=== PATIENT | male | born 1945 | race Caucasian/White ===

== ENCOUNTER 2017-10-05 10:03 | Inpatient (IN) ==
[2017-11-10] MEDS ORDERED: Insulin NovoLOG Aspart Correctional Sugar Inj SQ ONE (23:39)
[2017-11-11] MEDS ORDERED: Insulin NovoLOG Aspart Correctional Sugar Inj SQ SCH
[2017-11-11] MEDS ORDERED: hydrALAZINE HCl Inj 20 MG/ML Vial IV.PUSH PRN (00:01)
[2017-11-11] MEDS ORDERED: Magnesium Sulfate Inj 4 GM in Sodium Chlor 0.9% Inj 92 ML IV.SIG PRN (00:01)
[2017-11-11] MEDS ORDERED: Sodium Phosphate Inj 30 MMOL in Sodium Chlor 0.9% Inj 250 ML IV.SIG PRN (00:01)
[2017-11-11] MEDS ORDERED: Potassium Chlor 40 mEq Premix 40 MEQ/100 ML PIGGYBACK IV.SIG PRN (00:01)
[2017-11-11] MEDS ORDERED: Magnesium Sulfate Inj 2 GM in Sodium Chlor 0.9% Inj 96 ML IV.SIG PRN (00:01)
[2017-11-11] MEDS ORDERED: Potassium Phosphate Inj 30 MMOL in Sodium Chlor 0.9% Inj 250 ML IV.SIG PRN (00:01)
[2017-11-11] MEDS ORDERED: Naloxone Inj 0.4 MG/ML Vial IV.PUSH PRN (00:01)
[2017-11-11] MEDS ORDERED: Potassium Phosphate 500 MG Soluble Tablet PO PRN ×2 (00:01)
[2017-11-11] MEDS ORDERED: Metoprolol Inj 5 MG/5 ML Vial IV.PUSH PRN (00:01)
[2017-11-11] MEDS ORDERED: Bisacodyl 10 MG Supp RECTAL PRN (00:01)
[2017-11-11] MEDS ORDERED: Magnesium Oxide 400 MG Tablet PO PRN (00:01)
[2017-11-11] MEDS: KCL 20 mEq/D5W/NaCl 0.9% Inj 1,000 ML IV.CONT SCH (03:00)
[2017-11-11] MEDS: Chlorhexidine Gluconate 2% 1 Pack (2 Cloths) TOPICAL SCH (04:00)
[2017-11-11] MEDS ORDERED: Chlorhexidine Gluconate 2% 1 Pack (2 Cloths) TOPICAL SCH (04:00)
[2017-11-11] MEDS ORDERED: Chlorhexidine Gluconate 2% 1 Pack (2 Cloths) TOPICAL PRN ×2 (04:00)
[2017-11-11] MEDS ORDERED: Gabapentin 300 MG Capsule PO SCH (06:00)
[2017-11-11 06:04] LABS: Baso # (Auto) 0.1 th/mm3 (0.0-0.2); Baso % (Auto) 0.8 % (0.0-2.0); Eos # (Auto) 0.2 th/mm3 (0.0-0.4); Eos % (Auto) 2.7 % (0.0-4.0); Hematocrit 26.7 % (39.0-51.0); Hemoglobin 8.8 gm/dL (13.0-17.0); Lymph # (Auto) 0.8 th/mm3 (1.0-4.8); Lymph % (Auto) 8.7 % (9.0-44.0); Mean Corpuscular Volume 87.7 fL (80.0-100.0); Mean Platelet Volume 8.5 fL (7.0-11.0); Mono # (Auto) 0.7 th/mm3 (0.0-0.9); Mono % (Auto) 8.5 % (0.0-8.0); Neut # (Auto) 6.9 th/mm3 (1.8-7.7); Neut % (Auto) 79.3 % (16.0-70.0); Platelet Count 232 th/mm3 (150-450); Red Blood Count 3.04 mil/mm3 (4.50-5.90); Red Cell Distribution Width 15.6 % (11.6-17.2); White Blood Count 8.7 th/mm3 (4.0-11.0)
[2017-11-11] MEDS: Insulin NovoLOG Aspart Correctional Sugar Inj SQ SCH ×4 (06:33→23:46)
[2017-11-11] MEDS: Artificial Tears Opth Drops 15 ML Bottle EACH EYE SCH ×3 (07:30→23:16)
[2017-11-11] MEDS: Chlorhexidine Gluconate 0.12% Liq 15 ML UDC SWISH-SPIT SCH ×2 (07:55→21:46)
[2017-11-11] MEDS: HYDROmorphone PF Inj 2 MG/ML Vial IV.PUSH PRN ×2 (07:57→17:13)
[2017-11-11] MEDS: Metoprolol Tartrate 50 MG Tablet PO SCH ×2 (08:07→20:02)
[2017-11-11] MEDS: Enoxaparin Inj 40 MG/0.4 ML Syringe SQ SCH (08:08)
[2017-11-11] MEDS: Insulin Detemir Inj 1,000 UNIT/10 ML Vial SQ SCH ×2 (08:08→22:55)
[2017-11-11] MEDS: Allopurinol 300 MG Tablet PO SCH (08:08)
[2017-11-11] MEDS: clonazePAM 0.5 MG Tablet PO SCH ×2 (08:09→20:02)
[2017-11-11] MEDS: Sodium Hypochlorite 0.125% Top Soln 500 ML Bottle TOPICAL SCH ×2 (08:11→20:03)
[2017-11-11] MEDS: Oral Hygiene Kit OROPHARYNG SCH ×5 (08:11→23:49)
[2017-11-11] MEDS ORDERED: amLODIPine 10 MG Tablet PO SCH (09:00)
[2017-11-11] MEDS ORDERED: Lisinopril 10 MG Tablet PO SCH (09:00)
[2017-11-11] MEDS: Pantoprazole Inj 40 MG Vial IV.CONT SCH (14:21)
[2017-11-11] MEDS: ALPRAZolam 0.5 MG Tablet PO PRN (14:21)
--- NOTE | 2017-11-11 17:58 | P.PNCC ---
Subjective Subjective Remarks/Hospital Course: This is a 72 year old male with history of type 2 diabetes, hypertension, dyslipidemia, chronic kidney disease stage III, ankylosing spondylitis, esophageal stricture s/p dilatation, diverticulitis, peritonitis, history of small bowel obstruction, colon resection x2, who was admitted to the hospital with one-week history of abd distension, constipation, and cramps. Pt tried to mange this at home, as he is familiar with symptoms. Has history of multiple bowel obstructions and multiple surgeries in the past. CT of abdomen/ pelvis showed moderately dilated large and small bowel, concentric stricturing in the sigmoid colon. Gastroenterology and general surgery were consulted. Patient was taken today to the OR by Dr. Mcgee, patient underwent exploratory laparotomy, Lysis of adhesions for dense adhesions involving small and large bowel, sigmoid colon resection with end colostomy and Holcomb's pouch. There was stricture at previous surgical site in sigmoid colon. EBL 300 ml, urine output was adequate. During the ex lap patient's sustained ureteral injury which required ureteroureteral anastomosis over stent by Dr. Page. Postop patient was moved to the PACU where his chest x-ray showed small possible left lateral pneumothorax. ABG showed a pH of 7.29/41/99 BE -6.7. I evaluated the patient in the ICU. Patient is intubated sedated with Precedex. He is tachycardic and borderline hypotensive. Additional 500 mL of fluid bolus given , 1 amp of bicarb. Received total 2.1 L in the OR. Urine output is adequate, approximately 75 ml per hour post op. With left-sided tiny pneumothorax (most likely with from central line placement in OR), will attempt CPAP trials for possible extubation. 10/09: Breathing is moderately labored to observe but the patient states he is comfortable. His major complaint is chronic back pain. Urine output is marginal but he remains well-perfused. Colostomy stoma is pink. 10/10: Labored breathing overnight. Remains on quarter normal saline at 125 cc hours and Clinimix E 4.25/25 at 83 cc an hour. Chest x-ray appears with bilateral pulmonary infiltrates. CVP is 8. Greater than 50% variation IVC by ultrasound. Bedside echocardiogram no acute findings. Patient currently with some pleuritic chest pain worse with deep inspiration. EKG currently pending. 8 run beat of V. tach overnight. Potassium magnesium within normal limits. 10/11: Afebrile. FiO2 requirements increased overnight currently at 60%. Chest x-ray revealed pulmonary edema bilaterally. Troponin downward trending. Noted sodium elevated 154. Will remove sodium from TPN. Norepinephrine initiated overnight currently at 8 mcg/min. Nitro paste discontinued. Holding parameters for beta corby 10/12: remains afebrile. back on levophed this AM at 5 mcg/min. also remains tachycardic in the 100s. sodium remains elevated despite removal of nacl from TPN. 10/13: T-max 100.4. Desaturated overnight requiring PEEP increased to 10 currently at 8. FiO2 down to 45%. Appears uncomfortable on the ventilator. Abdomen slightly more distended. Positive output from ostomy.. Transfusing 1 unit PRBCs due to acute coronary syndrome to keep above a. Recheck along with electrolytes active bleeding in place. CT abdomen/pelvis ordered. 10/14: Copious secretions overnight. PEEP at 7 FiO2 50%. Abdominal/pelvis CT revealed bilateral lobar pneumonia pelvic read as gallstone ileus but not likely is patient with copious stool output from ostomy. Did discuss with Dr. Mcgee. Antibiotic coverage broadened. Pancultured yesterday looks like his underlying pneumonia. Will transfuse 1 unit PRBCs today per cardiology request to maintain hemoglobin around 9 for acute coronary syndrome. Diuresis postprocedure and replace electrolytes aggressively. TPN will be weaned/ discontinued today after tube feeds at 40 cc an hour 10/15: t max 100.7 overnight. cultures NGTD. fio2 improving. secretions are somewhat better. 10/16: no improvements. afebrile. failed SBT after 10 minutes for tachypnea and respiratory distress. 10/17: failed sbt again for significant secretions and respiratory distress. only lasting about 10 min. may require tracheostomy. 10/18: much more awake and interactive. still has significant secretions. on SBT for longer today, but with active coronary ischemia, very high risk if he fails extubation. plan for trach if he remains intubated through the weekend. 10/19: still failing SBT. dressings changed today. clinically improving, but very weak and slow progress. 10/20: again failing SBT for copious secretions. was OOB to chair today. likely will need trach. 10/21: failed SBT for tachypnea, RR > 40. discussed with Dr. Mcege: plan for trach tomorrow. discussed with cardiology service: they will likely medically manage his coronary artery disease without [facility] intervention. this is more of a reason to pursue trach, to prevent coronary ischemia that would come with trial of extubation first. 10/22: Plan for percutaneous tracheostomy at bedside 11 AM. Arousable on the ventilator and following commands. Currently afebrile. N.p.o. status. 10/23: Status post percutaneous tracheostomy 10/22 without complication. Continues to ooze from around tracheostomy site. Will hold enoxaparin for today. Tube feeds back at goal. Denies abdominal pain. Positive flatus from ostomy site. 10/24: Normal stool coming from well-perfused ostomy. Spontaneous breathing trials with tachypnea and mild labor. Chest x-ray with chronic interstitial changes and small lung volumes. 10/25: A little bit stronger on spontaneous breathing trials today. Pressure support settings 18/10. Tolerating tube feeds. 10/26: He is tolerating a mild reduction and mean airway pressure and end expiratory pressure. Continues to look acceptably comfortable during spontaneous breathing trials. 10/27: We needed to increase PEEP again last evening. 10/28: Spontaneous breathing trial at 8/8 this morning and doing quite well. Tube feedings on hold per surgery. Patient required low dose Xanax last night for anxiety. 10/29: intermittent SBTs. will trial t-piece today. no significant change. needs LTAC level care. 10/30: t-piece trials. ostomy working. advancing trickle tube feeds per surgery. 10/31: patient having gout flair and significantly painful. however, steroids contraindicated, and NSAIDS also contraindicated with concern over renal dysfunction in the setting of critical illness. still failing to separate from mechanical ventilation. really needs LTAC level care for pulmonary rehab. 11/01: NG tube placed to suction with 700 cc of gastric contents suctioned out overnight. Patient remains on mechanical ventilation with tracheostomy on CPAP with pressure support. Failed T piece yesterday. 11/02: Remains on mechanical ventilation via tracheostomy. 11/03: Remains on mechanical ventilation via tracheostomy. CPAP trials daily. T -piece as tolerated. 11/04: On mechanical ventilation via tracheostomy. Daily CPAP trials. 11/05, 11/06: Remains on mechanical ventilation via tracheostomy. Daily CPAP trials ongoing. 11/07: Worsening respiratory status. Placed back on PRVC mode mechanical ventilation last night. Significant sick pulmonary secretions noted. No BMs via colostomy. Chest x-ray done this morning shows worsening infiltrates more on the right suspicious for aspiration. KUB done this morning shows an ileus. Already placed on Zosyn on 11/07 which should cover for pneumonia. 11/08: Resting on mechanical ventilation via tracheostomy. Wound culture from incision site growing Pseudomonas 11/09: Remains on mechanical ventilation via tracheostomy. Wound culture and sputum both growing Pseudomonas. 11/10: Is on mechanical ventilation via tracheostomy. Daily CPAP trials. 11/11: Remains on mechanical ventilation via tracheostomy. Really CPAP trials ongoing. Objective Vital Signs / I&O: Vital Signs 11/11/17 02:00 11/11/17 04:00 11/11/17 04:43 Temperature 99 F Pulse Rate 66 76 Respiratory Rate 24 22 35 H Blood Pressure 127/64 Pulse Oximetry 11/11/17 06:00 11/11/17 08:00 11/11/17 08:50 Temperature 99 F 98.6 F Pulse Rate 72 81 Respiratory Rate 29 H 35 H 20 Blood Pressure 141/68 H 136/71 Pulse Oximetry 99 99 11/11/17 10:00 11/11/17 12:00 11/11/17 16:28 Temperature 98.6 F 98.6 F Pulse Rate 81 67 Respiratory Rate 25 H 27 H 29 H Blood Pressure 136/71 135/71 Pulse Oximetry 100 100 Intake & Output 11/10/17 11/11/17 11/11/17 18:59 06:59 18:59 Intake Total 1601 / 1601 Output Total 350 / 350 Balance 1251 / 1251 Weight 71 kg Intake: Tube Feeding 516 / 516 Other 1085 / 1085 Output: Urine 250 / 250 Stool Amount (Stoma) 100 / 100 Left Lower Abdomen 100 / 100 Other: Other Intake Source Saline Solution # Voids 2 Date of Last Bowel Movement 11/11/17 Result Diagrams: 11/11/17 05:24 11/09/17 03:45 Imaging: Imaging Last 48 hours Impressions Chest X-Ray 11/07/17 Satisfactory tracheostomy positioning. Slight interval worsening in aeration. worsening infiltrates Abdomen X-Ray 11/07/17 Impressions: CONCLUSION: Nonspecific, benign abdomen appearance. Last Impressions Chest X-Ray 10/22/17 Signed Impressions: CONCLUSION: 1. Tracheostomy tube in good position 4 cm above the lorie. 2. Diffuse infiltrates bilaterally consistent with pneumonia or pulmonary won a. Abdomen/Pelvis CT 10/13/17 Signed Impressions: CONCLUSION: 1. Wall of the descending colon is diffusely thickened raising the possibility of colitis. 2. Calcified stone in the expected region of a dilated loop of small bowel wit hin the pelvis raising the possibility of gallstone ileus. Clinical correlation is recommended. 3. Alveolar consolidations are noted within the visualized lung bases consiste nt with probable pneumonia bilaterally. 4. Cholelithiasis. 5. Multiple bilateral renal cysts. 6. 1 cm hyperdense renal cyst or solid nodule within the left lower pole. 7. Skeletal findings suggest possible ankylosing spondylitis. Lower Extremity Ultrasound 10/10/17 Signed Impressions: CONCLUSION: 1. The study is negative for bilateral lower extremity deep venous thrombosis. Abdomen X-Ray 10/07/17 Signed Impressions: CONCLUSION: NG tube in the stomach. Enema w/Water Soluble 10/06/17 Signed Impressions: CONCLUSION: Apple core lesion involving the sigmoid colon generating significant luminal na rrowing. This is consistent with a colonic carcinoma. Objective Remarks: Objective Remarks GENERAL: 72-year-old male currently on mechanical ventilation via percutaneous tracheostomy SKIN: Warm and dry. No rash HEAD: Atraumatic. Normocephalic. EYES: Pupils equal round and reactive about 2 mm bilaterally. ENT: Oral cavity is moist. NG tube in left nares, clamped. NECK: Trachea midline. Supple. Tracheostomy site clean and dry. CARDIOVASCULAR: RRR. No JVD. RESPIRATORY: Equal chest rise. Symmetrical excursion. scattered rhonchi. copious secretions noted. GASTROINTESTINAL: Abdomen slightly distended midline incision with adequate healing without erythema.. Colostomy in place. MUSCULOSKELETAL: Extremities with trace to 1+ edema. Well-perfused. NEUROLOGICAL: Patient is awake alert follows commands 4. Moving all 4 extremities spontaneously. Communicates with head nod. 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 unfortunately, no additional therapies acceptable at this time for gout. continue prn oxycodone. RESP: Acute hypoxic and hypercarbic respiratory failure- now chronic. Iatrogenic left pneumothorax- resolved. Ventilator bundle Albuterol/ipratropium aerosols every 6 hours while awake with albuterol aerosols every 2 hours as needed dyspnea Spontaneous breathing trials daily: t-piece trials. very weak. Status post percutaneous tracheostomy bedside - Dr. Mcgee keep head of the bed elevated 30 Chest x-ray 10/13 revealed stable bilateral infiltrates. No pneumothorax identified. -Pneumothorax most likely secondary to central line placement in the OR CV: Essential hypertension Hyperlipidemia Coronary artery disease Elevated troponin 17.8 Currently off all vasopressors Currently metoprolol tartrate 50 mg by mouth every 6 hours Resumed aspirin 81 mg daily and and holding clopidogrel 75 mg p.o. daily -Holding atorvastatin 20 mg at night for dyslipidemia Holding amlodipine 10 mg daily lisinopril 20 mg p.o. daily 2D echocardiogram 05/29 revealed EF 50-55%. Grade 1 diastolic dysfunction. Pulmonary arterial pressure 34 mmHg Repeat revealed EF of 40-45% Followed by cardiology/Dr. Ellison: Dr. Villa discussed with team 10/21, and they will likely elect to medically manage and not intervene procedurally. metoprolol twice daily dosing. GI: 10/08 Postop s/p ex-lap, TIA, Sigmoid colon resection with end colostomy and Holcomb's pouch Recurrent colonic obstruction, small bowel obstruction ? postop ileus vs SBO History of esophageal stricture status post dilatation History of small bowel obstruction Gastroesophageal reflux disease History of diverticulitis Hypoalbuminemia -Postop management per Dr. Mcgee tube feedings with Jevity 1.[address] -Pantoprazole 40 mg IV daily for GI prophylaxis. On omeprazole 20 mg daily at home - drainage from abd incision site sent for gm stain and C/s-growing Pseudomonas. Continue Zosyn 11/06 Renal/: 10/08 Postop s/p Ureteroureteral anastomosis for ureteral injury Chronic kidney disease stage III a -Monitor renal function closely. -Removal of double-J stent 6 weeks from operative procedure outpatient setting ID: Pneumonia SSI -Started Zosyn on 11/06. Wound culture from incision site(11/06) growing Pseudomonas, sputum Gram stain and culture(11/07) growing Pseudomonas -Discontinued levofloxacin 10/14. s/p full course vancomycin and cefepime, 10/14-10/20 Sputum, blood cultures 2 10/13 NGTD Urine Legionella and pneumococcal urinary antigens 10/13 negative HEME: Normocytic anemia Thrombocytosis -Monitor CBC, CMP, coags Holding iron sulfate 325 mg p.o. daily -1 unit PRBCs to be transfused on 11/09 for hemoglobin 7.1 ENDO: Diabetes mellitus type 2 Severe hyperglycemia of critical illness Hyperglycemia History of gout Holding metformin 1000 mg by mouth twice daily - insulin detemir 5 units q12h. -sliding scale insulin/NovoLog high regimen q4h MSK History of ankylosing spondylosis Holding denosumab 60 mg subcu every 18 days Holding cholecalciferol 4000 units p.o. daily PT evaluate and treat FEN: Hold tube feeds currently at goal 50 cc an hour ICU electrolyte protocol. PROPH: -Bilateral lower extremity SCDs. Lovenox 40 subcu daily. Convert to oral H2 receptor corby if okay with surgery. LINES: - piv
--- NOTE | 2017-11-11 18:44 | P.PNGS ---
Subjective Patient reports: no new complaints Physical Exam Vital signs: Vital Signs 11/11/17 02:00 11/11/17 04:00 11/11/17 04:43 Temperature 99 F Pulse Rate 66 76 Respiratory Rate 24 22 35 H Blood Pressure 127/64 Pulse Oximetry 11/11/17 06:00 11/11/17 08:00 11/11/17 08:50 Temperature 99 F 98.6 F Pulse Rate 72 81 Respiratory Rate 29 H 35 H 20 Blood Pressure 141/68 H 136/71 Pulse Oximetry 99 99 11/11/17 10:00 11/11/17 12:00 11/11/17 16:00 Temperature 98.6 F 98.6 F 99.5 F Pulse Rate 81 67 85 Respiratory Rate 25 H 27 H 37 H Blood Pressure 136/71 135/71 149/81 H Pulse Oximetry 100 100 11/11/17 16:28 Temperature Pulse Rate Respiratory Rate 29 H Blood Pressure Pulse Oximetry 100 Intake & Output 11/10/17 11/11/17 11/11/17 18:59 06:59 18:59 Intake Total 1601 / 1601 Output Total 350 / 350 Balance 1251 / 1251 Weight 71 kg Intake: Tube Feeding 516 / 516 Other 1085 / 1085 Output: Urine 250 / 250 Stool Amount (Stoma) 100 / 100 Left Lower Abdomen 100 / 100 Other: Other Intake Source Saline Solution # Voids 2 Date of Last Bowel Movement 11/11/17 - Constitutional no acute distress - Routine Abdominal Exam Present: soft Comments: ostomy and wound stable Assessment and Plan - Plan 72yo male s/p ExLap, stable. vent weaning ongoing, PT ongoing, continue TF.
[2017-11-12] MEDS: ALPRAZolam 0.5 MG Tablet PO PRN ×2 (00:37→10:31)
[2017-11-12] MEDS: Chlorhexidine Gluconate 2% 1 Pack (2 Cloths) TOPICAL SCH (04:37)
[2017-11-12] MEDS: KCL 20 mEq/D5W/NaCl 0.9% Inj 1,000 ML IV.CONT SCH (04:37)
[2017-11-12] MEDS: HYDROmorphone PF Inj 2 MG/ML Vial IV.PUSH PRN (04:38)
[2017-11-12] MEDS: Oral Hygiene Kit OROPHARYNG SCH ×4 (04:38→23:44)
[2017-11-12] MEDS: Insulin NovoLOG Aspart Correctional Sugar Inj SQ SCH ×4 (06:28→23:44)
[2017-11-12] MEDS: Artificial Tears Opth Drops 15 ML Bottle EACH EYE SCH ×3 (06:28→21:05)
[2017-11-12] MEDS: Chlorhexidine Gluconate 0.12% Liq 15 ML UDC SWISH-SPIT SCH ×2 (07:45→20:38)
[2017-11-12] MEDS: Metoprolol Tartrate 50 MG Tablet PO SCH ×2 (10:31→20:37)
[2017-11-12] MEDS: Allopurinol 300 MG Tablet PO SCH (10:32)
[2017-11-12] MEDS: clonazePAM 0.5 MG Tablet PO SCH ×2 (10:32→20:37)
[2017-11-12] MEDS: Insulin Detemir Inj 1,000 UNIT/10 ML Vial SQ SCH ×2 (10:32→20:38)
[2017-11-12] MEDS: Enoxaparin Inj 40 MG/0.4 ML Syringe SQ SCH (10:32)
[2017-11-12] MEDS: Sodium Hypochlorite 0.125% Top Soln 500 ML Bottle TOPICAL SCH ×2 (10:50→20:38)
--- NOTE | 2017-11-12 12:35 | P.PNCC ---
Subjective Subjective Remarks/Hospital Course: This is a 72 year old male with history of type 2 diabetes, hypertension, dyslipidemia, chronic kidney disease stage III, ankylosing spondylitis, esophageal stricture s/p dilatation, diverticulitis, peritonitis, history of small bowel obstruction, colon resection x2, who was admitted to the hospital with one-week history of abd distension, constipation, and cramps. Pt tried to mange this at home, as he is familiar with symptoms. Has history of multiple bowel obstructions and multiple surgeries in the past. CT of abdomen/ pelvis showed moderately dilated large and small bowel, concentric stricturing in the sigmoid colon. Gastroenterology and general surgery were consulted. Patient was taken today to the OR by Dr. Mcgee, patient underwent exploratory laparotomy, Lysis of adhesions for dense adhesions involving small and large bowel, sigmoid colon resection with end colostomy and Holcomb's pouch. There was stricture at previous surgical site in sigmoid colon. EBL 300 ml, urine output was adequate. During the ex lap patient's sustained ureteral injury which required ureteroureteral anastomosis over stent by Dr. Page. Postop patient was moved to the PACU where his chest x-ray showed small possible left lateral pneumothorax. ABG showed a pH of 7.29/41/99 BE -6.7. I evaluated the patient in the ICU. Patient is intubated sedated with Precedex. He is tachycardic and borderline hypotensive. Additional 500 mL of fluid bolus given , 1 amp of bicarb. Received total 2.1 L in the OR. Urine output is adequate, approximately 75 ml per hour post op. With left-sided tiny pneumothorax (most likely with from central line placement in OR), will attempt CPAP trials for possible extubation. 10/09: Breathing is moderately labored to observe but the patient states he is comfortable. His major complaint is chronic back pain. Urine output is marginal but he remains well-perfused. Colostomy stoma is pink. 10/10: Labored breathing overnight. Remains on quarter normal saline at 125 cc hours and Clinimix E 4.25/25 at 83 cc an hour. Chest x-ray appears with bilateral pulmonary infiltrates. CVP is 8. Greater than 50% variation IVC by ultrasound. Bedside echocardiogram no acute findings. Patient currently with some pleuritic chest pain worse with deep inspiration. EKG currently pending. 8 run beat of V. tach overnight. Potassium magnesium within normal limits. 10/11: Afebrile. FiO2 requirements increased overnight currently at 60%. Chest x-ray revealed pulmonary edema bilaterally. Troponin downward trending. Noted sodium elevated 154. Will remove sodium from TPN. Norepinephrine initiated overnight currently at 8 mcg/min. Nitro paste discontinued. Holding parameters for beta corby 10/12: remains afebrile. back on levophed this AM at 5 mcg/min. also remains tachycardic in the 100s. sodium remains elevated despite removal of nacl from TPN. 10/13: T-max 100.4. Desaturated overnight requiring PEEP increased to 10 currently at 8. FiO2 down to 45%. Appears uncomfortable on the ventilator. Abdomen slightly more distended. Positive output from ostomy.. Transfusing 1 unit PRBCs due to acute coronary syndrome to keep above a. Recheck along with electrolytes active bleeding in place. CT abdomen/pelvis ordered. 10/14: Copious secretions overnight. PEEP at 7 FiO2 50%. Abdominal/pelvis CT revealed bilateral lobar pneumonia pelvic read as gallstone ileus but not likely is patient with copious stool output from ostomy. Did discuss with Dr. Mcgee. Antibiotic coverage broadened. Pancultured yesterday looks like his underlying pneumonia. Will transfuse 1 unit PRBCs today per cardiology request to maintain hemoglobin around 9 for acute coronary syndrome. Diuresis postprocedure and replace electrolytes aggressively. TPN will be weaned/ discontinued today after tube feeds at 40 cc an hour 10/15: t max 100.7 overnight. cultures NGTD. fio2 improving. secretions are somewhat better. 10/16: no improvements. afebrile. failed SBT after 10 minutes for tachypnea and respiratory distress. 10/17: failed sbt again for significant secretions and respiratory distress. only lasting about 10 min. may require tracheostomy. 10/18: much more awake and interactive. still has significant secretions. on SBT for longer today, but with active coronary ischemia, very high risk if he fails extubation. plan for trach if he remains intubated through the weekend. 10/19: still failing SBT. dressings changed today. clinically improving, but very weak and slow progress. 10/20: again failing SBT for copious secretions. was OOB to chair today. likely will need trach. 10/21: failed SBT for tachypnea, RR > 40. discussed with Dr[address] Mcgee: plan for trach tomorrow. discussed with cardiology service: they will likely medically manage his coronary artery disease without [facility] intervention. this is more of a reason to pursue trach, to prevent coronary ischemia that would come with trial of extubation first. 10/22: Plan for percutaneous tracheostomy at bedside 11 AM. Arousable on the ventilator and following commands. Currently afebrile. N.p.o. status. 10/23: Status post percutaneous tracheostomy 10/22 without complication. Continues to ooze from around tracheostomy site. Will hold enoxaparin for today. Tube feeds back at goal. Denies abdominal pain. Positive flatus from ostomy site. 10/24: Normal stool coming from well-perfused ostomy. Spontaneous breathing trials with tachypnea and mild labor. Chest x-ray with chronic interstitial changes and small lung volumes. 10/25: A little bit stronger on spontaneous breathing trials today. Pressure support settings 18/10. Tolerating tube feeds. 10/26: He is tolerating a mild reduction and mean airway pressure and end expiratory pressure. Continues to look acceptably comfortable during spontaneous breathing trials. 10/27: We needed to increase PEEP again last evening. 10/28: Spontaneous breathing trial at 8/8 this morning and doing quite well. Tube feedings on hold per surgery. Patient required low dose Xanax last night for anxiety. 10/29: intermittent SBTs. will trial t-piece today. no significant change. needs LTAC level care. 10/30: t-piece trials. ostomy working. advancing trickle tube feeds per surgery. 10/31: patient having gout flair and significantly painful. however, steroids contraindicated, and NSAIDS also contraindicated with concern over renal dysfunction in the setting of critical illness. still failing to separate from mechanical ventilation. really needs LTAC level care for pulmonary rehab. 11/01: NG tube placed to suction with 700 cc of gastric contents suctioned out overnight. Patient remains on mechanical ventilation with tracheostomy on CPAP with pressure support. Failed T piece yesterday. 11/02: Remains on mechanical ventilation via tracheostomy. 11/03: Remains on mechanical ventilation via tracheostomy. CPAP trials daily. T -piece as tolerated. 11/04: On mechanical ventilation via tracheostomy. Daily CPAP trials. 11/05, 11/06: Remains on mechanical ventilation via tracheostomy. Daily CPAP trials ongoing. 11/07: Worsening respiratory status. Placed back on PRVC mode mechanical ventilation last night. Significant sick pulmonary secretions noted. No BMs via colostomy. Chest x-ray done this morning shows worsening infiltrates more on the right suspicious for aspiration. KUB done this morning shows an ileus. Already placed on Zosyn on 11/07 which should cover for pneumonia. 11/08: Resting on mechanical ventilation via tracheostomy. Wound culture from incision site growing Pseudomonas 11/09: Remains on mechanical ventilation via tracheostomy. Wound culture and sputum both growing Pseudomonas. 11/10: Is on mechanical ventilation via tracheostomy. Daily CPAP trials. 11/11: Remains on mechanical ventilation via tracheostomy. Really CPAP trials ongoing. 11/12 No events overnight. On ventilator via trach. On CPAP with PS 15, PEEP:5 and FIO2 40%. Afebrile. Objective Vital Signs / I&O: Vital Signs 11/11/17 16:00 11/11/17 16:28 11/11/17 20:00 Temperature 99.5 F 98.1 F Pulse Rate 85 74 Respiratory Rate 37 H 29 H 21 Blood Pressure 149/81 H 128/66 Pulse Oximetry 100 100 99 11/11/17 20:50 11/11/17 23:47 11/12/17 00:00 Temperature 98.8 F Pulse Rate 78 94 H Respiratory Rate 24 27 H 38 H Blood Pressure 191/98 H Pulse Oximetry 100 99 98 11/12/17 03:40 11/12/17 04:00 11/12/17 06:58 Temperature 99.3 F Pulse Rate 74 102 H Respiratory Rate 24 27 H 35 H Blood Pressure 137/64 Pulse Oximetry 98 11/12/17 08:00 11/12/17 08:19 Temperature 98.4 F Pulse Rate 98 H Respiratory Rate 35 H 37 H Blood Pressure 158/84 H Pulse Oximetry 96 97 Intake & Output 11/11/17 11/12/17 11/12/17 18:59 06:59 18:59 Intake Total 683 / 683 1543 / 1543 Output Total 970 / 970 1350 / 1350 Balance -287 / -287 193 / 193 Weight 66.9 kg Intake: IV 910 / 910 D5W/NS + KCL 20 mEq Inj 1,000 910 / 910 ML @ 42 mls/hr IV.CONT .[id number] ON LICENSE OF [facility] Rx#:[id number] Tube Feeding 563 / 563 513 / 513 Tube Irrigant 120 / 120 Water Bolus Amount 120 / 120 Output: Urine 750 / 750 1300 / 1300 Stool Amount (Stoma) 220 / 220 50 / 50 Left Lower Abdomen 220 / 220 50 / 50 Other: # Voids 5 11 Date of Last Bowel Movement 11/11/17 11/11/17 11/12/17 Result Diagrams: 11/11/17 05:24 11/09/17 03:45 Objective Remarks: Objective Remarks GENERAL: 72-year-old male currently on mechanical ventilation via percutaneous tracheostomy SKIN: Warm and dry. No rash HEAD: Atraumatic. Normocephalic. EYES: Pupils equal round and reactive about 2 mm bilaterally. ENT: Oral cavity is moist. NG tube in left nares, clamped. NECK: Trachea midline. Supple. Tracheostomy site clean and dry. CARDIOVASCULAR: RRR. No JVD. RESPIRATORY: Equal chest rise. Symmetrical excursion. scattered rhonchi. copious secretions noted. GASTROINTESTINAL: Abdomen slightly distended midline incision with adequate healing without erythema.. Colostomy in place. MUSCULOSKELETAL: Extremities with trace to 1+ edema. Well-perfused. NEUROLOGICAL: Patient is awake alert follows commands 4. Moving all 4 extremities spontaneously. Communicates with head nod. 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 RESP: Acute hypoxic and hypercarbic respiratory failure- now chronic. Iatrogenic left pneumothorax- resolved. Continue with vent support keep sats >92% Albuterol/ipratropium aerosols every 6 hours while awake with albuterol aerosols every 2 hours as needed dyspnea Spontaneous breathing trials daily Pulm toilet, trach care Status post percutaneous tracheostomy bedside - Dr. Mcgee keep head of the bed elevated 30 CV: Essential hypertension Hyperlipidemia Coronary artery disease Elevated troponin 17.8 Monitor HR and BP keep MAP>65mmHg Aspirin 81 mg daily, clopidogrel 75 mg p.o. daily, Metoprolol 75mg Q12 -Holding atorvastatin 20 mg at night for dyslipidemia Holding amlodipine 10 mg daily lisinopril 20 mg p.o. daily 2D echocardiogram 05/29 revealed EF 50-55%. Grade 1 diastolic dysfunction. Pulmonary arterial pressure 34 mmHg Repeat revealed EF of 40-45% Followed by cardiology/Dr. Ellison: Dr. Villa discussed with team 10/21, and they will likely elect to medically manage and not intervene procedurally. GI: 10/08 Postop s/p ex-lap, TIA, Sigmoid colon resection with end colostomy and Holcomb's pouch Recurrent colonic obstruction, small bowel obstruction ? postop ileus vs SBO History of esophageal stricture status post dilatation History of small bowel obstruction Gastroesophageal reflux disease History of diverticulitis Hypoalbuminemia -Postop management per Dr. Mcgee tube feedings with Jevity 1.5 @50ml/hr. colostomy in place -Pantoprazole 40 mg IV daily for GI prophylaxis. On omeprazole 20 mg daily at home - drainage from abd incision site sent for gm stain and C/s-growing Pseudomonas. Continue Zosyn 11/06 Renal/: 10/08 Postop s/p Ureteroureteral anastomosis for ureteral injury Chronic kidney disease stage III a -Monitor renal function, I/O's, electrolytes replacement per protocol -Removal of double-J stent 6 weeks from operative procedure outpatient setting -D/c IVF, follow up BMP today ID: Pneumonia SSI Monitor for signs of infections ( fever, WBC) -Started Zosyn on 11/06 last dose was on 11/10 will resume Zosyn Sputum cx 11/07: Pseudomonas, repeat sputum cx Wound cx 08/06: Pseudomonas Wound culture from incision site(11/06) growing Pseudomonas, sputum Gram stain and culture(11/07) growing Pseudomonas -Discontinued levofloxacin 10/14. s/p full course vancomycin and cefepime, 10/14-10/20 Sputum, blood cultures 2 10/13 NGTD Urine Legionella and pneumococcal urinary antigens 10/13 negative HEME: Normocytic anemia Thrombocytosis -Monitor CBC, CMP, coags -1 unit PRBCs to be transfused on 11/09 for hemoglobin 7.1 ENDO: Diabetes mellitus type 2 Severe hyperglycemia of critical illness Hyperglycemia History of gout Holding metformin 1000 mg by mouth twice daily - insulin detemir 5 units q12h. -sliding scale insulin/NovoLog high regimen q4h MSK History of ankylosing spondylosis Holding denosumab 60 mg subcu every 18 days Holding cholecalciferol 4000 units p.o. daily PT evaluate and treat PROPH: -Bilateral lower extremity SCDs. Lovenox 40 subcu daily. Check labs today LINES: - piv
[2017-11-12] MEDS: Piperacil/Tazo 4.5 GM Premix 4.5 GM/100 ML BAG IV.SIG SCH ×2 (13:18→20:37)
[2017-11-12 13:22] LABS: Hematocrit 23.7 % (39.0-51.0); Hemoglobin 7.6 gm/dL (13.0-17.0); Mean Corpuscular HGB Conc 32.2 % (32.0-36.0); Mean Corpuscular Hemoglobin 28.5 pg (27.0-34.0); Mean Corpuscular Volume 88.4 fL (80.0-100.0); Mean Platelet Volume 8.3 fL (7.0-11.0); Platelet Count 270 th/mm3 (150-450); Red Blood Count 2.68 mil/mm3 (4.50-5.90); Red Cell Distribution Width 15.7 % (11.6-17.2); White Blood Count 11.5 th/mm3 (4.0-11.0)
--- NOTE | 2017-11-12 13:27 | P.PN ---
Subjective Interval history: No issues overnight Physical Exam Vital signs: Vital Signs 11/11/17 16:00 11/11/17 16:28 11/11/17 20:00 Temperature 99.5 F 98.1 F Pulse Rate 85 74 Respiratory Rate 37 H 29 H 21 Blood Pressure 149/81 H 128/66 Pulse Oximetry 100 100 99 11/11/17 20:50 11/11/17 23:47 11/12/17 00:00 Temperature 98.8 F Pulse Rate 78 94 H Respiratory Rate 24 27 H 38 H Blood Pressure 191/98 H Pulse Oximetry 100 99 98 11/12/17 03:40 11/12/17 04:00 11/12/17 06:58 Temperature 99.3 F Pulse Rate 74 102 H Respiratory Rate 24 27 H 35 H Blood Pressure 137/64 Pulse Oximetry 98 11/12/17 08:00 11/12/17 08:19 11/12/17 12:55 Temperature 98.4 F Pulse Rate 98 H Respiratory Rate 35 H 37 H 26 H Blood Pressure 158/84 H Pulse Oximetry 96 97 100 Intake & Output 11/11/17 11/12/17 11/12/17 18:59 06:59 18:59 Intake Total 683 / 683 1543 / 1543 Output Total 970 / 970 1350 / 1350 Balance -287 / -287 193 / 193 Weight 66.9 kg Intake: IV 910 / 910 D5W/NS + KCL 20 mEq Inj 1,000 910 / 910 ML @ 42 mls/hr IV.CONT .[id number] [facility] Rx#:[id number] Tube Feeding 563 / 563 513 / 513 Tube Irrigant 120 / 120 Water Bolus Amount 120 / 120 Output: Urine 750 / 750 1300 / 1300 Stool Amount (Stoma) 220 / 220 50 / 50 Left Lower Abdomen 220 / 220 50 / 50 Other: # Voids 5 11 Date of Last Bowel Movement 11/11/17 11/11/17 11/12/17 - Constitutional no acute distress - Routine Respiratory Exam Present: CTA bilaterally Comments: Fair amount secretions still Results - Labs CBC & Chem 7: 11/12/17 12:57 11/09/17 03:45 Laboratory Results - last 24 hr 11/11/17 11/11/17 11/12/17 20:24 23:38 06:23 WBC RBC Hgb Hct MCV MCH MCHC RDW Plt Count MPV POC Glucose 222 H 199 H 218 H 11/12/17 12:57 WBC 11.5 H RBC 2.68 L Hgb 7.6 L Hct 23.7 L MCV 88.4 MCH 28.5 MCHC 32.2 RDW 15.7 Plt Count 270 MPV 8.3 POC Glucose Assessment and Plan - Attending Attestation Stable Tolerating TF To LTVU as soon as bed available.
[2017-11-12 13:42] LABS: Magnesium 1.9 mg/dL (1.5-2.5); Phosphorus 2.9 mg/dL (2.5-4.9)
[2017-11-12 13:46] LABS: Alanine Aminotransferase 35 U/L (12-78); Albumin 1.8 g/dL (3.4-5.0); Alkaline Phosphatase 64 U/L (45-117); Anion Gap 9 meq/L (5-15); Aspartate Aminotransferase 17 U/L (15-37); Blood Urea Nitrogen 12 mg/dL (7-18); Carbon Dioxide 25.8 meq/L (21.0-32.0); Chloride 103 meq/L (98-107); Glomerular Filtration Rate Greater Than 89 mL/min (>89); Glucose,Random 223 mg/dL (74-106); Potassium 4.4 meq/L (3.5-5.1); Sodium 138 meq/L (136-145); Total Protein 7.3 g/dL (6.4-8.2)
[2017-11-12] MEDS: Pantoprazole Inj 40 MG Vial IV.CONT SCH (16:30)
--- NOTE | 2017-11-12 19:36 | P.PNWCN ---
Wound Care Nurse Consult Description: Patient seen earlier for follow up stoma assessment,colostomy appliance change and stoma dilation. Communicated with: NICKY Phillips [facility] Bowel Diversion Stoma - Bowel Stoma Left Lower Abdomen Stoma Edema: No Stoma Appearance: Oval, Retracted Loop Supporting Venkat: No Collection Device: Two-piece, Moldable Wafer Drainage Description: Liquid, Brown Wafer Size: 1 3/4 Moldable 45mm Stoma Care: Pouch and Wafer Changed, Skin Care Bee-Stomal Skin Appearance: Intact, Erythema (Blanching) Bee-Stomal Surrounding Tissue Sensation Description: No Symptoms - Additional Information Additional Information: Patient was seen for stoma assessment,stoma dilation, Colostomy appliance change. Removed appliance in place. Stoma spresents with 100% pink tissue and retracted. Stoma measures ~1/2 inch wide and ~1inch tall. Peristomal skin was encrusted with stoma powder followed by skin barrier film spray. Process was repeated one time. Jose seal was applied to peristomal skin from 3 to 9 o' clock to better seal appliance. Stoma was dilated with a finger. 1 3/4 two piece moldable appliance was applied. Patient tolerated procedure well.
[2017-11-13] MEDS: Piperacil/Tazo 4.5 GM Premix 4.5 GM/100 ML BAG IV.SIG SCH ×4 (01:52→19:50)
[2017-11-13] MEDS: Chlorhexidine Gluconate 2% 1 Pack (2 Cloths) TOPICAL SCH (06:43)
[2017-11-13] MEDS: Oral Hygiene Kit OROPHARYNG SCH ×3 (06:43→17:00)
[2017-11-13] MEDS: Insulin NovoLOG Aspart Correctional Sugar Inj SQ SCH ×3 (06:46→18:00)
[2017-11-13] MEDS: Artificial Tears Opth Drops 15 ML Bottle EACH EYE SCH ×2 (06:47→13:12)
[2017-11-13] MEDS: Chlorhexidine Gluconate 0.12% Liq 15 ML UDC SWISH-SPIT SCH ×2 (07:30→19:50)
[2017-11-13] MEDS: clonazePAM 0.5 MG Tablet PO SCH ×2 (10:28→20:52)
[2017-11-13] MEDS: Allopurinol 300 MG Tablet PO SCH (10:28)
[2017-11-13] MEDS: Enoxaparin Inj 40 MG/0.4 ML Syringe SQ SCH (10:29)
[2017-11-13] MEDS: Sodium Hypochlorite 0.125% Top Soln 500 ML Bottle TOPICAL SCH ×2 (10:30→20:52)
[2017-11-13] MEDS: Insulin Detemir Inj 1,000 UNIT/10 ML Vial SQ SCH ×2 (10:30→20:52)
[2017-11-13] MEDS: Metoprolol Tartrate 50 MG Tablet PO SCH ×2 (10:36→19:50)
--- NOTE | 2017-11-13 11:36 | P.PN ---
Subjective Interval history: Patient had uneventful night. Still with some secretions, although they are decreasing. at bedside. Physical Exam Vital signs: Vital Signs 11/12/17 12:00 11/12/17 12:55 11/12/17 16:00 Temperature 98 F 98.9 F Pulse Rate 66 80 Respiratory Rate 26 H 26 H 32 H Blood Pressure 125/60 143/67 H Pulse Oximetry 100 100 98 11/12/17 16:08 11/12/17 20:00 11/12/17 20:36 Temperature 98.7 F Pulse Rate 68 Respiratory Rate 33 H 26 H 29 H Blood Pressure 130/69 Pulse Oximetry 98 98 98 11/12/17 23:50 11/13/17 00:00 11/13/17 03:56 Temperature 98.9 F Pulse Rate 76 Respiratory Rate 30 H 33 H 25 H Blood Pressure 126/60 Pulse Oximetry 98 97 95 11/13/17 04:00 11/13/17 07:50 11/13/17 11:20 Temperature 98.3 F Pulse Rate 66 Respiratory Rate 26 H 28 H 25 H Blood Pressure 104/56 L Pulse Oximetry 95 100 100 Intake & Output 11/12/17 11/13/17 11/13/17 18:59 06:59 18:59 Intake Total 760 / 760 853 / 853 100 / 100 Output Total 1575 / 1575 900 / 900 Balance -815 / -815 -47 / -47 100 / 100 Weight 63.6 kg Intake: IV 100 / 100 100 / 100 100 / 100 Zosyn 4.5 GM Premix 4.5 gm In 100 / 100 100 / 100 100 / 100 100 ml @ 200 mls/hr IV.SIG Q6H [facility] Rx#:[id number] Tube Feeding 600 / 600 493 / 493 Tube Irrigant 200 / 200 Other 60 / 60 60 / 60 Output: Urine 1325 / 1325 800 / 800 Stool Amount (Stoma) 250 / 250 100 / 100 Left Lower Abdomen 250 / 250 100 / 100 Other: Other Intake Source Saline Solution # Voids 5 Date of Last Bowel Movement 11/12/17 11/12/17 - Constitutional no acute distress - Routine Respiratory Exam Present: patient mechanically ventilated, CTA bilaterally Results - Labs CBC & Chem 7: 11/12/17 12:57 11/12/17 12:57 Laboratory Results - last 24 hr 11/12/17 11/12/1718 12:57 12:57 12:57 WBC 11.5 H RBC 2.68 L Hgb 7.6 L Hct 23.7 L MCV 88.4 MCH 28.5 MCHC 32.2 RDW 15.7 Plt Count 270 MPV 8.3 Sodium 138 Potassium 4.4 Chloride 103 Carbon Dioxide 25.8 Anion Gap 9 BUN 12 Creatinine 0.80 Estimated GFR Greater than 89 POC Glucose Random Glucose 223 H Calcium 8.0 L Phosphorus 2.9 Magnesium 1.9 Total Bilirubin 0.3 AST 17 ALT 35 Alkaline Phosphatase 64 Total Protein 7.3 Albumin 1.8 L 11/12/17 11/12/17 11/12/17 13:29 17:14 23:40 WBC RBC Hgb Hct MCV MCH MCHC RDW Plt Count MPV Sodium Potassium Chloride Carbon Dioxide Anion Gap BUN Creatinine Estimated GFR POC Glucose 255 H 155 H 249 H Random Glucose Calcium Phosphorus Magnesium Total Bilirubin AST ALT Alkaline Phosphatase Total Protein Albumin 11/13/17 05:58 WBC RBC Hgb Hct MCV MCH MCHC RDW Plt Count MPV Sodium Potassium Chloride Carbon Dioxide Anion Gap BUN Creatinine Estimated GFR POC Glucose 241 H Random Glucose Calcium Phosphorus Magnesium Total Bilirubin AST ALT Alkaline Phosphatase Total Protein Albumin Assessment and Plan - Assessment (1) Large bowel obstruction Code(s): K56.609 - Unspecified intestinal obstruction, unspecified as to partial versus complete obstruction Status: Acute (2) Respiratory failure requiring intubation Code(s): J96.90 - Respiratory failure, unspecified, unspecified whether with hypoxia or hypercapnia Status: Acute - Plan Plan transfer to LTVU when bed available Discussed Condition With: Nurse
[2017-11-13] MEDS ORDERED: Phenol 1.4% 180 ML Spray Bottle OROPHARYNG PRN (12:14)
--- NOTE | 2017-11-13 15:30 | P.PNCC ---
Subjective Subjective Remarks/Hospital Course: This is a 72 year old male with history of type 2 diabetes, hypertension, dyslipidemia, chronic kidney disease stage III, ankylosing spondylitis, esophageal stricture s/p dilatation, diverticulitis, peritonitis, history of small bowel obstruction, colon resection x2, who was admitted to the hospital with one-week history of abd distension, constipation, and cramps. Pt tried to mange this at home, as he is familiar with symptoms. Has history of multiple bowel obstructions and multiple surgeries in the past. CT of abdomen/ pelvis showed moderately dilated large and small bowel, concentric stricturing in the sigmoid colon. Gastroenterology and general surgery were consulted. Patient was taken today to the OR by Dr. Mcgee, patient underwent exploratory laparotomy, Lysis of adhesions for dense adhesions involving small and large bowel, sigmoid colon resection with end colostomy and Holcomb's pouch. There was stricture at previous surgical site in sigmoid colon. EBL 300 ml, urine output was adequate. During the ex lap patient's sustained ureteral injury which required ureteroureteral anastomosis over stent by Dr. Page. Postop patient was moved to the PACU where his chest x-ray showed small possible left lateral pneumothorax. ABG showed a pH of 7.29/41/99 BE -6.7. I evaluated the patient in the ICU. Patient is intubated sedated with Precedex. He is tachycardic and borderline hypotensive. Additional 500 mL of fluid bolus given , 1 amp of bicarb. Received total 2.1 L in the OR. Urine output is adequate, approximately 75 ml per hour post op. With left-sided tiny pneumothorax (most likely with from central line placement in OR), will attempt CPAP trials for possible extubation. 10/09: Breathing is moderately labored to observe but the patient states he is comfortable. His major complaint is chronic back pain. Urine output is marginal but he remains well-perfused. Colostomy stoma is pink. 10/10: Labored breathing overnight. Remains on quarter normal saline at 125 cc hours and Clinimix E 4.25/25 at 83 cc an hour. Chest x-ray appears with bilateral pulmonary infiltrates. CVP is 8. Greater than 50% variation IVC by ultrasound. Bedside echocardiogram no acute findings. Patient currently with some pleuritic chest pain worse with deep inspiration. EKG currently pending. 8 run beat of V. tach overnight. Potassium magnesium within normal limits. 10/11: Afebrile. FiO2 requirements increased overnight currently at 60%. Chest x-ray revealed pulmonary edema bilaterally. Troponin downward trending. Noted sodium elevated 154. Will remove sodium from TPN. Norepinephrine initiated overnight currently at 8 mcg/min. Nitro paste discontinued. Holding parameters for beta corby 10/12: remains afebrile. back on levophed this AM at 5 mcg/min. also remains tachycardic in the 100s. sodium remains elevated despite removal of nacl from TPN. 10/13: T-max 100.4. Desaturated overnight requiring PEEP increased to 10 currently at 8. FiO2 down to 45%. Appears uncomfortable on the ventilator. Abdomen slightly more distended. Positive output from ostomy.. Transfusing 1 unit PRBCs due to acute coronary syndrome to keep above a. Recheck along with electrolytes active bleeding in place. CT abdomen/pelvis ordered. 10/14: Copious secretions overnight. PEEP at 7 FiO2 50%. Abdominal/pelvis CT revealed bilateral lobar pneumonia pelvic read as gallstone ileus but not likely is patient with copious stool output from ostomy. Did discuss with Dr. Mcgee. Antibiotic coverage broadened. Pancultured yesterday looks like his underlying pneumonia. Will transfuse 1 unit PRBCs today per cardiology request to maintain hemoglobin around 9 for acute coronary syndrome. Diuresis postprocedure and replace electrolytes aggressively. TPN will be weaned/ discontinued today after tube feeds at 40 cc an hour 10/15: t max 100.7 overnight. cultures NGTD. fio2 improving. secretions are somewhat better. 10/16: no improvements. afebrile. failed SBT after 10 minutes for tachypnea and respiratory distress. 10/17: failed sbt again for significant secretions and respiratory distress. only lasting about 10 min. may require tracheostomy. 10/18: much more awake and interactive. still has significant secretions. on SBT for longer today, but with active coronary ischemia, very high risk if he fails extubation. plan for trach if he remains intubated through the weekend. 10/19: still failing SBT. dressings changed today. clinically improving, but very weak and slow progress. 10/20: again failing SBT for copious secretions. was OOB to chair today. likely will need trach. 10/21: failed SBT for tachypnea, RR > 40. discussed with Dr[address] Mcgee: plan for trach tomorrow. discussed with cardiology service: they will likely medically manage his coronary artery disease without [facility] intervention. this is more of a reason to pursue trach, to prevent coronary ischemia that would come with trial of extubation first. 10/22: Plan for percutaneous tracheostomy at bedside 11 AM. Arousable on the ventilator and following commands. Currently afebrile. N.p.o. status. 10/23: Status post percutaneous tracheostomy 10/22 without complication. Continues to ooze from around tracheostomy site. Will hold enoxaparin for today. Tube feeds back at goal. Denies abdominal pain. Positive flatus from ostomy site. 10/24: Normal stool coming from well-perfused ostomy. Spontaneous breathing trials with tachypnea and mild labor. Chest x-ray with chronic interstitial changes and small lung volumes. 10/25: A little bit stronger on spontaneous breathing trials today. Pressure support settings 18/10. Tolerating tube feeds. 10/26: He is tolerating a mild reduction and mean airway pressure and end expiratory pressure. Continues to look acceptably comfortable during spontaneous breathing trials. 10/27: We needed to increase PEEP again last evening. 10/28: Spontaneous breathing trial at 8/8 this morning and doing quite well. Tube feedings on hold per surgery. Patient required low dose Xanax last night for anxiety. 10/29: intermittent SBTs. will trial t-piece today. no significant change. needs LTAC level care. 10/30: t-piece trials. ostomy working. advancing trickle tube feeds per surgery. 10/31: patient having gout flair and significantly painful. however, steroids contraindicated, and NSAIDS also contraindicated with concern over renal dysfunction in the setting of critical illness. still failing to separate from mechanical ventilation. really needs LTAC level care for pulmonary rehab. 11/01: NG tube placed to suction with 700 cc of gastric contents suctioned out overnight. Patient remains on mechanical ventilation with tracheostomy on CPAP with pressure support. Failed T piece yesterday. 11/02: Remains on mechanical ventilation via tracheostomy. 11/03: Remains on mechanical ventilation via tracheostomy. CPAP trials daily. T -piece as tolerated. 11/04: On mechanical ventilation via tracheostomy. Daily CPAP trials. 11/05, 11/06: Remains on mechanical ventilation via tracheostomy. Daily CPAP trials ongoing. 11/07: Worsening respiratory status. Placed back on PRVC mode mechanical ventilation last night. Significant sick pulmonary secretions noted. No BMs via colostomy. Chest x-ray done this morning shows worsening infiltrates more on the right suspicious for aspiration. KUB done this morning shows an ileus. Already placed on Zosyn on 11/07 which should cover for pneumonia. 11/08: Resting on mechanical ventilation via tracheostomy. Wound culture from incision site growing Pseudomonas 11/09: Remains on mechanical ventilation via tracheostomy. Wound culture and sputum both growing Pseudomonas. 11/10: Is on mechanical ventilation via tracheostomy. Daily CPAP trials. 11/11: Remains on mechanical ventilation via tracheostomy. Really CPAP trials ongoing. 11/12 No events overnight. On ventilator via trach. On CPAP with PS 15, PEEP:5 and FIO2 40%. Afebrile. Subjective: 11/13 Patient denies complaint. Wants NGT out but understand rationale for continuing. On CPAP 15. Tolerating tube feeds. Afebrile. Objective Vital Signs / I&O: Vital Signs 11/12/17 16:00 11/12/17 16:08 11/12/17 20:00 Temperature 98.9 F 98.7 F Pulse Rate 80 68 Respiratory Rate 32 H 33 H 26 H Blood Pressure 143/67 H 130/69 Pulse Oximetry 98 98 98 11/12/17 20:36 11/12/17 23:50 11/13/17 00:00 Temperature 98.9 F Pulse Rate 76 Respiratory Rate 29 H 30 H 33 H Blood Pressure 126/60 Pulse Oximetry 98 98 97 11/13/17 03:56 11/13/17 04:00 11/13/17 07:50 Temperature 98.3 F Pulse Rate 66 Respiratory Rate 25 H 26 H 28 H Blood Pressure 104/56 L Pulse Oximetry 95 95 100 11/13/17 11:20 Temperature Pulse Rate Respiratory Rate 25 H Blood Pressure Pulse Oximetry 100 Intake & Output 11/12/17 11/13/17 11/13/17 18:59 06:59 18:59 Intake Total 1096 / 1096 853 / 853 300 / 300 Output Total 1575 / 1575 900 / 900 Balance -479 / -479 -47 / -47 300 / 300 Weight 63.6 kg Intake: IV 436 / 436 100 / 100 300 / 300 Zosyn 4.5 GM Premix 4.5 gm In 100 / 100 100 / 100 300 / 300 100 ml @ 200 mls/hr IV.SIG Q6H [facility] Rx#:[id number] Tube Feeding 600 / 600 493 / 493 Tube Irrigant 200 / 200 Other 60 / 60 60 / 60 Output: Urine 1325 / 1325 800 / 800 Stool Amount (Stoma) 250 / 250 100 / 100 Left Lower Abdomen 250 / 250 100 / 100 Other: Other Intake Source Saline Solution # Voids 5 Date of Last Bowel Movement 11/12/17 11/12/17 Result Diagrams: 11/12/17 12:57 11/12/17 12:57 Objective Remarks: Objective Remarks GENERAL: 72-year-old male currently on mechanical ventilation via percutaneous tracheostomy SKIN: Warm and dry. No rash HEAD: Atraumatic. Normocephalic. EYES: Pupils equal round and reactive about 2 mm bilaterally. ENT: Oral cavity is moist. NG tube in left nare with tube feeds running. NECK: Trachea midline. Supple. Tracheostomy site clean and dry. CARDIOVASCULAR: RRR. No JVD. RESPIRATORY: Equal chest rise. Symmetrical excursion. scattered rhonchi. GASTROINTESTINAL: Abdomen slightly distended, slightly tympanitic, midline incision with dressing c/d/i. Colostomy in place with gas in the bag and some dark liquid stool . MUSCULOSKELETAL: No edema lower extremities.. Well-perfused. NEUROLOGICAL: Patient is awake alert follows commands 4. Moving all 4 extremities spontaneously. Communicates with head nod. 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 Out of bed to chair with assist at least daily. RESP: Acute hypoxic and hypercarbic respiratory failure- now chronic. Iatrogenic left pneumothorax- resolved. Continue with vent support keep sats >92% Albuterol/ipratropium aerosols every 6 hours while awake with albuterol aerosols every 2 hours as needed dyspnea Pulm toilet, trach care Status post percutaneous tracheostomy bedside - Dr. Mcgee keep head of the bed elevated 30 CPAP trials daily, wean as tolerated. CV: Essential hypertension Hyperlipidemia Coronary artery disease Post operative STEMI Monitor HR and BP keep MAP>65mmHg Aspirin 81 mg daily, clopidogrel 75 mg p.o. daily, Metoprolol 75mg Q12 -Holding atorvastatin 20 mg at night for dyslipidemia Holding amlodipine 10 mg daily lisinopril 20 mg p.o. daily 2D echocardiogram 05/29 revealed EF 50-55%. Grade 1 diastolic dysfunction. Pulmonary arterial pressure 34 mmHg Repeat revealed EF of 40-45% Followed by cardiology/Dr. Ellison: Dr. Villa discussed with team 10/21, and they recommended medical management. Continued conservative management recommended 11/02. GI: 10/08 Postop s/p ex-lap, TIA, Sigmoid colon resection with end colostomy and Holcomb's pouch Recurrent colonic obstruction, small bowel obstruction ? postop ileus vs SBO History of esophageal stricture status post dilatation History of small bowel obstruction Gastroesophageal reflux disease History of diverticulitis Hypoalbuminemia -Postop management per Dr. Mcgee tube feedings with Jevity 1.5 @50ml/hr. colostomy in place -Pantoprazole 40 mg IV daily for GI prophylaxis. On omeprazole 20 mg daily at home - drainage from abd incision site sent for gm stain and C/s-growing Pseudomonas. On Zosyn 11/06 #8 and Dakin's solution to packing per General Surgery. Renal/: 10/08 Postop s/p Ureteroureteral anastomosis for ureteral injury Chronic kidney disease stage III a -Monitor renal function, I/O's, electrolytes replacement per protocol -Removal of double-J stent 6 weeks from operative procedure outpatient setting -Off IVF ID: Pneumonia SSI Monitor for signs of infections ( fever, WBC) -Started Zosyn on 11/06, Continue Zosyn and Dakin's solution per general surgery. Sputum cx 11/07: Pseudomonas, repeat sputum cx Wound cx 08/06: Pseudomonas Wound culture from incision site(11/06) growing Pseudomonas, sputum Gram stain and culture(11/07) growing pansenstive Pseudomonas -Discontinued levofloxacin 10/14. s/p course vancomycin and cefepime, 10/14-10/20 Sputum, blood cultures 2 10/13 NGTD Urine Legionella and pneumococcal urinary antigens 10/13 negative HEME: Normocytic anemia Thrombocytosis -Monitor CBC, CMP, coags -1 unit PRBCs to be transfused on 11/09 for hemoglobin 7.1 ENDO: Diabetes mellitus type 2 Severe hyperglycemia of critical illness Hyperglycemia History of gout Holding metformin 1000 mg by mouth twice daily -Glucose not at target, has received 50 units of regular per protocol. Tolerating tube feeds so will increase detemir 10 units q12h. -sliding scale insulin/NovoLog high regimen q6h MSK History of ankylosing spondylosis Holding denosumab 60 mg subcu every 18 days Holding cholecalciferol 4000 units p.o. daily PT evaluate and treat PROPH: -Bilateral lower extremity SCDs. Lovenox 40 subcu daily. On protonix 40 mg IV for stress ulcer prophylaxis. LINES: - piv Level 2 followup
[2017-11-13] MEDS: Pantoprazole Inj 40 MG Vial IV.CONT SCH (17:00)
[2017-11-13] MEDS: Zolpidem Tartrate 5 MG Tablet PO PRN (20:52)
[2017-11-14] MEDS: Artificial Tears Opth Drops 15 ML Bottle EACH EYE SCH ×4 (00:15→21:11)
[2017-11-14] MEDS: Insulin NovoLOG Aspart Correctional Sugar Inj SQ SCH ×5 (00:15→23:56)
[2017-11-14] MEDS: Oral Hygiene Kit OROPHARYNG SCH ×4 (00:18→16:31)
[2017-11-14] MEDS: Piperacil/Tazo 4.5 GM Premix 4.5 GM/100 ML BAG IV.SIG SCH ×4 (01:36→21:09)
[2017-11-14] MEDS: Chlorhexidine Gluconate 2% 1 Pack (2 Cloths) TOPICAL SCH (05:04)
[2017-11-14 05:06] LABS: Hematocrit 23.3 % (39.0-51.0); Hemoglobin 7.7 gm/dL (13.0-17.0); Mean Corpuscular HGB Conc 32.9 % (32.0-36.0); Mean Corpuscular Hemoglobin 28.7 pg (27.0-34.0); Mean Corpuscular Volume 87.3 fL (80.0-100.0); Mean Platelet Volume 8.5 fL (7.0-11.0); Platelet Count 280 th/mm3 (150-450); Red Blood Count 2.67 mil/mm3 (4.50-5.90); Red Cell Distribution Width 15.5 % (11.6-17.2)
[2017-11-14 05:24] LABS: Calcium 8.6 mg/dL (8.5-10.1); Carbon Dioxide 25.7 meq/L (21.0-32.0); Potassium 3.8 meq/L (3.5-5.1)
[2017-11-14] MEDS: Metoprolol Tartrate 50 MG Tablet PO SCH ×3 (09:17→23:56)
[2017-11-14] MEDS: Chlorhexidine Gluconate 0.12% Liq 15 ML UDC SWISH-SPIT SCH ×2 (09:17→21:11)
[2017-11-14] MEDS: clonazePAM 0.5 MG Tablet PO SCH ×2 (09:18→21:10)
[2017-11-14] MEDS: Sodium Hypochlorite 0.125% Top Soln 500 ML Bottle TOPICAL SCH ×2 (09:18→21:10)
[2017-11-14] MEDS: Enoxaparin Inj 40 MG/0.4 ML Syringe SQ SCH (09:19)
[2017-11-14] MEDS: Insulin Detemir Inj 1,000 UNIT/10 ML Vial SQ SCH ×2 (09:19→21:10)
[2017-11-14] MEDS: Allopurinol 300 MG Tablet PO SCH (09:19)
--- NOTE | 2017-11-14 12:36 | P.PNGS ---
Subjective Patient reports: no new complaints (Patient indicates the swallowing study will be done tomorrow. We communicated through the writing on pen and paper on what expectations were for a swallowing study. He presently continues to get nasogastric tube feedings. He indicates he has no abdominal pain.) Physical Exam Vital signs: Vital Signs 11/13/17 16:00 11/13/17 16:09 11/13/17 20:00 Temperature 98.6 F 98.6 F Pulse Rate 74 76 Respiratory Rate 32 H 31 H 24 Blood Pressure 140/67 127/67 Pulse Oximetry 99 100 100 11/13/17 20:08 11/14/17 00:00 11/14/17 03:47 Temperature 98.4 F Pulse Rate 64 Respiratory Rate 24 25 H 30 H Blood Pressure 123/62 Pulse Oximetry 100 99 98 11/14/17 04:00 11/14/17 10:23 Temperature 98.6 F Pulse Rate 68 Respiratory Rate 25 H 35 H Blood Pressure 131/71 Pulse Oximetry 98 97 Intake & Output 11/13/17 11/14/17 11/14/17 18:59 06:59 18:59 Intake Total 908 / 908 831 / 831 100 / 100 Output Total 825 / 825 250 / 250 Balance 83 / 83 581 / 581 100 / 100 Weight 67.4 kg Intake: IV 300 / 300 100 / 100 100 / 100 Zosyn 4.5 GM Premix 4.5 gm In 300 / 300 100 / 100 100 / 100 100 ml @ 200 mls/hr IV.SIG Q6H [facility] Rx#:[id number] Tube Feeding 548 / 548 551 / 551 Tube Irrigant 120 / 120 Other 60 / 60 60 / 60 Output: Urine 675 / 675 Stool 150 / 150 150 / 150 Stool Amount (Stoma) 100 / 100 Left Lower Abdomen 100 / 100 Other: Other Intake Source Saline Solution # Voids 4 Date of Last Bowel Movement 11/13/17 11/13/17 Narrative: Tracheostomy tube in place. No significant drainage around trach tube. He is breathing is nonlabored. His colostomy appears retracted. There is good's liquid stool within the bag and coming through the stoma. His midline incision has several openings where saline wet-to-dry dressing is in place and the wounds appear to be granulating in well. There was no sign of purulent drainage. Assessment and Plan - Assessment (1) Large bowel obstruction Code(s): K56.609 - Unspecified intestinal obstruction, unspecified as to partial versus complete obstruction Status: Acute Plan: Patient anticipates swallowing study tomorrow. If he passes he could have his NG tube removed and his diet advanced. I discussed with him in detail the potential sequence of events associated with a swallowing. He thanked me. (2) Respiratory failure requiring intubation Code(s): J96.90 - Respiratory failure, unspecified, unspecified whether with hypoxia or hypercapnia Status: Acute
--- NOTE | 2017-11-14 13:17 | P.PNCC ---
Subjective Subjective Remarks/Hospital Course: This is a 72 year old male with history of type 2 diabetes, hypertension, dyslipidemia, chronic kidney disease stage III, ankylosing spondylitis, esophageal stricture s/p dilatation, diverticulitis, peritonitis, history of small bowel obstruction, colon resection x2, who was admitted to the hospital with one-week history of abd distension, constipation, and cramps. Pt tried to mange this at home, as he is familiar with symptoms. Has history of multiple bowel obstructions and multiple surgeries in the past. CT of abdomen/ pelvis showed moderately dilated large and small bowel, concentric stricturing in the sigmoid colon. Gastroenterology and general surgery were consulted. Patient was taken today to the OR by Dr. Mcgee, patient underwent exploratory laparotomy, Lysis of adhesions for dense adhesions involving small and large bowel, sigmoid colon resection with end colostomy and Holcomb's pouch. There was stricture at previous surgical site in sigmoid colon. EBL 300 ml, urine output was adequate. During the ex lap patient's sustained ureteral injury which required ureteroureteral anastomosis over stent by Dr. Page. Postop patient was moved to the PACU where his chest x-ray showed small possible left lateral pneumothorax. ABG showed a pH of 7.29/41/99 BE -6.7. I evaluated the patient in the ICU. Patient is intubated sedated with Precedex. He is tachycardic and borderline hypotensive. Additional 500 mL of fluid bolus given , 1 amp of bicarb. Received total 2.1 L in the OR. Urine output is adequate, approximately 75 ml per hour post op. With left-sided tiny pneumothorax (most likely with from central line placement in OR), will attempt CPAP trials for possible extubation. 10/09: Breathing is moderately labored to observe but the patient states he is comfortable. His major complaint is chronic back pain. Urine output is marginal but he remains well-perfused. Colostomy stoma is pink. 10/10: Labored breathing overnight. Remains on quarter normal saline at 125 cc hours and Clinimix E 4.25/25 at 83 cc an hour. Chest x-ray appears with bilateral pulmonary infiltrates. CVP is 8. Greater than 50% variation IVC by ultrasound. Bedside echocardiogram no acute findings. Patient currently with some pleuritic chest pain worse with deep inspiration. EKG currently pending. 8 run beat of V. tach overnight. Potassium magnesium within normal limits. 10/11: Afebrile. FiO2 requirements increased overnight currently at 60%. Chest x-ray revealed pulmonary edema bilaterally. Troponin downward trending. Noted sodium elevated 154. Will remove sodium from TPN. Norepinephrine initiated overnight currently at 8 mcg/min. Nitro paste discontinued. Holding parameters for beta corby 10/12: remains afebrile. back on levophed this AM at 5 mcg/min. also remains tachycardic in the 100s. sodium remains elevated despite removal of nacl from TPN. 10/13: T-max 100.4. Desaturated overnight requiring PEEP increased to 10 currently at 8. FiO2 down to 45%. Appears uncomfortable on the ventilator. Abdomen slightly more distended. Positive output from ostomy.. Transfusing 1 unit PRBCs due to acute coronary syndrome to keep above a. Recheck along with electrolytes active bleeding in place. CT abdomen/pelvis ordered. 10/14: Copious secretions overnight. PEEP at 7 FiO2 50%. Abdominal/pelvis CT revealed bilateral lobar pneumonia pelvic read as gallstone ileus but not likely is patient with copious stool output from ostomy. Did discuss with Dr. Mcgee. Antibiotic coverage broadened. Pancultured yesterday looks like his underlying pneumonia. Will transfuse 1 unit PRBCs today per cardiology request to maintain hemoglobin around 9 for acute coronary syndrome. Diuresis postprocedure and replace electrolytes aggressively. TPN will be weaned/ discontinued today after tube feeds at 40 cc an hour 10/15: t max 100.7 overnight. cultures NGTD. fio2 improving. secretions are somewhat better. 10/16: no improvements. afebrile. failed SBT after 10 minutes for tachypnea and respiratory distress. 10/17: failed sbt again for significant secretions and respiratory distress. only lasting about 10 min. may require tracheostomy. 10/18: much more awake and interactive. still has significant secretions. on SBT for longer today, but with active coronary ischemia, very high risk if he fails extubation. plan for trach if he remains intubated through the weekend. 10/19: still failing SBT. dressings changed today. clinically improving, but very weak and slow progress. 10/20: again failing SBT for copious secretions. was OOB to chair today. likely will need trach. 10/21: failed SBT for tachypnea, RR > 40. discussed with Dr[address] Mcgee: plan for trach tomorrow. discussed with cardiology service: they will likely medically manage his coronary artery disease without [facility] intervention. this is more of a reason to pursue trach, to prevent coronary ischemia that would come with trial of extubation first. 10/22: Plan for percutaneous tracheostomy at bedside 11 AM. Arousable on the ventilator and following commands. Currently afebrile. N.p.o. status. 10/23: Status post percutaneous tracheostomy 10/22 without complication. Continues to ooze from around tracheostomy site. Will hold enoxaparin for today. Tube feeds back at goal. Denies abdominal pain. Positive flatus from ostomy site. 10/24: Normal stool coming from well-perfused ostomy. Spontaneous breathing trials with tachypnea and mild labor. Chest x-ray with chronic interstitial changes and small lung volumes. 10/25: A little bit stronger on spontaneous breathing trials today. Pressure support settings 18/10. Tolerating tube feeds. 10/26: He is tolerating a mild reduction and mean airway pressure and end expiratory pressure. Continues to look acceptably comfortable during spontaneous breathing trials. 10/27: We needed to increase PEEP again last evening. 10/28: Spontaneous breathing trial at 8/8 this morning and doing quite well. Tube feedings on hold per surgery. Patient required low dose Xanax last night for anxiety. 10/29: intermittent SBTs. will trial t-piece today. no significant change. needs LTAC level care. 10/30: t-piece trials. ostomy working. advancing trickle tube feeds per surgery. 10/31: patient having gout flair and significantly painful. however, steroids contraindicated, and NSAIDS also contraindicated with concern over renal dysfunction in the setting of critical illness. still failing to separate from mechanical ventilation. really needs LTAC level care for pulmonary rehab. 11/01: NG tube placed to suction with 700 cc of gastric contents suctioned out overnight. Patient remains on mechanical ventilation with tracheostomy on CPAP with pressure support. Failed T piece yesterday. 11/02: Remains on mechanical ventilation via tracheostomy. 11/03: Remains on mechanical ventilation via tracheostomy. CPAP trials daily. T -piece as tolerated. 11/04: On mechanical ventilation via tracheostomy. Daily CPAP trials. 11/05, 11/06: Remains on mechanical ventilation via tracheostomy. Daily CPAP trials ongoing. 11/07: Worsening respiratory status. Placed back on PRVC mode mechanical ventilation last night. Significant sick pulmonary secretions noted. No BMs via colostomy. Chest x-ray done this morning shows worsening infiltrates more on the right suspicious for aspiration. KUB done this morning shows an ileus. Already placed on Zosyn on 11/07 which should cover for pneumonia. 11/08: Resting on mechanical ventilation via tracheostomy. Wound culture from incision site growing Pseudomonas 11/09: Remains on mechanical ventilation via tracheostomy. Wound culture and sputum both growing Pseudomonas. 11/10: Is on mechanical ventilation via tracheostomy. Daily CPAP trials. 11/11: Remains on mechanical ventilation via tracheostomy. Really CPAP trials ongoing. 11/12 No events overnight. On ventilator via trach. On CPAP with PS 15, PEEP:5 and FIO2 40%. Afebrile. 11/13 Patient denies complaint. Wants NGT out but understand rationale for continuing. On CPAP 25/09. Tolerating tube feeds. Afebrile. Subjective: 11/14 On CPAP 15/5 since yesterday. Able to wean to 12/5 but weaning beyond that produces tachypnea. Was out of bed to chair for a couple of hours. Objective Vital Signs / I&O: Vital Signs 11/13/17 16:00 11/13/17 16:09 11/13/17 20:00 Temperature 98.6 F 98.6 F Pulse Rate 74 76 Respiratory Rate 32 H 31 H 24 Blood Pressure 140/67 127/67 Pulse Oximetry 99 100 100 11/13/17 20:08 11/14/17 00:00 11/14/17 03:47 Temperature 98.4 F Pulse Rate 64 Respiratory Rate 24 25 H 30 H Blood Pressure 123/62 Pulse Oximetry 100 99 98 11/14/17 04:00 11/14/17 10:23 Temperature 98.6 F Pulse Rate 68 Respiratory Rate 25 H 35 H Blood Pressure 131/71 Pulse Oximetry 98 97 Intake & Output 11/13/17 11/14/17 11/14/17 18:59 06:59 18:59 Intake Total 908 / 908 831 / 831 200 / 200 Output Total 825 / 825 250 / 250 Balance 581 / 581 200 / 200 Weight 67.4 kg Intake: IV 300 / 300 100 / 100 200 / 200 Zosyn 4.5 GM Premix 4.5 gm In 300 / 300 100 / 100 200 / 200 100 ml @ 200 mls/hr IV.SIG Q6H LISA Rx#:[id number] Tube Feeding 548 / 548 551 / 551 Tube Irrigant 120 / 120 Other 60 / 60 60 / 60 Output: Urine 675 / 675 Stool 150 / 150 150 / 150 Stool Amount (Stoma) 100 / 100 Left Lower Abdomen 100 / 100 Other: Other Intake Source Saline Solution # Voids 4 Date of Last Bowel Movement 11/13/17 11/13/17 Result Diagrams: 11/18/17 04:47 11/18/17 04:47 Objective Remarks: Objective Remarks GENERAL: 72-year-old male currently on CPAP via percutaneous tracheostomy SKIN: Warm and dry. No rash HEAD: Atraumatic. Normocephalic. EYES: Pupils equal round and reactive about 2 mm bilaterally. ENT: Oral cavity is moist. NG tube in left nare with tube feeds running. NECK: Trachea midline. Supple. Tracheostomy site clean and dry. CARDIOVASCULAR: RRR. No JVD. RESPIRATORY: Equal chest rise. Symmetrical excursion. scattered rhonchi. GASTROINTESTINAL: Abdomen slightly distended, slightly tympanitic, midline incision with two areas of skin dehiscence with damp to dry dressings in place , granulation tissue present, no exudate expressed. Colostomy in place with gas in the bag and some dark liquid/soft stool . MUSCULOSKELETAL: No edema lower extremities.. Well-perfused. NEUROLOGICAL: Patient is awake alert follows commands 4. Moving all 4 extremities spontaneously. Communicates with head nod and mouthing words. Assessment and Plan - Problem List (1) Chronic respiratory failure Code(s): J96.10 - Chronic respiratory failure, unspecified whether with hypoxia or hypercapnia Status: Chronic (2) Large bowel obstruction Code(s): K56.609 - Unspecified intestinal obstruction, unspecified as to partial versus complete obstruction Status: Resolved (3) STEMI (ST elevation myocardial infarction) Code(s): I21.3 - ST elevation (STEMI) myocardial infarction of unspecified site Status: Resolved (4) Diabetes Code(s): E11.9 - Type 2 diabetes mellitus without complications Status: Acute (5) Wound dehiscence, surgical Code(s): T81.31XA - Disruption of external operation (surgical) wound, not elsewhere classified, initial encounter Status: Acute (6) Dysphagia Code(s): R13.10 - Dysphagia, unspecified Status: Acute (7) Protein-calorie malnutrition, severe Code(s): E43 - Unspecified severe protein-calorie malnutrition Status: Acute (8) Systolic heart failure Code(s): I50.20 - Unspecified systolic (congestive) heart failure Status: Acute (9) Colostomy in place Code(s): Z93.3 - Colostomy status Status: Acute - Assessment and Plan Plan: A/P Assessment and Plan NEURO/Psych: 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 Out of bed to chair with assist at least daily. RESP: Acute hypoxic and hypercarbic respiratory failure- now chronic. Iatrogenic left pneumothorax- resolved. Continue with CPAP weaning. Check CXR in am. Albuterol/ipratropium aerosols every 6 hours while awake with albuterol aerosols every 2 hours as needed dyspnea Pulm toilet, trach care Status post percutaneous tracheostomy bedside - Dr. Mcgee keep head of the bed elevated 30 CV: Essential hypertension Hyperlipidemia Coronary artery disease Post operative STEMI Acute systolic heart failure Monitor HR and BP keep MAP>65mmHg Aspirin 81 mg daily, clopidogrel 75 mg p.o. daily BP controlled, decrease metoprolol to 50 mg p.o. twice daily and initiate lisinopril 5 mg p.o. daily. Adjust based on response. Continue atorvastatin 20 mg at night for dyslipidemia Holding amlodipine 10 mg daily 2D echocardiogram 05/29 revealed EF 50-55%. Grade 1 diastolic dysfunction. Pulmonary arterial pressure 34 mmHg Repeat revealed EF of 40-45% Followed by cardiology/Dr. Ellison: Dr. Villa discussed with team 10/21, and they recommended medical management. Continued conservative management recommended 11/02. GI: 10/08 Postop s/p ex-lap, TIA, Sigmoid colon resection with end colostomy and Holcomb's pouch Recurrent colonic obstruction, small bowel obstruction ? postop ileus vs SBO History of esophageal stricture status post dilatation History of small bowel obstruction Gastroesophageal reflux disease History of diverticulitis Hypoalbuminemia -Postop management per Dr. Mcgee tube feedings with Jevity 1.5 @50ml/hr. colostomy in place -Pantoprazole 40 mg IV daily for GI prophylaxis. On omeprazole 20 mg daily at home Renal/: 10/08 Postop s/p Ureteroureteral anastomosis for ureteral injury Chronic kidney disease stage III a -Monitor renal function, I/O's, electrolytes replacement per protocol -Removal of double-J stent 6 weeks from operative procedure outpatient setting -Off IVF ID: Pneumonia Wound culture from abdominal incision +pseudomonas. -Started Zosyn on 11/06 #9 and damp to dry dressing per general surgery. Wound is granulating and nonpurulent. Could d/c abx soon from my standpoint, will need to d/w Dr. Mcgee.. Sputum cx 11/07: Pseudomonas, repeat sputum cx Wound cx 08/06: Pseudomonas Wound culture from incision site(11/06) growing Pseudomonas, sputum Gram stain and culture(11/07) growing pansenstive Pseudomonas -Discontinued levofloxacin 10/14. s/p course vancomycin and cefepime, 10/14-10/20 Sputum, blood cultures 2 10/13 NGTD Urine Legionella and pneumococcal urinary antigens 10/13 negative HEME: Normocytic anemia Thrombocytosis -Monitor CBC, CMP, coags -1 unit PRBCs to be transfused on 11/09 for hemoglobin 7.1 ENDO: Diabetes mellitus type 2 Severe hyperglycemia of critical illness Hyperglycemia History of gout Holding metformin 1000 mg by mouth twice daily -Glucose not at target despite 40 units coverage with sliding scale. Increase detemir further to 15 units q12h. -sliding scale insulin/NovoLog high regimen q6h MSK History of ankylosing spondylosis Holding denosumab 60 mg subcu every 18 days Holding cholecalciferol 4000 units p.o. daily PT evaluate and treat PROPH: -Bilateral lower extremity SCDs. Lovenox 40 subcu daily. On protonix 40 mg IV for stress ulcer prophylaxis. LINES: - piv Has transfer order to [facility] vent unit 4th floor fountain. Level 2 followup (8) Systolic heart failure Qualifiers: Heart failure chronicity: acute Qualified Code(s): I50.21 - Acute systolic ( congestive) heart failure
--- NOTE | 2017-11-14 15:14 | P.DIET ---
Nutritional Evaluation Type of nutrition evaluation: follow-up Nutrition consult regarding: Tube Feeding Subjective Subjective Comments: Per note from 11/02: FISCAL MANAGER wants fiber to keep pt's stoma open Objective - Diagnosis Partial Bowel Obstruction - Objective % IBW: 116 Body Weight Used for Calculations: Actual Energy Needs - Lower Range (kCal/kg): 28 Energy Needs - Upper Range (kCal/kg): 32 Lower Limit kCal/kg (kCals): 2,013 Upper Limit kCal/kg (kCals): 2,301 Lower Limit Protein Factor (Grams per Kg): 1 Upper Limit Protein Factor (Grams per Kg): 1.5 Lower Protein Needs (Protein): 72 Upper Protein Needs (Protein): 108 Dietitian Reviewed in Medical Record: Curent medications, Intake & Output, Labs , Tube feeding Diet Order: NPO Objective Comments: Nutrition assessment based on 72kg PMH: Esophageal dilation, GOUT, HTN, Hyperlipidemia, GERD, Arthritis, ankylosing spondylitis, DM, CKD stage III, peritonitis, colon resection x 2, diverticulitis Labs include: Glucose 175, POC Glu 181, 206, Hgb 7.7, Hct 23.3 Feeding - Current Tube Feeding Tube Feeding Product: Jevity 1.5 Tube Feeding Method: Pump Tube Feeding Rate: 50 Tube Feeding Route: nasogastric Current kCals Provided by Tube Feedin,800 Current Protein Provided by Tube Feeding (gPRO): 77 Current Free H2O Provided (m/l): 912 Assessment Assessment: Pt is s/p exp lap, lysis of adhesions, sigmoid colon resection, colostomy with Hartmanns Pouch and ureterouretostomy. FISCAL MANAGER suggested using Nutrisource fiber through the NG tube. I feel this is not the best choice, as this patient does have volume tolerance issue. Fiber from a tube feeding product solely would be best choice for this patient. Glucerna 1.5 at goal rate of 60mls/hr. contains 23g of Fiber. To achieve a greater amount of fiber, Jevity 1.5 @ goal rate of 60mls/hr would provide 31g. FISCAL MANAGER was made aware that going with this recommendation would require more insulin due to Jevity providing more carbohydrates then Glucerna 1.5. Jevity 1.5 @ 60mls/hr will provide 2160kcals, 92g of protein and 1094mls of free water. Pt currently tolerating Jevity 1.5 @ 50 mls/hr, Labs reviewed: glucose in good control. Recommendations: TF Jevity 1.5 with goal rate 60 ml/hr Dietitian to Monitor: Lab values, Intake & Output, Tube feeding tolerance, Weight change, Medical course
[2017-11-14] MEDS: Pantoprazole Inj 40 MG Vial IV.CONT SCH (16:31)
[2017-11-14] MEDS: ALPRAZolam 0.5 MG Tablet PO PRN (23:55)
[2017-11-15] MEDS: Piperacil/Tazo 4.5 GM Premix 4.5 GM/100 ML BAG IV.SIG SCH ×4 (02:25→23:01)
[2017-11-15] MEDS: Oral Hygiene Kit OROPHARYNG SCH ×4 (02:25→16:37)
[2017-11-15 05:19] LABS: Hematocrit 22.2 % (39.0-51.0); Hemoglobin 7.4 gm/dL (13.0-17.0); Mean Corpuscular HGB Conc 33.3 % (32.0-36.0); Mean Corpuscular Hemoglobin 29.4 pg (27.0-34.0); Mean Corpuscular Volume 88.4 fL (80.0-100.0); Mean Platelet Volume 8.7 fL (7.0-11.0); Platelet Count 279 th/mm3 (150-450); Red Blood Count 2.51 mil/mm3 (4.50-5.90); Red Cell Distribution Width 15.6 % (11.6-17.2); White Blood Count 8.3 th/mm3 (4.0-11.0)
[2017-11-15 05:20] LABS: Calcium 8.2 mg/dL (8.5-10.1); Carbon Dioxide 27.8 meq/L (21.0-32.0); Potassium 3.5 meq/L (3.5-5.1)
[2017-11-15] MEDS: Chlorhexidine Gluconate 2% 1 Pack (2 Cloths) TOPICAL SCH (05:37)
[2017-11-15] MEDS: Artificial Tears Opth Drops 15 ML Bottle EACH EYE SCH ×3 (05:38→23:01)
[2017-11-15] MEDS: Insulin NovoLOG Aspart Correctional Sugar Inj SQ SCH ×4 (05:40→23:19)
--- NOTE | 2017-11-15 05:43 | XR ---
EXAM DATE: 11/15/2017 4:05 AM EDT AGE/SEX: 72 years / Male INDICATIONS: Respiratory failure CLINICAL DATA: This is the patient's subsequent encounter. Patient reports that signs and symptoms h ave been present for 1 month and indicates a pain score of Nonresponsive. MEDICAL/SURGICAL HISTORY: . Cardiovascular disease. Renal failure, acute. Stroke . Appendectom y. Inguinal hernia repair. Colon resection. COMPARISON: [facility] [place], 11/07/2017. . FINDINGS: Tracheostomy in place. Gastric tube traverses the [id number]. Diffuse bilateral airspace opacities in the mid and lower lungs bilaterally are similar in distribution to prior examination. There is co nsolidation in the left lower lung and partial consolidation right lower lung with loss of delineatio n of both hemidiaphragms. Consolidation left side is stable and the amount of infiltrate in the right lower lung appears to have increased since prior. CONCLUSION: Persistent prominent areas of consolidation in the mid and lower lungs. Electronically signed by: Jose George MD 11/15/2017 5:42 AM EDT
--- NOTE | 2017-11-15 07:54 | P.PNCC ---
Subjective Subjective Remarks/Hospital Course: This is a 72 year old male with history of type 2 diabetes, hypertension, dyslipidemia, chronic kidney disease stage III, ankylosing spondylitis, esophageal stricture s/p dilatation, diverticulitis, peritonitis, history of small bowel obstruction, colon resection x2, who was admitted to the hospital with one-week history of abd distension, constipation, and cramps. Pt tried to mange this at home, as he is familiar with symptoms. Has history of multiple bowel obstructions and multiple surgeries in the past. CT of abdomen/ pelvis showed moderately dilated large and small bowel, concentric stricturing in the sigmoid colon. Gastroenterology and general surgery were consulted. Patient was taken today to the OR by Dr. Mcgee, patient underwent exploratory laparotomy, Lysis of adhesions for dense adhesions involving small and large bowel, sigmoid colon resection with end colostomy and Holcomb's pouch. There was stricture at previous surgical site in sigmoid colon. EBL 300 ml, urine output was adequate. During the ex lap patient's sustained ureteral injury which required ureteroureteral anastomosis over stent by Dr. Page. Postop patient was moved to the PACU where his chest x-ray showed small possible left lateral pneumothorax. ABG showed a pH of 7.29/41/99 BE -6.7. I evaluated the patient in the ICU. Patient is intubated sedated with Precedex. He is tachycardic and borderline hypotensive. Additional 500 mL of fluid bolus given , 1 amp of bicarb. Received total 2.1 L in the OR. Urine output is adequate, approximately 75 ml per hour post op. With left-sided tiny pneumothorax (most likely with from central line placement in OR), will attempt CPAP trials for possible extubation. 10/09: Breathing is moderately labored to observe but the patient states he is comfortable. His major complaint is chronic back pain. Urine output is marginal but he remains well-perfused. Colostomy stoma is pink. 10/10: Labored breathing overnight. Remains on quarter normal saline at 125 cc hours and Clinimix E 4.25/25 at 83 cc an hour. Chest x-ray appears with bilateral pulmonary infiltrates. CVP is 8. Greater than 50% variation IVC by ultrasound. Bedside echocardiogram no acute findings. Patient currently with some pleuritic chest pain worse with deep inspiration. EKG currently pending. 8 run beat of V. tach overnight. Potassium magnesium within normal limits. 10/11: Afebrile. FiO2 requirements increased overnight currently at 60%. Chest x-ray revealed pulmonary edema bilaterally. Troponin downward trending. Noted sodium elevated 154. Will remove sodium from TPN. Norepinephrine initiated overnight currently at 8 mcg/min. Nitro paste discontinued. Holding parameters for beta corby 10/12: remains afebrile. back on levophed this AM at 5 mcg/min. also remains tachycardic in the 100s. sodium remains elevated despite removal of nacl from TPN. 10/13: T-max 100.4. Desaturated overnight requiring PEEP increased to 10 currently at 8. FiO2 down to 45%. Appears uncomfortable on the ventilator. Abdomen slightly more distended. Positive output from ostomy.. Transfusing 1 unit PRBCs due to acute coronary syndrome to keep above a. Recheck along with electrolytes active bleeding in place. CT abdomen/pelvis ordered. 10/14: Copious secretions overnight. PEEP at 7 FiO2 50%. Abdominal/pelvis CT revealed bilateral lobar pneumonia pelvic read as gallstone ileus but not likely is patient with copious stool output from ostomy. Did discuss with Dr. Mcgee. Antibiotic coverage broadened. Pancultured yesterday looks like his underlying pneumonia. Will transfuse 1 unit PRBCs today per cardiology request to maintain hemoglobin around 9 for acute coronary syndrome. Diuresis postprocedure and replace electrolytes aggressively. TPN will be weaned/ discontinued today after tube feeds at 40 cc an hour 10/15: t max 100.7 overnight. cultures NGTD. fio2 improving. secretions are somewhat better. 10/16: no improvements. afebrile. failed SBT after 10 minutes for tachypnea and respiratory distress. 10/17: failed sbt again for significant secretions and respiratory distress. only lasting about 10 min. may require tracheostomy. 10/18: much more awake and interactive. still has significant secretions. on SBT for longer today, but with active coronary ischemia, very high risk if he fails extubation. plan for trach if he remains intubated through the weekend. 10/19: still failing SBT. dressings changed today. clinically improving, but very weak and slow progress. 10/20: again failing SBT for copious secretions. was OOB to chair today. likely will need trach. 10/21: failed SBT for tachypnea, RR > 40. discussed with Dr[address] Mcgee: plan for trach tomorrow. discussed with cardiology service: they will likely medically manage his coronary artery disease without [facility] intervention. this is more of a reason to pursue trach, to prevent coronary ischemia that would come with trial of extubation first. 10/22: Plan for percutaneous tracheostomy at bedside 11 AM. Arousable on the ventilator and following commands. Currently afebrile. N.p.o. status. 10/23: Status post percutaneous tracheostomy 10/22 without complication. Continues to ooze from around tracheostomy site. Will hold enoxaparin for today. Tube feeds back at goal. Denies abdominal pain. Positive flatus from ostomy site. 10/24: Normal stool coming from well-perfused ostomy. Spontaneous breathing trials with tachypnea and mild labor. Chest x-ray with chronic interstitial changes and small lung volumes. 10/25: A little bit stronger on spontaneous breathing trials today. Pressure support settings 18/10. Tolerating tube feeds. 10/26: He is tolerating a mild reduction and mean airway pressure and end expiratory pressure. Continues to look acceptably comfortable during spontaneous breathing trials. 10/27: We needed to increase PEEP again last evening. 10/28: Spontaneous breathing trial at 8/8 this morning and doing quite well. Tube feedings on hold per surgery. Patient required low dose Xanax last night for anxiety. 10/29: intermittent SBTs. will trial t-piece today. no significant change. needs LTAC level care. 10/30: t-piece trials. ostomy working. advancing trickle tube feeds per surgery. 10/31: patient having gout flair and significantly painful. however, steroids contraindicated, and NSAIDS also contraindicated with concern over renal dysfunction in the setting of critical illness. still failing to separate from mechanical ventilation. really needs LTAC level care for pulmonary rehab. 11/01: NG tube placed to suction with 700 cc of gastric contents suctioned out overnight. Patient remains on mechanical ventilation with tracheostomy on CPAP with pressure support. Failed T piece yesterday. 11/02: Remains on mechanical ventilation via tracheostomy. 11/03: Remains on mechanical ventilation via tracheostomy. CPAP trials daily. T -piece as tolerated. 11/04: On mechanical ventilation via tracheostomy. Daily CPAP trials. 11/05, 11/06: Remains on mechanical ventilation via tracheostomy. Daily CPAP trials ongoing. 11/07: Worsening respiratory status. Placed back on PRVC mode mechanical ventilation last night. Significant sick pulmonary secretions noted. No BMs via colostomy. Chest x-ray done this morning shows worsening infiltrates more on the right suspicious for aspiration. KUB done this morning shows an ileus. Already placed on Zosyn on 11/07 which should cover for pneumonia. 11/08: Resting on mechanical ventilation via tracheostomy. Wound culture from incision site growing Pseudomonas 11/09: Remains on mechanical ventilation via tracheostomy. Wound culture and sputum both growing Pseudomonas. 11/10: Is on mechanical ventilation via tracheostomy. Daily CPAP trials. 11/11: Remains on mechanical ventilation via tracheostomy. Really CPAP trials ongoing. 11/12 No events overnight. On ventilator via trach. On CPAP with PS 15, PEEP:5 and FIO2 40%. Afebrile. 11/13 Patient denies complaint. Wants NGT out but understand rationale for continuing. On CPAP /. Tolerating tube feeds. Afebrile. Subjective: 11/14 On CPAP 15/5 since yesterday. Able to wean to 12/5 but weaning beyond that produces tachypnea. Was out of bed to chair for a couple of hours. 11/15: Remains on CPAP via tracheostomy. Had problems with secretions last night. Adding scheduled nebulizer treatments and Mucomyst to mobilize secretions. Objective Vital Signs / I&O: Vital Signs 11/14/17 08:00 11/14/17 10:23 11/14/17 12:00 Temperature 98.5 F 98.6 F Pulse Rate 70 66 Respiratory Rate 25 H 35 H 24 Blood Pressure 136/69 130/68 Pulse Oximetry 100 97 99 11/14/17 16:00 11/14/17 17:26 11/14/17 20:00 Temperature 98.6 F 98.6 F Pulse Rate 70 76 Respiratory Rate 28 H 24 30 H Blood Pressure 122/60 Pulse Oximetry 100 99 100 11/14/17 20:53 11/15/17 00:00 11/15/17 00:41 Temperature 98.2 F Pulse Rate 94 H Respiratory Rate 26 H 30 H 26 H Blood Pressure 114/58 L Pulse Oximetry 97 96 99 11/15/17 04:00 11/15/17 04:26 Temperature 98.3 F Pulse Rate 78 Respiratory Rate 31 H 23 Blood Pressure 169/86 H Pulse Oximetry 98 100 Intake & Output 11/14/17 11/15/17 11/15/17 18:59 06:59 18:59 Intake Total 949 / 949 733 / 733 Output Total 650 / 650 1000 / 1000 Balance 299 / 299 -267 / -267 Weight 47.2 kg Intake: IV 300 / 300 200 / 200 Zosyn 4.5 GM Premix 4.5 gm In 300 / 300 200 / 200 100 ml @ 200 mls/hr IV.SIG Q6H [facility] Rx#:[id number] Oral 120 / 120 Tube Feeding 529 / 529 533 / 533 Output: Urine 450 / 450 500 / 500 Stool 500 / 500 Stool Amount (Stoma) 200 / 200 Left Lower Abdomen 200 / 200 Other: Date of Last Bowel Movement 11/14/17 11/14/17 Result Diagrams: 11/15/17 03:43 11/15/17 03:43 Objective Remarks: Objective Remarks GENERAL: 72-year-old male currently on CPAP via percutaneous tracheostomy SKIN: Warm and dry. No rash HEAD: Atraumatic. Normocephalic. EYES: Pupils equal round and reactive about 2 mm bilaterally. ENT: Oral cavity is moist. NG tube in left nare with tube feeds running. NECK: Trachea midline. Supple. Tracheostomy site clean and dry. CARDIOVASCULAR: RRR. No JVD. RESPIRATORY: Equal chest rise. Symmetrical excursion. scattered rhonchi. GASTROINTESTINAL: Abdomen slightly distended, slightly tympanitic, midline incision with two areas of skin dehiscence with damp to dry dressings in place , granulation tissue present, no exudate expressed. Colostomy in place with gas in the bag and some dark liquid/soft stool . MUSCULOSKELETAL: No edema lower extremities.. Well-perfused. NEUROLOGICAL: Patient is awake alert follows commands 4. Moving all 4 extremities spontaneously. Communicates with head nod and mouthing words. 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 Out of bed to chair with assist at least daily. RESP: Acute hypoxic and hypercarbic respiratory failure- now chronic. Iatrogenic left pneumothorax- resolved. Continue with CPAP weaning. Check CXR in am. Albuterol/ipratropium aerosols every 6 hours while awake with albuterol aerosols every 2 hours as needed dyspnea Pulm toilet, trach care Status post percutaneous tracheostomy bedside - Dr. Mcgee keep head of the bed elevated 30 CV: Essential hypertension Hyperlipidemia Coronary artery disease Post operative STEMI Acute systolic heart failure Monitor HR and BP keep MAP>65mmHg Aspirin 81 mg daily, clopidogrel 75 mg p.o. daily BP controlled, decrease metoprolol to 50 mg p.o. twice daily and initiate lisinopril 5 mg p.o. daily. Adjust based on response. Continue atorvastatin 20 mg at night for dyslipidemia Holding amlodipine 10 mg daily 2D echocardiogram 05/29 revealed EF 50-55%. Grade 1 diastolic dysfunction. Pulmonary arterial pressure 34 mmHg Repeat revealed EF of 40-45% Followed by cardiology/Dr. Ellison: Dr. Villa discussed with team 10/21, and they recommended medical management. Continued conservative management recommended 11/02. GI: 10/08 Postop s/p ex-lap, TIA, Sigmoid colon resection with end colostomy and Holcomb's pouch Recurrent colonic obstruction, small bowel obstruction ? postop ileus vs SBO History of esophageal stricture status post dilatation History of small bowel obstruction Gastroesophageal reflux disease History of diverticulitis Hypoalbuminemia -Postop management per Dr. Mcgee tube feedings with Jevity 1.5 @50ml/hr. colostomy in place -Pantoprazole 40 mg IV daily for GI prophylaxis. On omeprazole 20 mg daily at home Renal/: 10/08 Postop s/p Ureteroureteral anastomosis for ureteral injury Chronic kidney disease stage III a -Monitor renal function, I/O's, electrolytes replacement per protocol -Removal of double-J stent 6 weeks from operative procedure outpatient setting -Off IVF ID: Pneumonia Wound culture from abdominal incision +pseudomonas. -Started Zosyn on 11/06 #9 and damp to dry dressing per general surgery. Wound is granulating and nonpurulent. Could d/c abx soon from my standpoint, will need to d/w Dr. Mcgee.. Sputum cx 11/07: Pseudomonas, repeat sputum cx Wound cx 08/06: Pseudomonas Wound culture from incision site(11/06) growing Pseudomonas, sputum Gram stain and culture(11/07) growing pansenstive Pseudomonas -Discontinued levofloxacin 10/14. s/p course vancomycin and cefepime, 10/14-10/20 Sputum, blood cultures 2 10/13 NGTD Urine Legionella and pneumococcal urinary antigens 10/13 negative HEME: Normocytic anemia Thrombocytosis -Monitor CBC, CMP, coags -1 unit PRBCs to be transfused on 11/09 for hemoglobin 7.1 -1 unit PRBCs to be transfused on 11/15 for hemoglobin 7.4, Transfuse to keep hemoglobin greater than 8 g percent (FOCUS trial) ENDO: Diabetes mellitus type 2 Severe hyperglycemia of critical illness Hyperglycemia History of gout Holding metformin 1000 mg by mouth twice daily -Glucose not at target despite 40 units coverage with sliding scale. Increase detemir further to 15 units q12h. -sliding scale insulin/NovoLog high regimen q6h MSK History of ankylosing spondylosis Holding denosumab 60 mg subcu every 18 days Holding cholecalciferol 4000 units p.o. daily PT evaluate and treat PROPH: -Bilateral lower extremity SCDs. Lovenox 40 subcu daily. On protonix 40 mg IV for stress ulcer prophylaxis. LINES: - piv Has transfer order to halfway vent unit 4th floor fountain. Level 2 followup
[2017-11-15] MEDS ORDERED: Sodium Chlor 0.9% Inj 250 ML IV.SIG SCH (08:00)
[2017-11-15] MEDS: Insulin Detemir Inj 1,000 UNIT/10 ML Vial SQ SCH ×2 (08:54→23:17)
[2017-11-15] MEDS: clonazePAM 0.5 MG Tablet PO SCH ×2 (08:55→23:18)
[2017-11-15] MEDS: Enoxaparin Inj 40 MG/0.4 ML Syringe SQ SCH (08:55)
[2017-11-15] MEDS: Allopurinol 300 MG Tablet PO SCH (08:55)
[2017-11-15] MEDS: Metoprolol Tartrate 50 MG Tablet PO SCH ×2 (08:56→23:17)
[2017-11-15] MEDS: Chlorhexidine Gluconate 0.12% Liq 15 ML UDC SWISH-SPIT SCH ×2 (08:57→22:59)
[2017-11-15] MEDS: Sodium Hypochlorite 0.125% Top Soln 500 ML Bottle TOPICAL SCH ×2 (08:57→23:00)
[2017-11-15] MEDS: Lisinopril 5 MG Tablet PO SCH (11:21)
--- NOTE | 2017-11-15 13:00 | P.PNWCN ---
Wound Care Nurse Consult Description: Patient seen for follow up stoma assessment Communicated with: Madison Phillips [facility] Bowel Diversion Stoma - Bowel Stoma Left Lower Abdomen Stoma Edema: No Stoma Appearance: Oval, Retracted Loop Supporting Venkat: No Collection Device: Two-piece, Moldable Wafer Drainage Description: Liquid, Brown Wafer Size: 2 1/4 moldable appliance with accordion flange made for smaller stomas - Additional Information Additional Information: Patient was seen today for follow up of stoma, and appliance assessment.Stoma is not round and therefor can't be measured using diameter. Last measurements were as follows: 1/2 inch tall and 1 inch wide. Patient is laying in bed.Bed Linens were moved to reveal abdomen with intact ostomy appliance to LLQ. Appliance appears to be a 2 1/4 moldable two piece appliance with accordion flange that is made for smaller stomas. Appliance is intact without leaking. Patient is not complaining of burning or irritation. Gas was released from pouch. Spoke with NICKY Wallace, she reports using finger to dilate stoma today. Will follow up with patient tomorrow.
[2017-11-15] MEDS: Pantoprazole Inj 40 MG Vial IV.CONT SCH (15:01)
--- NOTE | 2017-11-15 17:16 | P.PN ---
Subjective Interval history: More secretions today, but tolerating CPAP Physical Exam Vital signs: Vital Signs 11/14/17 17:26 11/14/17 20:00 11/14/17 20:53 Temperature 98.6 F Pulse Rate 76 Respiratory Rate 24 30 H 26 H Blood Pressure 122/60 Pulse Oximetry 99 100 97 11/15/17 00:00 11/15/17 00:41 11/15/17 04:00 Temperature 98.2 F 98.3 F Pulse Rate 94 H 78 Respiratory Rate 30 H 26 H 31 H Blood Pressure 114/58 L 169/86 H Pulse Oximetry 96 99 98 11/15/17 04:26 11/15/17 08:00 11/15/17 10:07 Temperature 98.3 F Pulse Rate 77 79 Respiratory Rate 23 28 H 26 H Blood Pressure 122/61 Pulse Oximetry 100 100 100 11/15/17 11:56 11/15/17 12:00 11/15/17 12:15 Temperature 98.6 F 99.2 F 98.6 F Pulse Rate 78 77 80 Respiratory Rate 29 H 14 25 H Blood Pressure 122/60 111/73 145/65 H Pulse Oximetry 100 100 100 11/15/17 12:29 11/15/17 16:00 Temperature 98.6 F 98 F Pulse Rate 83 75 Respiratory Rate 25 H 26 H Blood Pressure 122/60 150/73 H Pulse Oximetry 100 100 Intake & Output 11/14/17 11/15/17 11/15/17 18:59 06:59 18:59 Intake Total 949 / 949 733 / 733 200 / 200 Output Total 650 / 650 1000 / 1000 Balance 299 / 299 -267 / -267 200 / 200 Weight 47.2 kg Intake: IV 300 / 300 200 / 200 200 / 200 Zosyn 4.5 GM Premix 4.5 gm In 300 / 300 200 / 200 200 / 200 100 ml @ 200 mls/hr IV.SIG Q6H [facility] Rx#:[id number] Oral 120 / 120 Tube Feeding 529 / 529 533 / 533 Intake (Blood Product) Amt 0 / 0 Rbc As-3 Leukoreduced Unit 0 / 0 [id number] Output: Urine 450 / 450 500 / 500 Stool 500 / 500 Stool Amount (Stoma) 200 / 200 Left Lower Abdomen 200 / 200 Other: Date of Last Bowel Movement 11/14/17 11/14/1711/14/18 - Constitutional no acute distress - Routine Respiratory Exam Present: CTA bilaterally - Routine Cardiovascular Exam Present: RRR Results - Labs CBC & Chem 7: 11/15/17 03:43 11/15/17 03:43 Laboratory Results - last 24 hr 11/15/17 11/15/17 11/15/17 03:43 03:43 09:30 WBC 8.3 RBC 2.51 L Hgb 7.4 L Hct 22.2 L MCV 88.4 MCH 29.4 MCHC 33.3 RDW 15.6 Plt Count 279 MPV 8.7 Sodium 140 Potassium 3.5 Chloride 102 Carbon Dioxide 27.8 Anion Gap 10 BUN 17 Creatinine 1.08 Estimated GFR 67 L POC Glucose Random Glucose 206 H Calcium 8.2 L Blood Type O Negative Antibody Screen Negative MTS Gel Crossmatch See Detail 11/15/17 12:01 WBC RBC Hgb Hct MCV MCH MCHC RDW Plt Count MPV Sodium Potassium Chloride Carbon Dioxide Anion Gap BUN Creatinine Estimated GFR POC Glucose 188 H Random Glucose Calcium Blood Type Antibody Screen MTS Gel Crossmatch - Imaging Impressions Chest X-Ray 11/15/17 00:00 CONCLUSION: Persistent prominent areas of consolidation in the mid and lower lungs. Assessment and Plan - Assessment (1) Large bowel obstruction Code(s): K56.609 - Unspecified intestinal obstruction, unspecified as to partial versus complete obstruction Status: Acute (2) Respiratory failure requiring intubation Code(s): J96.90 - Respiratory failure, unspecified, unspecified whether with hypoxia or hypercapnia Status: Acute (3) Anemia, chronic disease Code(s): D63.8 - Anemia in other chronic diseases classified elsewhere Status : Acute Plan: Transfusion one unit PRBC's - Plan Plan transfer to LTVU when bed available Discussed with Dr. Marcelo; OK to perform swallow eval when pt. on CPAP Discussed Condition With: Nurse Dr. Marcelo
[2017-11-15] MEDS: Potassium Chloride 25 MEQ Effervescent Tablet PO PRN (19:58)
[2017-11-15 20:10] LABS: Hematocrit 24.9 % (39.0-51.0); Hemoglobin 8.2 gm/dL (13.0-17.0)
[2017-11-16] MEDS: Oral Hygiene Kit OROPHARYNG SCH ×3 (00:29→16:12)
[2017-11-16] MEDS: Piperacil/Tazo 4.5 GM Premix 4.5 GM/100 ML BAG IV.SIG SCH ×4 (01:42→20:12)
[2017-11-16] MEDS: HYDROmorphone PF Inj 2 MG/ML Vial IV.PUSH PRN ×2 (01:54→20:59)
[2017-11-16] MEDS ORDERED: Sod Chloride 0.9% Inj 1,000 ML IV.SIG SCH (02:00)
[2017-11-16 05:15] LABS: Baso # (Auto) 0.1 th/mm3 (0.0-0.2); Baso % (Auto) 0.6 % (0.0-2.0); Eos # (Auto) 0.2 th/mm3 (0.0-0.4); Eos % (Auto) 2.7 % (0.0-4.0); Hematocrit 23.1 % (39.0-51.0); Hemoglobin 7.9 gm/dL (13.0-17.0); Lymph # (Auto) 0.5 th/mm3 (1.0-4.8); Lymph % (Auto) 6.1 % (9.0-44.0); Mean Corpuscular Hemoglobin 29.4 pg (27.0-34.0); Mean Corpuscular Volume 86.4 fL (80.0-100.0); Mono # (Auto) 0.6 th/mm3 (0.0-0.9); Mono % (Auto) 7.2 % (0.0-8.0); Neut # (Auto) 7.5 th/mm3 (1.8-7.7); Neut % (Auto) 83.4 % (16.0-70.0); Platelet Count 280 th/mm3 (150-450); Red Blood Count 2.67 mil/mm3 (4.50-5.90); Red Cell Distribution Width 15.7 % (11.6-17.2)
[2017-11-16 05:37] LABS: Albumin 1.8 g/dL (3.4-5.0); Anion Gap 9 meq/L (5-15); Aspartate Aminotransferase 18 U/L (15-37); Blood Urea Nitrogen 17 mg/dL (7-18); Calcium 8.6 mg/dL (8.5-10.1); Chloride 104 meq/L (98-107); Glomerular Filtration Rate 70 mL/min (>89); Glucose,Random 159 mg/dL (74-106); Potassium 4.1 meq/L (3.5-5.1); Sodium 140 meq/L (136-145)
[2017-11-16 05:38] LABS: Alanine Aminotransferase 40 U/L (12-78)
[2017-11-16 05:40] LABS: Alkaline Phosphatase 55 U/L (45-117)
[2017-11-16] MEDS: Insulin NovoLOG Aspart Correctional Sugar Inj SQ SCH ×3 (06:58→18:29)
[2017-11-16] MEDS: Artificial Tears Opth Drops 15 ML Bottle EACH EYE SCH ×2 (06:59→21:04)
[2017-11-16] MEDS: Allopurinol 300 MG Tablet PO SCH (08:45)
[2017-11-16] MEDS: Lisinopril 5 MG Tablet PO SCH (08:45)
[2017-11-16] MEDS: clonazePAM 0.5 MG Tablet PO SCH ×2 (08:45→20:13)
[2017-11-16] MEDS: Metoprolol Tartrate 50 MG Tablet PO SCH ×2 (08:45→20:12)
--- NOTE | 2017-11-16 10:48 | P.PNCC ---
Subjective Subjective Remarks/Hospital Course: This is a 72 year old male with history of type 2 diabetes, hypertension, dyslipidemia, chronic kidney disease stage III, ankylosing spondylitis, esophageal stricture s/p dilatation, diverticulitis, peritonitis, history of small bowel obstruction, colon resection x2, who was admitted to the hospital with one-week history of abd distension, constipation, and cramps. Pt tried to mange this at home, as he is familiar with symptoms. Has history of multiple bowel obstructions and multiple surgeries in the past. CT of abdomen/ pelvis showed moderately dilated large and small bowel, concentric stricturing in the sigmoid colon. Gastroenterology and general surgery were consulted. Patient was taken today to the OR by Dr. Mcgee, patient underwent exploratory laparotomy, Lysis of adhesions for dense adhesions involving small and large bowel, sigmoid colon resection with end colostomy and Holcomb's pouch. There was stricture at previous surgical site in sigmoid colon. EBL 300 ml, urine output was adequate. During the ex lap patient's sustained ureteral injury which required ureteroureteral anastomosis over stent by Dr. Page. Postop patient was moved to the PACU where his chest x-ray showed small possible left lateral pneumothorax. ABG showed a pH of 7.29/41/99 BE -6.7. I evaluated the patient in the ICU. Patient is intubated sedated with Precedex. He is tachycardic and borderline hypotensive. Additional 500 mL of fluid bolus given , 1 amp of bicarb. Received total 2.1 L in the OR. Urine output is adequate, approximately 75 ml per hour post op. With left-sided tiny pneumothorax (most likely with from central line placement in OR), will attempt CPAP trials for possible extubation. 10/09: Breathing is moderately labored to observe but the patient states he is comfortable. His major complaint is chronic back pain. Urine output is marginal but he remains well-perfused. Colostomy stoma is pink. 10/10: Labored breathing overnight. Remains on quarter normal saline at 125 cc hours and Clinimix E 4.25/25 at 83 cc an hour. Chest x-ray appears with bilateral pulmonary infiltrates. CVP is 8. Greater than 50% variation IVC by ultrasound. Bedside echocardiogram no acute findings. Patient currently with some pleuritic chest pain worse with deep inspiration. EKG currently pending. 8 run beat of V. tach overnight. Potassium magnesium within normal limits. 10/11: Afebrile. FiO2 requirements increased overnight currently at 60%. Chest x-ray revealed pulmonary edema bilaterally. Troponin downward trending. Noted sodium elevated 154. Will remove sodium from TPN. Norepinephrine initiated overnight currently at 8 mcg/min. Nitro paste discontinued. Holding parameters for beta corby 10/12: remains afebrile. back on levophed this AM at 5 mcg/min. also remains tachycardic in the 100s. sodium remains elevated despite removal of nacl from TPN. 10/13: T-max 100.4. Desaturated overnight requiring PEEP increased to 10 currently at 8. FiO2 down to 45%. Appears uncomfortable on the ventilator. Abdomen slightly more distended. Positive output from ostomy.. Transfusing 1 unit PRBCs due to acute coronary syndrome to keep above a. Recheck along with electrolytes active bleeding in place. CT abdomen/pelvis ordered. 10/14: Copious secretions overnight. PEEP at 7 FiO2 50%. Abdominal/pelvis CT revealed bilateral lobar pneumonia pelvic read as gallstone ileus but not likely is patient with copious stool output from ostomy. Did discuss with Dr. Mcgee. Antibiotic coverage broadened. Pancultured yesterday looks like his underlying pneumonia. Will transfuse 1 unit PRBCs today per cardiology request to maintain hemoglobin around 9 for acute coronary syndrome. Diuresis postprocedure and replace electrolytes aggressively. TPN will be weaned/ discontinued today after tube feeds at 40 cc an hour 10/15: t max 100.7 overnight. cultures NGTD. fio2 improving. secretions are somewhat better. 10/16: no improvements. afebrile. failed SBT after 10 minutes for tachypnea and respiratory distress. 10/17: failed sbt again for significant secretions and respiratory distress. only lasting about 10 min. may require tracheostomy. 10/18: much more awake and interactive. still has significant secretions. on SBT for longer today, but with active coronary ischemia, very high risk if he fails extubation. plan for trach if he remains intubated through the weekend. 10/19: still failing SBT. dressings changed today. clinically improving, but very weak and slow progress. 10/20: again failing SBT for copious secretions. was OOB to chair today. likely will need trach. 10/21: failed SBT for tachypnea, RR > 40. discussed with Dr[address] Mcgee: plan for trach tomorrow. discussed with cardiology service: they will likely medically manage his coronary artery disease without [facility] intervention. this is more of a reason to pursue trach, to prevent coronary ischemia that would come with trial of extubation first. 10/22: Plan for percutaneous tracheostomy at bedside 11 AM. Arousable on the ventilator and following commands. Currently afebrile. N.p.o. status. 10/23: Status post percutaneous tracheostomy 10/22 without complication. Continues to ooze from around tracheostomy site. Will hold enoxaparin for today. Tube feeds back at goal. Denies abdominal pain. Positive flatus from ostomy site. 10/24: Normal stool coming from well-perfused ostomy. Spontaneous breathing trials with tachypnea and mild labor. Chest x-ray with chronic interstitial changes and small lung volumes. 10/25: A little bit stronger on spontaneous breathing trials today. Pressure support settings 18/10. Tolerating tube feeds. 10/26: He is tolerating a mild reduction and mean airway pressure and end expiratory pressure. Continues to look acceptably comfortable during spontaneous breathing trials. 10/27: We needed to increase PEEP again last evening. 10/28: Spontaneous breathing trial at 8/8 this morning and doing quite well. Tube feedings on hold per surgery. Patient required low dose Xanax last night for anxiety. 10/29: intermittent SBTs. will trial t-piece today. no significant change. needs LTAC level care. 10/30: t-piece trials. ostomy working. advancing trickle tube feeds per surgery. 10/31: patient having gout flair and significantly painful. however, steroids contraindicated, and NSAIDS also contraindicated with concern over renal dysfunction in the setting of critical illness. still failing to separate from mechanical ventilation. really needs LTAC level care for pulmonary rehab. 11/01: NG tube placed to suction with 700 cc of gastric contents suctioned out overnight. Patient remains on mechanical ventilation with tracheostomy on CPAP with pressure support. Failed T piece yesterday. 11/02: Remains on mechanical ventilation via tracheostomy. 11/03: Remains on mechanical ventilation via tracheostomy. CPAP trials daily. T -piece as tolerated. 11/04: On mechanical ventilation via tracheostomy. Daily CPAP trials. 11/05, 11/06: Remains on mechanical ventilation via tracheostomy. Daily CPAP trials ongoing. 11/07: Worsening respiratory status. Placed back on PRVC mode mechanical ventilation last night. Significant sick pulmonary secretions noted. No BMs via colostomy. Chest x-ray done this morning shows worsening infiltrates more on the right suspicious for aspiration. KUB done this morning shows an ileus. Already placed on Zosyn on 11/07 which should cover for pneumonia. 11/08: Resting on mechanical ventilation via tracheostomy. Wound culture from incision site growing Pseudomonas 11/09: Remains on mechanical ventilation via tracheostomy. Wound culture and sputum both growing Pseudomonas. 11/10: Is on mechanical ventilation via tracheostomy. Daily CPAP trials. 11/11: Remains on mechanical ventilation via tracheostomy. Really CPAP trials ongoing. 11/12 No events overnight. On ventilator via trach. On CPAP with PS 15, PEEP:5 and FIO2 40%. Afebrile. 11/13 Patient denies complaint. Wants NGT out but understand rationale for continuing. On CPAP /. Tolerating tube feeds. Afebrile. Subjective: 11/14 On CPAP 15/5 since yesterday. Able to wean to 12/5 but weaning beyond that produces tachypnea. Was out of bed to chair for a couple of hours. 11/15: Remains on CPAP via tracheostomy. Had problems with secretions last night. Adding scheduled nebulizer treatments and Mucomyst to mobilize secretions. 11/16: Resting comfortably on mechanical ventilation via tracheostomy. On CPAP trial. Objective Vital Signs / I&O: Vital Signs 11/15/17 11:56 11/15/17 12:00 11/15/17 12:15 Temperature 98.6 F 99.2 F 98.6 F Pulse Rate 78 77 80 Respiratory Rate 29 H 14 25 H Blood Pressure 122/60 111/73 145/65 H Pulse Oximetry 100 100 100 11/15/17 12:29 11/15/17 16:00 11/15/17 18:18 Temperature 98.6 F 98 F Pulse Rate 83 75 Respiratory Rate 25 H 26 H 27 H Blood Pressure 122/60 150/73 H Pulse Oximetry 100 100 100 11/15/17 20:00 11/16/17 00:00 11/16/17 00:30 Temperature 98.5 F Pulse Rate 86 72 Respiratory Rate 29 H 29 H Blood Pressure 148/67 H 137/63 Pulse Oximetry 100 99 98 11/16/17 03:24 11/16/17 04:00 11/16/17 08:00 Temperature 98.4 F Pulse Rate 77 72 73 Respiratory Rate 23 18 Blood Pressure 117/57 L 142/61 H Pulse Oximetry 97 98 97 11/16/17 09:02 Temperature Pulse Rate 84 Respiratory Rate 28 H Blood Pressure Pulse Oximetry 100 Intake & Output 11/15/17 11/16/17 11/16/17 18:59 06:59 18:59 Intake Total 1156 / 1156 751 / 751 Output Total 900 / 900 600 / 600 Balance 256 / 256 151 / 151 Weight 70.8 kg Intake: IV 200 / 200 100 / 100 Zosyn 4.5 GM Premix 4.5 gm In 200 / 200 100 / 100 100 ml @ 200 mls/hr IV.SIG Q6H LISA Rx#:[id number] Tube Feeding 436 / 436 551 / 551 Tube Irrigant 120 / 120 100 / 100 Intake (Blood Product) Amt 0 / 0 Rbc As-3 Leukoreduced Unit 0 / 0 [id number] Mass Transfusion Protocol 400 / 400 Output: Urine 750 / 750 500 / 500 Stool Amount (Stoma) 150 / 150 100 / 100 Left Lower Abdomen 150 / 150 100 / 100 Other: Post Void Residual 5 # Voids 3 # Incontinent Voids 0 Date of Last Bowel Movement 11/14/17 11/16/17 11/16/17 Result Diagrams: 11/16/17 04:43 11/16/17 04:43 Objective Remarks: Objective Remarks GENERAL: 72-year-old male currently on CPAP via percutaneous tracheostomy SKIN: Warm and dry. No rash HEAD: Atraumatic. Normocephalic. EYES: Pupils equal round and reactive about 2 mm bilaterally. ENT: Oral cavity is moist. NG tube in left nare with tube feeds running. NECK: Trachea midline. Supple. Tracheostomy site clean and dry. CARDIOVASCULAR: RRR. No JVD. RESPIRATORY: Equal chest rise. Symmetrical excursion. scattered rhonchi. GASTROINTESTINAL: Abdomen slightly distended, slightly tympanitic, midline incision with two areas of skin dehiscence with damp to dry dressings in place , granulation tissue present, no exudate expressed. Colostomy in place with gas in the bag and some dark liquid/soft stool . MUSCULOSKELETAL: No edema lower extremities.. Well-perfused. NEUROLOGICAL: Patient is awake alert follows commands 4. Moving all 4 extremities spontaneously. Communicates with head nod and mouthing words. 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 Out of bed to chair with assist at least daily. RESP: Acute hypoxic and hypercarbic respiratory failure- now chronic. Iatrogenic left pneumothorax- resolved. Continue with CPAP weaning. Albuterol/ipratropium aerosols every 6 hours while awake with albuterol aerosols every 2 hours as needed dyspnea. Mucomyst nebs Pulm toilet, trach care Status post percutaneous tracheostomy bedside - Dr. Mcgee keep head of the bed elevated 30 CV: Essential hypertension Hyperlipidemia Coronary artery disease Post operative STEMI Acute systolic heart failure Monitor HR and BP keep MAP>65mmHg Aspirin 81 mg daily, clopidogrel 75 mg p.o. daily BP controlled, decrease metoprolol to 50 mg p.o. twice daily and initiate lisinopril 5 mg p.o. daily. Adjust based on response. Continue atorvastatin 20 mg at night for dyslipidemia Holding amlodipine 10 mg daily 2D echocardiogram 05/29 revealed EF 50-55%. Grade 1 diastolic dysfunction. Pulmonary arterial pressure 34 mmHg Repeat revealed EF of 40-45% Followed by cardiology/Dr. Ellison: Dr. Villa discussed with team 10/21, and they recommended medical management. Continued conservative management recommended 11/02. GI: 10/08 Postop s/p ex-lap, TIA, Sigmoid colon resection with end colostomy and Holcomb's pouch Recurrent colonic obstruction, small bowel obstruction ? postop ileus vs SBO History of esophageal stricture status post dilatation History of small bowel obstruction Gastroesophageal reflux disease History of diverticulitis Hypoalbuminemia -Postop management per Dr. Mcgee tube feedings with Jevity 1.5 @50ml/hr. colostomy in place -Pantoprazole 40 mg IV daily for GI prophylaxis. On omeprazole 20 mg daily at home Renal/: 10/08 Postop s/p Ureteroureteral anastomosis for ureteral injury Chronic kidney disease stage III a -Monitor renal function, I/O's, electrolytes replacement per protocol -Removal of double-J stent 6 weeks from operative procedure outpatient setting -Off IVF ID: Pneumonia Wound culture from abdominal incision +pseudomonas. -Started Zosyn on 11/06 #9 and damp to dry dressing per general surgery. Wound is granulating and nonpurulent. Could d/c abx soon from my standpoint, will need to d/w Dr. Mcgee.. Sputum cx 11/07: Pseudomonas, repeat sputum cx Wound cx 08/06: Pseudomonas Wound culture from incision site(11/06) growing Pseudomonas, sputum Gram stain and culture(11/07) growing pansenstive Pseudomonas -Discontinued levofloxacin 10/14. s/p course vancomycin and cefepime, 10/14-10/20 Sputum, blood cultures 2 10/13 NGTD Urine Legionella and pneumococcal urinary antigens 10/13 negative HEME: Normocytic anemia Thrombocytosis -Monitor CBC, CMP, coags -1 unit PRBCs to be transfused on 11/09 for hemoglobin 7.1 -1 unit PRBCs to be transfused on 11/15 for hemoglobin 7.4, Transfuse to keep hemoglobin greater than 8 g percent (FOCUS trial) ENDO: Diabetes mellitus type 2 Severe hyperglycemia of critical illness Hyperglycemia History of gout Holding metformin 1000 mg by mouth twice daily -Glucose not at target despite 40 units coverage with sliding scale. Increase detemir further to 15 units q12h. -sliding scale insulin/NovoLog high regimen q6h MSK History of ankylosing spondylosis Holding denosumab 60 mg subcu every 18 days Holding cholecalciferol 4000 units p.o. daily PT evaluate and treat PROPH: -Bilateral lower extremity SCDs. Lovenox 40 subcu daily. On protonix 40 mg IV for stress ulcer prophylaxis. LINES: - piv Has transfer order to long winder tender vent unit 4th floor fountain. Level 2 followup
[2017-11-16] MEDS: Chlorhexidine Gluconate 0.12% Liq 15 ML UDC SWISH-SPIT SCH ×2 (11:56→21:03)
[2017-11-16] MEDS: Insulin Detemir Inj 1,000 UNIT/10 ML Vial SQ SCH ×2 (11:57→20:11)
[2017-11-16] MEDS: Pantoprazole Inj 40 MG Vial IV.CONT SCH (14:43)
[2017-11-16] MEDS: ALPRAZolam 0.5 MG Tablet PO PRN (14:44)
[2017-11-16] MEDS: Sodium Hypochlorite 0.125% Top Soln 500 ML Bottle TOPICAL SCH ×2 (16:11→21:05)
--- NOTE | 2017-11-16 18:46 | P.PNWCN ---
Wound Care Nurse Consult Description: Patient seen for follow up stoma assessment Wound/Pressure Injury - Wound Posterior Buttocks Wound Assessment: Ongoing Is This a Chronic Wound: No Requested from Provider a Wound Care Consult: No Wound Bed Appearance: Red Surrounding Tissue Appearance: Blanched/Dull, [place] Drainage Amount: None Dressing Status: Open to Air Midline Abdomen Wound Assessment: Ongoing Wound Bed Appearance: Red, White, Yellow Drainage Description: Serosanguinous Drainage Amount: Scant Dressing Status: Dry & Intact Cleansing Solution: peroxide Wound Packing Type: Gauze Pads Primary Dressing: [place] Wound Dressing Change Date: 11/14/17 Incision - Incision Midline Abdomen Incision Type: Incision Bowel Diversion Stoma - Bowel Stoma Left Lower Abdomen Stoma Edema: No Stoma Appearance: Oval, Retracted Loop Supporting Venkat: No Collection Device: Two-piece, Cut to Fit Wafer Drainage Description: Liquid, Brown Wafer Size: Two piece 1 3/4 cut to fit with this appliance change Stoma Care: Pouch and Wafer Changed, Skin Care Bee-Stomal Skin Appearance: Intact, Erythema (Blanching) Bee-Stomal Surrounding Tissue Sensation Description: No Symptoms - Additional Information Additional Information: Patient was seen today for follow up of stoma, and appliance assessment.Stoma is not round and therefor can't be measured using diameter. Measurements today were as follows: 1/2 inch tall and 1 inch wide. Patient is laying in bed.Bed Linens were moved to reveal abdomen with leaking ostomy appliance to Q. Appliance appears to be a 2 1/4 moldable two piece appliance. Patient is not complaining of burning or irritation. Removed ostomy appliance in place. Cleansed peristomal skin with water and wash cloth and pat dry. Applied stoma powder and skin barrier film spray to encrust. Jose's seal was then applied from 3 to 9 o'clock to better seal appliance. Applied two piece cut to fit 1 3/ 4 appliance.Stoma was then dilated using finger.Spoke with NICKY Wallace and NICKY Ortiz at bedside during procedure.
[2017-11-16] MEDS: Zolpidem Tartrate 5 MG Tablet PO PRN (22:59)
[2017-11-17] MEDS: Insulin NovoLOG Aspart Correctional Sugar Inj SQ SCH ×5 (00:24→17:56)
[2017-11-17] MEDS: Piperacil/Tazo 4.5 GM Premix 4.5 GM/100 ML BAG IV.SIG SCH ×4 (02:48→22:32)
[2017-11-17 05:13] LABS: Baso # (Auto) 0.1 th/mm3 (0.0-0.2); Baso % (Auto) 0.5 % (0.0-2.0); Eos # (Auto) 0.2 th/mm3 (0.0-0.4); Eos % (Auto) 2.1 % (0.0-4.0); Hematocrit 26.8 % (39.0-51.0); Hemoglobin 8.7 gm/dL (13.0-17.0); Lymph # (Auto) 0.4 th/mm3 (1.0-4.8); Lymph % (Auto) 3.8 % (9.0-44.0); Mean Corpuscular HGB Conc 32.5 % (32.0-36.0); Mean Corpuscular Hemoglobin 28.5 pg (27.0-34.0); Mean Corpuscular Volume 87.9 fL (80.0-100.0); Mean Platelet Volume 8.5 fL (7.0-11.0); Mono # (Auto) 0.7 th/mm3 (0.0-0.9); Mono % (Auto) 6.1 % (0.0-8.0); Neut % (Auto) 87.5 % (16.0-70.0); Platelet Count 310 th/mm3 (150-450); Red Blood Count 3.05 mil/mm3 (4.50-5.90); Red Cell Distribution Width 15.9 % (11.6-17.2); White Blood Count 11.4 th/mm3 (4.0-11.0)
[2017-11-17] MEDS: Artificial Tears Opth Drops 15 ML Bottle EACH EYE SCH ×4 (08:17→22:35)
[2017-11-17] MEDS: Oral Hygiene Kit OROPHARYNG SCH ×3 (08:18→16:41)
[2017-11-17] MEDS: Chlorhexidine Gluconate 0.12% Liq 15 ML UDC SWISH-SPIT SCH ×2 (09:17→20:17)
[2017-11-17] MEDS: Insulin Detemir Inj 1,000 UNIT/10 ML Vial SQ SCH (09:18)
[2017-11-17] MEDS: clonazePAM 0.5 MG Tablet PO SCH ×2 (09:19→22:33)
[2017-11-17] MEDS: Metoprolol Tartrate 50 MG Tablet PO SCH (09:19)
[2017-11-17] MEDS: Sodium Hypochlorite 0.125% Top Soln 500 ML Bottle TOPICAL SCH ×2 (09:21→22:33)
[2017-11-17] MEDS: Allopurinol 300 MG Tablet PO SCH (09:21)
[2017-11-17] MEDS: Lisinopril 5 MG Tablet PO SCH (09:21)
--- NOTE | 2017-11-17 13:57 | P.PNCC ---
Subjective Subjective Remarks/Hospital Course: This is a 72 year old male with history of type 2 diabetes, hypertension, dyslipidemia, chronic kidney disease stage III, ankylosing spondylitis, esophageal stricture s/p dilatation, diverticulitis, peritonitis, history of small bowel obstruction, colon resection x2, who was admitted to the hospital with one-week history of abd distension, constipation, and cramps. Pt tried to mange this at home, as he is familiar with symptoms. Has history of multiple bowel obstructions and multiple surgeries in the past. CT of abdomen/ pelvis showed moderately dilated large and small bowel, concentric stricturing in the sigmoid colon. Gastroenterology and general surgery were consulted. Patient was taken today to the OR by Dr. Mcgee, patient underwent exploratory laparotomy, Lysis of adhesions for dense adhesions involving small and large bowel, sigmoid colon resection with end colostomy and Holcomb's pouch. There was stricture at previous surgical site in sigmoid colon. EBL 300 ml, urine output was adequate. During the ex lap patient's sustained ureteral injury which required ureteroureteral anastomosis over stent by Dr. Page. Postop patient was moved to the PACU where his chest x-ray showed small possible left lateral pneumothorax. ABG showed a pH of 7.29/41/99 BE -6.7. I evaluated the patient in the ICU. Patient is intubated sedated with Precedex. He is tachycardic and borderline hypotensive. Additional 500 mL of fluid bolus given , 1 amp of bicarb. Received total 2.1 L in the OR. Urine output is adequate, approximately 75 ml per hour post op. With left-sided tiny pneumothorax (most likely with from central line placement in OR), will attempt CPAP trials for possible extubation. 10/09: Breathing is moderately labored to observe but the patient states he is comfortable. His major complaint is chronic back pain. Urine output is marginal but he remains well-perfused. Colostomy stoma is pink. 10/10: Labored breathing overnight. Remains on quarter normal saline at 125 cc hours and Clinimix E 4.25/25 at 83 cc an hour. Chest x-ray appears with bilateral pulmonary infiltrates. CVP is 8. Greater than 50% variation IVC by ultrasound. Bedside echocardiogram no acute findings. Patient currently with some pleuritic chest pain worse with deep inspiration. EKG currently pending. 8 run beat of V. tach overnight. Potassium magnesium within normal limits. 10/11: Afebrile. FiO2 requirements increased overnight currently at 60%. Chest x-ray revealed pulmonary edema bilaterally. Troponin downward trending. Noted sodium elevated 154. Will remove sodium from TPN. Norepinephrine initiated overnight currently at 8 mcg/min. Nitro paste discontinued. Holding parameters for beta corby 10/12: remains afebrile. back on levophed this AM at 5 mcg/min. also remains tachycardic in the 100s. sodium remains elevated despite removal of nacl from TPN. 10/13: T-max 100.4. Desaturated overnight requiring PEEP increased to 10 currently at 8. FiO2 down to 45%. Appears uncomfortable on the ventilator. Abdomen slightly more distended. Positive output from ostomy.. Transfusing 1 unit PRBCs due to acute coronary syndrome to keep above a. Recheck along with electrolytes active bleeding in place. CT abdomen/pelvis ordered. 10/14: Copious secretions overnight. PEEP at 7 FiO2 50%. Abdominal/pelvis CT revealed bilateral lobar pneumonia pelvic read as gallstone ileus but not likely is patient with copious stool output from ostomy. Did discuss with Dr. Mcgee. Antibiotic coverage broadened. Pancultured yesterday looks like his underlying pneumonia. Will transfuse 1 unit PRBCs today per cardiology request to maintain hemoglobin around 9 for acute coronary syndrome. Diuresis postprocedure and replace electrolytes aggressively. TPN will be weaned/ discontinued today after tube feeds at 40 cc an hour 10/15: t max 100.7 overnight. cultures NGTD. fio2 improving. secretions are somewhat better. 10/16: no improvements. afebrile. failed SBT after 10 minutes for tachypnea and respiratory distress. 10/17: failed sbt again for significant secretions and respiratory distress. only lasting about 10 min. may require tracheostomy. 10/18: much more awake and interactive. still has significant secretions. on SBT for longer today, but with active coronary ischemia, very high risk if he fails extubation. plan for trach if he remains intubated through the weekend. 10/19: still failing SBT. dressings changed today. clinically improving, but very weak and slow progress. 10/20: again failing SBT for copious secretions. was OOB to chair today. likely will need trach. 10/21: failed SBT for tachypnea, RR > 40. discussed with Dr. Mcgee: plan for trach tomorrow. discussed with cardiology service: they will likely medically manage his coronary artery disease without [facility] intervention. this is more of a reason to pursue trach, to prevent coronary ischemia that would come with trial of extubation first. 10/22: Plan for percutaneous tracheostomy at bedside 11 AM. Arousable on the ventilator and following commands. Currently afebrile. N.p.o. status. 10/23: Status post percutaneous tracheostomy 10/22 without complication. Continues to ooze from around tracheostomy site. Will hold enoxaparin for today. Tube feeds back at goal. Denies abdominal pain. Positive flatus from ostomy site. 10/24: Normal stool coming from well-perfused ostomy. Spontaneous breathing trials with tachypnea and mild labor. Chest x-ray with chronic interstitial changes and small lung volumes. 10/25: A little bit stronger on spontaneous breathing trials today. Pressure support settings 18/10. Tolerating tube feeds. 10/26: He is tolerating a mild reduction and mean airway pressure and end expiratory pressure. Continues to look acceptably comfortable during spontaneous breathing trials. 10/27: We needed to increase PEEP again last evening. 10/28: Spontaneous breathing trial at 8/8 this morning and doing quite well. Tube feedings on hold per surgery. Patient required low dose Xanax last night for anxiety. 10/29: intermittent SBTs. will trial t-piece today. no significant change. needs LTAC level care. 10/30: t-piece trials. ostomy working. advancing trickle tube feeds per surgery. 10/31: patient having gout flair and significantly painful. however, steroids contraindicated, and NSAIDS also contraindicated with concern over renal dysfunction in the setting of critical illness. still failing to separate from mechanical ventilation. really needs LTAC level care for pulmonary rehab. 11/01: NG tube placed to suction with 700 cc of gastric contents suctioned out overnight. Patient remains on mechanical ventilation with tracheostomy on CPAP with pressure support. Failed T piece yesterday. 11/02: Remains on mechanical ventilation via tracheostomy. 11/03: Remains on mechanical ventilation via tracheostomy. CPAP trials daily. T -piece as tolerated. 11/04: On mechanical ventilation via tracheostomy. Daily CPAP trials. 11/05, 11/06: Remains on mechanical ventilation via tracheostomy. Daily CPAP trials ongoing. 11/07: Worsening respiratory status. Placed back on PRVC mode mechanical ventilation last night. Significant sick pulmonary secretions noted. No BMs via colostomy. Chest x-ray done this morning shows worsening infiltrates more on the right suspicious for aspiration. KUB done this morning shows an ileus. Already placed on Zosyn on 11/07 which should cover for pneumonia. 11/08: Resting on mechanical ventilation via tracheostomy. Wound culture from incision site growing Pseudomonas 11/09: Remains on mechanical ventilation via tracheostomy. Wound culture and sputum both growing Pseudomonas. 11/10: Is on mechanical ventilation via tracheostomy. Daily CPAP trials. 11/11: Remains on mechanical ventilation via tracheostomy. Really CPAP trials ongoing. 11/12 No events overnight. On ventilator via trach. On CPAP with PS 15, PEEP:5 and FIO2 40%. Afebrile. 11/13 Patient denies complaint. Wants NGT out but understand rationale for continuing. On CPAP 25/09. Tolerating tube feeds. Afebrile. 11/14 On CPAP 15/5 since yesterday. Able to wean to 12/5 but weaning beyond that produces tachypnea. Was out of bed to chair for a couple of hours. 11/15: Remains on CPAP via tracheostomy. Had problems with secretions last night. Adding scheduled nebulizer treatments and Mucomyst to mobilize secretions. 11/16: Resting comfortably on mechanical ventilation via tracheostomy. On CPAP trial SUBJECTIVE 11/17: Afebrile. Tolerating tube feeds at goal. Placed on ventilator yesterday secondary to worsening subjective shortness of breath. We will reattempt CPAP trial again today. Positive BM.. Objective Vital Signs / I&O: Vital Signs 11/16/17 15:29 11/16/17 16:00 11/16/17 16:12 Temperature 98 F Pulse Rate 78 Respiratory Rate 24 18 Blood Pressure Pulse Oximetry 97 11/16/17 20:00 11/16/17 20:59 11/16/17 22:10 Temperature 98.5 F Pulse Rate 99 H 94 H Respiratory Rate 34 H 30 H 22 Blood Pressure 152/75 H Pulse Oximetry 99 97 11/17/17 00:00 11/17/17 01:48 11/17/17 02:00 Temperature 98.5 F Pulse Rate 73 Respiratory Rate 24 33 H 33 H Blood Pressure 118/62 Pulse Oximetry 99 11/17/17 04:00 11/17/17 04:43 11/17/17 08:00 Temperature 97.8 F 98.7 F Pulse Rate 67 74 80 Respiratory Rate 24 22 32 H Blood Pressure 137/70 133/65 Pulse Oximetry 99 98 100 11/17/17 09:50 11/17/17 12:00 Temperature 98.6 F Pulse Rate 74 82 Respiratory Rate 28 H 28 H Blood Pressure 144/64 H Pulse Oximetry 98 98 Intake & Output 11/16/17 11/17/17 11/17/17 18:59 06:59 18:59 Intake Total 943 / 943 1042 / 1042 100 / 100 Output Total 800 / 800 25 / 25 Balance 143 / 143 1017 / 1017 100 / 100 Weight 70.7 kg Intake: IV 200 / 200 200 / 200 100 / 100 Zosyn 4.5 GM Premix 4.5 gm In 200 / 200 200 / 200 100 / 100 100 ml @ 200 mls/hr IV.SIG Q6H LISA Rx#:[id number] Tube Feeding 663 / 663 752 / 752 Tube Irrigant 80 / 80 Water Bolus Amount 90 / 90 Output: Urine 600 / 600 Stool 200 / 200 Stool Amount (Stoma) 25 / 25 Left Lower Abdomen 25 / 25 Other: # Voids 4 3 Date of Last Bowel Movement 11/16/17 11/16/17 11/16/17 Result Diagrams: 11/17/17 03:45 11/16/17 04:43 Imaging: ITS Impressions Chest X-Ray 11/15/17 00:00 CONCLUSION: Persistent prominent areas of consolidation in the mid and lower lungs. Objective Remarks: GENERAL: 72-year-old male currently PRVC ventilation via percutaneous tracheostomy SKIN: Warm and dry. No rash HEAD: Atraumatic. Normocephalic. EYES: Pupils equal round and reactive about 2 mm bilaterally. ENT: Oral cavity is moist. NG tube in left nare with tube feeds running. NECK: Trachea midline. Supple. Tracheostomy site clean and dry. CARDIOVASCULAR: RRR. No JVD. RESPIRATORY: Equal chest rise. Symmetrical excursion. scattered rhonchi. GASTROINTESTINAL: Abdomen slightly distended, slightly tympanitic, midline incision with two areas of skin dehiscence with damp to dry dressings in place , granulation tissue present, no exudate expressed. Colostomy in place with gas in the bag and some dark liquid/soft stool . MUSCULOSKELETAL: No edema lower extremities.. Well-perfused. NEUROLOGICAL: Patient is awake alert follows commands 4. Moving all 4 extremities spontaneously. Communicates with head nod and mouthing words. 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 RESP: Acute hypoxic and hypercarbic respiratory failure- now chronic. Iatrogenic left pneumothorax- resolved. Continue with CPAP weaning. Albuterol/ipratropium aerosols every 4 hours while awake with albuterol aerosols every 2 hours as needed dyspnea. Hypertonic saline aerosols every 4 hours 5 days Pulm toilet, trach care Guaifenesin 40 mg by tube every 8 hours mucolytic Status post percutaneous tracheostomy bedside - Dr. Mcgee keep head of the bed elevated 30 CV: Essential hypertension Hyperlipidemia Coronary artery disease Post operative STEMI Acute systolic heart failure Monitor HR and BP keep MAP>65mmHg Aspirin 81 mg daily, clopidogrel 75 mg p.o. daily BP controlled, decrease metoprolol to 50 mg p.o. twice daily and initiate lisinopril 5 mg p.o. daily. Adjust based on response. Continue atorvastatin 20 mg at night for dyslipidemia Holding amlodipine 10 mg daily 2D echocardiogram 05/29 revealed EF 50-55%. Grade 1 diastolic dysfunction. Pulmonary arterial pressure 34 mmHg Repeat revealed EF of 40-45% Followed by cardiology/Dr. Ellison: Dr. Villa discussed with team 10/21, and they recommended medical management. Continued conservative management recommended 11/02. GI: 10/08 Postop s/p ex-lap, TIA, Sigmoid colon resection with end colostomy and Holcomb's pouch Recurrent colonic obstruction, small bowel obstruction ? postop ileus vs SBO History of esophageal stricture status post dilatation History of small bowel obstruction Gastroesophageal reflux disease History of diverticulitis Hypoalbuminemia -Postop management per Dr. Mcgee tube feedings with Jevity 1.5 @50ml/hr. colostomy in place with ostomy cares Lansoprazole 30 mg GI prophylaxis. On omeprazole 20 mg daily at home Without bowel regimen having bowel movements Renal/: 10/08 Postop s/p Ureteroureteral anastomosis for ureteral injury Chronic kidney disease stage III a -Monitor renal function, I/O's, electrolytes replacement per protocol -Removal of double-J stent 6 weeks from operative procedure outpatient setting -Off IVF ID: Healthcare associated pneumonia Sputum cx 11/07: Pseudomonas, repeat sputum cx Wound cx 3626: Pseudomonas Wound culture from incision site(11/06) growing Pseudomonas, sputum Gram stain and culture(11/07) growing pansenstive Pseudomonas -Discontinued levofloxacin 10/14. s/p course vancomycin and cefepime, 10/14-10/20 Sputum, blood cultures 2 10/13 NGTD Urine Legionella and pneumococcal urinary antigens 10/13 negative HEME: Leukocytosis Normocytic anemia -Monitor CBC, CMP, coags -1 unit PRBCs transfused on 11/09 for hemoglobin 7.1 -1 unit PRBCs transfused on 11/15 for hemoglobin 7.4, ENDO: Diabetes mellitus type 2 Severe hyperglycemia of critical illness Hyperglycemia History of gout Holding metformin 1000 mg by mouth twice daily -Increase insulin detemir to 18 units subcu twice daily. -sliding scale insulin/NovoLog high regimen q6h Currently on allopurinol 3 mg daily for gout MSK History of ankylosing spondylosis Holding denosumab 60 mg subcu every 18 days Holding cholecalciferol 4000 units p.o. daily PT evaluate and treat PROPH: -Bilateral lower extremity SCDs. Enoxaparin 40 mg subcu daily. On lansoprazole 30 mg IV for stress ulcer prophylaxis. LINES: - piv. Use insulin if indicated Level 2 followup
[2017-11-17] MEDS: HYDROmorphone PF Inj 2 MG/ML Vial IV.PUSH PRN (14:29)
[2017-11-17] MEDS: Carvedilol 6.25 MG Tablet PO SCH (22:32)
[2017-11-18] MEDS: Insulin Detemir Inj 1,000 UNIT/10 ML Vial SQ SCH ×3 (01:17→23:59)
[2017-11-18] MEDS: Oral Hygiene Kit OROPHARYNG SCH ×4 (01:18→16:31)
[2017-11-18] MEDS: Piperacil/Tazo 4.5 GM Premix 4.5 GM/100 ML BAG IV.SIG SCH ×4 (02:33→22:26)
--- NOTE | 2017-11-18 05:26 | XR ---
EXAM DATE: 11/18/2017 5:04 AM EDT AGE/SEX: 72 years / Male INDICATIONS: Respiratory failure. CLINICAL DATA: This is the patient's subsequent encounter. Patient reports that signs and symptoms h ave been present for 1 month and indicates a pain score of Nonresponsive. MEDICAL/SURGICAL HISTORY: Cardiovascular disease. Renal failure, acute. Stroke. Appendectomy. Colon resection. COMPARISON: [facility] [place], CHEST 1V SINGLE AP, 11/15/2017. . FINDINGS: Single AP view of the chest. Tracheostomy tube and nasogastric tube remain in place. Prominent bilate ral symmetric pulmonary opacity with mid to lower lung zone predominance again seen. No significant i nterval change. CONCLUSION: No significant interval change in prominent symmetric bilateral lung opacity. Electronically signed by: Bakari Quinonez MD 11/18/2017 5:25 AM EDT
[2017-11-18] MEDS: Artificial Tears Opth Drops 15 ML Bottle EACH EYE SCH ×3 (05:44→22:29)
[2017-11-18 05:59] LABS: Baso % (Auto) 0.6 % (0.0-2.0); Eos # (Auto) 0.4 th/mm3 (0.0-0.4); Hematocrit 23.2 % (39.0-51.0); Hemoglobin 7.8 gm/dL (13.0-17.0); Lymph # (Auto) 0.6 th/mm3 (1.0-4.8); Lymph % (Auto) 6.6 % (9.0-44.0); Mean Corpuscular HGB Conc 33.7 % (32.0-36.0); Mean Corpuscular Hemoglobin 29.3 pg (27.0-34.0); Mean Corpuscular Volume 86.9 fL (80.0-100.0); Mean Platelet Volume 8.5 fL (7.0-11.0); Mono # (Auto) 0.6 th/mm3 (0.0-0.9); Mono % (Auto) 7.2 % (0.0-8.0); Neut # (Auto) 6.9 th/mm3 (1.8-7.7); Neut % (Auto) 80.6 % (16.0-70.0); Platelet Count 324 th/mm3 (150-450); Red Blood Count 2.67 mil/mm3 (4.50-5.90); White Blood Count 8.5 th/mm3 (4.0-11.0)
[2017-11-18 06:25] LABS: Alanine Aminotransferase 33 U/L (12-78); Albumin 1.8 g/dL (3.4-5.0); Anion Gap 9 meq/L (5-15); Aspartate Aminotransferase 19 U/L (15-37); Blood Urea Nitrogen 19 mg/dL (7-18); Calcium 8.4 mg/dL (8.5-10.1); Carbon Dioxide 27.9 meq/L (21.0-32.0); Chloride 103 meq/L (98-107); Glomerular Filtration Rate 70 mL/min (>89); Glucose,Random 185 mg/dL (74-106); Phosphorus 3.9 mg/dL (2.5-4.9); Potassium 3.9 meq/L (3.5-5.1); Sodium 140 meq/L (136-145)
[2017-11-18 06:27] LABS: Alkaline Phosphatase 53 U/L (45-117); Total Protein 6.9 g/dL (6.4-8.2)
[2017-11-18] MEDS: Insulin NovoLOG Aspart Correctional Sugar Inj SQ SCH ×4 (06:37→23:57)
[2017-11-18] MEDS: clonazePAM 0.5 MG Tablet PO SCH ×2 (08:52→22:28)
[2017-11-18] MEDS: Allopurinol 300 MG Tablet PO SCH (08:53)
[2017-11-18] MEDS: Carvedilol 6.25 MG Tablet PO SCH ×2 (08:53→22:26)
[2017-11-18] MEDS: Sodium Hypochlorite 0.125% Top Soln 500 ML Bottle TOPICAL SCH ×2 (09:03→22:27)
[2017-11-18] MEDS: Chlorhexidine Gluconate 0.12% Liq 15 ML UDC SWISH-SPIT SCH ×2 (09:03→22:25)
[2017-11-18] MEDS ORDERED: Potassium Chloride 20 MEQ Pwd Pkt NG/OG ONE (10:13)
--- NOTE | 2017-11-18 10:17 | P.PNCC ---
Subjective Subjective Remarks/Hospital Course: This is a 72 year old male with history of type 2 diabetes, hypertension, dyslipidemia, chronic kidney disease stage III, ankylosing spondylitis, esophageal stricture s/p dilatation, diverticulitis, peritonitis, history of small bowel obstruction, colon resection x2, who was admitted to the hospital with one-week history of abd distension, constipation, and cramps. Pt tried to mange this at home, as he is familiar with symptoms. Has history of multiple bowel obstructions and multiple surgeries in the past. CT of abdomen/ pelvis showed moderately dilated large and small bowel, concentric stricturing in the sigmoid colon. Gastroenterology and general surgery were consulted. Patient was taken today to the OR by Dr. Mcgee, patient underwent exploratory laparotomy, Lysis of adhesions for dense adhesions involving small and large bowel, sigmoid colon resection with end colostomy and Holcomb's pouch. There was stricture at previous surgical site in sigmoid colon. EBL 300 ml, urine output was adequate. During the ex lap patient's sustained ureteral injury which required ureteroureteral anastomosis over stent by Dr. Page. Postop patient was moved to the PACU where his chest x-ray showed small possible left lateral pneumothorax. ABG showed a pH of 7.29/41/99 BE -6.7. I evaluated the patient in the ICU. Patient is intubated sedated with Precedex. He is tachycardic and borderline hypotensive. Additional 500 mL of fluid bolus given , 1 amp of bicarb. Received total 2.1 L in the OR. Urine output is adequate, approximately 75 ml per hour post op. With left-sided tiny pneumothorax (most likely with from central line placement in OR), will attempt CPAP trials for possible extubation. 10/09: Breathing is moderately labored to observe but the patient states he is comfortable. His major complaint is chronic back pain. Urine output is marginal but he remains well-perfused. Colostomy stoma is pink. 10/10: Labored breathing overnight. Remains on quarter normal saline at 125 cc hours and Clinimix E 4.25/25 at 83 cc an hour. Chest x-ray appears with bilateral pulmonary infiltrates. CVP is 8. Greater than 50% variation IVC by ultrasound. Bedside echocardiogram no acute findings. Patient currently with some pleuritic chest pain worse with deep inspiration. EKG currently pending. 8 run beat of V. tach overnight. Potassium magnesium within normal limits. 10/11: Afebrile. FiO2 requirements increased overnight currently at 60%. Chest x-ray revealed pulmonary edema bilaterally. Troponin downward trending. Noted sodium elevated 154. Will remove sodium from TPN. Norepinephrine initiated overnight currently at 8 mcg/min. Nitro paste discontinued. Holding parameters for beta corby 10/12: remains afebrile. back on levophed this AM at 5 mcg/min. also remains tachycardic in the 100s. sodium remains elevated despite removal of nacl from TPN. 10/13: T-max 100.4. Desaturated overnight requiring PEEP increased to 10 currently at 8. FiO2 down to 45%. Appears uncomfortable on the ventilator. Abdomen slightly more distended. Positive output from ostomy.. Transfusing 1 unit PRBCs due to acute coronary syndrome to keep above a. Recheck along with electrolytes active bleeding in place. CT abdomen/pelvis ordered. 10/14: Copious secretions overnight. PEEP at 7 FiO2 50%. Abdominal/pelvis CT revealed bilateral lobar pneumonia pelvic read as gallstone ileus but not likely is patient with copious stool output from ostomy. Did discuss with Dr. Mcgee. Antibiotic coverage broadened. Pancultured yesterday looks like his underlying pneumonia. Will transfuse 1 unit PRBCs today per cardiology request to maintain hemoglobin around 9 for acute coronary syndrome. Diuresis postprocedure and replace electrolytes aggressively. TPN will be weaned/ discontinued today after tube feeds at 40 cc an hour 10/15: t max 100.7 overnight. cultures NGTD. fio2 improving. secretions are somewhat better. 10/16: no improvements. afebrile. failed SBT after 10 minutes for tachypnea and respiratory distress. 10/17: failed sbt again for significant secretions and respiratory distress. only lasting about 10 min. may require tracheostomy. 10/18: much more awake and interactive. still has significant secretions. on SBT for longer today, but with active coronary ischemia, very high risk if he fails extubation. plan for trach if he remains intubated through the weekend. 10/19: still failing SBT. dressings changed today. clinically improving, but very weak and slow progress. 10/20: again failing SBT for copious secretions. was OOB to chair today. likely will need trach. 10/21: failed SBT for tachypnea, RR > 40. discussed with Dr[address] Mcgee: plan for trach tomorrow. discussed with cardiology service: they will likely medically manage his coronary artery disease without [facility] intervention. this is more of a reason to pursue trach, to prevent coronary ischemia that would come with trial of extubation first. 10/22: Plan for percutaneous tracheostomy at bedside 11 AM. Arousable on the ventilator and following commands. Currently afebrile. N.p.o. status. 10/23: Status post percutaneous tracheostomy 10/22 without complication. Continues to ooze from around tracheostomy site. Will hold enoxaparin for today. Tube feeds back at goal. Denies abdominal pain. Positive flatus from ostomy site. 10/24: Normal stool coming from well-perfused ostomy. Spontaneous breathing trials with tachypnea and mild labor. Chest x-ray with chronic interstitial changes and small lung volumes. 10/25: A little bit stronger on spontaneous breathing trials today. Pressure support settings 18/10. Tolerating tube feeds. 10/26: He is tolerating a mild reduction and mean airway pressure and end expiratory pressure. Continues to look acceptably comfortable during spontaneous breathing trials. 10/27: We needed to increase PEEP again last evening. 10/28: Spontaneous breathing trial at 8/8 this morning and doing quite well. Tube feedings on hold per surgery. Patient required low dose Xanax last night for anxiety. 10/29: intermittent SBTs. will trial t-piece today. no significant change. needs LTAC level care. 10/30: t-piece trials. ostomy working. advancing trickle tube feeds per surgery. 10/31: patient having gout flair and significantly painful. however, steroids contraindicated, and NSAIDS also contraindicated with concern over renal dysfunction in the setting of critical illness. still failing to separate from mechanical ventilation. really needs LTAC level care for pulmonary rehab. 11/01: NG tube placed to suction with 700 cc of gastric contents suctioned out overnight. Patient remains on mechanical ventilation with tracheostomy on CPAP with pressure support. Failed T piece yesterday. 11/02: Remains on mechanical ventilation via tracheostomy. 11/03: Remains on mechanical ventilation via tracheostomy. CPAP trials daily. T -piece as tolerated. 11/04: On mechanical ventilation via tracheostomy. Daily CPAP trials. 11/05, 11/06: Remains on mechanical ventilation via tracheostomy. Daily CPAP trials ongoing. 11/07: Worsening respiratory status. Placed back on PRVC mode mechanical ventilation last night. Significant sick pulmonary secretions noted. No BMs via colostomy. Chest x-ray done this morning shows worsening infiltrates more on the right suspicious for aspiration. KUB done this morning shows an ileus. Already placed on Zosyn on 11/07 which should cover for pneumonia. 11/08: Resting on mechanical ventilation via tracheostomy. Wound culture from incision site growing Pseudomonas 11/09: Remains on mechanical ventilation via tracheostomy. Wound culture and sputum both growing Pseudomonas. 11/10: Is on mechanical ventilation via tracheostomy. Daily CPAP trials. 11/11: Remains on mechanical ventilation via tracheostomy. Really CPAP trials ongoing. 11/12 No events overnight. On ventilator via trach. On CPAP with PS 15, PEEP:5 and FIO2 40%. Afebrile. 11/13 Patient denies complaint. Wants NGT out but understand rationale for continuing. On CPAP /. Tolerating tube feeds. Afebrile. 11/14 On CPAP 15/5 since yesterday. Able to wean to 12/5 but weaning beyond that produces tachypnea. Was out of bed to chair for a couple of hours. 11/15: Remains on CPAP via tracheostomy. Had problems with secretions last night. Adding scheduled nebulizer treatments and Mucomyst to mobilize secretions. 11/16: Resting comfortably on mechanical ventilation via tracheostomy. On CPAP trial 11/17: Afebrile. Tolerating tube feeds at goal. Placed on ventilator yesterday secondary to worsening subjective shortness of breath. We will reattempt CPAP trial again today. Positive BM.. SUBJECTIVE 11/18: Afebrile. We will reattempt CPAP trial again today. Check chest x-ray in a.m. Continue with pulmonary toilet. Anxious. Objective Vital Signs / I&O: Vital Signs 11/17/17 12:00 11/17/17 16:00 11/17/17 16:11 Temperature 98.6 F 98.8 F Pulse Rate 82 78 76 Respiratory Rate 28 H 25 H 28 H Blood Pressure 144/64 H 139/63 Pulse Oximetry 98 97 11/17/17 20:00 11/17/17 20:57 11/18/17 00:00 Temperature 97.7 F 98.4 F Pulse Rate 72 81 63 Respiratory Rate 24 24 Blood Pressure 110/58 L 112/59 L Pulse Oximetry 99 99 99 11/18/17 01:06 11/18/17 03:43 11/18/17 04:00 Temperature 98.2 F Pulse Rate 67 66 66 Respiratory Rate 19 17 18 Blood Pressure 115/58 L Pulse Oximetry 97 98 98 11/18/17 08:00 11/18/17 08:34 Temperature 98.0 F Pulse Rate 71 74 Respiratory Rate 24 26 H Blood Pressure 118/60 Pulse Oximetry 99 100 Intake & Output 11/17/17 11/18/17 11/18/17 18:59 06:59 18:59 Intake Total 746 / 746 1540 / 1540 Output Total 550 / 550 650 / 650 Balance 196 / 196 890 / 890 Weight 69.4 kg Intake: IV 200 / 200 200 / 200 Zosyn 4.5 GM Premix 4.5 gm In 200 / 200 200 / 200 100 ml @ 200 mls/hr IV.SIG Q6H LISA Rx#:[id number] Oral 0 / 0 Tube Feeding 486 / 486 480 / 480 Tube Irrigant 60 / 60 0 / 0 Water Bolus Amount 400 / 400 Other 60 / 60 Mass Transfusion Protocol 400 / 400 Output: Urine 250 / 250 400 / 400 Stool 200 / 200 Stool Amount (Stoma) 300 / 300 50 / 50 Left Lower Abdomen 300 / 300 50 / 50 Other: Other Intake Source Saline Solution Date of Last Bowel Movement 11/16/17 11/17/17 11/17/17 Result Diagrams: 11/18/17 04:47 11/18/17 04:47 Imaging: ITS Impressions Chest X-Ray 11/15/17 00:00 CONCLUSION: Persistent prominent areas of consolidation in the mid and lower lungs. Chest X-Ray 11/18/17 06:00 CONCLUSION: No significant interval change in prominent symmetric bilateral lung opacity. Objective Remarks: GENERAL: 72-year-old male currently PRVC ventilation via percutaneous tracheostomy SKIN: Warm and dry. No rash HEAD: Atraumatic. Normocephalic. EYES: Pupils equal round and reactive about 2 mm bilaterally. ENT: Oral cavity is moist. NG tube in left nare with tube feeds running. NECK: Trachea midline. Supple. Tracheostomy site clean and dry. CARDIOVASCULAR: RRR. No JVD. RESPIRATORY: Equal chest rise. Symmetrical excursion. scattered rhonchi. GASTROINTESTINAL: Abdomen slightly distended, slightly tympanitic, midline incision with two areas of skin dehiscence with damp to dry dressings in place , granulation tissue present, no exudate expressed. Colostomy in place with gas in the bag and some dark liquid/soft stool . MUSCULOSKELETAL: No edema lower extremities.. Well-perfused. NEUROLOGICAL: Patient is awake alert follows commands 4. Moving all 4 extremities spontaneously. Communicates with head nod and mouthing words. 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 RESP: Acute hypoxic and hypercarbic respiratory failure- now chronic. Iatrogenic left pneumothorax- resolved. Continue with CPAP weaning. Albuterol/ipratropium aerosols every 4 hours while awake with albuterol aerosols every 2 hours as needed dyspnea. Hypertonic saline aerosols every 4 hours 5 days Pulm toilet, trach care Guaifenesin 40 mg by tube every 8 hours mucolytic Status post percutaneous tracheostomy bedside - Dr. Mcgee keep head of the bed elevated 30 CV: Essential hypertension Hyperlipidemia Coronary artery disease Post operative STEMI Acute systolic heart failure Monitor HR and BP keep MAP>65mmHg Aspirin 81 mg daily, clopidogrel 75 mg p.o. daily BP controlled, decrease metoprolol to 50 mg p.o. twice daily and initiate lisinopril 5 mg p.o. daily. Adjust based on response. Continue atorvastatin 20 mg at night for dyslipidemia Holding amlodipine 10 mg daily 2D echocardiogram 05/29 revealed EF 50-55%. Grade 1 diastolic dysfunction. Pulmonary arterial pressure 34 mmHg Repeat revealed EF of 40-45% Followed by cardiology/Dr. Ellison: Dr. Villa discussed with team 10/21, and they recommended medical management. Continued conservative management recommended 11/02. GI: 10/08 Postop s/p ex-lap, TIA, Sigmoid colon resection with end colostomy and Holcomb's pouch Recurrent colonic obstruction, small bowel obstruction ? postop ileus vs SBO History of esophageal stricture status post dilatation History of small bowel obstruction Gastroesophageal reflux disease History of diverticulitis Hypoalbuminemia -Postop management per Dr. Mcgee tube feedings with Jevity 1.5 @50ml/hr. colostomy in place with ostomy cares Lansoprazole 30 mg GI prophylaxis. On omeprazole 20 mg daily at home Without bowel regimen having bowel movements Renal/: 10/08 Postop s/p Ureteroureteral anastomosis for ureteral injury Chronic kidney disease stage III a -Monitor renal function, I/O's, electrolytes replacement per protocol -Removal of double-J stent 6 weeks from operative procedure outpatient setting -Off IVF ID: Healthcare associated pneumonia Sputum cx 11/07: Pseudomonas, repeat sputum cx Wound cx 3626: Pseudomonas Wound culture from incision site(11/06) growing Pseudomonas, sputum Gram stain and culture(11/07) growing pansenstive Pseudomonas -Discontinued levofloxacin 10/14. s/p course vancomycin and cefepime, 10/14-10/20 Sputum, blood cultures 2 10/13 NGTD Urine Legionella and pneumococcal urinary antigens 10/13 negative HEME: Leukocytosis Normocytic anemia -Monitor CBC, CMP, coags -1 unit PRBCs transfused on 11/09 for hemoglobin 7.1 -1 unit PRBCs transfused on 11/15 for hemoglobin 7.4, ENDO: Diabetes mellitus type 2 Severe hyperglycemia of critical illness Hyperglycemia History of gout Holding metformin 1000 mg by mouth twice daily -Increase insulin detemir to 20 units subcu twice daily. 15 units sliding scale insulin past 24 hours -sliding scale insulin/NovoLog high regimen q6h Currently on allopurinol 300 mg daily for gout MSK History of ankylosing spondylosis Holding denosumab 60 mg subcu every 18 days Holding cholecalciferol 4000 units p.o. daily PT evaluate and treat PROPH: -Bilateral lower extremity SCDs. Enoxaparin 40 mg subcu daily. On lansoprazole 30 mg for stress ulcer prophylaxis. LINES: - piv. Central line if indicated Level 2 followup
[2017-11-18] MEDS: Lisinopril 5 MG Tablet PO SCH (10:28)
[2017-11-18] MEDS: HYDROmorphone PF Inj 2 MG/ML Vial IV.PUSH PRN ×2 (11:50→16:39)
[2017-11-18] MEDS ORDERED: Sodium Chlor 0.9% Inj 500 ML IV.SIG ONE (16:25)
[2017-11-19] MEDS: Insulin NovoLOG Aspart Correctional Sugar Inj SQ SCH ×4 (01:41→18:56)
[2017-11-19 04:22] LABS: Baso # (Auto) 0.1 th/mm3 (0.0-0.2); Baso % (Auto) 0.5 % (0.0-2.0); Eos # (Auto) 0.3 th/mm3 (0.0-0.4); Hematocrit 22.6 % (39.0-51.0); Hemoglobin 7.5 gm/dL (13.0-17.0); Lymph # (Auto) 0.5 th/mm3 (1.0-4.8); Lymph % (Auto) 4.3 % (9.0-44.0); Mean Corpuscular HGB Conc 33.1 % (32.0-36.0); Mean Corpuscular Hemoglobin 28.7 pg (27.0-34.0); Mean Corpuscular Volume 86.7 fL (80.0-100.0); Mean Platelet Volume 8.5 fL (7.0-11.0); Mono # (Auto) 0.8 th/mm3 (0.0-0.9); Mono % (Auto) 7.6 % (0.0-8.0); Neut # (Auto) 9.4 th/mm3 (1.8-7.7); Neut % (Auto) 84.6 % (16.0-70.0); Platelet Count 350 th/mm3 (150-450); Red Blood Count 2.61 mil/mm3 (4.50-5.90); Red Cell Distribution Width 15.9 % (11.6-17.2); White Blood Count 11.1 th/mm3 (4.0-11.0)
[2017-11-19 04:34] LABS: Calcium 8.2 mg/dL (8.5-10.1); Carbon Dioxide 26.8 meq/L (21.0-32.0); Magnesium 1.9 mg/dL (1.5-2.5); Phosphorus 3.7 mg/dL (2.5-4.9); Potassium 3.9 meq/L (3.5-5.1)
--- NOTE | 2017-11-19 04:47 | XR ---
EXAM DATE: 11/19/2017 4:14 AM EDT AGE/SEX: 72 years / Male INDICATIONS: Respiratory failure. CLINICAL DATA: This is the patient's subsequent encounter. Patient reports that signs and symptoms h ave been present for 1 month and indicates a pain score of Nonresponsive. MEDICAL/SURGICAL HISTORY: . Cardiovascular disease. Renal failure, acute. Stroke. . Appendect demarco. Colon resection. COMPARISON: [facility], CHEST 1V SINGLE AP, 11/18/2017. . FINDINGS: Stable tracheostomy and NGT coursing beyond the GE junction with deformity from the image. Persistent bilateral perihilar diffuse airspace disease. Cardiomediastinal contours are stable. Remainder of th e exam is unchanged. CONCLUSION: 1. No significant interval change. 2. Persistent diffuse bilateral perihilar airspace consolidation. Electronically signed by: Asad Anderson MD 11/19/2017 4:46 AM EDT
[2017-11-19] MEDS: Piperacil/Tazo 4.5 GM Premix 4.5 GM/100 ML BAG IV.SIG SCH ×4 (06:54→21:15)
[2017-11-19] MEDS: Oral Hygiene Kit OROPHARYNG SCH ×3 (06:54→16:00)
[2017-11-19] MEDS: Artificial Tears Opth Drops 15 ML Bottle EACH EYE SCH ×3 (06:55→22:30)
[2017-11-19] MEDS: Chlorhexidine Gluconate 0.12% Liq 15 ML UDC SWISH-SPIT SCH ×2 (08:00→21:15)
[2017-11-19] MEDS: Lisinopril 5 MG Tablet PO SCH (08:38)
[2017-11-19] MEDS: Carvedilol 6.25 MG Tablet PO SCH ×2 (08:38→21:16)
[2017-11-19] MEDS: clonazePAM 0.5 MG Tablet PO SCH (08:38)
[2017-11-19] MEDS: Allopurinol 300 MG Tablet PO SCH (08:39)
[2017-11-19] MEDS: Enoxaparin Inj 40 MG/0.4 ML Syringe SQ SCH (08:41)
[2017-11-19] MEDS: Sodium Hypochlorite 0.125% Top Soln 500 ML Bottle TOPICAL SCH ×2 (08:46→21:16)
[2017-11-19] MEDS: Insulin Detemir Inj 1,000 UNIT/10 ML Vial SQ SCH ×2 (08:47→22:29)
--- NOTE | 2017-11-19 08:51 | P.PNCC ---
Subjective Subjective Remarks/Hospital Course: This is a 72 year old male with history of type 2 diabetes, hypertension, dyslipidemia, chronic kidney disease stage III, ankylosing spondylitis, esophageal stricture s/p dilatation, diverticulitis, peritonitis, history of small bowel obstruction, colon resection x2, who was admitted to the hospital with one-week history of abd distension, constipation, and cramps. Pt tried to mange this at home, as he is familiar with symptoms. Has history of multiple bowel obstructions and multiple surgeries in the past. CT of abdomen/ pelvis showed moderately dilated large and small bowel, concentric stricturing in the sigmoid colon. Gastroenterology and general surgery were consulted. Patient was taken today to the OR by Dr. Mcgee, patient underwent exploratory laparotomy, Lysis of adhesions for dense adhesions involving small and large bowel, sigmoid colon resection with end colostomy and Holcomb's pouch. There was stricture at previous surgical site in sigmoid colon. EBL 300 ml, urine output was adequate. During the ex lap patient's sustained ureteral injury which required ureteroureteral anastomosis over stent by Dr. Page. Postop patient was moved to the PACU where his chest x-ray showed small possible left lateral pneumothorax. ABG showed a pH of 7.29/41/99 BE -6.7. I evaluated the patient in the ICU. Patient is intubated sedated with Precedex. He is tachycardic and borderline hypotensive. Additional 500 mL of fluid bolus given , 1 amp of bicarb. Received total 2.1 L in the OR. Urine output is adequate, approximately 75 ml per hour post op. With left-sided tiny pneumothorax (most likely with from central line placement in OR), will attempt CPAP trials for possible extubation. 10/09: Breathing is moderately labored to observe but the patient states he is comfortable. His major complaint is chronic back pain. Urine output is marginal but he remains well-perfused. Colostomy stoma is pink. 10/10: Labored breathing overnight. Remains on quarter normal saline at 125 cc hours and Clinimix E 4.25/25 at 83 cc an hour. Chest x-ray appears with bilateral pulmonary infiltrates. CVP is 8. Greater than 50% variation IVC by ultrasound. Bedside echocardiogram no acute findings. Patient currently with some pleuritic chest pain worse with deep inspiration. EKG currently pending. 8 run beat of V. tach overnight. Potassium magnesium within normal limits. 10/11: Afebrile. FiO2 requirements increased overnight currently at 60%. Chest x-ray revealed pulmonary edema bilaterally. Troponin downward trending. Noted sodium elevated 154. Will remove sodium from TPN. Norepinephrine initiated overnight currently at 8 mcg/min. Nitro paste discontinued. Holding parameters for beta corby 10/12: remains afebrile. back on levophed this AM at 5 mcg/min. also remains tachycardic in the 100s. sodium remains elevated despite removal of nacl from TPN. 10/13: T-max 100.4. Desaturated overnight requiring PEEP increased to 10 currently at 8. FiO2 down to 45%. Appears uncomfortable on the ventilator. Abdomen slightly more distended. Positive output from ostomy.. Transfusing 1 unit PRBCs due to acute coronary syndrome to keep above a. Recheck along with electrolytes active bleeding in place. CT abdomen/pelvis ordered. 10/14: Copious secretions overnight. PEEP at 7 FiO2 50%. Abdominal/pelvis CT revealed bilateral lobar pneumonia pelvic read as gallstone ileus but not likely is patient with copious stool output from ostomy. Did discuss with Dr. Mcgee. Antibiotic coverage broadened. Pancultured yesterday looks like his underlying pneumonia. Will transfuse 1 unit PRBCs today per cardiology request to maintain hemoglobin around 9 for acute coronary syndrome. Diuresis postprocedure and replace electrolytes aggressively. TPN will be weaned/ discontinued today after tube feeds at 40 cc an hour 10/15: t max 100.7 overnight. cultures NGTD. fio2 improving. secretions are somewhat better. 10/16: no improvements. afebrile. failed SBT after 10 minutes for tachypnea and respiratory distress. 10/17: failed sbt again for significant secretions and respiratory distress. only lasting about 10 min. may require tracheostomy. 10/18: much more awake and interactive. still has significant secretions. on SBT for longer today, but with active coronary ischemia, very high risk if he fails extubation. plan for trach if he remains intubated through the weekend. 10/19: still failing SBT. dressings changed today. clinically improving, but very weak and slow progress. 10/20: again failing SBT for copious secretions. was OOB to chair today. likely will need trach. 10/21: failed SBT for tachypnea, RR > 40. discussed with Dr[address] Mcgee: plan for trach tomorrow. discussed with cardiology service: they will likely medically manage his coronary artery disease without [facility] intervention. this is more of a reason to pursue trach, to prevent coronary ischemia that would come with trial of extubation first. 10/22: Plan for percutaneous tracheostomy at bedside 11 AM. Arousable on the ventilator and following commands. Currently afebrile. N.p.o. status. 10/23: Status post percutaneous tracheostomy 10/22 without complication. Continues to ooze from around tracheostomy site. Will hold enoxaparin for today. Tube feeds back at goal. Denies abdominal pain. Positive flatus from ostomy site. 10/24: Normal stool coming from well-perfused ostomy. Spontaneous breathing trials with tachypnea and mild labor. Chest x-ray with chronic interstitial changes and small lung volumes. 10/25: A little bit stronger on spontaneous breathing trials today. Pressure support settings 18/10. Tolerating tube feeds. 10/26: He is tolerating a mild reduction and mean airway pressure and end expiratory pressure. Continues to look acceptably comfortable during spontaneous breathing trials. 10/27: We needed to increase PEEP again last evening. 10/28: Spontaneous breathing trial at 8/8 this morning and doing quite well. Tube feedings on hold per surgery. Patient required low dose Xanax last night for anxiety. 10/29: intermittent SBTs. will trial t-piece today. no significant change. needs LTAC level care. 10/30: t-piece trials. ostomy working. advancing trickle tube feeds per surgery. 10/31: patient having gout flair and significantly painful. however, steroids contraindicated, and NSAIDS also contraindicated with concern over renal dysfunction in the setting of critical illness. still failing to separate from mechanical ventilation. really needs LTAC level care for pulmonary rehab. 11/01: NG tube placed to suction with 700 cc of gastric contents suctioned out overnight. Patient remains on mechanical ventilation with tracheostomy on CPAP with pressure support. Failed T piece yesterday. 11/02: Remains on mechanical ventilation via tracheostomy. 11/03: Remains on mechanical ventilation via tracheostomy. CPAP trials daily. T -piece as tolerated. 11/04: On mechanical ventilation via tracheostomy. Daily CPAP trials. 11/05, 11/06: Remains on mechanical ventilation via tracheostomy. Daily CPAP trials ongoing. 11/07: Worsening respiratory status. Placed back on PRVC mode mechanical ventilation last night. Significant sick pulmonary secretions noted. No BMs via colostomy. Chest x-ray done this morning shows worsening infiltrates more on the right suspicious for aspiration. KUB done this morning shows an ileus. Already placed on Zosyn on 11/07 which should cover for pneumonia. 11/08: Resting on mechanical ventilation via tracheostomy. Wound culture from incision site growing Pseudomonas 11/09: Remains on mechanical ventilation via tracheostomy. Wound culture and sputum both growing Pseudomonas. 11/10: Is on mechanical ventilation via tracheostomy. Daily CPAP trials. 11/11: Remains on mechanical ventilation via tracheostomy. Really CPAP trials ongoing. 11/12 No events overnight. On ventilator via trach. On CPAP with PS 15, PEEP:5 and FIO2 40%. Afebrile. 11/13 Patient denies complaint. Wants NGT out but understand rationale for continuing. On CPAP /5. Tolerating tube feeds. Afebrile. Subjective: 11/14 On CPAP 15/5 since yesterday. Able to wean to 12/5 but weaning beyond that produces tachypnea. Was out of bed to chair for a couple of hours. 11/15: Remains on CPAP via tracheostomy. Had problems with secretions last night. Adding scheduled nebulizer treatments and Mucomyst to mobilize secretions. 11/16: Resting comfortably on mechanical ventilation via tracheostomy. On CPAP trial 11/17: Afebrile. Tolerating tube feeds at goal. Placed on ventilator yesterday secondary to worsening subjective shortness of breath. We will reattempt CPAP trial again today. Positive BM.. SUBJECTIVE 11/18: Afebrile. We will reattempt CPAP trial again today. Check chest x-ray in a.m. Continue with pulmonary toilet. Anxious. 11/19: Not tolerating CPAP trials well. Will discuss among consultants ways to manage his anxiety. Objective Vital Signs / I&O: Vital Signs 11/18/17 11:45 11/18/17 12:00 11/18/17 12:10 Temperature 98.5 F 98.6 F Pulse Rate 69 65 Respiratory Rate 22 Blood Pressure 124/66 Pulse Oximetry 99 98 11/18/17 16:00 11/18/17 16:13 11/18/17 17:45 Temperature 98.2 F Pulse Rate 71 73 Respiratory Rate 28 H 25 H Blood Pressure 123/61 Pulse Oximetry 99 100 11/18/17 20:00 11/18/17 20:05 11/19/17 00:00 Temperature 98.9 F 98.7 F Pulse Rate 75 78 68 Respiratory Rate 31 H 22 Blood Pressure 136/67 109/55 L Pulse Oximetry 98 99 97 11/19/17 00:10 11/19/17 04:00 11/19/17 04:11 Temperature 98.6 F Pulse Rate 75 75 77 Respiratory Rate 28 H 27 H 27 H Blood Pressure 119/58 L Pulse Oximetry 98 99 99 11/19/17 08:28 Temperature Pulse Rate 73 Respiratory Rate 24 Blood Pressure Pulse Oximetry 99 Intake & Output 11/18/17 11/19/17 11/19/17 18:59 06:59 18:59 Intake Total 2255 / 2255 1595 / 1595 100 / 100 Output Total 700 / 700 500 / 500 400 / 400 Balance 1555 / 1555 1095 / 1095 -300 / -300 Weight 69.4 kg Intake: IV 700 / 700 100 / 100 100 / 100 Zosyn 4.5 GM Premix 4.5 gm In 200 / 200 100 / 100 100 / 100 100 ml @ 200 mls/hr IV.SIG Q6H LISA Rx#:[id number] NS Inj 500 ML @ Wide Open IV. 500 / 500 SIG BOLUS ONE Rx#:[id number] Oral 0 / 0 0 / 0 Tube Feeding 445 / 445 445 / 445 Tube Irrigant 0 / 0 0 / 0 Water Bolus Amount 550 / 550 150 / 150 Other 560 / 560 500 / 500 Mass Transfusion Protocol 400 / 400 Output: Urine 400 / 400 200 / 200 300 / 300 Stool 150 / 150 150 / 150 100 / 100 Stool Amount (Stoma) 150 / 150 150 / 150 Left Lower Abdomen 150 / 150 150 / 150 Other: Post Void Residual 5 Other Intake Source Saline Solution Saline Solution # Voids 1 1 # Incontinent Voids 0 0 Date of Last Bowel Movement 11/18/17 11/18/17 Result Diagrams: 11/19/17 03:11 11/19/17 03:11 Objective Remarks: Objective Remarks GENERAL: 72-year-old male currently on CPAP via tracheostomy SKIN: Warm and dry. No rash HEAD: Atraumatic. Normocephalic. EYES: Pupils equal round and reactive, 2 mm bilaterally. ENT: Oral cavity is moist. NG tube in left nare with tube feeds running. NECK: Trachea midline. Supple. Tracheostomy site clean and dry. CARDIOVASCULAR: RRR. No JVD. No m,r. No JVD. RESPIRATORY: Equal chest rise. Symmetrical excursion. scattered rhonchi. Labored, tachypneic on CPAP. GASTROINTESTINAL: Abdomen slightly distended, slightly tympanitic, midline incision with two areas of skin dehiscence with damp to dry dressings in place , granulation tissue present, no exudate expressed. Colostomy in place with gas in the bag and some dark liquid/soft stool . MUSCULOSKELETAL: No edema lower extremities.. Well-perfused. NEUROLOGICAL: Patient is awake alert follows commands 4. Moving all 4 extremities spontaneously. Communicates with head nod and mouthing words. Assessment and Plan - Problem List (1) Chronic respiratory failure Code(s): J96.10 - Chronic respiratory failure, unspecified whether with hypoxia or hypercapnia Status: Chronic (2) Large bowel obstruction Code(s): K56.609 - Unspecified intestinal obstruction, unspecified as to partial versus complete obstruction Status: Resolved (3) STEMI (ST elevation myocardial infarction) Code(s): I21.3 - ST elevation (STEMI) myocardial infarction of unspecified site Status: Resolved (4) Diabetes Code(s): E11.9 - Type 2 diabetes mellitus without complications Status: Acute (5) Wound dehiscence, surgical Code(s): T81.31XA - Disruption of external operation (surgical) wound, not elsewhere classified, initial encounter Status: Acute (6) Dysphagia Code(s): R13.10 - Dysphagia, unspecified Status: Acute (7) Protein-calorie malnutrition, severe Code(s): E43 - Unspecified severe protein-calorie malnutrition Status: Acute (8) Systolic heart failure Code(s): I50.20 - Unspecified systolic (congestive) heart failure Status: Acute (9) Colostomy in place Code(s): Z93.3 - Colostomy status Status: Acute - Assessment and Plan Plan: A/P Assessment and Plan NEURO/Psych: 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 Out of bed to chair with assist at least daily. RESP: Acute hypoxic and hypercarbic respiratory failure- now chronic. Iatrogenic left pneumothorax- resolved. Continue with CPAP weaning. Albuterol/ipratropium aerosols every 6 hours while awake with albuterol aerosols every 2 hours as needed dyspnea Pulm toilet, trach care Status post percutaneous tracheostomy bedside - Dr. Mcgee keep head of the bed elevated 30 CV: Essential hypertension Hyperlipidemia Coronary artery disease Post operative STEMI Acute systolic heart failure Monitor HR and BP keep MAP>65mmHg Aspirin 81 mg daily, clopidogrel 75 mg p.o. daily BP controlled, decrease metoprolol to 50 mg p.o. twice daily and initiate lisinopril 5 mg p.o. daily. Adjust based on response. Continue atorvastatin 20 mg at night for dyslipidemia Holding amlodipine 10 mg daily 2D echocardiogram 05/29 revealed EF 50-55%. Grade 1 diastolic dysfunction. Pulmonary arterial pressure 34 mmHg Repeat revealed EF of 40-45% Followed by cardiology/Dr. Ellison: Dr. Villa discussed with team 10/21, and they recommended medical management. Continued conservative management recommended 11/02. GI: 10/08 Postop s/p ex-lap, TIA, Sigmoid colon resection with end colostomy and Holcomb's pouch Recurrent colonic obstruction, small bowel obstruction ? postop ileus vs SBO History of esophageal stricture status post dilatation History of small bowel obstruction Gastroesophageal reflux disease History of diverticulitis Hypoalbuminemia -Postop management per Dr. Mcgee tube feedings with Jevity 1.5 @50ml/hr. colostomy in place -Pantoprazole 40 mg IV daily for GI prophylaxis. On omeprazole 20 mg daily at home Renal/: 10/08 Postop s/p Ureteroureteral anastomosis for ureteral injury Chronic kidney disease stage III a -Monitor renal function, I/O's, electrolytes replacement per protocol -Removal of double-J stent 6 weeks from operative procedure outpatient setting -Off IVF ID: Pneumonia Wound culture from abdominal incision +pseudomonas. -Started Zosyn on 11/06 #9 and damp to dry dressing per general surgery. Wound is granulating and nonpurulent. Could d/c abx soon from my standpoint, will need to d/w Dr. Mcgee.. Sputum cx 11/07: Pseudomonas, repeat sputum cx Wound cx 08/06: Pseudomonas Wound culture from incision site(11/06) growing Pseudomonas, sputum Gram stain and culture(11/07) growing pansenstive Pseudomonas -Discontinued levofloxacin 10/14. s/p course vancomycin and cefepime, 10/14-10/20 Sputum, blood cultures 2 10/13 NGTD Urine Legionella and pneumococcal urinary antigens 10/13 negative HEME: Normocytic anemia Thrombocytosis -Monitor CBC, CMP, coags -1 unit PRBCs to be transfused on 11/09 for hemoglobin 7.1 ENDO: Diabetes mellitus type 2 Severe hyperglycemia of critical illness Hyperglycemia History of gout Holding metformin 1000 mg by mouth twice daily -Glucose not at target despite 40 units coverage with sliding scale. Increase detemir further to 15 units q12h. -sliding scale insulin/NovoLog high regimen q6h MSK History of ankylosing spondylosis Holding denosumab 60 mg subcu every 18 days Holding cholecalciferol 4000 units p.o. daily PT evaluate and treat PROPH: -Bilateral lower extremity SCDs. Lovenox 40 subcu daily. On protonix 40 mg IV for stress ulcer prophylaxis. LINES: - piv Overall impression: Has transfer order to [facility] helper vent unit 4th floor [place]. Acceptable for transfer. (8) Systolic heart failure Qualifiers: Heart failure chronicity: acute Qualified Code(s): I50.21 - Acute systolic ( congestive) heart failure
--- NOTE | 2017-11-19 09:03 | P.PNGS ---
<Jayshree Saha - Last Filed: 11/19/17 08:58> Subjective Patient reports: no new complaints (sitting up in bed writing notes ) Interval history: Asking if IV can come out Physical Exam Vital signs: Vital Signs 11/18/17 11:45 11/18/17 12:00 11/18/17 12:10 Temperature 98.5 F 98.6 F Pulse Rate 69 65 Respiratory Rate 22 Blood Pressure 124/66 Pulse Oximetry 99 98 11/18/17 16:00 11/18/17 16:13 11/18/17 17:45 Temperature 98.2 F Pulse Rate 71 73 Respiratory Rate 28 H 25 H Blood Pressure 123/61 Pulse Oximetry 99 100 11/18/17 20:00 11/18/17 20:05 11/19/17 00:00 Temperature 98.9 F 98.7 F Pulse Rate 75 78 68 Respiratory Rate 31 H 22 Blood Pressure 136/67 109/55 L Pulse Oximetry 98 99 97 11/19/17 00:10 11/19/17 04:00 11/19/17 04:11 Temperature 98.6 F Pulse Rate 75 75 77 Respiratory Rate 28 H 27 H 27 H Blood Pressure 119/58 L Pulse Oximetry 98 99 99 11/19/17 08:28 Temperature Pulse Rate 73 Respiratory Rate 24 Blood Pressure Pulse Oximetry 99 Intake & Output 11/18/17 11/19/17 11/19/17 18:59 06:59 18:59 Intake Total 2255 / 2255 1595 / 1595 100 / 100 Output Total 700 / 700 500 / 500 400 / 400 Balance 1555 / 1555 1095 / 1095 -300 / -300 Weight 69.4 kg Intake: IV 700 / 700 100 / 100 100 / 100 Zosyn 4.5 GM Premix 4.5 gm In 200 / 200 100 / 100 100 / 100 100 ml @ 200 mls/hr IV.SIG Q6H LISA Rx#:[id number] NS Inj 500 ML @ Wide Open IV. 500 / 500 SIG BOLUS ONE Rx#:[id number] Oral 0 / 0 0 / 0 Tube Feeding 445 / 445 445 / 445 Tube Irrigant 0 / 0 0 / 0 Water Bolus Amount 550 / 550 150 / 150 Other 560 / 560 500 / 500 Mass Transfusion Protocol 400 / 400 Output: Urine 400 / 400 200 / 200 300 / 300 Stool 150 / 150 150 / 150 100 / 100 Stool Amount (Stoma) 150 / 150 150 / 150 Left Lower Abdomen 150 / 150 150 / 150 Other: Post Void Residual 5 Other Intake Source Saline Solution Saline Solution # Voids 1 1 # Incontinent Voids 0 0 Date of Last Bowel Movement 11/18/17 11/18/17 - Constitutional no acute distress - Routine HEENT Exam Head: Present: normocephalic - Routine Neck Exam Present: supple Comments: trach in place - Routine Cardiovascular Exam Present: RRR - Routine Abdominal Exam Present: soft Comments: colostomy in place with good output; stoma dark Midline incision with packing in place - Routine Extremities Exam Present: full ROM, pulses intact - Routine Skin Exam Present: intact - Routine Neurological Exam Present: alert, oriented X3 - Detailed Neurological Exam: Coma Scale Eye Opening: Spontaneous Verbal Response: Oriented Motor Response: Obey commands Byron Coma Scale Total: 15 - Routine Psychiatric Exam Present: normal affect Assessment and Plan - Assessment (1) Large bowel obstruction Code(s): K56.609 - Unspecified intestinal obstruction, unspecified as to partial versus complete obstruction Status: Resolved Plan: Patient anticipates swallowing study tomorrow. If he passes he could have his NG tube removed and his diet advanced. I discussed with him in detail the potential sequence of events associated with a swallowing. He thanked me. (2) Respiratory failure requiring intubation Code(s): J96.90 - Respiratory failure, unspecified, unspecified whether with hypoxia or hypercapnia Status: Acute (3) Anemia, chronic disease Code(s): D63.8 - Anemia in other chronic diseases classified elsewhere Status : Acute - Plan 72 year old male s/p ex lap; s/p trach for prolonged need for mechanical ventilation -Continue to wean vent as tolerated -Tolerating TF at goal -Continue dressing changes -Wound Care following for continued colostomy care and teaching -Levsin ordered -Continue Jevity due to the need for high fiber formula; will need to cover sugars with SS insulin <David Mcgee - Last Filed: 11/19/17 11:41> Physical Exam Vital signs: Vital Signs 11/18/17 11:45 11/18/17 12:00 11/18/17 12:10 Temperature 98.5 F 98.6 F Pulse Rate 69 65 Respiratory Rate 22 Blood Pressure 124/66 Pulse Oximetry 99 98 11/18/17 16:00 11/18/17 16:13 11/18/17 17:45 Temperature 98.2 F Pulse Rate 71 73 Respiratory Rate 28 H 25 H Blood Pressure 123/61 Pulse Oximetry 99 100 11/18/17 20:00 11/18/17 20:05 11/19/17 00:00 Temperature 98.9 F 98.7 F Pulse Rate 75 78 68 Respiratory Rate 31 H 22 Blood Pressure 136/67 109/55 L Pulse Oximetry 98 99 97 11/19/17 00:10 11/19/17 04:00 11/19/17 04:11 Temperature 98.6 F Pulse Rate 75 75 77 Respiratory Rate 28 H 27 H 27 H Blood Pressure 119/58 L Pulse Oximetry 98 99 99 11/19/17 08:28 Temperature Pulse Rate 73 Respiratory Rate 24 Blood Pressure Pulse Oximetry 99 Intake & Output 11/18/17 11/19/17 11/19/17 18:59 06:59 18:59 Intake Total 2255 / 2255 1595 / 1595 100 / 100 Output Total 700 / 700 500 / 500 400 / 400 Balance 1555 / 1555 1095 / 1095 -300 / -300 Weight 69.4 kg Intake: IV 700 / 700 100 / 100 100 / 100 Zosyn 4.5 GM Premix 4.5 gm In 200 / 200 100 / 100 100 / 100 100 ml @ 200 mls/hr IV.SIG Q6H LISA Rx#:[id number] NS Inj 500 ML @ Wide Open IV. 500 / 500 SIG BOLUS ONE Rx#:[id number] Oral 0 / 0 0 / 0 Tube Feeding 445 / 445 445 / 445 Tube Irrigant 0 / 0 0 / 0 Water Bolus Amount 550 / 550 150 / 150 Other 560 / 560 500 / 500 Mass Transfusion Protocol 400 / 400 Output: Urine 400 / 400 200 / 200 300 / 300 Stool 150 / 150 150 / 150 100 / 100 Stool Amount (Stoma) 150 / 150 150 / 150 Left Lower Abdomen 150 / 150 150 / 150 Other: Post Void Residual 5 Other Intake Source Saline Solution Saline Solution # Voids 1 1 # Incontinent Voids 0 0 Date of Last Bowel Movement 11/18/17 11/18/17 Assessment and Plan - Assessment (1) Large bowel obstruction Code(s): K56.609 - Unspecified intestinal obstruction, unspecified as to partial versus complete obstruction Status: Resolved (2) Respiratory failure requiring intubation Code(s): J96.90 - Respiratory failure, unspecified, unspecified whether with hypoxia or hypercapnia Status: Acute (3) Anemia, chronic disease Code(s): D63.8 - Anemia in other chronic diseases classified elsewhere Status : Acute - Plan No real changes Awaiting LTVU bed for patient Wound is tack cleaner now; continue dressing changes - Attending Attestation The exam, history, and the medical decision-making described in the above note were completed with the assistance of the mid-level provider. I reviewed and agree with the findings presented. I attest that I had a [id number] encounter with the patient on the same day, and personally performed and documented my assessment and findings in the medical record.
[2017-11-19] MEDS: Dextrose 50% in Water 50 ML Vial IV.PUSH PRN (12:39)
--- NOTE | 2017-11-19 14:34 | P.PNWCN ---
Wound Care Nurse Consult Description: Patient seen for follow up stoma assessment Communicated with: RN Francisca Camargo Bowel Diversion Stoma - Bowel Stoma Left Lower Abdomen Stoma Edema: No Stoma Appearance: Irregular Shape, Retracted Loop Supporting Venkat: No Collection Device: Two-piece, Cut to Fit Wafer Drainage Description: Liquid, Brown Wafer Size: 1 3/4 cut to fit Stoma Care: Pouch and Wafer Changed, Skin Care Bee-Stomal Skin Appearance: Intact Bee-Stomal Surrounding Tissue Sensation Description: No Symptoms - Additional Information Additional Information: Patient was seen today for follow up of stoma, and appliance assessment.Stoma is not round and there for can't be measured using diameter. Measurements today were as follows: 1/2 inch tall and 1 inch wide and has an irregular shape.Stoma is pink and retracted. Patient is laying in bed.Bed Linens were moved to reveal abdomen with leaking ostomy appliance to Q. Appliance in place is 1 3 /4 cut to fit two piece appliance. Patient is not complaining of burning or irritation. Removed ostomy appliance in place. Cleansed peristomal skin with water and wash cloth and patted dry. Applied stoma powder and skin barrier film spray to encrust. Jose's seal was then applied from 3 to 9 o'clock to better seal appliance. Applied two piece cut to fit 1 3/4 appliance.Stoma was then dilated using finger.Instructed RN Carelys at bedside during procedure.
[2017-11-19] MEDS: HYDROmorphone PF Inj 2 MG/ML Vial IV.PUSH PRN (18:37)
[2017-11-19] MEDS: QUEtiapine 25 MG Tablet PO SCH (21:16)
[2017-11-20] MEDS: Oral Hygiene Kit OROPHARYNG SCH ×4 (00:06→17:11)
[2017-11-20] MEDS: Insulin NovoLOG Aspart Correctional Sugar Inj SQ SCH ×4 (00:40→18:36)
[2017-11-20] MEDS: Piperacil/Tazo 4.5 GM Premix 4.5 GM/100 ML BAG IV.SIG SCH ×4 (02:41→22:00)
[2017-11-20] MEDS: HYDROmorphone PF Inj 2 MG/ML Vial IV.PUSH PRN (02:41)
[2017-11-20] MEDS: Artificial Tears Opth Drops 15 ML Bottle EACH EYE SCH ×3 (06:00→22:03)
[2017-11-20 07:40] LABS: Calcium 8.3 mg/dL (8.5-10.1); Carbon Dioxide 28.6 meq/L (21.0-32.0); Potassium 3.9 meq/L (3.5-5.1)
[2017-11-20] MEDS: Lisinopril 5 MG Tablet PO SCH (08:52)
[2017-11-20] MEDS: Chlorhexidine Gluconate 0.12% Liq 15 ML UDC SWISH-SPIT SCH ×2 (08:54→22:00)
[2017-11-20] MEDS: Sodium Hypochlorite 0.125% Top Soln 500 ML Bottle TOPICAL SCH ×2 (08:55→22:01)
[2017-11-20] MEDS: Insulin Detemir Inj 1,000 UNIT/10 ML Vial SQ SCH ×2 (08:55→22:02)
[2017-11-20] MEDS: Allopurinol 300 MG Tablet PO SCH (08:58)
[2017-11-20] MEDS: QUEtiapine 25 MG Tablet PO SCH ×2 (08:58→22:03)
[2017-11-20] MEDS: Carvedilol 6.25 MG Tablet PO SCH ×2 (08:58→22:01)
[2017-11-20] MEDS: Enoxaparin Inj 40 MG/0.4 ML Syringe SQ SCH (08:59)
--- NOTE | 2017-11-20 09:14 | P.PNCC ---
Subjective Subjective Remarks/Hospital Course: This is a 72 year old male with history of type 2 diabetes, hypertension, dyslipidemia, chronic kidney disease stage III, ankylosing spondylitis, esophageal stricture s/p dilatation, diverticulitis, peritonitis, history of small bowel obstruction, colon resection x2, who was admitted to the hospital with one-week history of abd distension, constipation, and cramps. Pt tried to mange this at home, as he is familiar with symptoms. Has history of multiple bowel obstructions and multiple surgeries in the past. CT of abdomen/ pelvis showed moderately dilated large and small bowel, concentric stricturing in the sigmoid colon. Gastroenterology and general surgery were consulted. Patient was taken today to the OR by Dr. Mcgee, patient underwent exploratory laparotomy, Lysis of adhesions for dense adhesions involving small and large bowel, sigmoid colon resection with end colostomy and Holcomb's pouch. There was stricture at previous surgical site in sigmoid colon. EBL 300 ml, urine output was adequate. During the ex lap patient's sustained ureteral injury which required ureteroureteral anastomosis over stent by Dr. Page. Postop patient was moved to the PACU where his chest x-ray showed small possible left lateral pneumothorax. ABG showed a pH of 7.29/41/99 BE -6.7. I evaluated the patient in the ICU. Patient is intubated sedated with Precedex. He is tachycardic and borderline hypotensive. Additional 500 mL of fluid bolus given , 1 amp of bicarb. Received total 2.1 L in the OR. Urine output is adequate, approximately 75 ml per hour post op. With left-sided tiny pneumothorax (most likely with from central line placement in OR), will attempt CPAP trials for possible extubation. 10/09: Breathing is moderately labored to observe but the patient states he is comfortable. His major complaint is chronic back pain. Urine output is marginal but he remains well-perfused. Colostomy stoma is pink. 10/10: Labored breathing overnight. Remains on quarter normal saline at 125 cc hours and Clinimix E 4.25/25 at 83 cc an hour. Chest x-ray appears with bilateral pulmonary infiltrates. CVP is 8. Greater than 50% variation IVC by ultrasound. Bedside echocardiogram no acute findings. Patient currently with some pleuritic chest pain worse with deep inspiration. EKG currently pending. 8 run beat of V. tach overnight. Potassium magnesium within normal limits. 10/11: Afebrile. FiO2 requirements increased overnight currently at 60%. Chest x-ray revealed pulmonary edema bilaterally. Troponin downward trending. Noted sodium elevated 154. Will remove sodium from TPN. Norepinephrine initiated overnight currently at 8 mcg/min. Nitro paste discontinued. Holding parameters for beta corby 10/12: remains afebrile. back on levophed this AM at 5 mcg/min. also remains tachycardic in the 100s. sodium remains elevated despite removal of nacl from TPN. 10/13: T-max 100.4. Desaturated overnight requiring PEEP increased to 10 currently at 8. FiO2 down to 45%. Appears uncomfortable on the ventilator. Abdomen slightly more distended. Positive output from ostomy.. Transfusing 1 unit PRBCs due to acute coronary syndrome to keep above a. Recheck along with electrolytes active bleeding in place. CT abdomen/pelvis ordered. 10/14: Copious secretions overnight. PEEP at 7 FiO2 50%. Abdominal/pelvis CT revealed bilateral lobar pneumonia pelvic read as gallstone ileus but not likely is patient with copious stool output from ostomy. Did discuss with Dr. Mcgee. Antibiotic coverage broadened. Pancultured yesterday looks like his underlying pneumonia. Will transfuse 1 unit PRBCs today per cardiology request to maintain hemoglobin around 9 for acute coronary syndrome. Diuresis postprocedure and replace electrolytes aggressively. TPN will be weaned/ discontinued today after tube feeds at 40 cc an hour 10/15: t max 100.7 overnight. cultures NGTD. fio2 improving. secretions are somewhat better. 10/16: no improvements. afebrile. failed SBT after 10 minutes for tachypnea and respiratory distress. 10/17: failed sbt again for significant secretions and respiratory distress. only lasting about 10 min. may require tracheostomy. 10/18: much more awake and interactive. still has significant secretions. on SBT for longer today, but with active coronary ischemia, very high risk if he fails extubation. plan for trach if he remains intubated through the weekend. 10/19: still failing SBT. dressings changed today. clinically improving, but very weak and slow progress. 10/20: again failing SBT for copious secretions. was OOB to chair today. likely will need trach. 10/21: failed SBT for tachypnea, RR > 40. discussed with Dr[address] Mcgee: plan for trach tomorrow. discussed with cardiology service: they will likely medically manage his coronary artery disease without [facility] intervention. this is more of a reason to pursue trach, to prevent coronary ischemia that would come with trial of extubation first. 10/22: Plan for percutaneous tracheostomy at bedside 11 AM. Arousable on the ventilator and following commands. Currently afebrile. N.p.o. status. 10/23: Status post percutaneous tracheostomy 10/22 without complication. Continues to ooze from around tracheostomy site. Will hold enoxaparin for today. Tube feeds back at goal. Denies abdominal pain. Positive flatus from ostomy site. 10/24: Normal stool coming from well-perfused ostomy. Spontaneous breathing trials with tachypnea and mild labor. Chest x-ray with chronic interstitial changes and small lung volumes. 10/25: A little bit stronger on spontaneous breathing trials today. Pressure support settings 18/10. Tolerating tube feeds. 10/26: He is tolerating a mild reduction and mean airway pressure and end expiratory pressure. Continues to look acceptably comfortable during spontaneous breathing trials. 10/27: We needed to increase PEEP again last evening. 10/28: Spontaneous breathing trial at 8/8 this morning and doing quite well. Tube feedings on hold per surgery. Patient required low dose Xanax last night for anxiety. 10/29: intermittent SBTs. will trial t-piece today. no significant change. needs LTAC level care. 10/30: t-piece trials. ostomy working. advancing trickle tube feeds per surgery. 10/31: patient having gout flair and significantly painful. however, steroids contraindicated, and NSAIDS also contraindicated with concern over renal dysfunction in the setting of critical illness. still failing to separate from mechanical ventilation. really needs LTAC level care for pulmonary rehab. 11/01: NG tube placed to suction with 700 cc of gastric contents suctioned out overnight. Patient remains on mechanical ventilation with tracheostomy on CPAP with pressure support. Failed T piece yesterday. 11/02: Remains on mechanical ventilation via tracheostomy. 11/03: Remains on mechanical ventilation via tracheostomy. CPAP trials daily. T -piece as tolerated. 11/04: On mechanical ventilation via tracheostomy. Daily CPAP trials. 11/05, 11/06: Remains on mechanical ventilation via tracheostomy. Daily CPAP trials ongoing. 11/07: Worsening respiratory status. Placed back on PRVC mode mechanical ventilation last night. Significant sick pulmonary secretions noted. No BMs via colostomy. Chest x-ray done this morning shows worsening infiltrates more on the right suspicious for aspiration. KUB done this morning shows an ileus. Already placed on Zosyn on 11/07 which should cover for pneumonia. 11/08: Resting on mechanical ventilation via tracheostomy. Wound culture from incision site growing Pseudomonas 11/09: Remains on mechanical ventilation via tracheostomy. Wound culture and sputum both growing Pseudomonas. 11/10: Is on mechanical ventilation via tracheostomy. Daily CPAP trials. 11/11: Remains on mechanical ventilation via tracheostomy. Really CPAP trials ongoing. 11/12 No events overnight. On ventilator via trach. On CPAP with PS 15, PEEP:5 and FIO2 40%. Afebrile. 11/13 Patient denies complaint. Wants NGT out but understand rationale for continuing. On CPAP /5. Tolerating tube feeds. Afebrile. Subjective: 11/14 On CPAP 15/5 since yesterday. Able to wean to 12/5 but weaning beyond that produces tachypnea. Was out of bed to chair for a couple of hours. 11/15: Remains on CPAP via tracheostomy. Had problems with secretions last night. Adding scheduled nebulizer treatments and Mucomyst to mobilize secretions. 11/16: Resting comfortably on mechanical ventilation via tracheostomy. On CPAP trial 11/17: Afebrile. Tolerating tube feeds at goal. Placed on ventilator yesterday secondary to worsening subjective shortness of breath. We will reattempt CPAP trial again today. Positive BM.. SUBJECTIVE 11/18: Afebrile. We will reattempt CPAP trial again today. Check chest x-ray in a.m. Continue with pulmonary toilet. Anxious. 11/19: Not tolerating CPAP trials well. Will discuss among consultants ways to manage his anxiety. 11/20: Brief episodes of apnea overnight. Anxiety a little better controlled this morning. Objective Vital Signs / I&O: Vital Signs 11/19/17 09:30 11/19/17 12:00 11/19/17 12:11 Temperature 98.9 F Pulse Rate 70 68 Respiratory Rate 20 28 H 30 H Blood Pressure Pulse Oximetry 97 99 11/19/17 13:00 11/19/17 16:00 11/19/17 16:33 Temperature 98.4 F Pulse Rate 67 Respiratory Rate 26 H 17 Blood Pressure 137/62 116/57 L Pulse Oximetry 100 99 11/19/17 16:39 11/19/17 19:45 11/19/17 20:00 Temperature 98.4 F Pulse Rate 69 70 Respiratory Rate 29 H 28 H 24 Blood Pressure 142/69 H Pulse Oximetry 97 11/19/17 21:26 11/20/17 00:00 11/20/17 00:33 Temperature 98.5 F Pulse Rate 70 70 59 L Respiratory Rate 23 26 H 19 Blood Pressure 113/58 L Pulse Oximetry 99 100 99 11/20/17 04:00 11/20/17 04:41 11/20/17 08:40 Temperature 98.3 F Pulse Rate 66 67 72 Respiratory Rate 19 19 27 H Blood Pressure 116/57 L Pulse Oximetry 100 98 100 Intake & Output 11/19/17 11/20/17 11/20/17 18:59 06:59 18:59 Intake Total 1652 / 1652 1066 / 1066 Output Total 1270 / 1270 370 / 370 Balance 382 / 382 696 / 696 Weight 70.2 kg Intake: IV 300 / 300 200 / 200 Zosyn 4.5 GM Premix 4.5 gm In 300 / 300 200 / 200 100 ml @ 200 mls/hr IV.SIG Q6H [facility] Rx#:[id number] Tube Feeding 352 / 352 506 / 506 Tube Irrigant 300 / 300 Water Bolus Amount 300 / 300 360 / 360 Intake (Blood Product) Amt 400 / 400 Rbc As-3 Leukoreduced Unit 400 / 400 [id number] Output: Urine 1150 / 1150 350 / 350 Stool 100 / 100 Stool Amount (Stoma) 20 / 20 20 / 20 Left Lower Abdomen 20 / 20 20 / 20 Other: # Voids 4 2 Date of Last Bowel Movement 11/19/17 11/19/17 Result Diagrams: 11/19/17 03:11 11/20/17 06:21 Objective Remarks: Objective Remarks GENERAL: 72-year-old male currently on CPAP via tracheostomy SKIN: Warm and dry. No rash HEAD: Atraumatic. Normocephalic. EYES: Pupils equal round and reactive, 2 mm bilaterally. ENT: Oral cavity is moist. NG tube in left nare with tube feeds running. NECK: Trachea midline. Supple. Tracheostomy site clean and dry. CARDIOVASCULAR: RRR. No JVD. No m,r. No JVD. RESPIRATORY: Equal chest rise. Symmetrical excursion. scattered rhonchi. Labored, tachypneic on CPAP. GASTROINTESTINAL: Abdomen slightly distended, slightly tympanitic, midline incision with two areas of skin dehiscence with damp to dry dressings in place , granulation tissue present, no exudate expressed. Colostomy in place with gas in the bag and some dark liquid/soft stool . MUSCULOSKELETAL: No edema lower extremities.. Well-perfused. NEUROLOGICAL: Patient is awake alert follows commands 4. Moving all 4 extremities spontaneously. Communicates with head nod and mouthing words. Assessment and Plan - Problem List (1) Chronic respiratory failure Code(s): J96.10 - Chronic respiratory failure, unspecified whether with hypoxia or hypercapnia Status: Chronic (2) Large bowel obstruction Code(s): K56.609 - Unspecified intestinal obstruction, unspecified as to partial versus complete obstruction Status: Resolved (3) STEMI (ST elevation myocardial infarction) Code(s): I21.3 - ST elevation (STEMI) myocardial infarction of unspecified site Status: Resolved (4) Diabetes Code(s): E11.9 - Type 2 diabetes mellitus without complications Status: Acute (5) Wound dehiscence, surgical Code(s): T81.31XA - Disruption of external operation (surgical) wound, not elsewhere classified, initial encounter Status: Acute (6) Dysphagia Code(s): R13.10 - Dysphagia, unspecified Status: Acute (7) Protein-calorie malnutrition, severe Code(s): E43 - Unspecified severe protein-calorie malnutrition Status: Acute (8) Systolic heart failure Code(s): I50.20 - Unspecified systolic (congestive) heart failure Status: Acute (9) Colostomy in place Code(s): Z93.3 - Colostomy status Status: Acute - Assessment and Plan Plan: A/P Assessment and Plan NEURO/Psych: 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 Out of bed to chair with assist at least daily. RESP: Acute hypoxic and hypercarbic respiratory failure- now chronic. Iatrogenic left pneumothorax- resolved. Continue with CPAP weaning. Albuterol/ipratropium aerosols every 6 hours while awake with albuterol aerosols every 2 hours as needed dyspnea Pulm toilet, trach care Status post percutaneous tracheostomy bedside - Dr. Mcgee keep head of the bed elevated 30 CV: Essential hypertension Hyperlipidemia Coronary artery disease Post operative STEMI Acute systolic heart failure Monitor HR and BP keep MAP>65mmHg Aspirin 81 mg daily, clopidogrel 75 mg p.o. daily BP controlled, decrease metoprolol to 50 mg p.o. twice daily and initiate lisinopril 5 mg p.o. daily. Adjust based on response. Continue atorvastatin 20 mg at night for dyslipidemia Holding amlodipine 10 mg daily 2D echocardiogram 05/29 revealed EF 50-55%. Grade 1 diastolic dysfunction. Pulmonary arterial pressure 34 mmHg Repeat revealed EF of 40-45% Followed by cardiology/Dr. Ellison: Dr. Villa discussed with team 10/21, and they recommended medical management. Continued conservative management recommended 11/02. GI: 10/08 Postop s/p ex-lap, TIA, Sigmoid colon resection with end colostomy and Holcomb's pouch Recurrent colonic obstruction, small bowel obstruction ? postop ileus vs SBO History of esophageal stricture status post dilatation History of small bowel obstruction Gastroesophageal reflux disease History of diverticulitis Hypoalbuminemia -Postop management per Dr. Mcgee tube feedings with Jevity 1.5 @50ml/hr. colostomy in place -Pantoprazole 40 mg IV daily for GI prophylaxis. On omeprazole 20 mg daily at home Renal/: 10/08 Postop s/p Ureteroureteral anastomosis for ureteral injury Chronic kidney disease stage III a -Monitor renal function, I/O's, electrolytes replacement per protocol -Removal of double-J stent 6 weeks from operative procedure outpatient setting -Off IVF ID: Pneumonia Wound culture from abdominal incision +pseudomonas. -Started Zosyn on 11/06 #9 and damp to dry dressing per general surgery. Wound is granulating and nonpurulent. Could d/c abx soon from my standpoint, will need to d/w Dr. Mcgee.. Sputum cx 11/07: Pseudomonas, repeat sputum cx Wound cx 08/06: Pseudomonas Wound culture from incision site(11/06) growing Pseudomonas, sputum Gram stain and culture(11/07) growing pansenstive Pseudomonas -Discontinued levofloxacin 10/14. s/p course vancomycin and cefepime, 10/14-10/20 Sputum, blood cultures 2 10/13 NGTD Urine Legionella and pneumococcal urinary antigens 10/13 negative HEME: Normocytic anemia Thrombocytosis -Monitor CBC, CMP, coags -1 unit PRBCs to be transfused on 11/09 for hemoglobin 7.1 ENDO: Diabetes mellitus type 2 Severe hyperglycemia of critical illness Hyperglycemia History of gout Holding metformin 1000 mg by mouth twice daily -Glucose not at target despite 40 units coverage with sliding scale. Increase detemir further to 15 units q12h. -sliding scale insulin/NovoLog high regimen q6h MSK History of ankylosing spondylosis Holding denosumab 60 mg subcu every 18 days Holding cholecalciferol 4000 units p.o. daily PT evaluate and treat PROPH: -Bilateral lower extremity SCDs. Lovenox 40 subcu daily. On protonix 40 mg IV for stress ulcer prophylaxis. LINES: - piv Overall impression: Has transfer order to nursing home vent unit 4th floor [place]. Acceptable for transfer now. (8) Systolic heart failure Qualifiers: Heart failure chronicity: acute Qualified Code(s): I50.21 - Acute systolic ( congestive) heart failure
--- NOTE | 2017-11-20 11:32 | P.PNGS ---
<YifanJayshree - Last Filed: 11/20/17 11:26> Subjective Patient reports: no new complaints (Smiling in bed ) Physical Exam Vital signs: Vital Signs 11/19/17 12:00 11/19/17 12:11 11/19/17 13:00 Temperature 98.9 F Pulse Rate 70 68 Respiratory Rate 28 H 30 H Blood Pressure 137/62 Pulse Oximetry 97 99 11/19/17 16:00 11/19/17 16:33 11/19/17 16:39 Temperature 98.4 F Pulse Rate 67 69 Respiratory Rate 26 H 17 29 H Blood Pressure 116/57 L Pulse Oximetry 100 99 11/19/17 19:45 11/19/17 20:00 11/19/17 21:26 Temperature 98.4 F Pulse Rate 70 70 Respiratory Rate 28 H 24 23 Blood Pressure 142/69 H Pulse Oximetry 97 99 11/20/17 00:00 11/20/17 00:33 11/20/17 04:00 Temperature 98.5 F 98.3 F Pulse Rate 70 59 L 66 Respiratory Rate 26 H 19 19 Blood Pressure 113/58 L 116/57 L Pulse Oximetry 100 99 100 11/20/17 04:41 11/20/17 08:40 Temperature Pulse Rate 67 72 Respiratory Rate 19 27 H Blood Pressure Pulse Oximetry 98 100 Intake & Output 11/19/17 11/20/17 11/20/17 18:59 06:59 18:59 Intake Total 1652 / 1652 1066 / 1066 100 / 100 Output Total 1270 / 1270 370 / 370 Balance 382 / 382 696 / 696 100 / 100 Weight 70.2 kg Intake: IV 300 / 300 200 / 200 100 / 100 Zosyn 4.5 GM Premix 4.5 gm In 300 / 300 200 / 200 100 / 100 100 ml @ 200 mls/hr IV.SIG Q6H [facility] Rx#:[id number] Tube Feeding 352 / 352 506 / 506 Tube Irrigant 300 / 300 Water Bolus Amount 300 / 300 360 / 360 Intake (Blood Product) Amt 400 / 400 Rbc As-3 Leukoreduced Unit 400 / 400 [id number] Output: Urine 1150 / 1150 350 / 350 Stool 100 / 100 Stool Amount (Stoma) 20 / 20 20 / 20 Left Lower Abdomen 20 / 20 20 / 20 Other: # Voids 4 2 Date of Last Bowel Movement 11/19/17 11/19/17 - Constitutional no acute distress - Routine HEENT Exam Head: Present: normocephalic ENT: Present: mucous membranes moist - Routine Neck Exam Comments: trach in place - Routine Respiratory Exam Present: CTA bilaterally - Routine Cardiovascular Exam Present: RRR - Routine Abdominal Exam Comments: Midline incision with packing in place--- Stoma pink with stool output; colostomy appliance intact - Routine Extremities Exam Present: pulses intact - Routine Skin Exam Present: intact - Routine Neurological Exam Present: alert, oriented X3 - Detailed Neurological Exam: Coma Scale Eye Opening: Spontaneous Verbal Response: Oriented Motor Response: Obey commands [place] Coma Scale Total: 15 - Routine Psychiatric Exam Present: normal affect Assessment and Plan - Assessment (1) Large bowel obstruction Code(s): K56.609 - Unspecified intestinal obstruction, unspecified as to partial versus complete obstruction Status: Resolved Plan: Patient anticipates swallowing study tomorrow. If he passes he could have his NG tube removed and his diet advanced. I discussed with him in detail the potential sequence of events associated with a swallowing. He thanked me. (2) Respiratory failure requiring intubation Code(s): J96.90 - Respiratory failure, unspecified, unspecified whether with hypoxia or hypercapnia Status: Acute (3) Anemia, chronic disease Code(s): D63.8 - Anemia in other chronic diseases classified elsewhere Status : Acute - Plan 72 year old male s/p ex lap; s/p trach for prolonged need for mechanical ventilation -Continue to wean vent as tolerated; tolerated T piece yesterday -DCed Klonopin; Added Seropquel -DCed Roxicodone; Added Hycet -Tolerating TF at goal -Continue dressing changes -Wound Care following for continued colostomy care and teaching -Levsin ordered -Continue Jevity due to the need for high fiber formula; will need to cover sugars with SS insulin <David Mcgee - Last Filed: 11/20/17 18:03> Physical Exam Vital signs: Vital Signs 11/19/17 19:45 11/19/17 20:00 11/19/17 21:26 Temperature 98.4 F Pulse Rate 70 70 Respiratory Rate 28 H 24 23 Blood Pressure 142/69 H Pulse Oximetry 97 99 11/20/17 00:00 11/20/17 00:33 11/20/17 04:00 Temperature 98.5 F 98.3 F Pulse Rate 70 59 L 66 Respiratory Rate 26 H 19 19 Blood Pressure 113/58 L 116/57 L Pulse Oximetry 100 99 100 11/20/17 04:41 11/20/17 08:40 11/20/17 11:34 Temperature Pulse Rate 67 72 Respiratory Rate 19 27 H 23 Blood Pressure Pulse Oximetry 98 100 96 11/20/17 11:36 11/20/17 14:00 11/20/17 15:35 Temperature Pulse Rate 64 Respiratory Rate 24 18 33 H Blood Pressure Pulse Oximetry 97 Intake & Output 11/19/17 11/20/17 11/20/17 18:59 06:59 18:59 Intake Total 1652 / 1652 1066 / 1066 100 / 100 Output Total 1270 / 1270 370 / 370 Balance 382 / 382 696 / 696 100 / 100 Weight 70.2 kg Intake: IV 300 / 300 200 / 200 100 / 100 Zosyn 4.5 GM Premix 4.5 gm In 300 / 300 200 / 200 100 / 100 100 ml @ 200 mls/hr IV.SIG Q6H [facility] Rx#:[id number] Tube Feeding 352 / 352 506 / 506 Tube Irrigant 300 / 300 Water Bolus Amount 300 / 300 360 / 360 Intake (Blood Product) Amt 400 / 400 Rbc As-3 Leukoreduced Unit 400 / 400 [id number] Output: Urine 1150 / 1150 350 / 350 Stool 100 / 100 Stool Amount (Stoma) 20 / 20 20 / 20 Left Lower Abdomen 20 / 20 20 / 20 Other: # Voids 4 2 Date of Last Bowel Movement 11/19/17 11/19/17 11/20/17 Assessment and Plan - Assessment (1) Large bowel obstruction Code(s): K56.609 - Unspecified intestinal obstruction, unspecified as to partial versus complete obstruction Status: Resolved (2) Respiratory failure requiring intubation Code(s): J96.90 - Respiratory failure, unspecified, unspecified whether with hypoxia or hypercapnia Status: Acute (3) Anemia, chronic disease Code(s): D63.8 - Anemia in other chronic diseases classified elsewhere Status : Acute - Plan No major changes; await transfer to [facility] - Attending Attestation The exam, history, and the medical decision-making described in the above note were completed with the assistance of the mid-level provider. I reviewed and agree with the findings presented. I attest that I had a [id number] encounter with the patient on the same day, and personally performed and documented my assessment and findings in the medical record.
[2017-11-20] MEDS: Acetaminophen-HYDROcodone 325/7.5 Liq 15 ML UDC NG/OG PRN ×2 (13:26→18:40)
--- NOTE | 2017-11-20 14:23 | P.PNCA ---
<Shadeed,August - Last Filed: 11/20/17 15:02> Subjective Interval history: Pleasant male, lying in bed. Currently on CPAP trial via tracheostomy. Appears to be tolerating well. Pt able to communicate by writing. He denies any chest pain or cardiac complaints. He has been working with PT. Physical Exam Vital signs: Vital Signs 11/19/17 16:00 11/19/17 16:33 11/19/17 16:39 Temperature 98.4 F Pulse Rate 67 69 Respiratory Rate 26 H 17 29 H Blood Pressure 116/57 L Pulse Oximetry 100 99 11/19/17 19:45 11/19/17 20:00 11/19/17 21:26 Temperature 98.4 F Pulse Rate 70 70 Respiratory Rate 28 H 24 23 Blood Pressure 142/69 H Pulse Oximetry 97 99 11/20/17 00:00 11/20/17 00:33 11/20/17 04:00 Temperature 98.5 F 98.3 F Pulse Rate 70 59 L 66 Respiratory Rate 26 H 19 19 Blood Pressure 113/58 L 116/57 L Pulse Oximetry 100 99 100 11/20/17 04:41 11/20/17 08:40 11/20/17 11:34 Temperature Pulse Rate 67 72 Respiratory Rate 19 27 H 23 Blood Pressure Pulse Oximetry 98 100 96 11/20/17 11:36 Temperature Pulse Rate 64 Respiratory Rate 24 Blood Pressure Pulse Oximetry Intake & Output 11/19/17 11/20/17 11/20/17 18:59 06:59 18:59 Intake Total 1652 / 1652 1066 / 1066 100 / 100 Output Total 1270 / 1270 370 / 370 Balance 382 / 382 696 / 696 100 / 100 Weight 70.2 kg Intake: IV 300 / 300 200 / 200 100 / 100 Zosyn 4.5 GM Premix 4.5 gm In 300 / 300 200 / 200 100 / 100 100 ml @ 200 mls/hr IV.SIG Q6H [facility] Rx#:[id number] Tube Feeding 352 / 352 506 / 506 Tube Irrigant 300 / 300 Water Bolus Amount 300 / 300 360 / 360 Intake (Blood Product) Amt 400 / 400 Rbc As-3 Leukoreduced Unit 400 / 400 [id number] Output: Urine 1150 / 1150 350 / 350 Stool 100 / 100 Stool Amount (Stoma) 20 / 20 20 / 20 Left Lower Abdomen 20 / 20 20 / 20 Other: # Voids 4 2 Date of Last Bowel Movement 11/19/17 11/19/17 - Constitutional mild distress - Routine HEENT Exam Head: Present: normocephalic Eye: Present: PERRL ENT: Present: mucous membranes moist - Routine Neck Exam Present: supple Comments: tracheostomy in place - Routine Respiratory Exam Present: patient mechanically ventilated, rhonchi, wheezes Comments: currently on CPAP - Routine Cardiovascular Exam Present: RRR - Routine Abdominal Exam Present: soft, ostomy (SCDs in place) - Routine Extremities Exam Present: pulses intact, normal capillary refill - Routine Skin Exam Present: intact - Routine Neurological Exam Present: alert, oriented X3 - Detailed Neurological Exam: Coma Scale Eye Opening: Spontaneous Verbal Response: Oriented Motor Response: Obey commands Byron Coma Scale Total: 15 - Routine Psychiatric Exam Present: depressed Assessment and Plan - Plan Post Operative STEMI Respiratory failure Small Bowel obstruction Pneumonia Anemia Plan -Will continue with medical management. Patient appears stable from CV standpoint. He denies any chest pain. Continues on plavix. Will DC ASA due to large amounts of blood tinged sputum. Also on SQ lovenox for DVT prophylaxis. -Tracheostomy in place. Having some difficulties with CPAP trials -Colostomy in place. Continues on tube feeds -Hgb low 7.5 yesterday. He is being followed closely by critical care team. Overall stable from a cardiac standpoint. Will sign off on patient. Re-consult if needed. The patient was seen and evaluated by Dr. Ellison who completed face to face encounter and physical exam and participated in care, management and decision making. Discussed Condition With: Nurse <Janet Ellison - Last Filed: 11/21/17 14:37> Physical Exam Vital signs: Vital Signs 11/20/17 15:35 11/20/17 16:00 11/20/17 17:00 Temperature 98.6 F Pulse Rate 68 Respiratory Rate 33 H 25 H Blood Pressure 141/70 H Pulse Oximetry 97 98 11/20/17 18:00 11/20/17 20:00 11/20/17 20:31 Temperature 98.7 F Pulse Rate 68 69 73 Respiratory Rate 28 H 28 H Blood Pressure 120/58 L Pulse Oximetry 95 11/20/17 20:37 11/20/17 21:59 11/20/17 22:00 Temperature Pulse Rate 73 Respiratory Rate 24 25 H Blood Pressure Pulse Oximetry 97 11/20/17 22:29 11/21/17 00:00 11/21/17 00:27 Temperature 98.3 F Pulse Rate 61 61 Respiratory Rate 20 26 H 24 Blood Pressure Pulse Oximetry 95 94 L 11/21/17 02:00 11/21/17 04:00 11/21/17 04:40 Temperature 98.6 F Pulse Rate 61 72 Respiratory Rate 28 H 20 Blood Pressure 118/54 L Pulse Oximetry 99 98 11/21/17 06:00 11/21/17 08:29 11/21/17 10:08 Temperature Pulse Rate 73 95 H Respiratory Rate 28 H Blood Pressure Pulse Oximetry 96 95 11/21/17 11:42 Temperature Pulse Rate 82 Respiratory Rate 27 H Blood Pressure Pulse Oximetry Intake & Output 11/20/17 11/21/17 11/21/17 18:59 06:59 18:59 Intake Total 1282 / 1282 3202 / 3202 200 / 200 Output Total 1315 / 1315 2415 / 2415 Balance -33 / -33 787 / 787 200 / 200 Weight 72 kg Intake: IV 200 / 200 100 / 100 200 / 200 Zosyn 4.5 GM Premix 4.5 gm In 200 / 200 100 / 100 200 / 200 100 ml @ 200 mls/hr IV.SIG Q6H [facility] Rx#:[id number] Oral 0 / 0 Tube Feeding 682 / 682 1102 / 1102 Tube Irrigant 300 / 300 Water Bolus Amount 400 / 400 800 / 800 Other 500 / 500 Mass Transfusion Protocol 400 / 400 Output: Urine 1275 / 1275 2075 / 2075 Stool 300 / 300 Stool Amount (Stoma) 40 / 40 40 / 40 Left Lower Abdomen 40 / 40 40 / 40 Other: Post Void Residual 5 Other Intake Source Saline Solution # Voids 4 4 # Incontinent Voids 0 Date of Last Bowel Movement 11/20/17 11/20/17 Assessment and Plan - Plan Will sign off for now call if needed
[2017-11-20] MEDS: Melatonin 5 MG Tablet PO PRN (22:05)
[2017-11-20] MEDS: ALPRAZolam 0.5 MG Tablet PO PRN (22:06)
[2017-11-21] MEDS: Insulin NovoLOG Aspart Correctional Sugar Inj SQ SCH ×4 (00:38→18:00)
[2017-11-21] MEDS: Oral Hygiene Kit OROPHARYNG SCH ×4 (00:39→16:00)
[2017-11-21] MEDS: Piperacil/Tazo 4.5 GM Premix 4.5 GM/100 ML BAG IV.SIG SCH ×4 (03:01→20:30)
[2017-11-21] MEDS: ALPRAZolam 0.5 MG Tablet PO PRN (03:02)
[2017-11-21] MEDS: Artificial Tears Opth Drops 15 ML Bottle EACH EYE SCH ×3 (06:20→22:00)
[2017-11-21] MEDS: Insulin Detemir Inj 1,000 UNIT/10 ML Vial SQ SCH ×2 (09:00→21:00)
[2017-11-21] MEDS: Acetaminophen-HYDROcodone 325/7.5 Liq 15 ML UDC NG/OG PRN ×2 (10:01→16:48)
[2017-11-21] MEDS: Allopurinol 300 MG Tablet PO SCH (10:02)
[2017-11-21] MEDS: QUEtiapine 25 MG Tablet PO SCH ×2 (10:02→21:00)
[2017-11-21] MEDS: Lisinopril 5 MG Tablet PO SCH (10:02)
[2017-11-21] MEDS: Carvedilol 6.25 MG Tablet PO SCH ×2 (10:02→22:00)
[2017-11-21] MEDS: Sodium Hypochlorite 0.125% Top Soln 500 ML Bottle TOPICAL SCH ×2 (10:03→21:00)
[2017-11-21] MEDS: Chlorhexidine Gluconate 0.12% Liq 15 ML UDC SWISH-SPIT SCH ×2 (10:03→20:00)
[2017-11-21] MEDS: Enoxaparin Inj 40 MG/0.4 ML Syringe SQ SCH (10:03)
--- NOTE | 2017-11-21 11:09 | P.PNCC ---
Subjective Subjective Remarks/Hospital Course: This is a 72 year old male with history of type 2 diabetes, hypertension, dyslipidemia, chronic kidney disease stage III, ankylosing spondylitis, esophageal stricture s/p dilatation, diverticulitis, peritonitis, history of small bowel obstruction, colon resection x2, who was admitted to the hospital with one-week history of abd distension, constipation, and cramps. Pt tried to mange this at home, as he is familiar with symptoms. Has history of multiple bowel obstructions and multiple surgeries in the past. CT of abdomen/ pelvis showed moderately dilated large and small bowel, concentric stricturing in the sigmoid colon. Gastroenterology and general surgery were consulted. Patient was taken today to the OR by Dr. Mcgee, patient underwent exploratory laparotomy, Lysis of adhesions for dense adhesions involving small and large bowel, sigmoid colon resection with end colostomy and Holcomb's pouch. There was stricture at previous surgical site in sigmoid colon. EBL 300 ml, urine output was adequate. During the ex lap patient's sustained ureteral injury which required ureteroureteral anastomosis over stent by Dr. Page. Postop patient was moved to the PACU where his chest x-ray showed small possible left lateral pneumothorax. ABG showed a pH of 7.29/41/99 BE -6.7. I evaluated the patient in the ICU. Patient is intubated sedated with Precedex. He is tachycardic and borderline hypotensive. Additional 500 mL of fluid bolus given , 1 amp of bicarb. Received total 2.1 L in the OR. Urine output is adequate, approximately 75 ml per hour post op. With left-sided tiny pneumothorax (most likely with from central line placement in OR), will attempt CPAP trials for possible extubation. 10/09: Breathing is moderately labored to observe but the patient states he is comfortable. His major complaint is chronic back pain. Urine output is marginal but he remains well-perfused. Colostomy stoma is pink. 10/10: Labored breathing overnight. Remains on quarter normal saline at 125 cc hours and Clinimix E 4.25/25 at 83 cc an hour. Chest x-ray appears with bilateral pulmonary infiltrates. CVP is 8. Greater than 50% variation IVC by ultrasound. Bedside echocardiogram no acute findings. Patient currently with some pleuritic chest pain worse with deep inspiration. EKG currently pending. 8 run beat of V. tach overnight. Potassium magnesium within normal limits. 10/11: Afebrile. FiO2 requirements increased overnight currently at 60%. Chest x-ray revealed pulmonary edema bilaterally. Troponin downward trending. Noted sodium elevated 154. Will remove sodium from TPN. Norepinephrine initiated overnight currently at 8 mcg/min. Nitro paste discontinued. Holding parameters for beta corby 10/12: remains afebrile. back on levophed this AM at 5 mcg/min. also remains tachycardic in the 100s. sodium remains elevated despite removal of nacl from TPN. 10/13: T-max 100.4. Desaturated overnight requiring PEEP increased to 10 currently at 8. FiO2 down to 45%. Appears uncomfortable on the ventilator. Abdomen slightly more distended. Positive output from ostomy.. Transfusing 1 unit PRBCs due to acute coronary syndrome to keep above a. Recheck along with electrolytes active bleeding in place. CT abdomen/pelvis ordered. 10/14: Copious secretions overnight. PEEP at 7 FiO2 50%. Abdominal/pelvis CT revealed bilateral lobar pneumonia pelvic read as gallstone ileus but not likely is patient with copious stool output from ostomy. Did discuss with Dr. Mcgee. Antibiotic coverage broadened. Pancultured yesterday looks like his underlying pneumonia. Will transfuse 1 unit PRBCs today per cardiology request to maintain hemoglobin around 9 for acute coronary syndrome. Diuresis postprocedure and replace electrolytes aggressively. TPN will be weaned/ discontinued today after tube feeds at 40 cc an hour 10/15: t max 100.7 overnight. cultures NGTD. fio2 improving. secretions are somewhat better. 10/16: no improvements. afebrile. failed SBT after 10 minutes for tachypnea and respiratory distress. 10/17: failed sbt again for significant secretions and respiratory distress. only lasting about 10 min. may require tracheostomy. 10/18: much more awake and interactive. still has significant secretions. on SBT for longer today, but with active coronary ischemia, very high risk if he fails extubation. plan for trach if he remains intubated through the weekend. 10/19: still failing SBT. dressings changed today. clinically improving, but very weak and slow progress. 10/20: again failing SBT for copious secretions. was OOB to chair today. likely will need trach. 10/21: failed SBT for tachypnea, RR > 40. discussed with Dr[address] Mcgee: plan for trach tomorrow. discussed with cardiology service: they will likely medically manage his coronary artery disease without [facility] intervention. this is more of a reason to pursue trach, to prevent coronary ischemia that would come with trial of extubation first. 10/22: Plan for percutaneous tracheostomy at bedside 11 AM. Arousable on the ventilator and following commands. Currently afebrile. N.p.o. status. 10/23: Status post percutaneous tracheostomy 10/22 without complication. Continues to ooze from around tracheostomy site. Will hold enoxaparin for today. Tube feeds back at goal. Denies abdominal pain. Positive flatus from ostomy site. 10/24: Normal stool coming from well-perfused ostomy. Spontaneous breathing trials with tachypnea and mild labor. Chest x-ray with chronic interstitial changes and small lung volumes. 10/25: A little bit stronger on spontaneous breathing trials today. Pressure support settings 18/10. Tolerating tube feeds. 10/26: He is tolerating a mild reduction and mean airway pressure and end expiratory pressure. Continues to look acceptably comfortable during spontaneous breathing trials. 10/27: We needed to increase PEEP again last evening. 10/28: Spontaneous breathing trial at 8/8 this morning and doing quite well. Tube feedings on hold per surgery. Patient required low dose Xanax last night for anxiety. 10/29: intermittent SBTs. will trial t-piece today. no significant change. needs LTAC level care. 10/30: t-piece trials. ostomy working. advancing trickle tube feeds per surgery. 10/31: patient having gout flair and significantly painful. however, steroids contraindicated, and NSAIDS also contraindicated with concern over renal dysfunction in the setting of critical illness. still failing to separate from mechanical ventilation. really needs LTAC level care for pulmonary rehab. 11/01: NG tube placed to suction with 700 cc of gastric contents suctioned out overnight. Patient remains on mechanical ventilation with tracheostomy on CPAP with pressure support. Failed T piece yesterday. 11/02: Remains on mechanical ventilation via tracheostomy. 11/03: Remains on mechanical ventilation via tracheostomy. CPAP trials daily. T -piece as tolerated. 11/04: On mechanical ventilation via tracheostomy. Daily CPAP trials. 11/05, 11/06: Remains on mechanical ventilation via tracheostomy. Daily CPAP trials ongoing. 11/07: Worsening respiratory status. Placed back on PRVC mode mechanical ventilation last night. Significant sick pulmonary secretions noted. No BMs via colostomy. Chest x-ray done this morning shows worsening infiltrates more on the right suspicious for aspiration. KUB done this morning shows an ileus. Already placed on Zosyn on 11/07 which should cover for pneumonia. 11/08: Resting on mechanical ventilation via tracheostomy. Wound culture from incision site growing Pseudomonas 11/09: Remains on mechanical ventilation via tracheostomy. Wound culture and sputum both growing Pseudomonas. 11/10: Is on mechanical ventilation via tracheostomy. Daily CPAP trials. 11/11: Remains on mechanical ventilation via tracheostomy. Really CPAP trials ongoing. 11/12 No events overnight. On ventilator via trach. On CPAP with PS 15, PEEP:5 and FIO2 40%. Afebrile. 11/13 Patient denies complaint. Wants NGT out but understand rationale for continuing. On CPAP 15/5. Tolerating tube feeds. Afebrile. Subjective: 11/14 On CPAP 15/5 since yesterday. Able to wean to 12/5 but weaning beyond that produces tachypnea. Was out of bed to chair for a couple of hours. 11/15: Remains on CPAP via tracheostomy. Had problems with secretions last night. Adding scheduled nebulizer treatments and Mucomyst to mobilize secretions. 11/16: Resting comfortably on mechanical ventilation via tracheostomy. On CPAP trial 11/17: Afebrile. Tolerating tube feeds at goal. Placed on ventilator yesterday secondary to worsening subjective shortness of breath. We will reattempt CPAP trial again today. Positive BM.. SUBJECTIVE 11/18: Afebrile. We will reattempt CPAP trial again today. Check chest x-ray in a.m. Continue with pulmonary toilet. Anxious. 11/19: Not tolerating CPAP trials well. Will discuss among consultants ways to manage his anxiety. 11/20: Brief episodes of apnea overnight. Anxiety a little better controlled this morning. 11/21: Patient vomited a large amount of tube feed this morning. After this he appeared comfortable although a little anxious. Objective Vital Signs / I&O: Vital Signs 11/20/17 11:34 11/20/17 11:36 11/20/17 12:00 Temperature 98.8 F Pulse Rate 64 62 Respiratory Rate 23 24 22 Blood Pressure 109/59 L Pulse Oximetry 96 97 11/20/17 14:00 11/20/17 15:35 11/20/17 16:00 Temperature 98.6 F Pulse Rate 68 68 Respiratory Rate 18 33 H 25 H Blood Pressure Pulse Oximetry 97 98 11/20/17 17:00 11/20/17 18:00 11/20/17 20:00 Temperature 98.7 F Pulse Rate 68 69 Respiratory Rate 28 H Blood Pressure 141/70 H 120/58 L Pulse Oximetry 95 11/20/17 20:31 11/20/17 20:37 11/20/17 21:59 Temperature Pulse Rate 73 Respiratory Rate 28 H 24 25 H Blood Pressure Pulse Oximetry 97 11/20/17 22:00 11/20/17 22:29 11/21/17 00:00 Temperature 98.3 F Pulse Rate 73 61 Respiratory Rate 20 26 H Blood Pressure Pulse Oximetry 95 94 L 11/21/17 00:27 11/21/17 02:00 11/21/17 04:00 Temperature 98.6 F Pulse Rate 61 61 72 Respiratory Rate 24 28 H Blood Pressure 118/54 L Pulse Oximetry 99 11/21/17 04:40 11/21/17 06:00 11/21/17 08:29 Temperature Pulse Rate 73 95 H Respiratory Rate 20 28 H Blood Pressure Pulse Oximetry 98 96 11/21/17 10:08 Temperature Pulse Rate Respiratory Rate Blood Pressure Pulse Oximetry 95 Intake & Output 11/20/17 11/21/17 11/21/17 18:59 06:59 18:59 Intake Total 1282 / 1282 3202 / 3202 100 / 100 Output Total 1315 / 1315 2415 / 2415 Balance -33 / -33 787 / 787 100 / 100 Weight 72 kg Intake: IV 200 / 200 100 / 100 100 / 100 Zosyn 4.5 GM Premix 4.5 gm In 200 / 200 100 / 100 100 / 100 100 ml @ 200 mls/hr IV.SIG Q6H [facility] Rx#:[id number] Oral 0 / 0 Tube Feeding 682 / 682 1102 / 1102 Tube Irrigant 300 / 300 Water Bolus Amount 400 / 400 800 / 800 Other 500 / 500 Mass Transfusion Protocol 400 / 400 Output: Urine 1275 / 1275 2075 / 2075 Stool 300 / 300 Stool Amount (Stoma) 40 / 40 40 / 40 Left Lower Abdomen 40 / 40 40 / 40 Other: Post Void Residual 5 Other Intake Source Saline Solution # Voids 4 4 # Incontinent Voids 0 Date of Last Bowel Movement 11/20/17 11/20/17 Result Diagrams: 11/19/17 03:11 11/20/17 06:21 Objective Remarks: Objective Remarks GENERAL: 72-year-old male currently on CPAP via tracheostomy SKIN: Warm and dry. No rash HEAD: Atraumatic. Normocephalic. EYES: Pupils equal round and reactive, 2 mm bilaterally. ENT: Oral cavity is moist. NG tube in left nare with tube feeds running. NECK: Trachea midline. Supple. Tracheostomy site clean and dry. CARDIOVASCULAR: RRR. No JVD. No m,r. No JVD. RESPIRATORY: Equal chest rise. Symmetrical excursion. scattered rhonchi. Labored, tachypneic on CPAP. GASTROINTESTINAL: Abdomen mildly distended, midline incision with two areas of skin dehiscence with damp to dry dressings in place, granulation tissue present, no exudate. [place] colostomy in place with gas in the bag and some dark liquid/soft stool . MUSCULOSKELETAL: No edema lower extremities.. Well-perfused. Warm. NEUROLOGICAL: Patient is awake alert follows commands 4. Moving all 4 extremities spontaneously. Communicates with head nod and mouthing words. Assessment and Plan - Problem List (1) Chronic respiratory failure Code(s): J96.10 - Chronic respiratory failure, unspecified whether with hypoxia or hypercapnia Status: Chronic (2) Large bowel obstruction Code(s): K56.609 - Unspecified intestinal obstruction, unspecified as to partial versus complete obstruction Status: Resolved (3) STEMI (ST elevation myocardial infarction) Code(s): I21.3 - ST elevation (STEMI) myocardial infarction of unspecified site Status: Resolved (4) Diabetes Code(s): E11.9 - Type 2 diabetes mellitus without complications Status: Acute (5) Wound dehiscence, surgical Code(s): T81.31XA - Disruption of external operation (surgical) wound, not elsewhere classified, initial encounter Status: Acute (6) Dysphagia Code(s): R13.10 - Dysphagia, unspecified Status: Acute (7) Protein-calorie malnutrition, severe Code(s): E43 - Unspecified severe protein-calorie malnutrition Status: Acute (8) Systolic heart failure Code(s): I50.20 - Unspecified systolic (congestive) heart failure Status: Acute (9) Colostomy in place Code(s): Z93.3 - Colostomy status Status: Acute - Assessment and Plan Plan: A/P Assessment and Plan NEURO/Psych: 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 Out of bed to chair with assist at least daily. Continue with PT and OT. RESP: Acute hypoxic and hypercarbic respiratory failure- now chronic. Iatrogenic left pneumothorax- resolved. Continue with CPAP weaning. Albuterol/ipratropium aerosols every 6 hours while awake with albuterol aerosols every 2 hours as needed dyspnea Pulm toilet, trach care Status post percutaneous tracheostomy bedside - Dr. Mcgee keep head of the bed elevated 30 Continues to have problems with stamina on spontaneous ventilation trials. CV: Essential hypertension Hyperlipidemia Coronary artery disease Post operative STEMI Acute systolic heart failure Monitor HR and BP keep MAP>65mmHg Aspirin 81 mg daily, clopidogrel 75 mg p.o. daily BP controlled, decrease metoprolol to 50 mg p.o. twice daily and initiate lisinopril 5 mg p.o. daily. Adjust based on response. Continue atorvastatin 20 mg at night for dyslipidemia Holding amlodipine 10 mg daily 2D echocardiogram 05/29 revealed EF 50-55%. Grade 1 diastolic dysfunction. Pulmonary arterial pressure 34 mmHg Repeat revealed EF of 40-45% Followed by cardiology/Dr. Ellison: Dr. Villa discussed with team 10/21, and they recommended medical management. Continued conservative management recommended 11/02. GI: 10/08 Postop s/p ex-lap, TIA, Sigmoid colon resection with end colostomy and Holcomb's pouch Recurrent colonic obstruction, small bowel obstruction ? postop ileus vs SBO History of esophageal stricture status post dilatation History of small bowel obstruction Gastroesophageal reflux disease History of diverticulitis Hypoalbuminemia -Postop management per Dr. Mcgee tube feedings with Jevity 1.5 @50ml/hr. colostomy in place -Pantoprazole 40 mg IV daily for GI prophylaxis. On omeprazole 20 mg daily at home -Leave feeding tube to low intermittent suction for 12 hours and reassess. Discussed with surgical service. Renal/: 10/08 Postop s/p Ureteroureteral anastomosis for ureteral injury Chronic kidney disease stage III a -Monitor renal function, I/O's, electrolytes replacement per protocol -Removal of double-J stent 6 weeks from operative procedure outpatient setting -Off IVF ID: Pneumonia Wound culture from abdominal incision +pseudomonas. -Started Zosyn on 11/06 #9 and damp to dry dressing per general surgery. Wound is granulating and nonpurulent. Could d/c abx soon from my standpoint, will need to d/w Dr. Mcgee.. Sputum cx 11/07: Pseudomonas, repeat sputum cx Wound cx 08/06: Pseudomonas Wound culture from incision site(11/06) growing Pseudomonas, sputum Gram stain and culture(11/07) growing pansenstive Pseudomonas -Discontinued levofloxacin 10/14. s/p course vancomycin and cefepime, 10/14-10/20 Sputum, blood cultures 2 10/13 NGTD Urine Legionella and pneumococcal urinary antigens 10/13 negative HEME: Normocytic anemia Thrombocytosis -Monitor CBC, CMP, coags -1 unit PRBCs to be transfused on 11/09 for hemoglobin 7.1 ENDO: Diabetes mellitus type 2 Severe hyperglycemia of critical illness Hyperglycemia History of gout Holding metformin 1000 mg by mouth twice daily -Glucose not at target despite 40 units coverage with sliding scale. Increase detemir further to 15 units q12h. -sliding scale insulin/NovoLog high regimen q6h MSK History of ankylosing spondylosis Holding denosumab 60 mg subcu every 18 days Holding cholecalciferol 4000 units p.o. daily PT evaluate and treat PROPH: -Bilateral lower extremity SCDs. Lovenox 40 subcu daily. On protonix 40 mg IV for stress ulcer prophylaxis. LINES: - piv Overall impression: Has transfer order to intermediate frame tender vent unit 4th floor fountain. Acceptable for transfer now. (8) Systolic heart failure Qualifiers: Heart failure chronicity: acute Qualified Code(s): I50.21 - Acute systolic ( congestive) heart failure
--- NOTE | 2017-11-21 13:39 | P.DIET ---
Nutritional Evaluation Type of nutrition evaluation: follow-up Nutrition consult regarding: Tube Feeding Subjective Subjective Comments: Pt can communicate by writing. Objective - Diagnosis Partial Bowel Obstruction - Objective % IBW: 116 Body Weight Used for Calculations: Actual (72 kg) Energy Needs - Lower Range (kCal/kg): 28 Energy Needs - Upper Range (kCal/kg): 32 Lower Limit kCal/kg (kCals): 2,013 Upper Limit kCal/kg (kCals): 2,301 Lower Limit Protein Factor (Grams per Kg): 1.0 Upper Limit Protein Factor (Grams per Kg): 1.5 Lower Protein Needs (Protein): 72 Upper Protein Needs (Protein): 108 Dietitian Reviewed in Medical Record: Curent medications, Intake & Output, Labs , Tube feeding Diet Order: NPO Objective Comments: PMH: Esophageal dilation, GOUT, HT, Hyperlipidemia, GERD, Arthritis, ankylosing spondylitis, DM, CKD stage III, peritonitis, colon resection x 2, diverticulitis Feeding - Current Tube Feeding Tube Feeding Product: Jevity 1.5 Tube Feeding Method: Pump Tube Feeding Rate: 50 Tube Feeding Route: nasogastric Current kCals Provided by Tube Feedin,800 Current Protein Provided by Tube Feeding (gPRO): 77 Current Free H2O Provided (m/l): 912 Assessment Assessment: Pt had vomiting of TF this am. When able, recommend TF of Jevity 1.5 @ 60 mls/ hr to provide 2160 kcals, 92 gms protein and 1094 mls of free water. Pt had been tolerating 50 mls/hr prior to today's vomiting. CBW = 72 kg. LBM (11/20). Glu elev at 178. Recommendations: TF Jevity 1.5 with goal rate 60 ml/hr Dietitian to Monitor: Lab values, Intake & Output, Tube feeding tolerance, Weight change, Medical course
--- NOTE | 2017-11-21 20:38 | XR ---
EXAM DATE: 11/21/2017 8:14 PM EDT AGE/SEX: 72 years / Male INDICATIONS: Vomiting today. CLINICAL DATA: This is the patient's subsequent encounter. Patient reports that signs and symptoms h ave been present for 2 months and indicates a pain score of 5/10. MEDICAL/SURGICAL HISTORY: . Cardiovascular disease. Renal failure, acute. Stroke. Diabetes darren itus type II. Renal failure, chronic . Appendectomy. Inguinal hernia repair. Colon resection. Colon bypass. Multiple bowel surgeries. COMPARISON: [facility] [place], ABDOMEN KUB ONLY, 11/07/2017. . FINDINGS: There is a left ureteral stent present. There is air seen within distended bowel throughout the abdo men. The most prominent area of distention is in the upper abdomen. It is uncertain if this related t o the stomach or colon. Given the lack of haustral markings, this is likely secondary to a distended stomach. There is an NG tube in place. Free air is not seen. Clips are seen in the pelvis. There is i ncreased density seen at the lung bases bilaterally. CONCLUSION: Distended bowel. This is nonspecific. Ileus could have this appearance. The most prominently distende d area appears to be the stomach. There is an NG tube in place. Electronically signed by: Sabino Fox MD 11/21/2017 8:37 PM EDT
[2017-11-21] MEDS ORDERED: Promethazine 12.5 MG Supp RECTAL ONE (21:26)
[2017-11-21] MEDS: Scopalamine 1.5 MG Patch T-DERMAL SCH (22:00)
[2017-11-21 23:13] LABS: Baso # (Auto) 0.1 th/mm3 (0.0-0.2); Baso % (Auto) 0.6 % (0.0-2.0); Eos % (Auto) 0.4 % (0.0-4.0); Hematocrit 27.1 % (39.0-51.0); Hemoglobin 8.9 gm/dL (13.0-17.0); Lymph # (Auto) 0.5 th/mm3 (1.0-4.8); Lymph % (Auto) 4.5 % (9.0-44.0); Mean Corpuscular Hemoglobin 28.3 pg (27.0-34.0); Mean Corpuscular Volume 85.8 fL (80.0-100.0); Mean Platelet Volume 8.4 fL (7.0-11.0); Mono # (Auto) 0.7 th/mm3 (0.0-0.9); Mono % (Auto) 5.5 % (0.0-8.0); Neut # (Auto) 10.6 th/mm3 (1.8-7.7); Platelet Count 497 th/mm3 (150-450); Red Blood Count 3.16 mil/mm3 (4.50-5.90); Red Cell Distribution Width 15.9 % (11.6-17.2); White Blood Count 11.9 th/mm3 (4.0-11.0)
[2017-11-21 23:36] LABS: Calcium 9.1 mg/dL (8.5-10.1)
[2017-11-21 23:44] LABS: Potassium 2.9 meq/L (3.5-5.1)
[2017-11-21] MEDS: Potassium Chlor 20 mEq Premix 20 MEQ/100 ML PIGGYBACK IV.SIG PRN (23:53)
[2017-11-22] MEDS: Morphine Inj 4 MG/ML Vial IV.PUSH PRN ×6 (01:15→21:03)
[2017-11-22] MEDS: Piperacil/Tazo 4.5 GM Premix 4.5 GM/100 ML BAG IV.SIG SCH ×3 (01:16→15:11)
[2017-11-22] MEDS: Potassium Chlor 20 mEq Premix 20 MEQ/100 ML PIGGYBACK IV.SIG PRN ×4 (02:51→20:58)
[2017-11-22] MEDS: Oral Hygiene Kit OROPHARYNG SCH ×4 (04:00→15:57)
[2017-11-22] MEDS: Insulin NovoLOG Aspart Correctional Sugar Inj SQ SCH ×4 (05:18→17:59)
[2017-11-22] MEDS: Artificial Tears Opth Drops 15 ML Bottle EACH EYE SCH ×3 (05:20→23:15)
[2017-11-22 06:41] LABS: Baso # (Auto) 0.1 th/mm3 (0.0-0.2); Baso % (Auto) 0.8 % (0.0-2.0); Hematocrit 25.1 % (39.0-51.0); Hemoglobin 8.5 gm/dL (13.0-17.0); Lymph # (Auto) 0.5 th/mm3 (1.0-4.8); Lymph % (Auto) 4.5 % (9.0-44.0); Mean Corpuscular HGB Conc 33.8 % (32.0-36.0); Mean Corpuscular Hemoglobin 29.2 pg (27.0-34.0); Mean Corpuscular Volume 86.2 fL (80.0-100.0); Mean Platelet Volume 8.4 fL (7.0-11.0); Mono # (Auto) 0.7 th/mm3 (0.0-0.9); Mono % (Auto) 6.6 % (0.0-8.0); Neut # (Auto) 9.2 th/mm3 (1.8-7.7); Neut % (Auto) 88.1 % (16.0-70.0); Platelet Count 460 th/mm3 (150-450); Red Blood Count 2.91 mil/mm3 (4.50-5.90); Red Cell Distribution Width 15.7 % (11.6-17.2); White Blood Count 10.4 th/mm3 (4.0-11.0)
--- NOTE | 2017-11-22 07:41 | P.PNCC ---
Subjective Subjective Remarks/Hospital Course: This is a 72 year old male with history of type 2 diabetes, hypertension, dyslipidemia, chronic kidney disease stage III, ankylosing spondylitis, esophageal stricture s/p dilatation, diverticulitis, peritonitis, history of small bowel obstruction, colon resection x2, who was admitted to the hospital with one-week history of abd distension, constipation, and cramps. Pt tried to mange this at home, as he is familiar with symptoms. Has history of multiple bowel obstructions and multiple surgeries in the past. CT of abdomen/ pelvis showed moderately dilated large and small bowel, concentric stricturing in the sigmoid colon. Gastroenterology and general surgery were consulted. Patient was taken today to the OR by Dr. Mcgee, patient underwent exploratory laparotomy, Lysis of adhesions for dense adhesions involving small and large bowel, sigmoid colon resection with end colostomy and Holcomb's pouch. There was stricture at previous surgical site in sigmoid colon. EBL 300 ml, urine output was adequate. During the ex lap patient's sustained ureteral injury which required ureteroureteral anastomosis over stent by Dr. Page. Postop patient was moved to the PACU where his chest x-ray showed small possible left lateral pneumothorax. ABG showed a pH of 7.29/41/99 BE -6.7. I evaluated the patient in the ICU. Patient is intubated sedated with Precedex. He is tachycardic and borderline hypotensive. Additional 500 mL of fluid bolus given , 1 amp of bicarb. Received total 2.1 L in the OR. Urine output is adequate, approximately 75 ml per hour post op. With left-sided tiny pneumothorax (most likely with from central line placement in OR), will attempt CPAP trials for possible extubation. 10/09: Breathing is moderately labored to observe but the patient states he is comfortable. His major complaint is chronic back pain. Urine output is marginal but he remains well-perfused. Colostomy stoma is pink. 10/10: Labored breathing overnight. Remains on quarter normal saline at 125 cc hours and Clinimix E 4.25/25 at 83 cc an hour. Chest x-ray appears with bilateral pulmonary infiltrates. CVP is 8. Greater than 50% variation IVC by ultrasound. Bedside echocardiogram no acute findings. Patient currently with some pleuritic chest pain worse with deep inspiration. EKG currently pending. 8 run beat of V. tach overnight. Potassium magnesium within normal limits. 10/11: Afebrile. FiO2 requirements increased overnight currently at 60%. Chest x-ray revealed pulmonary edema bilaterally. Troponin downward trending. Noted sodium elevated 154. Will remove sodium from TPN. Norepinephrine initiated overnight currently at 8 mcg/min. Nitro paste discontinued. Holding parameters for beta corby 10/12: remains afebrile. back on levophed this AM at 5 mcg/min. also remains tachycardic in the 100s. sodium remains elevated despite removal of nacl from TPN. 10/13: T-max 100.4. Desaturated overnight requiring PEEP increased to 10 currently at 8. FiO2 down to 45%. Appears uncomfortable on the ventilator. Abdomen slightly more distended. Positive output from ostomy.. Transfusing 1 unit PRBCs due to acute coronary syndrome to keep above a. Recheck along with electrolytes active bleeding in place. CT abdomen/pelvis ordered. 10/14: Copious secretions overnight. PEEP at 7 FiO2 50%. Abdominal/pelvis CT revealed bilateral lobar pneumonia pelvic read as gallstone ileus but not likely is patient with copious stool output from ostomy. Did discuss with Dr. Mcgee. Antibiotic coverage broadened. Pancultured yesterday looks like his underlying pneumonia. Will transfuse 1 unit PRBCs today per cardiology request to maintain hemoglobin around 9 for acute coronary syndrome. Diuresis postprocedure and replace electrolytes aggressively. TPN will be weaned/ discontinued today after tube feeds at 40 cc an hour 10/15: t max 100.7 overnight. cultures NGTD. fio2 improving. secretions are somewhat better. 10/16: no improvements. afebrile. failed SBT after 10 minutes for tachypnea and respiratory distress. 10/17: failed sbt again for significant secretions and respiratory distress. only lasting about 10 min. may require tracheostomy. 10/18: much more awake and interactive. still has significant secretions. on SBT for longer today, but with active coronary ischemia, very high risk if he fails extubation. plan for trach if he remains intubated through the weekend. 10/19: still failing SBT. dressings changed today. clinically improving, but very weak and slow progress. 10/20: again failing SBT for copious secretions. was OOB to chair today. likely will need trach. 10/21: failed SBT for tachypnea, RR > 40. discussed with Dr[address] Mcgee: plan for trach tomorrow. discussed with cardiology service: they will likely medically manage his coronary artery disease without [facility] intervention. this is more of a reason to pursue trach, to prevent coronary ischemia that would come with trial of extubation first. 10/22: Plan for percutaneous tracheostomy at bedside 11 AM. Arousable on the ventilator and following commands. Currently afebrile. N.p.o. status. 10/23: Status post percutaneous tracheostomy 10/22 without complication. Continues to ooze from around tracheostomy site. Will hold enoxaparin for today. Tube feeds back at goal. Denies abdominal pain. Positive flatus from ostomy site. 10/24: Normal stool coming from well-perfused ostomy. Spontaneous breathing trials with tachypnea and mild labor. Chest x-ray with chronic interstitial changes and small lung volumes. 10/25: A little bit stronger on spontaneous breathing trials today. Pressure support settings 18/10. Tolerating tube feeds. 10/26: He is tolerating a mild reduction and mean airway pressure and end expiratory pressure. Continues to look acceptably comfortable during spontaneous breathing trials. 10/27: We needed to increase PEEP again last evening. 10/28: Spontaneous breathing trial at 8/8 this morning and doing quite well. Tube feedings on hold per surgery. Patient required low dose Xanax last night for anxiety. 10/29: intermittent SBTs. will trial t-piece today. no significant change. needs LTAC level care. 10/30: t-piece trials. ostomy working. advancing trickle tube feeds per surgery. 10/31: patient having gout flair and significantly painful. however, steroids contraindicated, and NSAIDS also contraindicated with concern over renal dysfunction in the setting of critical illness. still failing to separate from mechanical ventilation. really needs LTAC level care for pulmonary rehab. 11/01: NG tube placed to suction with 700 cc of gastric contents suctioned out overnight. Patient remains on mechanical ventilation with tracheostomy on CPAP with pressure support. Failed T piece yesterday. 11/02: Remains on mechanical ventilation via tracheostomy. 11/03: Remains on mechanical ventilation via tracheostomy. CPAP trials daily. T -piece as tolerated. 11/04: On mechanical ventilation via tracheostomy. Daily CPAP trials. 11/05, 11/06: Remains on mechanical ventilation via tracheostomy. Daily CPAP trials ongoing. 11/07: Worsening respiratory status. Placed back on PRVC mode mechanical ventilation last night. Significant sick pulmonary secretions noted. No BMs via colostomy. Chest x-ray done this morning shows worsening infiltrates more on the right suspicious for aspiration. KUB done this morning shows an ileus. Already placed on Zosyn on 11/07 which should cover for pneumonia. 11/08: Resting on mechanical ventilation via tracheostomy. Wound culture from incision site growing Pseudomonas 11/09: Remains on mechanical ventilation via tracheostomy. Wound culture and sputum both growing Pseudomonas. 11/10: Is on mechanical ventilation via tracheostomy. Daily CPAP trials. 11/11: Remains on mechanical ventilation via tracheostomy. Really CPAP trials ongoing. 11/12 No events overnight. On ventilator via trach. On CPAP with PS 15, PEEP:5 and FIO2 40%. Afebrile. 11/13 Patient denies complaint. Wants NGT out but understand rationale for continuing. On CPAP 15/5. Tolerating tube feeds. Afebrile. Subjective: 11/14 On CPAP 15/5 since yesterday. Able to wean to 12/5 but weaning beyond that produces tachypnea. Was out of bed to chair for a couple of hours. 11/15: Remains on CPAP via tracheostomy. Had problems with secretions last night. Adding scheduled nebulizer treatments and Mucomyst to mobilize secretions. 11/16: Resting comfortably on mechanical ventilation via tracheostomy. On CPAP trial 11/17: Afebrile. Tolerating tube feeds at goal. Placed on ventilator yesterday secondary to worsening subjective shortness of breath. We will reattempt CPAP trial again today. Positive BM.. SUBJECTIVE 11/18: Afebrile. We will reattempt CPAP trial again today. Check chest x-ray in a.m. Continue with pulmonary toilet. Anxious. 11/19: Not tolerating CPAP trials well. Will discuss among consultants ways to manage his anxiety. 11/20: Brief episodes of apnea overnight. Anxiety a little better controlled this morning. 11/21: Patient vomited a large amount of tube feed this morning. After this he appeared comfortable although a little anxious. 11/22: Feels a little better this morning but abdomen remains moderately distended. Good stoma output. Surgical service is aware and Dr. Shepard saw the patient last evening. SASKIA reviewed. Potassium replacement underway now. Objective Vital Signs / I&O: Vital Signs 11/21/17 08:00 11/21/17 08:29 11/21/17 10:00 Temperature 99.1 F Pulse Rate 94 H 95 H 104 H Respiratory Rate 33 H 28 H Blood Pressure 137/63 Pulse Oximetry 96 96 11/21/17 10:08 11/21/17 11:42 11/21/17 12:00 Temperature 98.7 F Pulse Rate 82 78 Respiratory Rate 27 H 25 H Blood Pressure 114/55 L Pulse Oximetry 95 96 11/21/17 14:00 11/21/17 15:57 11/21/17 16:00 Temperature 99.3 F Pulse Rate 87 89 88 Respiratory Rate 32 H 29 H Blood Pressure 155/76 H Pulse Oximetry 99 99 11/21/17 18:00 11/21/17 20:00 11/21/17 20:10 Temperature 98.7 F Pulse Rate 84 94 H Respiratory Rate 29 H 28 H Blood Pressure 155/81 H Pulse Oximetry 99 97 11/21/17 20:13 11/21/17 22:00 11/21/17 23:31 Temperature Pulse Rate 86 84 82 Respiratory Rate 30 H 30 H Blood Pressure Pulse Oximetry 11/21/17 23:38 11/22/17 00:00 11/22/17 00:10 Temperature 98.6 F Pulse Rate 82 Respiratory Rate 31 H 30 H Blood Pressure 153/72 H Pulse Oximetry 94 L 97 97 11/22/17 01:20 11/22/17 02:00 11/22/17 03:39 Temperature Pulse Rate 84 84 Respiratory Rate 24 24 Blood Pressure Pulse Oximetry 11/22/17 04:00 11/22/17 04:03 11/22/17 06:00 Temperature 98.4 F Pulse Rate 84 82 Respiratory Rate 29 H 24 Blood Pressure 148/74 H Pulse Oximetry 98 99 Intake & Output 11/21/17 11/22/17 11/22/17 18:59 06:59 18:59 Intake Total 420 / 420 250 / 250 Output Total 1900 / 1900 2325 / 2325 Balance -1480 / -1480 -2074 / -2074 Weight 66.5 kg Intake: IV 300 / 300 250 / 250 Zosyn 4.5 GM Premix 4.5 gm In 300 / 300 100 / 100 100 ml @ 200 mls/hr IV.SIG Q6H LISA Rx#:[id number] KCl 20 mEq Premix Inj 20 meq In 150 / 150 100 ml @ 50 mls/hr IV.SIG Q2H PRN Rx#:[id number] Other 120 / 120 Output: Urine 775 / 775 625 / 625 Emesis 300 / 300 Stool Amount (Stoma) 425 / 425 Left Lower Abdomen 425 / 425 Gastric Drainage 700 / 700 1400 / 1400 Left Nare 700 / 700 1400 / 1400 Other: # Voids 6 # Incontinent Voids 0 Date of Last Bowel Movement 11/21/17 # [place] 3 Result Diagrams: 11/22/17 06:10 11/21/17 22:18 Objective Remarks: Objective Remarks GENERAL: 72-year-old male currently on CPAP via tracheostomy SKIN: Warm and dry. No rash HEAD: Atraumatic. Normocephalic. EYES: Pupils equal round and reactive, 2 mm bilaterally. ENT: Oral cavity is moist. NG tube in left nare with tube feeds running. NECK: Trachea midline. Supple. Tracheostomy site clean and dry. CARDIOVASCULAR: RRR. No JVD. No m,r. No JVD. RESPIRATORY: Equal chest rise. Symmetrical excursion. scattered rhonchi. Labored, tachypneic on CPAP. GASTROINTESTINAL: Abdomen mildly distended, midline incision with two areas of skin dehiscence with damp to dry dressings in place, granulation tissue present, no exudate. [place] colostomy in place with gas in the bag and some dark liquid/soft stool . MUSCULOSKELETAL: No edema lower extremities.. Well-perfused. Warm. NEUROLOGICAL: Patient is awake alert follows commands 4. Moving all 4 extremities spontaneously. Communicates with head nod and mouthing words. Assessment and Plan - Problem List (1) Chronic respiratory failure Code(s): J96.10 - Chronic respiratory failure, unspecified whether with hypoxia or hypercapnia Status: Chronic (2) Large bowel obstruction Code(s): K56.609 - Unspecified intestinal obstruction, unspecified as to partial versus complete obstruction Status: Resolved (3) STEMI (ST elevation myocardial infarction) Code(s): I21.3 - ST elevation (STEMI) myocardial infarction of unspecified site Status: Resolved (4) Diabetes Code(s): E11.9 - Type 2 diabetes mellitus without complications Status: Acute (5) Wound dehiscence, surgical Code(s): T81.31XA - Disruption of external operation (surgical) wound, not elsewhere classified, initial encounter Status: Acute (6) Dysphagia Code(s): R13.10 - Dysphagia, unspecified Status: Acute (7) Protein-calorie malnutrition, severe Code(s): E43 - Unspecified severe protein-calorie malnutrition Status: Acute (8) Systolic heart failure Code(s): I50.20 - Unspecified systolic (congestive) heart failure Status: Acute (9) Colostomy in place Code(s): Z93.3 - Colostomy status Status: Acute - Assessment and Plan Plan: A/P Assessment and Plan NEURO/Psych: 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 Out of bed to chair with assist at least daily. Continue with PT and OT. RESP: Acute hypoxic and hypercarbic respiratory failure- now chronic. Iatrogenic left pneumothorax- resolved. Continue with CPAP weaning. Albuterol/ipratropium aerosols every 6 hours while awake with albuterol aerosols every 2 hours as needed dyspnea Pulm toilet, trach care Status post percutaneous tracheostomy bedside - Dr. Mcgee keep head of the bed elevated 30 Diastolic heart failure complicating attempts to clean up lungs. Diuresis results and worsening renal function. Radiographic pattern consistent with aspiration as well. Continues to have problems with stamina on spontaneous ventilation trials. CV: Essential hypertension Hyperlipidemia Coronary artery disease Post operative STEMI Acute systolic heart failure Monitor HR and BP keep MAP>65mmHg Aspirin 81 mg daily, clopidogrel 75 mg p.o. daily BP controlled, decrease metoprolol to 50 mg p.o. twice daily and initiate lisinopril 5 mg p.o. daily. Adjust based on response. Continue atorvastatin 20 mg at night for dyslipidemia Holding amlodipine 10 mg daily 2D echocardiogram 05/29 revealed EF 50-55%. Grade 1 diastolic dysfunction. Pulmonary arterial pressure 34 mmHg Repeat revealed EF of 40-45% Followed by cardiology/Dr. Ellison: Dr. Villa discussed with team 10/21, and they recommended medical management. Continued conservative management recommended 11/02. GI: 10/08 Postop s/p ex-lap, TIA, Sigmoid colon resection with end colostomy and Holcomb's pouch Recurrent colonic obstruction, small bowel obstruction ? postop ileus vs SBO History of esophageal stricture status post dilatation History of small bowel obstruction Gastroesophageal reflux disease History of diverticulitis Hypoalbuminemia -Postop management per Dr. Mcgee tube feedings with Jevity 1.5 @50ml/hr. colostomy in place -Pantoprazole 40 mg IV daily for GI prophylaxis. On omeprazole 20 mg daily at home -Leave feeding tube to low intermittent suction for 12 hours and reassess. Discussed with surgical service. Renal/: 10/08 Postop s/p Ureteroureteral anastomosis for ureteral injury Chronic kidney disease stage III a -Monitor renal function, I/O's, electrolytes replacement per protocol -Removal of double-J stent 6 weeks from operative procedure outpatient setting -Off IVF ID: Pneumonia Wound culture from abdominal incision +pseudomonas. -Started Zosyn on 11/06 and damp to dry dressing per general surgery. Wound is granulating and nonpurulent. Could d/c abx soon from my standpoint, will need to d/w Dr. Mcgee.. Sputum cx 11/07: Pseudomonas, repeat sputum cx Wound cx 08/06: Pseudomonas Wound culture from incision site(11/06) growing Pseudomonas, sputum Gram stain and culture(11/07) growing pansenstive Pseudomonas -Discontinued levofloxacin 10/14. s/p course vancomycin and cefepime, 10/14-10/20 Sputum, blood cultures 2 10/13 NGTD Urine Legionella and pneumococcal urinary antigens 10/13 negative HEME: Normocytic anemia Thrombocytosis -Monitor CBC, CMP, coags -1 unit PRBCs to be transfused on 11/09 for hemoglobin 7.1 ENDO: Diabetes mellitus type 2 Severe hyperglycemia of critical illness Hyperglycemia History of gout Holding metformin 1000 mg by mouth twice daily -Glucose not at target despite 40 units coverage with sliding scale. Increase detemir further to 15 units q12h. -sliding scale insulin/NovoLog high regimen q6h MSK History of ankylosing spondylosis Holding denosumab 60 mg subcu every 18 days Holding cholecalciferol 4000 units p.o. daily PT evaluate and treat PROPH: -Bilateral lower extremity SCDs. Lovenox 40 subcu daily. On protonix 40 mg IV for stress ulcer prophylaxis. LINES: - piv Overall impression: Patient has chronic diastolic heart failure but aggressive diuresis results in worsening. Possible persistent problems with aspiration contributing to bilateral infiltrates. He is presently afebrile and without leukocytosis, landing less credence to the latter. Will reculture sputum and assess for colonization. [facility] 4[facility] floor [place]. Acceptable for transfer now. (8) Systolic heart failure Qualifiers: Heart failure chronicity: acute Qualified Code(s): I50.21 - Acute systolic ( congestive) heart failure
[2017-11-22] MEDS: Acetaminophen-HYDROcodone 325/7.5 Liq 15 ML UDC NG/OG PRN (08:29)
[2017-11-22] MEDS: Chlorhexidine Gluconate 0.12% Liq 15 ML UDC SWISH-SPIT SCH ×2 (08:30→20:57)
[2017-11-22] MEDS: Enoxaparin Inj 40 MG/0.4 ML Syringe SQ SCH (08:32)
[2017-11-22] MEDS: Allopurinol 300 MG Tablet PO SCH (08:33)
[2017-11-22] MEDS: Lisinopril 5 MG Tablet PO SCH (08:33)
[2017-11-22] MEDS: QUEtiapine 25 MG Tablet PO SCH ×2 (08:33→20:56)
[2017-11-22] MEDS: Carvedilol 6.25 MG Tablet PO SCH ×2 (08:34→20:56)
[2017-11-22] MEDS: Sodium Hypochlorite 0.125% Top Soln 500 ML Bottle TOPICAL SCH ×2 (08:35→20:57)
[2017-11-22] MEDS: Insulin Detemir Inj 1,000 UNIT/10 ML Vial SQ SCH ×2 (08:35→20:58)
--- NOTE | 2017-11-22 13:13 | P.PN ---
Subjective Interval history: Patient with emesis yesterday and last night NG placed back to LIWS; 700 ml output Physical Exam Vital signs: Vital Signs 11/21/17 14:00 11/21/17 15:57 11/21/17 16:00 Temperature 99.3 F Pulse Rate 87 89 88 Respiratory Rate 32 H 29 H Blood Pressure 155/76 H Pulse Oximetry 99 99 11/21/17 18:00 11/21/17 20:00 11/21/17 20:10 Temperature 98.7 F Pulse Rate 84 94 H Respiratory Rate 29 H 28 H Blood Pressure 155/81 H Pulse Oximetry 99 97 11/21/17 20:13 11/21/17 22:00 11/21/17 23:31 Temperature Pulse Rate 86 84 82 Respiratory Rate 30 H 30 H Blood Pressure Pulse Oximetry 11/21/17 23:38 11/22/17 00:00 11/22/17 00:10 Temperature 98.6 F Pulse Rate 82 Respiratory Rate 31 H 30 H Blood Pressure 153/72 H Pulse Oximetry 94 L 97 97 11/22/17 01:20 11/22/17 02:00 11/22/17 03:39 Temperature Pulse Rate 84 84 Respiratory Rate 24 24 Blood Pressure Pulse Oximetry 11/22/17 04:00 11/22/17 04:03 11/22/17 06:00 Temperature 98.4 F Pulse Rate 84 82 Respiratory Rate 29 H 24 Blood Pressure 148/74 H Pulse Oximetry 98 99 11/22/17 08:19 11/22/17 11:37 Temperature Pulse Rate Respiratory Rate 26 H 29 H Blood Pressure Pulse Oximetry 98 98 Intake & Output 11/21/17 11/22/17 11/22/17 18:59 06:59 18:59 Intake Total 420 / 420 350 / 350 100 / 100 Output Total 1900 / 1900 2325 / 2325 Balance -1480 / -1480 -1974 / -1974 100 / 100 Weight 66.5 kg Intake: IV 300 / 300 350 / 350 100 / 100 Zosyn 4.5 GM Premix 4.5 gm In 300 / 300 200 / 200 100 ml @ 200 mls/hr IV.SIG Q6H LIAS Rx#:[id number] KCl 20 mEq Premix Inj 20 meq In 150 / 150 100 / 100 100 ml @ 50 mls/hr IV.SIG Q2H PRN Rx#:[id number] Other 120 / 120 Output: Urine 775 / 775 625 / 625 Emesis 300 / 300 Stool Amount (Stoma) 425 / 425 Left Lower Abdomen 425 / 425 Gastric Drainage 700 / 700 1400 / 1400 Left Nare 700 / 700 1400 / 1400 Other: # Voids 6 # Incontinent Voids 0 Date of Last Bowel Movement 11/21/17 # Emeses 3 - Constitutional no acute distress - Routine Respiratory Exam Present: CTA bilaterally - Routine Abdominal Exam Present: soft, distended Comments: Nontender Wounds are clean with granulation tissue; no drainage Results - Labs CBC & Chem 7: 11/22/17 06:10 11/21/17 22:18 Laboratory Results - last 24 hr 11/21/17 11/21/17 11/21/17 13:55 17:05 22:18 WBC 11.9 H RBC 3.16 L Hgb 8.9 L Hct 27.1 L MCV 85.8 MCH 28.3 MCHC 33.0 RDW 15.9 Plt Count 497 H D MPV 8.4 Neut % (Auto) 89.0 H Lymph % (Auto) 4.5 L [place] % (Auto) 5.5 Eos % (Auto) 0.4 Baso % (Auto) 0.6 Neut # (Auto) 10.6 H Lymph # (Auto) 0.5 L [place] # (Auto) 0.7 Eos # (Auto) 0.0 Baso # (Auto) 0.1 WBC Differential . Differential Comment Auto diff final Sodium Potassium Chloride Carbon Dioxide Anion Gap BUN Creatinine Estimated GFR POC Glucose 97 104 Random Glucose Calcium 11/21/17 11/22/17 11/22/17 22:18 06:10 06:35 WBC 10.4 RBC 2.91 L Hgb 8.5 L Hct 25.1 L MCV 86.2 MCH 29.2 MCHC 33.8 RDW 15.7 Plt Count 460 H MPV 8.4 Neut % (Auto) 88.1 H Lymph % (Auto) 4.5 L [place] % (Auto) 6.6 Eos % (Auto) 0.0 Baso % (Auto) 0.8 Neut # (Auto) 9.2 H Lymph # (Auto) 0.5 L [place] # (Auto) 0.7 Eos # (Auto) 0.0 Baso # (Auto) 0.1 WBC Differential . Differential Comment Auto diff final Sodium 142 Potassium 2.9 L* D Chloride 99 Carbon Dioxide 34.0 H Anion Gap 9 BUN 20 H Creatinine 1.35 H Estimated GFR 52 L POC Glucose 172 H Random Glucose 118 H Calcium 9.1 D 11/22/17 12:50 WBC RBC Hgb Hct MCV MCH MCHC RDW Plt Count MPV Neut % (Auto) Lymph % (Auto) [place] % (Auto) Eos % (Auto) Baso % (Auto) Neut # (Auto) Lymph # (Auto) [place] # (Auto) Eos # (Auto) Baso # (Auto) WBC Differential Differential Comment Sodium Potassium Chloride Carbon Dioxide Anion Gap BUN Creatinine Estimated GFR POC Glucose 163 H Random Glucose Calcium - Imaging Impressions Abdomen X-Ray 11/21/17 19:49 CONCLUSION: Distended bowel. This is nonspecific. Ileus could have this appearance. The most prominently distended area appears to be the stomach. There is an NG tube in place. Assessment and Plan - Assessment (1) Large bowel obstruction Code(s): K56.609 - Unspecified intestinal obstruction, unspecified as to partial versus complete obstruction Status: Resolved (2) Respiratory failure requiring intubation Code(s): J96.90 - Respiratory failure, unspecified, unspecified whether with hypoxia or hypercapnia Status: Acute (3) Anemia, chronic disease Code(s): D63.8 - Anemia in other chronic diseases classified elsewhere Status : Acute Plan: Transfusion one unit PRBC's (4) Ileus following gastrointestinal surgery Code(s): K91.30 - Postprocedural intestinal obstruction, unspecified as to partial versus complete Status: Acute Onset Date: ~11/21/17 Plan: Enteral feeding held and NG to LIWS Recheck KUB, K+ and Mg++ today - Plan Plan transfer to [facility] when bed available Hold TF for today Check CXR and KUB today
--- NOTE | 2017-11-22 14:06 | XR ---
EXAM DATE: 11/22/2017 1:46 PM EDT AGE/SEX: 72 years / Male INDICATIONS: Follow up ileus. CLINICAL DATA: This is the patient's subsequent encounter. Patient reports that signs and symptoms h ave been present for 2 days and indicates a pain score of Nonresponsive. MEDICAL/SURGICAL HISTORY: . Cardiovascular disease. Renal failure, acute. Stroke. Diabetes darren itus type II. Renal failure, chronic . Appendectomy. Inguinal hernia repair. Colon resection. Colon b ypass. Multiple bowel surgeries. . Appendectomy. Inguinal hernia repair. Colon resection. Colon byp ass. Multiple bowel surgeries. COMPARISON: [facility] – [place], ABDOMEN 1V KUB, 11/21/2017. . FINDINGS: There continues to be distended bowel throughout the abdomen. The stomach is much less distended. An NG tube is seen. Free air is not seen. There is a left ureteral stent present. CONCLUSION: Persistent mild bowel dilatation. This is nonspecific. The stomach is less distended. Electronically signed by: Sabino Fox MD 11/22/2017 2:04 PM EDT
--- NOTE | 2017-11-22 14:25 | XR ---
EXAM DATE: 11/22/2017 1:43 PM EDT AGE/SEX: 72 years / Male INDICATIONS: Short of breath. CLINICAL DATA: This is the patient's subsequent encounter. Patient reports that signs and symptoms h ave been present for 1 day and indicates a pain score of Nonresponsive. MEDICAL/SURGICAL HISTORY: . Cardiovascular disease. Renal failure, acute. Stroke. Diabetes darren itus type II. Renal failure, chronic . . Appendectomy. Inguinal hernia repair. Colon resection. [place] n bypass. Multiple bowel surgeries. COMPARISON: [facility] [place] 1V SINGLE AP, 11/19/2017. . FINDINGS: The cardiac silhouette is enlarged in transverse diameter. There are findings of congestive heart alex lure with interstitial and alveolar opacity bilaterally. A tracheostomy tube is in place in the midl ine. A nasogastric tube is in place with its tip in the stomach. Small bilateral pleural effusions ar e identified. CONCLUSION: Cardiomegaly and findings of congestive heart failure. There has been no significant change when com pared to the prior exam. Electronically signed by: Toro Vyas MD 11/22/2017 2:23 PM EDT
[2017-11-22] MEDS: KCL 20 mEq/Dextrose 5% Inj 1,000 ML IV.CONT SCH (15:30)
[2017-11-22] MEDS: ALPRAZolam 0.5 MG Tablet PO PRN (18:00)
[2017-11-22] MEDS: Melatonin 5 MG Tablet PO PRN (21:02)
[2017-11-23] MEDS: Potassium Chlor 20 mEq Premix 20 MEQ/100 ML PIGGYBACK IV.SIG PRN (01:04)
[2017-11-23] MEDS: Oral Hygiene Kit OROPHARYNG SCH ×4 (01:05→16:01)
[2017-11-23] MEDS: Insulin NovoLOG Aspart Correctional Sugar Inj SQ SCH ×4 (01:05→21:28)
[2017-11-23] MEDS: Artificial Tears Opth Drops 15 ML Bottle EACH EYE SCH ×3 (05:40→23:59)
[2017-11-23 05:44] LABS: Baso # (Auto) 0.1 th/mm3 (0.0-0.2); Baso % (Auto) 0.9 % (0.0-2.0); Eos # (Auto) 0.1 th/mm3 (0.0-0.4); Eos % (Auto) 1.4 % (0.0-4.0); Hematocrit 24.7 % (39.0-51.0); Hemoglobin 8.1 gm/dL (13.0-17.0); Lymph # (Auto) 0.7 th/mm3 (1.0-4.8); Mean Corpuscular HGB Conc 32.6 % (32.0-36.0); Mean Corpuscular Hemoglobin 28.6 pg (27.0-34.0); Mean Corpuscular Volume 87.6 fL (80.0-100.0); Mean Platelet Volume 8.4 fL (7.0-11.0); Mono # (Auto) 0.9 th/mm3 (0.0-0.9); Mono % (Auto) 8.3 % (0.0-8.0); Neut # (Auto) 8.5 th/mm3 (1.8-7.7); Neut % (Auto) 82.4 % (16.0-70.0); Platelet Count 467 th/mm3 (150-450); Red Blood Count 2.82 mil/mm3 (4.50-5.90); Red Cell Distribution Width 15.9 % (11.6-17.2); White Blood Count 10.4 th/mm3 (4.0-11.0)
[2017-11-23 05:54] LABS: Calcium 9.1 mg/dL (8.5-10.1); Carbon Dioxide 32.6 meq/L (21.0-32.0); Potassium 3.2 meq/L (3.5-5.1)
--- NOTE | 2017-11-23 08:24 | P.PNCC ---
Subjective Subjective Remarks/Hospital Course: This is a 72 year old male with history of type 2 diabetes, hypertension, dyslipidemia, chronic kidney disease stage III, ankylosing spondylitis, esophageal stricture s/p dilatation, diverticulitis, peritonitis, history of small bowel obstruction, colon resection x2, who was admitted to the hospital with one-week history of abd distension, constipation, and cramps. Pt tried to mange this at home, as he is familiar with symptoms. Has history of multiple bowel obstructions and multiple surgeries in the past. CT of abdomen/ pelvis showed moderately dilated large and small bowel, concentric stricturing in the sigmoid colon. Gastroenterology and general surgery were consulted. Patient was taken today to the OR by Dr. Mcgee, patient underwent exploratory laparotomy, Lysis of adhesions for dense adhesions involving small and large bowel, sigmoid colon resection with end colostomy and Holcomb's pouch. There was stricture at previous surgical site in sigmoid colon. EBL 300 ml, urine output was adequate. During the ex lap patient's sustained ureteral injury which required ureteroureteral anastomosis over stent by Dr. Page. Postop patient was moved to the PACU where his chest x-ray showed small possible left lateral pneumothorax. ABG showed a pH of 7.29/41/99 BE -6.7. I evaluated the patient in the ICU. Patient is intubated sedated with Precedex. He is tachycardic and borderline hypotensive. Additional 500 mL of fluid bolus given , 1 amp of bicarb. Received total 2.1 L in the OR. Urine output is adequate, approximately 75 ml per hour post op. With left-sided tiny pneumothorax (most likely with from central line placement in OR), will attempt CPAP trials for possible extubation. 10/09: Breathing is moderately labored to observe but the patient states he is comfortable. His major complaint is chronic back pain. Urine output is marginal but he remains well-perfused. Colostomy stoma is pink. 10/10: Labored breathing overnight. Remains on quarter normal saline at 125 cc hours and Clinimix E 4.25/25 at 83 cc an hour. Chest x-ray appears with bilateral pulmonary infiltrates. CVP is 8. Greater than 50% variation IVC by ultrasound. Bedside echocardiogram no acute findings. Patient currently with some pleuritic chest pain worse with deep inspiration. EKG currently pending. 8 run beat of V. tach overnight. Potassium magnesium within normal limits. 10/11: Afebrile. FiO2 requirements increased overnight currently at 60%. Chest x-ray revealed pulmonary edema bilaterally. Troponin downward trending. Noted sodium elevated 154. Will remove sodium from TPN. Norepinephrine initiated overnight currently at 8 mcg/min. Nitro paste discontinued. Holding parameters for beta corby 10/12: remains afebrile. back on levophed this AM at 5 mcg/min. also remains tachycardic in the 100s. sodium remains elevated despite removal of nacl from TPN. 10/13: T-max 100.4. Desaturated overnight requiring PEEP increased to 10 currently at 8. FiO2 down to 45%. Appears uncomfortable on the ventilator. Abdomen slightly more distended. Positive output from ostomy.. Transfusing 1 unit PRBCs due to acute coronary syndrome to keep above a. Recheck along with electrolytes active bleeding in place. CT abdomen/pelvis ordered. 10/14: Copious secretions overnight. PEEP at 7 FiO2 50%. Abdominal/pelvis CT revealed bilateral lobar pneumonia pelvic read as gallstone ileus but not likely is patient with copious stool output from ostomy. Did discuss with Dr. Mcgee. Antibiotic coverage broadened. Pancultured yesterday looks like his underlying pneumonia. Will transfuse 1 unit PRBCs today per cardiology request to maintain hemoglobin around 9 for acute coronary syndrome. Diuresis postprocedure and replace electrolytes aggressively. TPN will be weaned/ discontinued today after tube feeds at 40 cc an hour 10/15: t max 100.7 overnight. cultures NGTD. fio2 improving. secretions are somewhat better. 10/16: no improvements. afebrile. failed SBT after 10 minutes for tachypnea and respiratory distress. 10/17: failed sbt again for significant secretions and respiratory distress. only lasting about 10 min. may require tracheostomy. 10/18: much more awake and interactive. still has significant secretions. on SBT for longer today, but with active coronary ischemia, very high risk if he fails extubation. plan for trach if he remains intubated through the weekend. 10/19: still failing SBT. dressings changed today. clinically improving, but very weak and slow progress. 10/20: again failing SBT for copious secretions. was OOB to chair today. likely will need trach. 10/21: failed SBT for tachypnea, RR > 40. discussed with Dr[address] Mcgee: plan for trach tomorrow. discussed with cardiology service: they will likely medically manage his coronary artery disease without [facility] intervention. this is more of a reason to pursue trach, to prevent coronary ischemia that would come with trial of extubation first. 10/22: Plan for percutaneous tracheostomy at bedside 11 AM. Arousable on the ventilator and following commands. Currently afebrile. N.p.o. status. 10/23: Status post percutaneous tracheostomy 10/22 without complication. Continues to ooze from around tracheostomy site. Will hold enoxaparin for today. Tube feeds back at goal. Denies abdominal pain. Positive flatus from ostomy site. 10/24: Normal stool coming from well-perfused ostomy. Spontaneous breathing trials with tachypnea and mild labor. Chest x-ray with chronic interstitial changes and small lung volumes. 10/25: A little bit stronger on spontaneous breathing trials today. Pressure support settings 18/10. Tolerating tube feeds. 10/26: He is tolerating a mild reduction and mean airway pressure and end expiratory pressure. Continues to look acceptably comfortable during spontaneous breathing trials. 10/27: We needed to increase PEEP again last evening. 10/28: Spontaneous breathing trial at 8/8 this morning and doing quite well. Tube feedings on hold per surgery. Patient required low dose Xanax last night for anxiety. 10/29: intermittent SBTs. will trial t-piece today. no significant change. needs LTAC level care. 10/30: t-piece trials. ostomy working. advancing trickle tube feeds per surgery. 10/31: patient having gout flair and significantly painful. however, steroids contraindicated, and NSAIDS also contraindicated with concern over renal dysfunction in the setting of critical illness. still failing to separate from mechanical ventilation. really needs LTAC level care for pulmonary rehab. 11/01: NG tube placed to suction with 700 cc of gastric contents suctioned out overnight. Patient remains on mechanical ventilation with tracheostomy on CPAP with pressure support. Failed T piece yesterday. 11/02: Remains on mechanical ventilation via tracheostomy. 11/03: Remains on mechanical ventilation via tracheostomy. CPAP trials daily. T -piece as tolerated. 11/04: On mechanical ventilation via tracheostomy. Daily CPAP trials. 11/05, 11/06: Remains on mechanical ventilation via tracheostomy. Daily CPAP trials ongoing. 11/07: Worsening respiratory status. Placed back on PRVC mode mechanical ventilation last night. Significant sick pulmonary secretions noted. No BMs via colostomy. Chest x-ray done this morning shows worsening infiltrates more on the right suspicious for aspiration. KUB done this morning shows an ileus. Already placed on Zosyn on 11/07 which should cover for pneumonia. 11/08: Resting on mechanical ventilation via tracheostomy. Wound culture from incision site growing Pseudomonas 11/09: Remains on mechanical ventilation via tracheostomy. Wound culture and sputum both growing Pseudomonas. 11/10: Is on mechanical ventilation via tracheostomy. Daily CPAP trials. 11/11: Remains on mechanical ventilation via tracheostomy. Really CPAP trials ongoing. 11/12 No events overnight. On ventilator via trach. On CPAP with PS 15, PEEP:5 and FIO2 40%. Afebrile. 11/13 Patient denies complaint. Wants NGT out but understand rationale for continuing. On CPAP 15/5. Tolerating tube feeds. Afebrile. Subjective: 11/14 On CPAP 15/5 since yesterday. Able to wean to 12/5 but weaning beyond that produces tachypnea. Was out of bed to chair for a couple of hours. 11/15: Remains on CPAP via tracheostomy. Had problems with secretions last night. Adding scheduled nebulizer treatments and Mucomyst to mobilize secretions. 11/16: Resting comfortably on mechanical ventilation via tracheostomy. On CPAP trial 11/17: Afebrile. Tolerating tube feeds at goal. Placed on ventilator yesterday secondary to worsening subjective shortness of breath. We will reattempt CPAP trial again today. Positive BM.. SUBJECTIVE 11/18: Afebrile. We will reattempt CPAP trial again today. Check chest x-ray in a.m. Continue with pulmonary toilet. Anxious. 11/19: Not tolerating CPAP trials well. Will discuss among consultants ways to manage his anxiety. 11/20: Brief episodes of apnea overnight. Anxiety a little better controlled this morning. 11/21: Patient vomited a large amount of tube feed this morning. After this he appeared comfortable although a little anxious. 11/22: Feels a little better this morning but abdomen remains moderately distended. Good stoma output. Surgical service is aware and Dr. Shepard saw the patient last evening. SASKIA reviewed. Potassium replacement underway now. 11/23: Patient remains in poorly compensated diastolic heart failure. Our best efforts to gingerly diuresis and has just resulted in worsening renal function. His medical therapy is maximized for heart failure with acceptable pulse rate control and afterload reduction. Inability to wean completely from the ventilator is closely associated persistent pulmonary edema. Objective Vital Signs / I&O: Vital Signs 11/22/17 08:19 11/22/17 10:00 11/22/17 11:37 Temperature Pulse Rate 86 Respiratory Rate 26 H 29 H Blood Pressure Pulse Oximetry 98 98 11/22/17 12:00 11/22/17 14:00 11/22/17 16:00 Temperature 99.0 F 98.8 F Pulse Rate 79 84 84 Respiratory Rate 27 H 27 H Blood Pressure 148/70 H 143/72 H Pulse Oximetry 99 11/22/17 16:36 11/22/17 18:00 11/22/17 19:59 Temperature Pulse Rate 82 Respiratory Rate 24 Blood Pressure Pulse Oximetry 99 100 11/22/17 20:00 11/22/17 22:00 11/22/17 23:14 Temperature 98.4 F Pulse Rate 90 94 H Respiratory Rate 24 4 L Blood Pressure 160/78 H Pulse Oximetry 98 11/23/17 00:00 11/23/17 00:03 11/23/17 02:00 Temperature 98.4 F Pulse Rate 73 68 Respiratory Rate 17 19 Blood Pressure 95/52 L Pulse Oximetry 98 99 11/23/17 03:32 11/23/17 04:00 11/23/17 06:00 Temperature 97.9 F Pulse Rate 76 70 Respiratory Rate 17 17 Blood Pressure 118/58 L Pulse Oximetry 98 100 Intake & Output 11/22/17 11/23/17 11/23/17 18:59 06:59 18:59 Intake Total 460 / 460 100 / 100 Output Total 1250 / 1250 1185 / 1185 Balance -790 / -790 -1085 / -1085 Weight 65.8 kg Intake: IV 400 / 400 100 / 100 Zosyn 4.5 GM Premix 4.5 gm In 200 / 200 100 ml @ 200 mls/hr IV.SIG Q6H LISA Rx#:[id number] KCl 20 mEq Premix Inj 20 meq In 200 / 200 100 / 100 100 ml @ 50 mls/hr IV.SIG Q2H PRN Rx#:[id number] Tube Feeding 0 / 0 Water Bolus Amount 60 / 60 Output: Urine 450 / 450 400 / 400 Stool Amount (Stoma) 100 / 100 785 / 785 Left Lower Abdomen 100 / 100 785 / 785 Gastric Drainage 700 / 700 Left Nare 700 / 700 Other: # Urine Diapers 5 Date of Last Bowel Movement 11/22/17 11/22/17 Result Diagrams: 11/23/17 04:14 11/23/17 04:14 Objective Remarks: Objective Remarks GENERAL: 72-year-old male currently on CPAP via tracheostomy SKIN: Warm and dry. No rash HEAD: Atraumatic. Normocephalic. EYES: Pupils equal round and reactive, 2 mm bilaterally. ENT: Oral cavity is moist. NG tube in left nare with tube feeds running. NECK: Trachea midline. Supple. Tracheostomy site clean and dry. CARDIOVASCULAR: RRR. No JVD. No m,r. No JVD. RESPIRATORY: Equal chest rise. Symmetrical excursion. scattered rhonchi. Crackles in bases. Comfortable on CPAP. GASTROINTESTINAL: Abdomen mildly distended, bowel sounds present. [place] colostomy in place with gas in the bag and some dark liquid/soft stool . MUSCULOSKELETAL: No edema lower extremities. Well-perfused. Warm. NEUROLOGICAL: Patient is awake alert follows commands 4. Moving all 4 extremities spontaneously. Communicates with head nod and mouthing words. Assessment and Plan - Problem List (1) Chronic respiratory failure Code(s): J96.10 - Chronic respiratory failure, unspecified whether with hypoxia or hypercapnia Status: Chronic (2) Large bowel obstruction Code(s): K56.609 - Unspecified intestinal obstruction, unspecified as to partial versus complete obstruction Status: Resolved (3) STEMI (ST elevation myocardial infarction) Code(s): I21.3 - ST elevation (STEMI) myocardial infarction of unspecified site Status: Resolved (4) Diabetes Code(s): E11.9 - Type 2 diabetes mellitus without complications Status: Acute (5) Wound dehiscence, surgical Code(s): T81.31XA - Disruption of external operation (surgical) wound, not elsewhere classified, initial encounter Status: Acute (6) Dysphagia Code(s): R13.10 - Dysphagia, unspecified Status: Acute (7) Protein-calorie malnutrition, severe Code(s): E43 - Unspecified severe protein-calorie malnutrition Status: Acute (8) Systolic heart failure Code(s): I50.20 - Unspecified systolic (congestive) heart failure Status: Acute (9) Colostomy in place Code(s): Z93.3 - Colostomy status Status: Acute - Assessment and Plan Plan: A/P Assessment and Plan NEURO/Psych: 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 Out of bed to chair with assist at least daily. Continue with PT and OT. RESP: Acute hypoxic and hypercarbic respiratory failure- now chronic. Iatrogenic left pneumothorax- resolved. Continue with CPAP weaning. Albuterol/ipratropium aerosols every 6 hours while awake with albuterol aerosols every 2 hours as needed dyspnea Pulm toilet, trach care Status post percutaneous tracheostomy bedside - Dr. Mcgee keep head of the bed elevated 30 Diastolic heart failure complicating attempts to clean up lungs. Diuresis results and worsening renal function. Radiographic pattern consistent with aspiration as well. Continues to have problems with stamina on spontaneous ventilation trials. CV: Essential hypertension Hyperlipidemia Coronary artery disease Post operative STEMI Acute systolic heart failure Monitor HR and BP keep MAP>65mmHg Aspirin 81 mg daily, clopidogrel 75 mg p.o. daily BP controlled, decrease metoprolol to 50 mg p.o. twice daily and initiate lisinopril 5 mg p.o. daily. Adjust based on response. Continue atorvastatin 20 mg at night for dyslipidemia Holding amlodipine 10 mg daily 2D echocardiogram 05/29 revealed EF 50-55%. Grade 1 diastolic dysfunction. Pulmonary arterial pressure 34 mmHg Repeat revealed EF of 40-45% Followed by cardiology/Dr. Ellison: Dr. Villa discussed with team 10/21, and they recommended medical management. Continued conservative management recommended 11/02. Hold diuretics due to worsening renal function. GI: 10/08 Postop s/p ex-lap, TIA, Sigmoid colon resection with end colostomy and Holcomb's pouch Recurrent colonic obstruction, small bowel obstruction ? postop ileus vs SBO History of esophageal stricture status post dilatation History of small bowel obstruction Gastroesophageal reflux disease History of diverticulitis Hypoalbuminemia -Postop management per Dr. Mcgee tube feedings with Jevity 1.5 @50ml/hr. colostomy in place -Pantoprazole 40 mg IV daily for GI prophylaxis. On omeprazole 20 mg daily at home -Leave feeding tube to low intermittent suction for 12 hours and reassess. Discussed with surgical service. Renal/: 10/08 Postop s/p Ureteroureteral anastomosis for ureteral injury Chronic kidney disease stage III a -Monitor renal function, I/O's, electrolytes replacement per protocol -Removal of double-J stent 6 weeks from operative procedure outpatient setting -Off IVF ID: Pneumonia Wound culture from abdominal incision +pseudomonas. -Started Zosyn on 11/06 and damp to dry dressing per general surgery. Wound is granulating and nonpurulent. Could d/c abx soon from my standpoint, will need to d/w Dr. Mcgee.. Sputum cx 11/07: Pseudomonas, repeat sputum cx Wound cx 08/06: Pseudomonas Wound culture from incision site(11/06) growing Pseudomonas, sputum Gram stain and culture(11/07) growing pansenstive Pseudomonas -Discontinued levofloxacin 10/14. s/p course vancomycin and cefepime, 10/14-10/20 Sputum, blood cultures 2 10/13 NGTD Urine Legionella and pneumococcal urinary antigens 10/13 negative HEME: Normocytic anemia Thrombocytosis -Monitor CBC, CMP, coags -1 unit PRBCs to be transfused on 11/09 for hemoglobin 7.1 ENDO: Diabetes mellitus type 2 Severe hyperglycemia of critical illness Hyperglycemia History of gout Holding metformin 1000 mg by mouth twice daily -Glucose not at target despite 40 units coverage with sliding scale. Increase detemir further to 15 units q12h. -sliding scale insulin/NovoLog high regimen q6h MSK History of ankylosing spondylosis Holding denosumab 60 mg subcu every 18 days Holding cholecalciferol 4000 units p.o. daily PT evaluate and treat PROPH: -Bilateral lower extremity SCDs. Lovenox 40 subcu daily. On protonix 40 mg IV for stress ulcer prophylaxis. LINES: - piv Overall impression: Patient has chronic diastolic heart failure but aggressive diuresis results in worsening renal function. Possible persistent problems with aspiration contributing to bilateral infiltrates. He is presently afebrile and without leukocytosis, lending less credibility to the latter. Will reculture sputum and assess for colonization. 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 Acceptable for transfer now. (8) Systolic heart failure Qualifiers: Heart failure chronicity: acute Qualified Code(s): I50.21 - Acute systolic ( congestive) heart failure
[2017-11-23] MEDS: Enoxaparin Inj 40 MG/0.4 ML Syringe SQ SCH (08:49)
[2017-11-23] MEDS: KCL 20 mEq/Dextrose 5% Inj 1,000 ML IV.CONT SCH ×2 (08:49→21:27)
[2017-11-23] MEDS: Chlorhexidine Gluconate 0.12% Liq 15 ML UDC SWISH-SPIT SCH ×2 (08:49→21:30)
[2017-11-23] MEDS: Morphine Inj 4 MG/ML Vial IV.PUSH PRN ×4 (08:50→21:32)
[2017-11-23] MEDS: Carvedilol 6.25 MG Tablet PO SCH ×2 (08:51→21:30)
[2017-11-23] MEDS: Lisinopril 5 MG Tablet PO SCH (08:51)
[2017-11-23] MEDS: QUEtiapine 25 MG Tablet PO SCH ×2 (08:51→21:31)
[2017-11-23] MEDS: Allopurinol 300 MG Tablet PO SCH (08:51)
[2017-11-23] MEDS: Insulin Detemir Inj 1,000 UNIT/10 ML Vial SQ SCH ×2 (08:52→23:58)
[2017-11-23] MEDS: Sodium Hypochlorite 0.125% Top Soln 500 ML Bottle TOPICAL SCH ×2 (08:52→23:58)
--- NOTE | 2017-11-23 10:13 | P.PNGS ---
<Jayshree Saha - Last Filed: 11/23/17 10:09> Subjective Interval history: Doing well Wrote notes---- wants to get out of bed today with PT; feels like he is feeling better today; no nausea/vomiting overnight Physical Exam Vital signs: Vital Signs 11/22/17 11:37 11/22/17 12:00 11/22/17 14:00 Temperature 99.0 F Pulse Rate 79 84 Respiratory Rate 29 H 27 H Blood Pressure 148/70 H Pulse Oximetry 98 11/22/17 16:00 11/22/17 16:36 11/22/17 18:00 Temperature 98.8 F Pulse Rate 84 82 Respiratory Rate 27 H 24 Blood Pressure 143/72 H Pulse Oximetry 99 99 11/22/17 19:59 11/22/17 20:00 11/22/17 22:00 Temperature 98.4 F Pulse Rate 90 94 H Respiratory Rate 24 Blood Pressure 160/78 H Pulse Oximetry 100 98 11/22/17 23:14 11/23/17 00:00 11/23/17 00:03 Temperature 98.4 F Pulse Rate 73 Respiratory Rate 4 L 17 19 Blood Pressure 95/52 L Pulse Oximetry 98 99 11/23/17 02:00 11/23/17 03:32 11/23/17 04:00 Temperature 97.9 F Pulse Rate 68 76 Respiratory Rate 17 17 Blood Pressure 118/58 L Pulse Oximetry 98 100 11/23/17 06:00 11/23/17 08:58 Temperature Pulse Rate 70 Respiratory Rate 16 Blood Pressure Pulse Oximetry 97 Intake & Output 11/22/17 11/23/17 11/23/17 18:59 06:59 18:59 Intake Total 460 / 460 200 / 200 1000 / 1000 Output Total 1250 / 1250 1185 / 1185 Balance -790 / -790 -985 / -985 1000 / 1000 Weight 65.8 kg Intake: IV 400 / 400 200 / 200 1000 / 1000 D5W + KCL 20 mEq Inj 1,000 ML @ 1000 / 1000 42 mls/hr IV.CONT .[id number] LISA Rx#:[id number] Zosyn 4.5 GM Premix 4.5 gm In 200 / 200 100 ml @ 200 mls/hr IV.SIG Q6H LISA Rx#:[id number] KCl 20 mEq Premix Inj 20 meq In 200 / 200 200 / 200 100 ml @ 50 mls/hr IV.SIG Q2H PRN Rx#:[id number] Tube Feeding 0 / 0 Water Bolus Amount 60 / 60 Output: Urine 450 / 450 400 / 400 Stool Amount (Stoma) 100 / 100 785 / 785 Left Lower Abdomen 100 / 100 785 / 785 Gastric Drainage 700 / 700 Left Nare 700 / 700 Other: # Urine Diapers 5 Date of Last Bowel Movement 11/22/17 11/22/17 Narrative: Alert and awake in good spirits Cardio: RRR with occasional PVC Resp: Trach in place with minimal secretions; mild cough Abd: colostomy in place with air and minimal stool in bag; midline incision with open areas healing. Abd soft non tender non distended NGT to LIWS Assessment and Plan - Assessment (1) Large bowel obstruction Code(s): K56.609 - Unspecified intestinal obstruction, unspecified as to partial versus complete obstruction Status: Resolved Plan: 72 year old male s/p ex lap for SBO; trach placement due to VDRF -Continue vent weaning per CCM -Low dose IVF -Hold TF; Continue NGT to LIWS -Hopefully NGT output will continue to decrease and we can re-start TF -OOB and mobilized -Continue to watch renal function -Discussed with NICKY Horan (2) Respiratory failure requiring intubation Code(s): J96.90 - Respiratory failure, unspecified, unspecified whether with hypoxia or hypercapnia Status: Acute (3) Anemia, chronic disease Code(s): D63.8 - Anemia in other chronic diseases classified elsewhere Status : Acute (4) Ileus following gastrointestinal surgery Code(s): K91.30 - Postprocedural intestinal obstruction, unspecified as to partial versus complete Status: Acute Onset Date: ~11/21/17 - Plan 72 year old male s/p ex lap; s/p trach for prolonged need for mechanical ventilation -Continue to wean vent as tolerated; tolerated T piece yesterday -DCed Klonopin; Added Seropquel -DCed Roxicodone; Added Hycet -Tolerating TF at goal -Continue dressing changes -Wound Care following for continued colostomy care and teaching -Levsin ordered -Continue Jevity due to the need for high fiber formula; will need to cover sugars with SS insulin <David Mcgee - Last Filed: 11/24/17 15:04> Physical Exam Vital signs: Vital Signs 11/23/17 16:00 11/23/17 16:07 11/23/17 18:00 Temperature 98.8 F Pulse Rate 79 82 Respiratory Rate 18 23 Blood Pressure 140/63 Pulse Oximetry 100 100 11/23/17 20:00 11/23/17 22:00 11/24/17 00:00 Temperature 98.9 F 98 F Pulse Rate 74 78 60 Respiratory Rate 19 22 Blood Pressure 130/78 123/58 L Pulse Oximetry 100 100 11/24/17 00:18 11/24/17 00:41 11/24/17 02:00 Temperature Pulse Rate 60 Respiratory Rate 27 H 14 Blood Pressure Pulse Oximetry 100 99 11/24/17 04:00 11/24/17 04:16 11/24/17 06:00 Temperature 98.6 F Pulse Rate 60 72 Respiratory Rate 16 Blood Pressure 130/62 Pulse Oximetry 99 99 11/24/17 08:30 11/24/17 11:44 Temperature Pulse Rate Respiratory Rate 15 24 Blood Pressure Pulse Oximetry 100 100 Intake & Output 11/23/17 11/24/17 11/24/17 18:59 06:59 18:59 Intake Total 1979 / 1979 100 / 100 1100 / 1100 Output Total 2385 / 2385 550 / 550 Balance -405 / -405 -450 / -450 1100 / 1100 Weight 66.1 kg Intake: IV 1100 / 1100 100 / 100 1100 / 1100 D5W + KCL 20 mEq Inj 1,000 ML @ 1000 / 1000 1000 / 1000 42 mls/hr IV.CONT .[id number] LISA Rx#:[id number] KCl 20 mEq Premix Inj 20 meq In 100 / 100 100 / 100 100 / 100 100 ml @ 50 mls/hr IV.SIG Q2H LISA Rx#:[id number] Oral 0 / 0 Tube Feeding 0 / 0 Tube Irrigant 300 / 300 Water Bolus Amount 60 / 60 Other 120 / 120 Mass Transfusion Protocol 400 / 400 Output: Urine 400 / 400 500 / 500 Stool 200 / 200 50 / 50 Emesis 300 / 300 Stool Amount (Stoma) 785 / 785 Left Lower Abdomen 785 / 785 Gastric Drainage 700 / 700 Left Nare 700 / 700 Other: Post Void Residual 5 Other Intake Source Saline Solution # Voids 6 5 # Incontinent Voids 0 # Urine Diapers 5 Date of Last Bowel Movement 11/22/17 11/24/17 # Emeses 3 - Routine Respiratory Exam Present: CTA bilaterally - Routine Abdominal Exam Present: soft Comments: No distension, no tenderness Assessment and Plan - Assessment (1) Large bowel obstruction Code(s): K56.609 - Unspecified intestinal obstruction, unspecified as to partial versus complete obstruction Status: Resolved (2) Respiratory failure requiring intubation Code(s): J96.90 - Respiratory failure, unspecified, unspecified whether with hypoxia or hypercapnia Status: Acute (3) Anemia, chronic disease Code(s): D63.8 - Anemia in other chronic diseases classified elsewhere Status : Acute (4) Ileus following gastrointestinal surgery Code(s): K91.30 - Postprocedural intestinal obstruction, unspecified as to partial versus complete Status: Acute Onset Date: ~11/21/17 - Plan Improved today Abdomen soft Restart enteral feeding in AM - Attending Attestation The exam, history, and the medical decision-making described in the above note were completed with the assistance of the mid-level provider. I reviewed and agree with the findings presented. I attest that I had a ozkn-[id number] encounter with the patient on the same day, and personally performed and documented my assessment and findings in the medical record.
[2017-11-23] MEDS: Potassium Chlor 20 mEq Premix 20 MEQ/100 ML PIGGYBACK IV.SIG SCH ×4 (14:14→21:30)
--- NOTE | 2017-11-23 18:30 | P.PNWCN ---
Wound Care Nurse Consult Description: Patient seen for follow up of colostomy assessment and stoma dilation. Communicated with: NICKY Lee Incision - Incision Midline Abdomen Other Cover Dressing: PRIMAPORE Bowel Diversion Stoma - Bowel Stoma Left Lower Abdomen Stoma Edema: No Stoma Appearance: Oval, Retracted Loop Supporting Venkat: No Collection Device: Two-piece, Moldable Wafer Drainage Description: Liquid, Brown Wafer Size: 1 3/4 Moldable 45mm Stoma Care: Pouch and Wafer Changed, Skin Care Bee-Stomal Skin Appearance: Intact Bee-Stomal Surrounding Tissue Sensation Description: No Symptoms - Additional Information Additional Information: Patient was seen today for follow up of stoma, and appliance assessment.Stoma is not round and there for can't be measured using diameter. Measurements today were as follows: 1/2 inch tall and 1 inch wide and has an oval shape.Stoma is pink and retracted. Patient is laying in bed. Appliance in place is 1 3/4 cut to fit two piece appliance.Emptied 100 ml of liquid brown effluent from pouch. Patient is not complaining of burning or irritation. Removed ostomy appliance in place. Cleansed peristomal skin with water and wash cloth and patted dry. Applied stoma powder and skin barrier film spray to encrust. Jose's seal was then applied from circumferentially. Applied two piece moldable 1 3/4 appliance.Stoma was then dilated using finger.Student nurse and Marline Lee RN ISC at bedside during appliance change and stoma dilation.
[2017-11-23] MEDS: Melatonin 5 MG Tablet PO PRN (21:31)
[2017-11-24] MEDS: Oral Hygiene Kit OROPHARYNG SCH ×4 (02:28→19:03)
[2017-11-24] MEDS: Insulin NovoLOG Aspart Correctional Sugar Inj SQ SCH ×4 (02:28→19:03)
[2017-11-24] MEDS: Morphine Inj 4 MG/ML Vial IV.PUSH PRN ×2 (03:43→12:33)
[2017-11-24 05:48] LABS: Calcium 8.6 mg/dL (8.5-10.1); Carbon Dioxide 27.7 meq/L (21.0-32.0); Potassium 3.6 meq/L (3.5-5.1)
[2017-11-24] MEDS: Artificial Tears Opth Drops 15 ML Bottle EACH EYE SCH ×3 (08:14→21:02)
--- NOTE | 2017-11-24 08:19 | P.PNCC ---
Subjective Subjective Remarks/Hospital Course: This is a 72 year old male with history of type 2 diabetes, hypertension, dyslipidemia, chronic kidney disease stage III, ankylosing spondylitis, esophageal stricture s/p dilatation, diverticulitis, peritonitis, history of small bowel obstruction, colon resection x2, who was admitted to the hospital with one-week history of abd distension, constipation, and cramps. Pt tried to mange this at home, as he is familiar with symptoms. Has history of multiple bowel obstructions and multiple surgeries in the past. CT of abdomen/ pelvis showed moderately dilated large and small bowel, concentric stricturing in the sigmoid colon. Gastroenterology and general surgery were consulted. Patient was taken today to the OR by Dr. Mcgee, patient underwent exploratory laparotomy, Lysis of adhesions for dense adhesions involving small and large bowel, sigmoid colon resection with end colostomy and Holcomb's pouch. There was stricture at previous surgical site in sigmoid colon. EBL 300 ml, urine output was adequate. During the ex lap patient's sustained ureteral injury which required ureteroureteral anastomosis over stent by Dr. Page. Postop patient was moved to the PACU where his chest x-ray showed small possible left lateral pneumothorax. ABG showed a pH of 7.29/41/99 BE -6.7. I evaluated the patient in the ICU. Patient is intubated sedated with Precedex. He is tachycardic and borderline hypotensive. Additional 500 mL of fluid bolus given , 1 amp of bicarb. Received total 2.1 L in the OR. Urine output is adequate, approximately 75 ml per hour post op. With left-sided tiny pneumothorax (most likely with from central line placement in OR), will attempt CPAP trials for possible extubation. 10/09: Breathing is moderately labored to observe but the patient states he is comfortable. His major complaint is chronic back pain. Urine output is marginal but he remains well-perfused. Colostomy stoma is pink. 10/10: Labored breathing overnight. Remains on quarter normal saline at 125 cc hours and Clinimix E 4.25/25 at 83 cc an hour. Chest x-ray appears with bilateral pulmonary infiltrates. CVP is 8. Greater than 50% variation IVC by ultrasound. Bedside echocardiogram no acute findings. Patient currently with some pleuritic chest pain worse with deep inspiration. EKG currently pending. 8 run beat of V. tach overnight. Potassium magnesium within normal limits. 10/11: Afebrile. FiO2 requirements increased overnight currently at 60%. Chest x-ray revealed pulmonary edema bilaterally. Troponin downward trending. Noted sodium elevated 154. Will remove sodium from TPN. Norepinephrine initiated overnight currently at 8 mcg/min. Nitro paste discontinued. Holding parameters for beta corby 10/12: remains afebrile. back on levophed this AM at 5 mcg/min. also remains tachycardic in the 100s. sodium remains elevated despite removal of nacl from TPN. 10/13: T-max 100.4. Desaturated overnight requiring PEEP increased to 10 currently at 8. FiO2 down to 45%. Appears uncomfortable on the ventilator. Abdomen slightly more distended. Positive output from ostomy.. Transfusing 1 unit PRBCs due to acute coronary syndrome to keep above a. Recheck along with electrolytes active bleeding in place. CT abdomen/pelvis ordered. 10/14: Copious secretions overnight. PEEP at 7 FiO2 50%. Abdominal/pelvis CT revealed bilateral lobar pneumonia pelvic read as gallstone ileus but not likely is patient with copious stool output from ostomy. Did discuss with Dr. Mcgee. Antibiotic coverage broadened. Pancultured yesterday looks like his underlying pneumonia. Will transfuse 1 unit PRBCs today per cardiology request to maintain hemoglobin around 9 for acute coronary syndrome. Diuresis postprocedure and replace electrolytes aggressively. TPN will be weaned/ discontinued today after tube feeds at 40 cc an hour 10/15: t max 100.7 overnight. cultures NGTD. fio2 improving. secretions are somewhat better. 10/16: no improvements. afebrile. failed SBT after 10 minutes for tachypnea and respiratory distress. 10/17: failed sbt again for significant secretions and respiratory distress. only lasting about 10 min. may require tracheostomy. 10/18: much more awake and interactive. still has significant secretions. on SBT for longer today, but with active coronary ischemia, very high risk if he fails extubation. plan for trach if he remains intubated through the weekend. 10/19: still failing SBT. dressings changed today. clinically improving, but very weak and slow progress. 10/20: again failing SBT for copious secretions. was OOB to chair today. likely will need trach. 10/21: failed SBT for tachypnea, RR > 40. discussed with Dr[address] Mcgee: plan for trach tomorrow. discussed with cardiology service: they will likely medically manage his coronary artery disease without [facility] intervention. this is more of a reason to pursue trach, to prevent coronary ischemia that would come with trial of extubation first. 10/22: Plan for percutaneous tracheostomy at bedside 11 AM. Arousable on the ventilator and following commands. Currently afebrile. N.p.o. status. 10/23: Status post percutaneous tracheostomy 10/22 without complication. Continues to ooze from around tracheostomy site. Will hold enoxaparin for today. Tube feeds back at goal. Denies abdominal pain. Positive flatus from ostomy site. 10/24: Normal stool coming from well-perfused ostomy. Spontaneous breathing trials with tachypnea and mild labor. Chest x-ray with chronic interstitial changes and small lung volumes. 10/25: A little bit stronger on spontaneous breathing trials today. Pressure support settings 18/10. Tolerating tube feeds. 10/26: He is tolerating a mild reduction and mean airway pressure and end expiratory pressure. Continues to look acceptably comfortable during spontaneous breathing trials. 10/27: We needed to increase PEEP again last evening. 10/28: Spontaneous breathing trial at 8/8 this morning and doing quite well. Tube feedings on hold per surgery. Patient required low dose Xanax last night for anxiety. 10/29: intermittent SBTs. will trial t-piece today. no significant change. needs LTAC level care. 10/30: t-piece trials. ostomy working. advancing trickle tube feeds per surgery. 10/31: patient having gout flair and significantly painful. however, steroids contraindicated, and NSAIDS also contraindicated with concern over renal dysfunction in the setting of critical illness. still failing to separate from mechanical ventilation. really needs LTAC level care for pulmonary rehab. 11/01: NG tube placed to suction with 700 cc of gastric contents suctioned out overnight. Patient remains on mechanical ventilation with tracheostomy on CPAP with pressure support. Failed T piece yesterday. 11/02: Remains on mechanical ventilation via tracheostomy. 11/03: Remains on mechanical ventilation via tracheostomy. CPAP trials daily. T -piece as tolerated. 11/04: On mechanical ventilation via tracheostomy. Daily CPAP trials. 11/05, 11/06: Remains on mechanical ventilation via tracheostomy. Daily CPAP trials ongoing. 11/07: Worsening respiratory status. Placed back on PRVC mode mechanical ventilation last night. Significant sick pulmonary secretions noted. No BMs via colostomy. Chest x-ray done this morning shows worsening infiltrates more on the right suspicious for aspiration. KUB done this morning shows an ileus. Already placed on Zosyn on 11/07 which should cover for pneumonia. 11/08: Resting on mechanical ventilation via tracheostomy. Wound culture from incision site growing Pseudomonas 11/09: Remains on mechanical ventilation via tracheostomy. Wound culture and sputum both growing Pseudomonas. 11/10: Is on mechanical ventilation via tracheostomy. Daily CPAP trials. 11/11: Remains on mechanical ventilation via tracheostomy. Really CPAP trials ongoing. 11/12 No events overnight. On ventilator via trach. On CPAP with PS 15, PEEP:5 and FIO2 40%. Afebrile. 11/13 Patient denies complaint. Wants NGT out but understand rationale for continuing. On CPAP 15/5. Tolerating tube feeds. Afebrile. Subjective: 11/14 On CPAP 15/5 since yesterday. Able to wean to 12/5 but weaning beyond that produces tachypnea. Was out of bed to chair for a couple of hours. 11/15: Remains on CPAP via tracheostomy. Had problems with secretions last night. Adding scheduled nebulizer treatments and Mucomyst to mobilize secretions. 11/16: Resting comfortably on mechanical ventilation via tracheostomy. On CPAP trial 11/17: Afebrile. Tolerating tube feeds at goal. Placed on ventilator yesterday secondary to worsening subjective shortness of breath. We will reattempt CPAP trial again today. Positive BM.. SUBJECTIVE 11/18: Afebrile. We will reattempt CPAP trial again today. Check chest x-ray in a.m. Continue with pulmonary toilet. Anxious. 11/19: Not tolerating CPAP trials well. Will discuss among consultants ways to manage his anxiety. 11/20: Brief episodes of apnea overnight. Anxiety a little better controlled this morning. 11/21: Patient vomited a large amount of tube feed this morning. After this he appeared comfortable although a little anxious. 11/22: Feels a little better this morning but abdomen remains moderately distended. Good stoma output. Surgical service is aware and Dr. Shepard saw the patient last evening. KUAlyssa reviewed. Potassium replacement underway now. 11/23: Patient remains in poorly compensated diastolic heart failure. Our best efforts to gingerly diuresis and has just resulted in worsening renal function. His medical therapy is maximized for heart failure with acceptable pulse rate control and afterload reduction. Inability to wean completely from the ventilator is closely associated persistent pulmonary edema. 11/24: Breathing quite comfortably this morning on CPAP however requiring 15 cm of water pressure support. Despite congested chest x-ray his lungs are fairly clear to auscultation. He has been started on TPN and his GI tract To low intermittent suction through an NG tube. The abdomen is remarkably soft and not distended. The colostomy does have output. Objective Vital Signs / I&O: Vital Signs 11/23/17 08:58 11/23/17 10:00 11/23/17 10:17 Temperature Pulse Rate 81 Respiratory Rate 16 19 Blood Pressure Pulse Oximetry 97 100 11/23/17 12:00 11/23/17 12:11 11/23/17 14:00 Temperature 98.1 F Pulse Rate 72 73 Respiratory Rate 20 33 H Blood Pressure 129/64 Pulse Oximetry 100 97 11/23/17 16:00 11/23/17 16:07 11/23/17 18:00 Temperature 98.8 F Pulse Rate 79 82 Respiratory Rate 18 23 Blood Pressure 140/63 Pulse Oximetry 100 100 11/23/17 20:00 11/23/17 22:00 11/24/17 00:00 Temperature 98.9 F 98 F Pulse Rate 74 78 60 Respiratory Rate 19 22 Blood Pressure 130/78 123/58 L Pulse Oximetry 100 100 11/24/17 00:18 11/24/17 00:41 11/24/17 02:00 Temperature Pulse Rate 60 Respiratory Rate 27 H 14 Blood Pressure Pulse Oximetry 100 99 11/24/17 04:00 11/24/17 04:16 11/24/17 06:00 Temperature 98.6 F Pulse Rate 60 72 Respiratory Rate 16 Blood Pressure 130/62 Pulse Oximetry 99 99 Intake & Output 11/23/17 11/24/17 11/24/17 18:59 06:59 18:59 Intake Total 1979 / 1979 100 / 100 Output Total 2385 / 2385 550 / 550 Balance -405 / -405 -450 / -450 Weight 66.1 kg Intake: IV 1100 / 1100 100 / 100 D5W + KCL 20 mEq Inj 1,000 ML @ 1000 / 1000 42 mls/hr IV.CONT .[id number] LISA Rx#:[id number] KCl 20 mEq Premix Inj 20 meq In 100 / 100 100 / 100 100 ml @ 50 mls/hr IV.SIG Q2H LISA Rx#:[id number] Oral 0 / 0 Tube Feeding 0 / 0 Tube Irrigant 300 / 300 Water Bolus Amount 60 / 60 Other 120 / 120 Mass Transfusion Protocol 400 / 400 Output: Urine 400 / 400 500 / 500 Stool 200 / 200 50 / 50 Emesis 300 / 300 Stool Amount (Stoma) 785 / 785 Left Lower Abdomen 785 / 785 Gastric Drainage 700 / 700 Left Nare 700 / 700 Other: Post Void Residual 5 Other Intake Source Saline Solution # Voids 6 5 # Incontinent Voids 0 # Urine Diapers 5 Date of Last Bowel Movement 11/22/17 11/24/17 # Emeses 3 Result Diagrams: 11/23/17 04:14 11/24/17 04:00 Objective Remarks: Objective Remarks GENERAL: 72-year-old male currently on CPAP 15/5 via tracheostomy SKIN: Warm and dry. No rash HEAD: Atraumatic. Normocephalic. EYES: Pupils equal round and reactive, 2 mm bilaterally. ENT: Oral cavity is moist. NG tube in left nare to low intermittent suction. NECK: Trachea midline. Supple. Tracheostomy site clean and dry. CARDIOVASCULAR: RRR. No JVD. No m,r. No JVD. RESPIRATORY: Equal chest rise. Symmetrical excursion. Few crackles in bases, otherwise clear. Comfortable on CPAP. GASTROINTESTINAL: Abdomen mildly distended, bowel sounds present. [place] colostomy in place with gas in the bag and some dark liquid/soft stool . MUSCULOSKELETAL: No edema lower extremities. Well-perfused. Warm. NEUROLOGICAL: Patient is awake alert follows commands 4. Moving all 4 extremities spontaneously. Communicates with head nod and mouthing words. Assessment and Plan - Problem List (1) Chronic respiratory failure Code(s): J96.10 - Chronic respiratory failure, unspecified whether with hypoxia or hypercapnia Status: Chronic (2) Large bowel obstruction Code(s): K56.609 - Unspecified intestinal obstruction, unspecified as to partial versus complete obstruction Status: Resolved (3) STEMI (ST elevation myocardial infarction) Code(s): I21.3 - ST elevation (STEMI) myocardial infarction of unspecified site Status: Resolved (4) Diabetes Code(s): E11.9 - Type 2 diabetes mellitus without complications Status: Acute (5) Wound dehiscence, surgical Code(s): T81.31XA - Disruption of external operation (surgical) wound, not elsewhere classified, initial encounter Status: Acute (6) Dysphagia Code(s): R13.10 - Dysphagia, unspecified Status: Acute (7) Protein-calorie malnutrition, severe Code(s): E43 - Unspecified severe protein-calorie malnutrition Status: Acute (8) Systolic heart failure Code(s): I50.20 - Unspecified systolic (congestive) heart failure Status: Acute (9) Colostomy in place Code(s): Z93.3 - Colostomy status Status: Acute - Assessment and Plan Plan: A/P Assessment and Plan NEURO/Psych: 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 Out of bed to chair with assist at least daily. Continue with PT and OT. RESP: Acute hypoxic and hypercarbic respiratory failure- now chronic. Iatrogenic left pneumothorax- resolved. Continue with CPAP weaning. Albuterol/ipratropium aerosols every 6 hours while awake with albuterol aerosols every 2 hours as needed dyspnea Pulm toilet, trach care Status post percutaneous tracheostomy bedside - Dr. Mcgee keep head of the bed elevated 30 Diastolic heart failure complicating attempts to clean up lungs. Diuresis results and worsening renal function. Radiographic pattern consistent with aspiration as well. Continues to have problems with stamina on spontaneous ventilation trials. Still requiring elevated pressure support at 15 while on spontaneous breathing trials. CV: Essential hypertension Hyperlipidemia Coronary artery disease Post operative STEMI Acute systolic heart failure Monitor HR and BP keep MAP>65mmHg Aspirin 81 mg daily, clopidogrel 75 mg p.o. daily BP controlled, decrease metoprolol to 50 mg p.o. twice daily and initiate lisinopril 5 mg p.o. daily. Adjust based on response. Continue atorvastatin 20 mg at night for dyslipidemia Holding amlodipine 10 mg daily 2D echocardiogram 1/16 revealed EF 50-55%. Grade 1 diastolic dysfunction. Pulmonary arterial pressure 34 mmHg Repeat revealed EF of 40-45% Followed by cardiology/Dr. Ellison: Dr. Villa discussed with team 10/21, and they recommended medical management. Continued conservative management recommended 11/02. Hold diuretics due to worsening renal function. Gentle hydration started to compensate for nasogastric tube losses GI: 10/08 Postop s/p ex-lap, TIA, Sigmoid colon resection with end colostomy and Holcomb's pouch Recurrent colonic obstruction, small bowel obstruction ? postop ileus vs SBO History of esophageal stricture status post dilatation History of small bowel obstruction Gastroesophageal reflux disease History of diverticulitis Hypoalbuminemia -Postop management per Dr. Mcgee tube feedings with Jevity 1.5 @50ml/hr. colostomy in place -Pantoprazole 40 mg IV daily for GI prophylaxis. On omeprazole 20 mg daily at home -Leave feeding tube to low intermittent suction for 12 hours and reassess. Discussed with surgical service. Renal/: 10/08 Postop s/p Ureteroureteral anastomosis for ureteral injury Chronic kidney disease stage III a -Monitor renal function, I/O's, electrolytes replacement per protocol -Removal of double-J stent 6 weeks from operative procedure outpatient setting ID: Pneumonia Wound culture from abdominal incision +pseudomonas. -Started Zosyn on 11/06 and damp to dry dressing per general surgery. Wound is granulating and nonpurulent. Could d/c abx soon from my standpoint, will need to d/w Dr. Mcgee.. Sputum cx 11/07: Pseudomonas, repeat sputum cx Wound cx 08/06: Pseudomonas Wound culture from incision site(11/06) growing Pseudomonas, sputum Gram stain and culture(11/07) growing pansenstive Pseudomonas -Discontinued levofloxacin 10/14. s/p course vancomycin and cefepime, 10/14-10/20 Sputum, blood cultures 2 10/13 NGTD Urine Legionella and pneumococcal urinary antigens 10/13 negative HEME: Normocytic anemia Thrombocytosis -Monitor CBC, CMP, coags -1 unit PRBCs to be transfused on 11/09 for hemoglobin 7.1 ENDO: Diabetes mellitus type 2 Severe hyperglycemia of critical illness Hyperglycemia History of gout Holding metformin 1000 mg by mouth twice daily -Glucose not at target despite 40 units coverage with sliding scale. Increase detemir further to 15 units q12h. -sliding scale insulin/NovoLog high regimen q6h MSK History of ankylosing spondylosis Holding denosumab 60 mg subcu every 18 days Holding cholecalciferol 4000 units p.o. daily PT evaluate and treat PROPH: -Bilateral lower extremity SCDs. Lovenox 40 subcu daily. On protonix 40 mg IV for stress ulcer prophylaxis. LINES: - piv Overall impression: Patient has chronic diastolic heart failure but aggressive diuresis results in worsening renal function. Possible persistent problems with aspiration contributing to bilateral infiltrates. He is presently afebrile and without leukocytosis, lending less credibility to the latter. Will reculture sputum and assess for colonization, result pending. Has transfer order to long goods drier vent unit 4th floor fountain. Acceptable for transfer now. (8) Systolic heart failure Qualifiers: Heart failure chronicity: acute Qualified Code(s): I50.21 - Acute systolic ( congestive) heart failure
[2017-11-24] MEDS: Enoxaparin Inj 40 MG/0.4 ML Syringe SQ SCH (08:30)
[2017-11-24] MEDS: QUEtiapine 25 MG Tablet PO SCH ×2 (08:31→20:59)
[2017-11-24] MEDS: Carvedilol 6.25 MG Tablet PO SCH ×2 (08:31→20:59)
[2017-11-24] MEDS: Lisinopril 5 MG Tablet PO SCH (08:31)
[2017-11-24] MEDS: Allopurinol 300 MG Tablet PO SCH (08:31)
[2017-11-24] MEDS: Chlorhexidine Gluconate 0.12% Liq 15 ML UDC SWISH-SPIT SCH ×2 (08:32→21:01)
[2017-11-24] MEDS: Insulin Detemir Inj 1,000 UNIT/10 ML Vial SQ SCH ×2 (08:32→21:02)
[2017-11-24] MEDS: Sodium Hypochlorite 0.125% Top Soln 500 ML Bottle TOPICAL SCH ×2 (11:58→21:00)
[2017-11-24] MEDS: KCL 20 mEq/Dextrose 5% Inj 1,000 ML IV.CONT SCH (15:01)
[2017-11-24] MEDS: Scopalamine 1.5 MG Patch T-DERMAL SCH (21:02)
[2017-11-24] MEDS: Acetaminophen-HYDROcodone 325/7.5 Liq 15 ML UDC NG/OG PRN (21:03)
--- NOTE | 2017-11-24 21:55 | P.PNGS ---
Subjective Patient reports: no new complaints (no nausea), feels better (less ng output, + ostomy output) Physical Exam Vital signs: Vital Signs 11/23/17 22:00 11/24/17 00:00 11/24/17 00:18 Temperature 98 F Pulse Rate 78 60 Respiratory Rate 22 27 H Blood Pressure 123/58 L Pulse Oximetry 100 100 11/24/17 00:41 11/24/17 02:00 11/24/17 04:00 Temperature 98.6 F Pulse Rate 60 60 Respiratory Rate 14 16 Blood Pressure 130/62 Pulse Oximetry 99 99 11/24/17 04:16 11/24/17 06:00 11/24/17 08:00 Temperature 98.1 F Pulse Rate 72 94 H Respiratory Rate 16 Blood Pressure 137/71 Pulse Oximetry 99 98 11/24/17 08:30 11/24/17 10:00 11/24/17 11:44 Temperature Pulse Rate 62 Respiratory Rate 15 24 Blood Pressure Pulse Oximetry 100 100 11/24/17 12:00 11/24/17 14:00 11/24/17 16:00 Temperature 98.3 F 98.2 F Pulse Rate 62 62 72 Respiratory Rate 24 24 Blood Pressure 142/65 H 128/70 Pulse Oximetry 99 100 11/24/17 18:00 11/24/17 20:00 11/24/17 20:38 Temperature Pulse Rate 70 77 Respiratory Rate 34 H Blood Pressure Pulse Oximetry 100 Intake & Output 11/24/17 11/24/17 11/25/17 06:59 18:59 06:59 Intake Total 100 / 100 1355 / 1355 Output Total 550 / 550 650 / 650 Balance -450 / -450 705 / 705 Weight 66.1 kg Intake: IV 100 / 100 1100 / 1100 D5W + KCL 20 mEq Inj 1,000 ML @ 1000 / 1000 42 mls/hr IV.CONT .[id number] LISA Rx#:[id number] KCl 20 mEq Premix Inj 20 meq In 100 / 100 100 / 100 100 ml @ 50 mls/hr IV.SIG Q2H LISA Rx#:[id number] Tube Feeding 45 / 45 Tube Irrigant 60 / 60 Water Bolus Amount 150 / 150 Output: Urine 500 / 500 650 / 650 Stool 50 / 50 Other: # Voids 5 2 Date of Last Bowel Movement 11/24/17 11/24/17 11/24/17 - Routine Respiratory Exam Present: CTA bilaterally - Routine Cardiovascular Exam Present: RRR - Routine Abdominal Exam Present: soft (incision with packing, ostomy bag with stool) Assessment and Plan - Assessment (1) Large bowel obstruction Code(s): K56.609 - Unspecified intestinal obstruction, unspecified as to partial versus complete obstruction Status: Resolved Plan: 72 year old male s/p ex lap for SBO; trach placement due to VDRF, ng low output -Continue vent weaning per CCM -Low dose IVF -start TF at 10cc/hr -OOB and mobilized (2) Respiratory failure requiring intubation Code(s): J96.90 - Respiratory failure, unspecified, unspecified whether with hypoxia or hypercapnia Status: Acute (3) Anemia, chronic disease Code(s): D63.8 - Anemia in other chronic diseases classified elsewhere Status : Acute (4) Ileus following gastrointestinal surgery Code(s): K91.30 - Postprocedural intestinal obstruction, unspecified as to partial versus complete Status: Acute Onset Date: ~11/21/17
[2017-11-25] MEDS: Insulin NovoLOG Aspart Correctional Sugar Inj SQ SCH ×5 (01:18→23:50)
[2017-11-25] MEDS: Oral Hygiene Kit OROPHARYNG SCH ×5 (01:19→23:50)
[2017-11-25 05:40] LABS: Calcium 8.3 mg/dL (8.5-10.1); Carbon Dioxide 27.1 meq/L (21.0-32.0); Potassium 3.2 meq/L (3.5-5.1)
[2017-11-25] MEDS: Potassium Chloride 25 MEQ Effervescent Tablet PO PRN (06:24)
[2017-11-25] MEDS: Artificial Tears Opth Drops 15 ML Bottle EACH EYE SCH ×3 (06:26→21:12)
[2017-11-25] MEDS: Enoxaparin Inj 40 MG/0.4 ML Syringe SQ SCH (08:12)
[2017-11-25] MEDS: Lisinopril 5 MG Tablet PO SCH (08:12)
[2017-11-25] MEDS: Carvedilol 6.25 MG Tablet PO SCH ×2 (08:13→20:16)
[2017-11-25] MEDS: QUEtiapine 25 MG Tablet PO SCH ×2 (08:13→20:16)
[2017-11-25] MEDS: Allopurinol 300 MG Tablet PO SCH (08:13)
[2017-11-25] MEDS: Insulin Detemir Inj 1,000 UNIT/10 ML Vial SQ SCH ×2 (08:14→20:17)
[2017-11-25] MEDS: Sodium Hypochlorite 0.125% Top Soln 500 ML Bottle TOPICAL SCH ×2 (08:14→20:17)
[2017-11-25] MEDS: Chlorhexidine Gluconate 0.12% Liq 15 ML UDC SWISH-SPIT SCH ×2 (08:14→20:17)
--- NOTE | 2017-11-25 11:31 | P.PNCC ---
Subjective Subjective Remarks/Hospital Course: This is a 72 year old male with history of type 2 diabetes, hypertension, dyslipidemia, chronic kidney disease stage III, ankylosing spondylitis, esophageal stricture s/p dilatation, diverticulitis, peritonitis, history of small bowel obstruction, colon resection x2, who was admitted to the hospital with one-week history of abd distension, constipation, and cramps. Pt tried to mange this at home, as he is familiar with symptoms. Has history of multiple bowel obstructions and multiple surgeries in the past. CT of abdomen/ pelvis showed moderately dilated large and small bowel, concentric stricturing in the sigmoid colon. Gastroenterology and general surgery were consulted. Patient was taken today to the OR by Dr. Mcgee, patient underwent exploratory laparotomy, Lysis of adhesions for dense adhesions involving small and large bowel, sigmoid colon resection with end colostomy and Holcomb's pouch. There was stricture at previous surgical site in sigmoid colon. EBL 300 ml, urine output was adequate. During the ex lap patient's sustained ureteral injury which required ureteroureteral anastomosis over stent by Dr. Page. Postop patient was moved to the PACU where his chest x-ray showed small possible left lateral pneumothorax. ABG showed a pH of 7.29/41/99 BE -6.7. I evaluated the patient in the ICU. Patient is intubated sedated with Precedex. He is tachycardic and borderline hypotensive. Additional 500 mL of fluid bolus given , 1 amp of bicarb. Received total 2.1 L in the OR. Urine output is adequate, approximately 75 ml per hour post op. With left-sided tiny pneumothorax (most likely with from central line placement in OR), will attempt CPAP trials for possible extubation. 10/09: Breathing is moderately labored to observe but the patient states he is comfortable. His major complaint is chronic back pain. Urine output is marginal but he remains well-perfused. Colostomy stoma is pink. 10/10: Labored breathing overnight. Remains on quarter normal saline at 125 cc hours and Clinimix E 4.25/25 at 83 cc an hour. Chest x-ray appears with bilateral pulmonary infiltrates. CVP is 8. Greater than 50% variation IVC by ultrasound. Bedside echocardiogram no acute findings. Patient currently with some pleuritic chest pain worse with deep inspiration. EKG currently pending. 8 run beat of V. tach overnight. Potassium magnesium within normal limits. 10/11: Afebrile. FiO2 requirements increased overnight currently at 60%. Chest x-ray revealed pulmonary edema bilaterally. Troponin downward trending. Noted sodium elevated 154. Will remove sodium from TPN. Norepinephrine initiated overnight currently at 8 mcg/min. Nitro paste discontinued. Holding parameters for beta corby 10/12: remains afebrile. back on levophed this AM at 5 mcg/min. also remains tachycardic in the 100s. sodium remains elevated despite removal of nacl from TPN. 10/13: T-max 100.4. Desaturated overnight requiring PEEP increased to 10 currently at 8. FiO2 down to 45%. Appears uncomfortable on the ventilator. Abdomen slightly more distended. Positive output from ostomy.. Transfusing 1 unit PRBCs due to acute coronary syndrome to keep above a. Recheck along with electrolytes active bleeding in place. CT abdomen/pelvis ordered. 10/14: Copious secretions overnight. PEEP at 7 FiO2 50%. Abdominal/pelvis CT revealed bilateral lobar pneumonia pelvic read as gallstone ileus but not likely is patient with copious stool output from ostomy. Did discuss with Dr. Mcgee. Antibiotic coverage broadened. Pancultured yesterday looks like his underlying pneumonia. Will transfuse 1 unit PRBCs today per cardiology request to maintain hemoglobin around 9 for acute coronary syndrome. Diuresis postprocedure and replace electrolytes aggressively. TPN will be weaned/ discontinued today after tube feeds at 40 cc an hour 10/15: t max 100.7 overnight. cultures NGTD. fio2 improving. secretions are somewhat better. 10/16: no improvements. afebrile. failed SBT after 10 minutes for tachypnea and respiratory distress. 10/17: failed sbt again for significant secretions and respiratory distress. only lasting about 10 min. may require tracheostomy. 10/18: much more awake and interactive. still has significant secretions. on SBT for longer today, but with active coronary ischemia, very high risk if he fails extubation. plan for trach if he remains intubated through the weekend. 10/19: still failing SBT. dressings changed today. clinically improving, but very weak and slow progress. 10/20: again failing SBT for copious secretions. was OOB to chair today. likely will need trach. 10/21: failed SBT for tachypnea, RR > 40. discussed with Dr[address] Mcgee: plan for trach tomorrow. discussed with cardiology service: they will likely medically manage his coronary artery disease without [facility] intervention. this is more of a reason to pursue trach, to prevent coronary ischemia that would come with trial of extubation first. 10/22: Plan for percutaneous tracheostomy at bedside 11 AM. Arousable on the ventilator and following commands. Currently afebrile. N.p.o. status. 10/23: Status post percutaneous tracheostomy 10/22 without complication. Continues to ooze from around tracheostomy site. Will hold enoxaparin for today. Tube feeds back at goal. Denies abdominal pain. Positive flatus from ostomy site. 10/24: Normal stool coming from well-perfused ostomy. Spontaneous breathing trials with tachypnea and mild labor. Chest x-ray with chronic interstitial changes and small lung volumes. 10/25: A little bit stronger on spontaneous breathing trials today. Pressure support settings 18/10. Tolerating tube feeds. 10/26: He is tolerating a mild reduction and mean airway pressure and end expiratory pressure. Continues to look acceptably comfortable during spontaneous breathing trials. 10/27: We needed to increase PEEP again last evening. 10/28: Spontaneous breathing trial at 8/8 this morning and doing quite well. Tube feedings on hold per surgery. Patient required low dose Xanax last night for anxiety. 10/29: intermittent SBTs. will trial t-piece today. no significant change. needs LTAC level care. 10/30: t-piece trials. ostomy working. advancing trickle tube feeds per surgery. 10/31: patient having gout flair and significantly painful. however, steroids contraindicated, and NSAIDS also contraindicated with concern over renal dysfunction in the setting of critical illness. still failing to separate from mechanical ventilation. really needs LTAC level care for pulmonary rehab. 11/01: NG tube placed to suction with 700 cc of gastric contents suctioned out overnight. Patient remains on mechanical ventilation with tracheostomy on CPAP with pressure support. Failed T piece yesterday. 11/02: Remains on mechanical ventilation via tracheostomy. 11/03: Remains on mechanical ventilation via tracheostomy. CPAP trials daily. T -piece as tolerated. 11/04: On mechanical ventilation via tracheostomy. Daily CPAP trials. 11/05, 11/06: Remains on mechanical ventilation via tracheostomy. Daily CPAP trials ongoing. 11/07: Worsening respiratory status. Placed back on PRVC mode mechanical ventilation last night. Significant sick pulmonary secretions noted. No BMs via colostomy. Chest x-ray done this morning shows worsening infiltrates more on the right suspicious for aspiration. KUB done this morning shows an ileus. Already placed on Zosyn on 11/07 which should cover for pneumonia. 11/08: Resting on mechanical ventilation via tracheostomy. Wound culture from incision site growing Pseudomonas 11/09: Remains on mechanical ventilation via tracheostomy. Wound culture and sputum both growing Pseudomonas. 11/10: Is on mechanical ventilation via tracheostomy. Daily CPAP trials. 11/11: Remains on mechanical ventilation via tracheostomy. Really CPAP trials ongoing. 11/12 No events overnight. On ventilator via trach. On CPAP with PS 15, PEEP:5 and FIO2 40%. Afebrile. 11/13 Patient denies complaint. Wants NGT out but understand rationale for continuing. On CPAP 15/5. Tolerating tube feeds. Afebrile. Subjective: 11/14 On CPAP 15/5 since yesterday. Able to wean to 12/5 but weaning beyond that produces tachypnea. Was out of bed to chair for a couple of hours. 11/15: Remains on CPAP via tracheostomy. Had problems with secretions last night. Adding scheduled nebulizer treatments and Mucomyst to mobilize secretions. 11/16: Resting comfortably on mechanical ventilation via tracheostomy. On CPAP trial 11/17: Afebrile. Tolerating tube feeds at goal. Placed on ventilator yesterday secondary to worsening subjective shortness of breath. We will reattempt CPAP trial again today. Positive BM.. SUBJECTIVE 11/18: Afebrile. We will reattempt CPAP trial again today. Check chest x-ray in a.m. Continue with pulmonary toilet. Anxious. 11/19: Not tolerating CPAP trials well. Will discuss among consultants ways to manage his anxiety. 11/20: Brief episodes of apnea overnight. Anxiety a little better controlled this morning. 11/21: Patient vomited a large amount of tube feed this morning. After this he appeared comfortable although a little anxious. 11/22: Feels a little better this morning but abdomen remains moderately distended. Good stoma output. Surgical service is aware and Dr. Shepard saw the patient last evening. KUAlyssa reviewed. Potassium replacement underway now. 11/23: Patient remains in poorly compensated diastolic heart failure. Our best efforts to gingerly diuresis and has just resulted in worsening renal function. His medical therapy is maximized for heart failure with acceptable pulse rate control and afterload reduction. Inability to wean completely from the ventilator is closely associated persistent pulmonary edema. 11/24: Breathing quite comfortably this morning on CPAP however requiring 15 cm of water pressure support. Despite congested chest x-ray his lungs are fairly clear to auscultation. He has been started on TPN and his GI tract To low intermittent suction through an NG tube. The abdomen is remarkably soft and not distended. The colostomy does have output. 11/25: He has finally progressed to T piece trials and so far he is comfortable. We continue to adjust electrolyte replacement because of nasogastric losses. His general demeanor is much improved today and he is much less anxious. TPN is infusing as we rest his bowel. Objective Vital Signs / I&O: Vital Signs 11/24/17 11:44 11/24/17 12:00 11/24/17 14:00 Temperature 98.3 F Pulse Rate 62 62 Respiratory Rate 24 24 Blood Pressure 142/65 H Pulse Oximetry 100 99 11/24/17 16:00 11/24/17 18:00 11/24/17 20:00 Temperature 98.2 F 98.6 F Pulse Rate 72 70 77 Respiratory Rate 24 27 H Blood Pressure 128/70 157/73 H Pulse Oximetry 100 100 11/24/17 20:38 11/24/17 22:00 11/25/17 00:00 Temperature 98.7 F Pulse Rate 72 59 L Respiratory Rate 34 H 22 Blood Pressure 130/62 Pulse Oximetry 100 98 11/25/17 00:26 11/25/17 02:00 11/25/17 04:00 Temperature 98.5 F Pulse Rate 56 L 56 L Respiratory Rate 19 17 Blood Pressure 114/59 L Pulse Oximetry 99 97 11/25/17 04:48 11/25/17 06:00 11/25/17 07:35 Temperature Pulse Rate 65 Respiratory Rate 13 Blood Pressure Pulse Oximetry 99 100 Intake & Output 11/24/17 11/25/17 11/25/17 18:59 06:59 18:59 Intake Total 1355 / 1355 416 / 416 Output Total 650 / 650 320 / 320 Balance 705 / 705 96 / 96 Weight 66.5 kg Intake: IV 1100 / 1100 D5W + KCL 20 mEq Inj 1,000 ML @ 1000 / 1000 42 mls/hr IV.CONT .[id number] LISA Rx#:[id number] KCl 20 mEq Premix Inj 20 meq In 100 / 100 100 ml @ 50 mls/hr IV.SIG Q2H LISA Rx#:[id number] Oral 0 / 0 Tube Feeding 45 / 45 116 / 116 Tube Irrigant 60 / 60 300 / 300 Water Bolus Amount 150 / 150 Output: Urine 650 / 650 300 / 300 Stool 20 / 20 Other: # Voids 2 2 Date of Last Bowel Movement 11/24/17 11/24/17 Result Diagrams: 11/23/17 04:14 11/25/17 03:30 Objective Remarks: Objective Remarks GENERAL: 72-year-old male currently on CPAP 15/5 via tracheostomy SKIN: Warm and dry. No rash HEAD: Atraumatic. Normocephalic. EYES: Pupils equal round and reactive, 2 mm bilaterally. ENT: Oral cavity is moist. NG tube in left nares to low intermittent suction. NECK: Trachea midline. Supple. Tracheostomy site clean and dry. CARDIOVASCULAR: RRR. No JVD. No m,r. No JVD. RESPIRATORY: Equal chest rise. Symmetrical excursion. Few crackles in bases, otherwise clear. Comfortable on T piece trial. GASTROINTESTINAL: Abdomen mildly distended, bowel sounds present. [place] colostomy in place, normal output. MUSCULOSKELETAL: No edema lower extremities. Well-perfused. Warm. NEUROLOGICAL: Patient is awake alert follows commands 4. Moving all 4 extremities spontaneously. Communicates with head nod and mouthing words. Assessment and Plan - Problem List (1) Chronic respiratory failure Code(s): J96.10 - Chronic respiratory failure, unspecified whether with hypoxia or hypercapnia Status: Chronic (2) Large bowel obstruction Code(s): K56.609 - Unspecified intestinal obstruction, unspecified as to partial versus complete obstruction Status: Resolved (3) STEMI (ST elevation myocardial infarction) Code(s): I21.3 - ST elevation (STEMI) myocardial infarction of unspecified site Status: Resolved (4) Diabetes Code(s): E11.9 - Type 2 diabetes mellitus without complications Status: Acute (5) Wound dehiscence, surgical Code(s): T81.31XA - Disruption of external operation (surgical) wound, not elsewhere classified, initial encounter Status: Acute (6) Dysphagia Code(s): R13.10 - Dysphagia, unspecified Status: Acute (7) Protein-calorie malnutrition, severe Code(s): E43 - Unspecified severe protein-calorie malnutrition Status: Acute (8) Systolic heart failure Code(s): I50.20 - Unspecified systolic (congestive) heart failure Status: Acute (9) Colostomy in place Code(s): Z93.3 - Colostomy status Status: Acute - Assessment and Plan Plan: A/P Assessment and Plan NEURO/Psych: 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 Out of bed to chair with assist at least daily. Continue with PT and OT. RESP: Acute hypoxic and hypercarbic respiratory failure- now chronic. Iatrogenic left pneumothorax- resolved. Continue with CPAP weaning. Albuterol/ipratropium aerosols every 6 hours while awake with albuterol aerosols every 2 hours as needed dyspnea Pulm toilet, trach care Status post percutaneous tracheostomy bedside - Dr. Mcgee keep head of the bed elevated 30 Diastolic heart failure complicating attempts to clean up lungs. Diuresis results and worsening renal function. Radiographic pattern consistent with aspiration as well. Continues to have problems with stamina on spontaneous ventilation trials. Still requiring elevated pressure support at 15 while on spontaneous breathing trials. This is first day he has tolerated T piece trials. 11/25. CV: Essential hypertension Hyperlipidemia Coronary artery disease Post operative STEMI Acute systolic heart failure Monitor HR and BP keep MAP>65mmHg Aspirin 81 mg daily, clopidogrel 75 mg p.o. daily BP controlled, decrease metoprolol to 50 mg p.o. twice daily and initiate lisinopril 5 mg p.o. daily. Adjust based on response. Continue atorvastatin 20 mg at night for dyslipidemia Holding amlodipine 10 mg daily 2D echocardiogram 05/29 revealed EF 50-55%. Grade 1 diastolic dysfunction. Pulmonary arterial pressure 34 mmHg Repeat revealed EF of 40-45% Followed by cardiology/Dr. Ellisno: Dr. Villa discussed with team 10/21, and they recommended medical management. Continued conservative management recommended 11/02. Hold diuretics due to worsening renal function. Gentle hydration started to compensate for nasogastric tube losses GI: 10/08 Postop s/p ex-lap, TIA, Sigmoid colon resection with end colostomy and Holcomb's pouch Recurrent colonic obstruction, small bowel obstruction ? postop ileus vs SBO History of esophageal stricture status post dilatation History of small bowel obstruction Gastroesophageal reflux disease History of diverticulitis Hypoalbuminemia -Postop management per Dr. Mcgee tube feedings with Jevity 1.5 @50ml/hr. colostomy in place -Pantoprazole 40 mg IV daily for GI prophylaxis. On omeprazole 20 mg daily at home -Leave feeding tube to low intermittent suction for 12 hours and reassess. Discussed with surgical service. Renal/: 10/08 Postop s/p Ureteroureteral anastomosis for ureteral injury Chronic kidney disease stage III a -Monitor renal function, I/O's, electrolytes replacement per protocol -Removal of double-J stent 6 weeks from operative procedure outpatient setting ID: Pneumonia Wound culture from abdominal incision +pseudomonas. -Started Zosyn on 11/06 and damp to dry dressing per general surgery. Wound is granulating and nonpurulent. Could d/c abx soon from my standpoint, will need to d/w Dr. Mcgee.. Sputum cx 11/07: Pseudomonas, repeat sputum cx Wound cx 08/06: Pseudomonas Wound culture from incision site(11/06) growing Pseudomonas, sputum Gram stain and culture(11/07) growing pansenstive Pseudomonas -Discontinued levofloxacin 10/14. s/p course vancomycin and cefepime, 10/14-10/20 Sputum, blood cultures 2 10/13 NGTD Urine Legionella and pneumococcal urinary antigens 10/13 negative HEME: Normocytic anemia Thrombocytosis -Monitor CBC, CMP, coags -1 unit PRBCs to be transfused on 11/09 for hemoglobin 7.1 ENDO: Diabetes mellitus type 2 Severe hyperglycemia of critical illness Hyperglycemia History of gout Holding metformin 1000 mg by mouth twice daily -Glucose not at target despite 40 units coverage with sliding scale. Increase detemir further to 15 units q12h. -sliding scale insulin/NovoLog high regimen q6h MSK History of ankylosing spondylosis Holding denosumab 60 mg subcu every 18 days Holding cholecalciferol 4000 units p.o. daily PT evaluate and treat PROPH: -Bilateral lower extremity SCDs. Lovenox 40 subcu daily. On protonix 40 mg IV for stress ulcer prophylaxis. LINES: - piv Overall impression: Patient has chronic diastolic heart failure but aggressive diuresis results in worsening renal function. Possible persistent problems with aspiration contributing to bilateral infiltrates. He is presently afebrile and without leukocytosis, lending less credibility to the latter as a cause. Has transfer order to skilled nursing vent unit 4th floor [place]. Acceptable for transfer now. (8) Systolic heart failure Qualifiers: Heart failure chronicity: acute Qualified Code(s): I50.21 - Acute systolic ( congestive) heart failure
--- NOTE | 2017-11-25 13:06 | P.PNGS ---
Subjective Patient reports: no new complaints ( DAILY PROGRESS NOTE FOR SURGICAL ATTENDING, DR. ANTON CANTOR ) Interval history: dos 11/25/17 Still on tube feed at 10 cc an hour Tolerating T-piece Appears comfortable Physical Exam Vital signs: Vital Signs 11/24/17 14:00 11/24/17 16:00 11/24/17 18:00 Temperature 98.2 F Pulse Rate 62 72 70 Respiratory Rate 24 Blood Pressure 128/70 Pulse Oximetry 100 11/24/17 20:00 11/24/17 20:38 11/24/17 22:00 Temperature 98.6 F Pulse Rate 77 72 Respiratory Rate 27 H 34 H Blood Pressure 157/73 H Pulse Oximetry 100 100 11/25/17 00:00 11/25/17 00:26 11/25/17 02:00 Temperature 98.7 F Pulse Rate 59 L 56 L Respiratory Rate 22 19 Blood Pressure 130/62 Pulse Oximetry 98 99 11/25/17 04:00 11/25/17 04:48 11/25/17 06:00 Temperature 98.5 F Pulse Rate 56 L 65 Respiratory Rate 17 13 Blood Pressure 114/59 L Pulse Oximetry 97 99 11/25/17 07:35 Temperature Pulse Rate Respiratory Rate Blood Pressure Pulse Oximetry 100 Intake & Output 11/24/17 11/25/17 11/25/17 18:59 06:59 18:59 Intake Total 1355 / 1355 416 / 416 Output Total 650 / 650 320 / 320 Balance 705 / 705 96 / 96 Weight 66.5 kg Intake: IV 1100 / 1100 D5W + KCL 20 mEq Inj 1,000 ML @ 1000 / 1000 42 mls/hr IV.CONT .[id number] LISA Rx#:[id number] KCl 20 mEq Premix Inj 20 meq In 100 / 100 100 ml @ 50 mls/hr IV.SIG Q2H LISA Rx#:[id number] Oral 0 / 0 Tube Feeding 45 / 45 116 / 116 Tube Irrigant 60 / 60 300 / 300 Water Bolus Amount 150 / 150 Output: Urine 650 / 650 300 / 300 Stool 20 / 20 Other: # Voids 2 2 Date of Last Bowel Movement 11/24/17 11/24/17 - Constitutional no acute distress, chronically ill appearing - Routine HEENT Exam Comments: Patient has NG tube in with tube feedings going at 10 cc an hour - Routine Neck Exam Comments: Tracheostomy tube - Routine Abdominal Exam Comments: Colostomy with - Routine Neurological Exam Present: alert Assessment and Plan - Assessment (1) Tracheostomy in place Code(s): Z93.0 - Tracheostomy status Status: Acute (2) Respiratory failure requiring intubation Code(s): J96.90 - Respiratory failure, unspecified, unspecified whether with hypoxia or hypercapnia Status: Acute (3) Anemia, chronic disease Code(s): D63.8 - Anemia in other chronic diseases classified elsewhere Status : Acute (4) Protein-calorie malnutrition, severe Code(s): E43 - Unspecified severe protein-calorie malnutrition Status: Acute (5) Ileus following gastrointestinal surgery Code(s): K91.30 - Postprocedural intestinal obstruction, unspecified as to partial versus complete Status: Acute Onset Date: ~11/21/17 - Plan Continue tube feeds at 10 cc that our Discussed with Dr. Rivas in the [facility] Increase tube feeds as tolerated - Attending Attestation NOTE FOR SURGICAL ATTENDING, DR. ANTON CANTOR . I attest that I had a [id number] encounter with the patient on the same day, and personally performed and documented my assessment and findings in the medical record. The following services were provided during this hospital visit: Chart data review, vital sign assessments/reviewing monitor data Review of consultations notes if present. Medication orders/review and/or management Ordering and/or reviewing lab tests Ordering and/or interpreting/reviewing x-rays and/or diagnostic studies Care of the patient and discussion of the patient with the care team Documentation time To help prompt me to consider important information that might be impacting today's encounter and assessment, Information from prior notes written by myself or my colleagues may have been "brought forward/copy and pasted" into today's note.
[2017-11-25] MEDS: KCL 20 mEq/Dextrose 5% Inj 1,000 ML IV.CONT SCH (14:40)
[2017-11-25] MEDS: Morphine Inj 4 MG/ML Vial IV.PUSH PRN ×2 (14:44→20:16)
[2017-11-26 05:27] LABS: Calcium 8.5 mg/dL (8.5-10.1); Carbon Dioxide 25.5 meq/L (21.0-32.0); Potassium 3.5 meq/L (3.5-5.1)
[2017-11-26] MEDS: Oral Hygiene Kit OROPHARYNG SCH ×4 (06:42→23:39)
[2017-11-26] MEDS: Insulin NovoLOG Aspart Correctional Sugar Inj SQ SCH ×4 (06:42→23:39)
[2017-11-26] MEDS: Artificial Tears Opth Drops 15 ML Bottle EACH EYE SCH ×3 (06:43→23:39)
--- NOTE | 2017-11-26 09:00 | P.PNCC ---
Subjective Subjective Remarks/Hospital Course: This is a 72 year old male with history of type 2 diabetes, hypertension, dyslipidemia, chronic kidney disease stage III, ankylosing spondylitis, esophageal stricture s/p dilatation, diverticulitis, peritonitis, history of small bowel obstruction, colon resection x2, who was admitted to the hospital with one-week history of abd distension, constipation, and cramps. Pt tried to mange this at home, as he is familiar with symptoms. Has history of multiple bowel obstructions and multiple surgeries in the past. CT of abdomen/ pelvis showed moderately dilated large and small bowel, concentric stricturing in the sigmoid colon. Gastroenterology and general surgery were consulted. Patient was taken today to the OR by Dr. Mcgee, patient underwent exploratory laparotomy, Lysis of adhesions for dense adhesions involving small and large bowel, sigmoid colon resection with end colostomy and Holcomb's pouch. There was stricture at previous surgical site in sigmoid colon. EBL 300 ml, urine output was adequate. During the ex lap patient's sustained ureteral injury which required ureteroureteral anastomosis over stent by Dr. Page. Postop patient was moved to the PACU where his chest x-ray showed small possible left lateral pneumothorax. ABG showed a pH of 7.29/41/99 BE -6.7. I evaluated the patient in the ICU. Patient is intubated sedated with Precedex. He is tachycardic and borderline hypotensive. Additional 500 mL of fluid bolus given , 1 amp of bicarb. Received total 2.1 L in the OR. Urine output is adequate, approximately 75 ml per hour post op. With left-sided tiny pneumothorax (most likely with from central line placement in OR), will attempt CPAP trials for possible extubation. 10/09: Breathing is moderately labored to observe but the patient states he is comfortable. His major complaint is chronic back pain. Urine output is marginal but he remains well-perfused. Colostomy stoma is pink. 10/10: Labored breathing overnight. Remains on quarter normal saline at 125 cc hours and Clinimix E 4.25/25 at 83 cc an hour. Chest x-ray appears with bilateral pulmonary infiltrates. CVP is 8. Greater than 50% variation IVC by ultrasound. Bedside echocardiogram no acute findings. Patient currently with some pleuritic chest pain worse with deep inspiration. EKG currently pending. 8 run beat of V. tach overnight. Potassium magnesium within normal limits. 10/11: Afebrile. FiO2 requirements increased overnight currently at 60%. Chest x-ray revealed pulmonary edema bilaterally. Troponin downward trending. Noted sodium elevated 154. Will remove sodium from TPN. Norepinephrine initiated overnight currently at 8 mcg/min. Nitro paste discontinued. Holding parameters for beta corby 10/12: remains afebrile. back on levophed this AM at 5 mcg/min. also remains tachycardic in the 100s. sodium remains elevated despite removal of nacl from TPN. 10/13: T-max 100.4. Desaturated overnight requiring PEEP increased to 10 currently at 8. FiO2 down to 45%. Appears uncomfortable on the ventilator. Abdomen slightly more distended. Positive output from ostomy.. Transfusing 1 unit PRBCs due to acute coronary syndrome to keep above a. Recheck along with electrolytes active bleeding in place. CT abdomen/pelvis ordered. 10/14: Copious secretions overnight. PEEP at 7 FiO2 50%. Abdominal/pelvis CT revealed bilateral lobar pneumonia pelvic read as gallstone ileus but not likely is patient with copious stool output from ostomy. Did discuss with Dr. Mcgee. Antibiotic coverage broadened. Pancultured yesterday looks like his underlying pneumonia. Will transfuse 1 unit PRBCs today per cardiology request to maintain hemoglobin around 9 for acute coronary syndrome. Diuresis postprocedure and replace electrolytes aggressively. TPN will be weaned/ discontinued today after tube feeds at 40 cc an hour 10/15: t max 100.7 overnight. cultures NGTD. fio2 improving. secretions are somewhat better. 10/16: no improvements. afebrile. failed SBT after 10 minutes for tachypnea and respiratory distress. 10/17: failed sbt again for significant secretions and respiratory distress. only lasting about 10 min. may require tracheostomy. 10/18: much more awake and interactive. still has significant secretions. on SBT for longer today, but with active coronary ischemia, very high risk if he fails extubation. plan for trach if he remains intubated through the weekend. 10/19: still failing SBT. dressings changed today. clinically improving, but very weak and slow progress. 10/20: again failing SBT for copious secretions. was OOB to chair today. likely will need trach. 10/21: failed SBT for tachypnea, RR > 40. discussed with Dr[address] Mcgee: plan for trach tomorrow. discussed with cardiology service: they will likely medically manage his coronary artery disease without [facility] intervention. this is more of a reason to pursue trach, to prevent coronary ischemia that would come with trial of extubation first. 10/22: Plan for percutaneous tracheostomy at bedside 11 AM. Arousable on the ventilator and following commands. Currently afebrile. N.p.o. status. 10/23: Status post percutaneous tracheostomy 10/22 without complication. Continues to ooze from around tracheostomy site. Will hold enoxaparin for today. Tube feeds back at goal. Denies abdominal pain. Positive flatus from ostomy site. 10/24: Normal stool coming from well-perfused ostomy. Spontaneous breathing trials with tachypnea and mild labor. Chest x-ray with chronic interstitial changes and small lung volumes. 10/25: A little bit stronger on spontaneous breathing trials today. Pressure support settings 18/10. Tolerating tube feeds. 10/26: He is tolerating a mild reduction and mean airway pressure and end expiratory pressure. Continues to look acceptably comfortable during spontaneous breathing trials. 10/27: We needed to increase PEEP again last evening. 10/28: Spontaneous breathing trial at 8/8 this morning and doing quite well. Tube feedings on hold per surgery. Patient required low dose Xanax last night for anxiety. 10/29: intermittent SBTs. will trial t-piece today. no significant change. needs LTAC level care. 10/30: t-piece trials. ostomy working. advancing trickle tube feeds per surgery. 10/31: patient having gout flair and significantly painful. however, steroids contraindicated, and NSAIDS also contraindicated with concern over renal dysfunction in the setting of critical illness. still failing to separate from mechanical ventilation. really needs LTAC level care for pulmonary rehab. 11/01: NG tube placed to suction with 700 cc of gastric contents suctioned out overnight. Patient remains on mechanical ventilation with tracheostomy on CPAP with pressure support. Failed T piece yesterday. 11/02: Remains on mechanical ventilation via tracheostomy. 11/03: Remains on mechanical ventilation via tracheostomy. CPAP trials daily. T -piece as tolerated. 11/04: On mechanical ventilation via tracheostomy. Daily CPAP trials. 11/05, 11/06: Remains on mechanical ventilation via tracheostomy. Daily CPAP trials ongoing. 11/07: Worsening respiratory status. Placed back on PRVC mode mechanical ventilation last night. Significant sick pulmonary secretions noted. No BMs via colostomy. Chest x-ray done this morning shows worsening infiltrates more on the right suspicious for aspiration. KUB done this morning shows an ileus. Already placed on Zosyn on 11/07 which should cover for pneumonia. 11/08: Resting on mechanical ventilation via tracheostomy. Wound culture from incision site growing Pseudomonas 11/09: Remains on mechanical ventilation via tracheostomy. Wound culture and sputum both growing Pseudomonas. 11/10: Is on mechanical ventilation via tracheostomy. Daily CPAP trials. 11/11: Remains on mechanical ventilation via tracheostomy. Really CPAP trials ongoing. 11/12 No events overnight. On ventilator via trach. On CPAP with PS 15, PEEP:5 and FIO2 40%. Afebrile. 11/13 Patient denies complaint. Wants NGT out but understand rationale for continuing. On CPAP 15/5. Tolerating tube feeds. Afebrile. Subjective: 11/14 On CPAP 15/5 since yesterday. Able to wean to 12/5 but weaning beyond that produces tachypnea. Was out of bed to chair for a couple of hours. 11/15: Remains on CPAP via tracheostomy. Had problems with secretions last night. Adding scheduled nebulizer treatments and Mucomyst to mobilize secretions. 11/16: Resting comfortably on mechanical ventilation via tracheostomy. On CPAP trial 11/17: Afebrile. Tolerating tube feeds at goal. Placed on ventilator yesterday secondary to worsening subjective shortness of breath. We will reattempt CPAP trial again today. Positive BM.. 11/18: Afebrile. We will reattempt CPAP trial again today. Check chest x-ray in a.m. Continue with pulmonary toilet. Anxious. 11/19: Not tolerating CPAP trials well. Will discuss among consultants ways to manage his anxiety. 11/20: Brief episodes of apnea overnight. Anxiety a little better controlled this morning. 11/21: Patient vomited a large amount of tube feed this morning. After this he appeared comfortable although a little anxious. 11/22: Feels a little better this morning but abdomen remains moderately distended. Good stoma output. Surgical service is aware and Dr. Shepard saw the patient last evening. KUB reviewed. Potassium replacement underway now. 11/23: Patient remains in poorly compensated diastolic heart failure. Our best efforts to gingerly diuresis and has just resulted in worsening renal function. His medical therapy is maximized for heart failure with acceptable pulse rate control and afterload reduction. Inability to wean completely from the ventilator is closely associated persistent pulmonary edema. 11/24: Breathing quite comfortably this morning on CPAP however requiring 15 cm of water pressure support. Despite congested chest x-ray his lungs are fairly clear to auscultation. He has been started on TPN and his GI tract To low intermittent suction through an NG tube. The abdomen is remarkably soft and not distended. The colostomy does have output. 11/25: He has finally progressed to T piece trials and so far he is comfortable. We continue to adjust electrolyte replacement because of nasogastric losses. His general demeanor is much improved today and he is much less anxious. TPN is infusing as we rest his bowel. SUBJECTIVE 11/26: more gastric distension and vomiting this AM. tube feeds stopped and NGT to LIWS with 300cc gastric contents removed. general surgery notified. will ultimately need permanent enteral access, and likely G/J at this point. no changes. still resting on vent overnight. very weak and deconditioned. Objective Vital Signs / I&O: Vital Signs 11/25/17 10:00 11/25/17 12:00 11/25/17 14:00 Temperature Pulse Rate 64 62 66 Respiratory Rate Blood Pressure Pulse Oximetry 11/25/17 16:00 11/25/17 18:00 11/25/17 20:00 Temperature 36.8 C 37.4 C Pulse Rate 70 76 88 Respiratory Rate 24 31 H Blood Pressure 128/70 157/80 H Pulse Oximetry 100 98 11/25/17 20:56 11/26/17 00:00 11/26/17 03:55 Temperature 37.1 C Pulse Rate 81 Respiratory Rate 24 22 17 Blood Pressure 148/72 H Pulse Oximetry 100 100 11/26/17 04:00 11/26/17 08:31 Temperature 37.2 C Pulse Rate 64 Respiratory Rate 21 23 Blood Pressure 122/64 Pulse Oximetry 99 100 Intake & Output 11/25/17 11/26/17 11/26/17 18:59 06:59 18:59 Intake Total 1465 / 1465 420 / 420 Output Total 820 / 820 420 / 420 Balance 645 / 645 0 / 0 Weight 65.8 kg Intake: IV 1000 / 1000 D5W + KCL 20 mEq Inj 1,000 ML @ 1000 / 1000 42 mls/hr IV.CONT .[id number] [facility] Rx#:[id number] Oral 0 / 0 Tube Feeding 45 / 45 0 / 0 Tube Irrigant 120 / 120 120 / 120 Water Bolus Amount 300 / 300 300 / 300 Output: Urine 700 / 700 400 / 400 Stool 20 / 20 Stool Amount (Stoma) 120 / 120 Left Lower Abdomen 120 / 120 Other: Other Intake Source Saline Solution # Voids 3 2 Date of Last Bowel Movement 11/25/17 11/25/17 Result Diagrams: 11/23/17 04:14 11/26/17 04:12 Objective Remarks: Objective Remarks GENERAL: 72-year-old male currently on CPAP 15/5 via tracheostomy SKIN: Warm and dry. No rash HEAD: Atraumatic. Normocephalic. EYES: Pupils equal round and reactive, 2 mm bilaterally. ENT: Oral cavity is moist. NG tube in left nares to low intermittent suction. NECK: Trachea midline. Supple. Tracheostomy site clean and dry. CARDIOVASCULAR: RRR. No JVD. RESPIRATORY: Equal chest rise. Symmetrical excursion. Few crackles in bases, otherwise clear. GASTROINTESTINAL: Abdomen mildly distended, bowel sounds present. Panora colostomy in place, normal output. MUSCULOSKELETAL: No edema lower extremities. Well-perfused. Warm. NEUROLOGICAL: Patient is awake alert follows commands 4. Moving all 4 extremities spontaneously. Communicates with head nod and mouthing words. Assessment and Plan - Problem List (1) Chronic respiratory failure Code(s): J96.10 - Chronic respiratory failure, unspecified whether with hypoxia or hypercapnia Status: Chronic (2) Large bowel obstruction Code(s): K56.609 - Unspecified intestinal obstruction, unspecified as to partial versus complete obstruction Status: Resolved (3) STEMI (ST elevation myocardial infarction) Code(s): I21.3 - ST elevation (STEMI) myocardial infarction of unspecified site Status: Resolved (4) Diabetes Code(s): E11.9 - Type 2 diabetes mellitus without complications Status: Acute (5) Wound dehiscence, surgical Code(s): T81.31XA - Disruption of external operation (surgical) wound, not elsewhere classified, initial encounter Status: Acute (6) Dysphagia Code(s): R13.10 - Dysphagia, unspecified Status: Acute (7) Protein-calorie malnutrition, severe Code(s): E43 - Unspecified severe protein-calorie malnutrition Status: Acute (8) Systolic heart failure Code(s): I50.20 - Unspecified systolic (congestive) heart failure Status: Acute (9) Colostomy in place Code(s): Z93.3 - Colostomy status Status: Acute - Assessment and Plan Plan: A/P Assessment and Plan NEURO/Psych: 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 Out of bed to chair with assist at least daily. Continue with PT and OT. RESP: Acute hypoxic and hypercarbic respiratory failure- now chronic. Iatrogenic left pneumothorax- resolved. Continue with CPAP weaning. Albuterol/ipratropium aerosols every 6 hours while awake with albuterol aerosols every 2 hours as needed dyspnea Pulm toilet, trach care Status post percutaneous tracheostomy bedside - Dr. Mcgee keep head of the bed elevated 30 Diastolic heart failure complicating attempts to clean up lungs. Diuresis results and worsening renal function. Radiographic pattern consistent with aspiration as well. Continues to have problems with stamina on spontaneous ventilation trials. Still requiring elevated pressure support at 15 while on spontaneous breathing trials. This is first day he has tolerated T piece trials. 11/25. continue daily t-piece trials. CV: Essential hypertension Hyperlipidemia Coronary artery disease Post operative STEMI Acute systolic heart failure Monitor HR and BP keep MAP>65mmHg Aspirin 81 mg daily, clopidogrel 75 mg p.o. daily BP controlled, decrease metoprolol to 50 mg p.o. twice daily and initiate lisinopril 5 mg p.o. daily. Adjust based on response. Continue atorvastatin 20 mg at night for dyslipidemia Holding amlodipine 10 mg daily 2D echocardiogram 05/29 revealed EF 50-55%. Grade 1 diastolic dysfunction. Pulmonary arterial pressure 34 mmHg Repeat revealed EF of 40-45% Followed by cardiology/Dr. Ellison: Dr. Villa discussed with team 10/21, and they recommended medical management. Continued conservative management recommended 11/02. Hold diuretics due to worsening renal function. Gentle hydration started to compensate for nasogastric tube losses GI: 10/08 Postop s/p ex-lap, TIA, Sigmoid colon resection with end colostomy and Holcomb's pouch Recurrent colonic obstruction, small bowel obstruction ? postop ileus vs SBO History of esophageal stricture status post dilatation History of small bowel obstruction Gastroesophageal reflux disease History of diverticulitis Hypoalbuminemia -Postop management per Dr. Mcgee tube feedings with Jevity 1.5 @50ml/hr. colostomy in place -Pantoprazole 40 mg IV daily for GI prophylaxis. On omeprazole 20 mg daily at home -Leave feeding tube to low intermittent suction. Discussed with surgical service. Renal/: 10/08 Postop s/p Ureteroureteral anastomosis for ureteral injury Chronic kidney disease stage III a -Monitor renal function, I/O's, electrolytes replacement per protocol -Removal of double-J stent 6 weeks from operative procedure outpatient setting ID: Pneumonia - resolved Wound culture from abdominal incision +pseudomonas. -s/p full course of zosyn (started initially 11/06) Sputum cx 11/07: Pseudomonas, repeat sputum cx - resolved Wound cx 08/06: Pseudomonas - resolved Wound culture from incision site(11/06) growing Pseudomonas, sputum Gram stain and culture(11/07) growing pansenstive Pseudomonas -Discontinued levofloxacin 10/14. s/p course vancomycin and cefepime, 10/14-10/20 Sputum, blood cultures 2 10/13 NGTD Urine Legionella and pneumococcal urinary antigens 10/13 negative HEME: Normocytic anemia Thrombocytosis -Monitor CBC, CMP, coags -1 unit PRBCs to be transfused on 11/09 for hemoglobin 7.1 ENDO: Diabetes mellitus type 2 Severe hyperglycemia of critical illness Hyperglycemia History of gout Holding metformin 1000 mg by mouth twice daily -Glucose not at target despite 40 units coverage with sliding scale. Increase detemir further to 15 units q12h. -sliding scale insulin/NovoLog high regimen q6h MSK History of ankylosing spondylosis Holding denosumab 60 mg subcu every 18 days Holding cholecalciferol 4000 units p.o. daily PT evaluate and treat PROPH: -Bilateral lower extremity SCDs. Lovenox 40 subcu daily. On protonix 40 mg IV for stress ulcer prophylaxis. LINES: - piv Overall impression: Patient has chronic diastolic heart failure but aggressive diuresis results in worsening renal function. Possible persistent problems with aspiration contributing to bilateral infiltrates. He is presently afebrile and without leukocytosis, lending less credibility to the latter as a cause. Has transfer order to care home vent unit 4th floor [place]. Acceptable for transfer now. No change in clinical course for weeks now. needs permanent enteral access, likely G-J. would be appropriate for placement at this time. (8) Systolic heart failure Qualifiers: Heart failure chronicity: acute Qualified Code(s): I50.21 - Acute systolic ( congestive) heart failure
[2017-11-26] MEDS: Chlorhexidine Gluconate 0.12% Liq 15 ML UDC SWISH-SPIT SCH ×2 (09:36→20:22)
[2017-11-26] MEDS: Carvedilol 6.25 MG Tablet PO SCH ×2 (09:37→20:21)
[2017-11-26] MEDS: Sodium Hypochlorite 0.125% Top Soln 500 ML Bottle TOPICAL SCH ×2 (09:37→20:22)
[2017-11-26] MEDS: Insulin Detemir Inj 1,000 UNIT/10 ML Vial SQ SCH ×2 (09:37→20:23)
[2017-11-26] MEDS: QUEtiapine 25 MG Tablet PO SCH ×2 (09:38→20:22)
[2017-11-26] MEDS: Lisinopril 5 MG Tablet PO SCH (09:38)
[2017-11-26] MEDS: Allopurinol 300 MG Tablet PO SCH (09:38)
[2017-11-26] MEDS: Enoxaparin Inj 40 MG/0.4 ML Syringe SQ SCH (09:38)
[2017-11-26] MEDS: Erythromycin Ethylsuccinate Susp 400 MG/5ML 100 ML Bottle NG/OG SCH ×3 (12:28→20:22)
[2017-11-26] MEDS ORDERED: Haloperidol Inj 5 MG/ML Ampul IV.PUSH PRN (14:32)
[2017-11-26] MEDS ORDERED: Propofol 1000 mg/100 ml Inj 1,000 MG/100 ML BOTTLE IV.CONT PRN (14:35)
--- NOTE | 2017-11-26 16:48 | P.PNGS ---
<YifanJayshree - Last Filed: 11/26/17 16:58> Subjective Interval history: Frustrated; wants to get better Physical Exam Vital signs: Vital Signs 11/25/17 18:00 11/25/17 20:00 11/25/17 20:56 Temperature 99.4 F Pulse Rate 76 88 Respiratory Rate 31 H 24 Blood Pressure 157/80 H Pulse Oximetry 98 100 11/26/17 00:00 11/26/17 03:55 11/26/17 04:00 Temperature 98.8 F 98.9 F Pulse Rate 81 64 Respiratory Rate 22 17 21 Blood Pressure 148/72 H 122/64 Pulse Oximetry 100 99 11/26/17 08:00 11/26/17 08:31 11/26/17 10:00 Temperature 98.1 F Pulse Rate 68 69 Respiratory Rate 25 H 23 Blood Pressure 161/77 H Pulse Oximetry 99 100 11/26/17 11:33 11/26/17 12:00 11/26/17 16:11 Temperature 98.8 F Pulse Rate 67 Respiratory Rate 20 22 26 H Blood Pressure 154/86 H Pulse Oximetry 100 100 100 Intake & Output 11/25/17 11/26/17 11/26/17 18:59 06:59 18:59 Intake Total 1465 / 1465 420 / 420 Output Total 820 / 820 420 / 420 Balance 645 / 645 0 / 0 Weight 65.8 kg Intake: IV 1000 / 1000 D5W + KCL 20 mEq Inj 1,000 ML @ 1000 / 1000 42 mls/hr IV.CONT .[id number] [facility] Rx#:[id number] Oral 0 / 0 Tube Feeding 45 / 45 0 / 0 Tube Irrigant 120 / 120 120 / 120 Water Bolus Amount 300 / 300 300 / 300 Output: Urine 700 / 700 400 / 400 Stool 20 / 20 Stool Amount (Stoma) 120 / 120 Left Lower Abdomen 120 / 120 Other: Other Intake Source Saline Solution # Voids 3 2 Date of Last Bowel Movement 11/25/17 11/25/17 11/25/17 Narrative: Alert and awake Cardio: RRR Resp: CTAB Abd: stool and gas in bag; midline incision with healing open areas Assessment and Plan - Assessment (1) Tracheostomy in place Code(s): Z93.0 - Tracheostomy status Status: Acute (2) Respiratory failure requiring intubation Code(s): J96.90 - Respiratory failure, unspecified, unspecified whether with hypoxia or hypercapnia Status: Acute (3) Anemia, chronic disease Code(s): D63.8 - Anemia in other chronic diseases classified elsewhere Status : Acute (4) Protein-calorie malnutrition, severe Code(s): E43 - Unspecified severe protein-calorie malnutrition Status: Acute (5) Ileus following gastrointestinal surgery Code(s): K91.30 - Postprocedural intestinal obstruction, unspecified as to partial versus complete Status: Acute Onset Date: ~11/21/17 - Plan 72 year old male s/p ex lap; s/p trach for prolonged need for mechanical ventilation -Continue to wean vent as tolerated; tolerated T piece for a short time yesterday -Will try SBFT tomorrow again -NGT to LIWS -If no improvement may take to OR Sunday -If goes to OR will place central line and start TPN -Continue dressing changes -Wound Care following for continued colostomy care and teaching -Levsin ordered -Discussed with Dr. Villa and Toya SAUNDERS <David Mcgee - Last Filed: 11/27/17 18:30> Physical Exam Vital signs: Vital Signs 11/26/17 20:00 11/26/17 20:20 11/27/17 00:00 Temperature 100.5 F H 100.5 F H Pulse Rate 78 78 Respiratory Rate 22 17 19 Blood Pressure 141/72 H 119/57 L Pulse Oximetry 100 96 100 11/27/17 00:15 11/27/17 03:39 11/27/17 04:00 Temperature 100.2 F H Pulse Rate 68 Respiratory Rate 22 18 26 H Blood Pressure 120/59 L Pulse Oximetry 97 98 99 11/27/17 08:00 11/27/17 08:20 11/27/17 08:47 Temperature 98.8 F 98.8 F Pulse Rate 65 65 Respiratory Rate 24 13 24 Blood Pressure 113/58 L 113/58 L Pulse Oximetry 100 98 100 11/27/17 11:32 11/27/17 12:00 11/27/17 14:30 Temperature 98.6 F Pulse Rate 62 Respiratory Rate 21 26 H 16 Blood Pressure 93/52 L Pulse Oximetry 100 100 11/27/17 16:00 11/27/17 16:51 Temperature 98.5 F Pulse Rate 64 Respiratory Rate 17 17 Blood Pressure 119/58 L Pulse Oximetry 100 100 Intake & Output 11/26/17 11/27/17 11/27/17 18:59 06:59 18:59 Intake Total 1060 / 1060 270 / 270 2652 / 2652 Output Total 2625 / 2625 1660 / 1660 700 / 700 Balance -1565 / -1565 -1390 / -1390 [birth year] Weight 61.8 kg Intake: IV 1000 / 1000 2151 / 215 D5W + KCL 20 mEq Inj 1,000 ML @ 1000 / 1000 1000 / 1000 100 mls/hr IV.CONT .Q10H [facility] Rx#:[id number] LR 1000 mL Inj 1,000 ML @ As 1000 / 1000 Directed IV.SIG BOLUS ONE Rx#: [id number] Reglan Inj 10 MG In NS Inj 50 52 / 52 ML @ 104 mls/hr IV.SIG ONCE ONE Rx#:[id number] KCl 40 mEq Premix Inj 40 meq In 100 / 100 100 ml @ 50 mls/hr IV.SIG Q2H PRN Rx#:[id number] Oral 0 / 0 0 / 0 Tube Feeding 0 / 0 0 / 0 Tube Irrigant 60 / 60 120 / 120 Water Bolus Amount 150 / 150 100 / 100 Mass Transfusion Protocol 400 / 400 Output: Urine 400 / 400 150 / 150 Stool 0 / 0 0 / 0 Emesis 525 / 525 Stool Amount (Stoma) 10 / 10 Left Lower Abdomen 10 / 10 Gastric Drainage 1700 / 1700 1500 / 1500 700 / 700 Left Nare 1700 / 1700 1500 / 1500 700 / 700 Other: Other Intake Source Saline Solution # Voids 3 2 Date of Last Bowel Movement 11/25/17 11/25/17 11/25/17 Assessment and Plan - Assessment (1) Tracheostomy in place Code(s): Z93.0 - Tracheostomy status Status: Acute (2) Respiratory failure requiring intubation Code(s): J96.90 - Respiratory failure, unspecified, unspecified whether with hypoxia or hypercapnia Status: Acute (3) Anemia, chronic disease Code(s): D63.8 - Anemia in other chronic diseases classified elsewhere Status : Acute (4) Protein-calorie malnutrition, severe Code(s): E43 - Unspecified severe protein-calorie malnutrition Status: Acute (5) Ileus following gastrointestinal surgery Code(s): K91.30 - Postprocedural intestinal obstruction, unspecified as to partial versus complete Status: Acute Onset Date: ~11/21/17 - Plan Did not tolerate attempt at SBS today Discussed operative intervention with patient and Ashwini Will place feeding tubes to get NG out Will need PICC or central line for TPN until ileus resolves - Attending Attestation The exam, history, and the medical decision-making described in the above note were completed with the assistance of the mid-level provider. I reviewed and agree with the findings presented. I attest that I had a [id number] encounter with the patient on the same day, and personally performed and documented my assessment and findings in the medical record.
--- NOTE | 2017-11-26 18:46 | P.PNWCN ---
Wound Care Nurse Consult Description: Patient seen for follow up stoma assessment Bowel Diversion Stoma - Bowel Stoma Left Lower Abdomen Stoma Edema: No Stoma Appearance: Oval Loop Supporting Venkat: No Collection Device: Two-piece Drainage Description: Liquid, Brown Wafer Size: 1 3/4 Moldable 45mm Bee-Stomal Surrounding Tissue Sensation Description: No Symptoms - Additional Information Additional Information: Assessed pouching system and released gas from pouch. Pouching system is intact and has leaks. Spoke with RN. per RN patient has been vomiting all day and Doctor is aware. RN reports dilating stoma. Will follow up with patient tomorrow.
[2017-11-26] MEDS: KCL 20 mEq/Dextrose 5% Inj 1,000 ML IV.CONT SCH (19:01)
[2017-11-26] MEDS: Melatonin 5 MG Tablet PO PRN (21:23)
[2017-11-26] MEDS: Morphine Inj 4 MG/ML Vial IV.PUSH PRN (23:35)
[2017-11-27] MEDS: Erythromycin Ethylsuccinate Susp 400 MG/5ML 100 ML Bottle NG/OG SCH ×2 (04:08→09:51)
[2017-11-27] MEDS: Oral Hygiene Kit OROPHARYNG SCH ×3 (04:08→15:56)
[2017-11-27] MEDS: Insulin NovoLOG Aspart Correctional Sugar Inj SQ SCH ×3 (06:20→18:04)
[2017-11-27] MEDS: Artificial Tears Opth Drops 15 ML Bottle EACH EYE SCH ×2 (06:20→13:12)
[2017-11-27] MEDS: Chlorhexidine Gluconate 0.12% Liq 15 ML UDC SWISH-SPIT SCH (08:43)
[2017-11-27] MEDS: Sodium Hypochlorite 0.125% Top Soln 500 ML Bottle TOPICAL SCH (08:43)
[2017-11-27] MEDS: Carvedilol 6.25 MG Tablet PO SCH (08:43)
[2017-11-27] MEDS: QUEtiapine 25 MG Tablet PO SCH ×2 (08:43→20:14)
[2017-11-27] MEDS: Insulin Detemir Inj 1,000 UNIT/10 ML Vial SQ SCH (08:45)
[2017-11-27] MEDS: Allopurinol 300 MG Tablet PO SCH (08:46)
[2017-11-27] MEDS: Lisinopril 5 MG Tablet PO SCH (09:51)
[2017-11-27 11:05] LABS: Baso % (Auto) 0.3 % (0.0-2.0); Eos # (Auto) 0.1 th/mm3 (0.0-0.4); Eos % (Auto) 0.3 % (0.0-4.0); Hematocrit 23.5 % (39.0-51.0); Hemoglobin 7.8 gm/dL (13.0-17.0); Lymph # (Auto) 0.7 th/mm3 (1.0-4.8); Lymph % (Auto) 4.3 % (9.0-44.0); Mean Corpuscular HGB Conc 33.4 % (32.0-36.0); Mean Corpuscular Hemoglobin 28.2 pg (27.0-34.0); Mean Corpuscular Volume 84.5 fL (80.0-100.0); Mean Platelet Volume 8.4 fL (7.0-11.0); Mono # (Auto) 0.8 th/mm3 (0.0-0.9); Mono % (Auto) 4.8 % (0.0-8.0); Neut # (Auto) 14.6 th/mm3 (1.8-7.7); Neut % (Auto) 90.3 % (16.0-70.0); Platelet Count 400 th/mm3 (150-450); Red Blood Count 2.78 mil/mm3 (4.50-5.90); Red Cell Distribution Width 16.3 % (11.6-17.2); White Blood Count 16.2 th/mm3 (4.0-11.0)
[2017-11-27 11:35] LABS: Alanine Aminotransferase 21 U/L (12-78); Alkaline Phosphatase 67 U/L (45-117); Anion Gap 12 meq/L (5-15); Aspartate Aminotransferase 18 U/L (15-37); Blood Urea Nitrogen 15 mg/dL (7-18); Calcium 9.1 mg/dL (8.5-10.1); Carbon Dioxide 32.9 meq/L (21.0-32.0); Chloride 93 meq/L (98-107); Glomerular Filtration Rate 66 mL/min (>89); Glucose,Random 132 mg/dL (74-106); Sodium 138 meq/L (136-145); Total Protein 7.6 g/dL (6.4-8.2)
[2017-11-27 11:43] LABS: Potassium 2.9 meq/L (3.5-5.1)
--- NOTE | 2017-11-27 11:45 | P.PNGS ---
<Jayshree Saha - Last Filed: 11/27/17 11:42> Subjective Interval history: Resting in bed; at bedside Physical Exam Vital signs: Vital Signs 11/26/17 12:00 11/26/17 14:00 11/26/17 16:00 Temperature 98.8 F 98.5 F Pulse Rate 67 76 80 Respiratory Rate 22 24 Blood Pressure 154/86 H 169/76 H Pulse Oximetry 100 100 11/26/17 16:11 11/26/17 18:00 11/26/17 20:00 Temperature 100.5 F H Pulse Rate 75 78 Respiratory Rate 26 H 22 Blood Pressure 141/72 H Pulse Oximetry 100 100 11/26/17 20:20 11/27/17 00:00 11/27/17 00:15 Temperature 100.5 F H Pulse Rate 78 Respiratory Rate 17 19 22 Blood Pressure 119/57 L Pulse Oximetry 96 100 97 11/27/17 03:39 11/27/17 04:00 11/27/17 08:00 Temperature 100.2 F H 98.8 F Pulse Rate 68 65 Respiratory Rate 18 26 H 24 Blood Pressure 120/59 L 113/58 L Pulse Oximetry 98 99 100 11/27/17 08:20 11/27/17 08:47 11/27/17 11:32 Temperature 98.8 F Pulse Rate 65 Respiratory Rate 13 24 21 Blood Pressure 113/58 L Pulse Oximetry 98 100 100 Intake & Output 11/26/17 11/27/17 11/27/17 18:59 06:59 18:59 Intake Total 1060 / 1060 270 / 270 Output Total 2625 / 2625 1660 / 1660 Balance -1565 / -1565 -1390 / -1390 Weight 61.8 kg Intake: IV 1000 / 1000 D5W + KCL 20 mEq Inj 1,000 ML @ 1000 / 1000 42 mls/hr IV.CONT .[id number] [facility] Rx#:[id number] Oral 0 / 0 Tube Feeding 0 / 0 Tube Irrigant 60 / 60 120 / 120 Water Bolus Amount 150 / 150 Output: Urine 400 / 400 150 / 150 Stool 0 / 0 Emesis 525 / 525 Stool Amount (Stoma) 10 / 10 Left Lower Abdomen 10 / 10 Gastric Drainage 1700 / 1700 1500 / 1500 Left Nare 1700 / 1700 1500 / 1500 Other: Other Intake Source Saline Solution # Voids 3 2 Date of Last Bowel Movement 11/25/17 11/25/17 11/25/17 Narrative: Alert and awake Cardio: RRR Resp: CTAB Abd: incision healing; colostomy with appliance---minimal stool and gas Assessment and Plan - Assessment (1) Tracheostomy in place Code(s): Z93.0 - Tracheostomy status Status: Acute (2) Respiratory failure requiring intubation Code(s): J96.90 - Respiratory failure, unspecified, unspecified whether with hypoxia or hypercapnia Status: Acute (3) Anemia, chronic disease Code(s): D63.8 - Anemia in other chronic diseases classified elsewhere Status : Acute (4) Protein-calorie malnutrition, severe Code(s): E43 - Unspecified severe protein-calorie malnutrition Status: Acute (5) Ileus following gastrointestinal surgery Code(s): K91.30 - Postprocedural intestinal obstruction, unspecified as to partial versus complete Status: Acute Onset Date: ~11/21/17 - Plan 72 year old male s/p ex lap; s/p trach for prolonged need for mechanical ventilation -Plan for OR tomorrow for ex lap; TIA; G/J tube placement and possible revision of colostomy -Discussed with Mr. and Mrs. Kam at bedside -Continue to wean vent as tolerated; tolerated T piece for a short time yesterday -NGT to LIWS -1L LR bolus now; increase maintenance fluid -Will insert CVL in OR tomorrow and start TPN tomorrow -Continue dressing changes -Wound Care following for continued colostomy care and teaching -Levsin ordered -Discussed with Dr. Gallo and Monica RN <David Mcgee - Last Filed: 11/27/17 18:34> Physical Exam Vital signs: Vital Signs 11/26/17 20:00 11/26/17 20:20 11/27/17 00:00 Temperature 100.5 F H 100.5 F H Pulse Rate 78 78 Respiratory Rate 22 17 19 Blood Pressure 141/72 H 119/57 L Pulse Oximetry 100 96 100 11/27/17 00:15 11/27/17 03:39 11/27/17 04:00 Temperature 100.2 F H Pulse Rate 68 Respiratory Rate 22 18 26 H Blood Pressure 120/59 L Pulse Oximetry 97 98 99 11/27/17 08:00 11/27/17 08:20 07/17/18 08:47 Temperature 98.8 F 98.8 F Pulse Rate 65 65 Respiratory Rate 24 13 24 Blood Pressure 113/58 L 113/58 L Pulse Oximetry 100 98 100 11/27/17 11:32 11/27/17 12:00 11/27/17 14:30 Temperature 98.6 F Pulse Rate 62 Respiratory Rate 21 26 H 16 Blood Pressure 93/52 L Pulse Oximetry 100 100 11/27/17 16:00 11/27/17 16:51 Temperature 98.5 F Pulse Rate 64 Respiratory Rate 17 17 Blood Pressure 119/58 L Pulse Oximetry 100 100 Intake & Output 11/26/17 11/27/17 11/27/17 18:59 06:59 18:59 Intake Total 1060 / 1060 270 / 270 2652 / 2652 Output Total 2625 / 2625 1660 / 1660 700 / 700 Balance -1565 / -1565 -1390 / -1390 [birth year] Weight 61.8 kg Intake: IV 1000 / 1000 2151 / 2151 D5W + KCL 20 mEq Inj 1,000 ML @ 1000 / 1000 1000 / 1000 100 mls/hr IV.CONT .Q10H [facility] Rx#:[id number] LR 1000 mL Inj 1,000 ML @ As 1000 / 1000 Directed IV.SIG BOLUS ONE Rx#: [id number] Reglan Inj 10 MG In NS Inj 50 52 / 52 ML @ 104 mls/hr IV.SIG ONCE ONE Rx#:[id number] KCl 40 mEq Premix Inj 40 meq In 100 / 100 100 ml @ 50 mls/hr IV.SIG Q2H PRN Rx#:[id number] Oral 0 / 0 0 / 0 Tube Feeding 0 / 0 0 / 0 Tube Irrigant 60 / 60 120 / 120 Water Bolus Amount 150 / 150 100 / 100 Mass Transfusion Protocol 400 / 400 Output: Urine 400 / 400 150 / 150 Stool 0 / 0 0 / 0 Emesis 525 / 525 Stool Amount (Stoma) 10 / 10 Left Lower Abdomen 10 / 10 Gastric Drainage 1700 / 1700 1500 / 1500 700 / 700 Left Nare 1700 / 1700 1500 / 1500 700 / 700 Other: Other Intake Source Saline Solution # Voids 3 2 Date of Last Bowel Movement 11/25/17 11/25/17 11/25/17 Assessment and Plan - Assessment (1) Tracheostomy in place Code(s): Z93.0 - Tracheostomy status Status: Acute (2) Respiratory failure requiring intubation Code(s): J96.90 - Respiratory failure, unspecified, unspecified whether with hypoxia or hypercapnia Status: Acute (3) Anemia, chronic disease Code(s): D63.8 - Anemia in other chronic diseases classified elsewhere Status : Acute (4) Protein-calorie malnutrition, severe Code(s): E43 - Unspecified severe protein-calorie malnutrition Status: Acute (5) Ileus following gastrointestinal surgery Code(s): K91.30 - Postprocedural intestinal obstruction, unspecified as to partial versus complete Status: Acute Onset Date: ~11/21/17 - Plan As above Abdomen softer KUB shows persistent ileus May need to revise colostomy Discussed with patient, , and Dr. Gallo - Attending Attestation The exam, history, and the medical decision-making described in the above note were completed with the assistance of the mid-level provider. I reviewed and agree with the findings presented. I attest that I had a [id number] encounter with the patient on the same day, and personally performed and documented my assessment and findings in the medical record.
[2017-11-27] MEDS: Enoxaparin Inj 40 MG/0.4 ML Syringe SQ SCH (11:55)
--- NOTE | 2017-11-27 11:57 | XR ---
EXAM DATE: 11/27/2017 11:50 AM EDT AGE/SEX: 72 years / Male INDICATIONS: . Short of breath. CLINICAL DATA: This is the patient's initial encounter. Patient reports that signs and symptoms have been present for 4 - 6 days and indicates a pain score of 0/10. MEDICAL/SURGICAL HISTORY: . heart attack None. [place] [facility] [place]. . FINDINGS: Stable tracheostomy and NGT coursing beyond the GE junction. Improved perihilar opacities and diffuse interstitial prominence. Cardiomediastinal contours are stable. Remainder of the exam is unchanged. CONCLUSION: 1. Improved pulmonary edema pattern. Electronically signed by: Asad Anderson MD 11/27/2017 11:56 AM EDT
--- NOTE | 2017-11-27 12:07 | XR ---
EXAM DATE: 11/27/2017 11:55 AM EDT AGE/SEX: 72 years / Male INDICATIONS: Ileus CLINICAL DATA: This is the patient's initial encounter. Patient reports that signs and symptoms have been present for 1 week and indicates a pain score of Nonresponsive. MEDICAL/SURGICAL HISTORY: . renal failure,chronic Appendectomy. multiple bowel surgeries COMPARISON: [facility], ABDOMEN 1V KUB, 11/22/2017. . FINDINGS: Gaseous distention of multiple bowel loops. Left-sided nephroureteral stent again seen and unchanged . Postsurgical changes in the left pelvis. Calcifications again seen within the pelvis at the midline .. No abnormal masses or organomegaly is seen. The osseous structures are unremarkable. CONCLUSION: Gaseous distention of multiple bowel loops, likely ileus. No change. Electronically signed by: Angel Heredia MD 11/27/2017 12:05 PM EDT
[2017-11-27] MEDS ORDERED: Metoclopramide Inj 10 MG in Sodium Chlor 0.9% Inj 50 ML IV.SIG ONE (13:44)
[2017-11-27] MEDS: Morphine Inj 4 MG/ML Vial IV.PUSH PRN ×2 (13:45→20:12)
--- NOTE | 2017-11-27 13:53 | P.PNCC ---
Subjective Subjective Remarks/Hospital Course: This is a 72 year old male with history of type 2 diabetes, hypertension, dyslipidemia, chronic kidney disease stage III, ankylosing spondylitis, esophageal stricture s/p dilatation, diverticulitis, peritonitis, history of small bowel obstruction, colon resection x2, who was admitted to the hospital with one-week history of abd distension, constipation, and cramps. Pt tried to mange this at home, as he is familiar with symptoms. Has history of multiple bowel obstructions and multiple surgeries in the past. CT of abdomen/ pelvis showed moderately dilated large and small bowel, concentric stricturing in the sigmoid colon. Gastroenterology and general surgery were consulted. Patient was taken today to the OR by Dr. Mcgee, patient underwent exploratory laparotomy, Lysis of adhesions for dense adhesions involving small and large bowel, sigmoid colon resection with end colostomy and Holcomb's pouch. There was stricture at previous surgical site in sigmoid colon. EBL 300 ml, urine output was adequate. During the ex lap patient's sustained ureteral injury which required ureteroureteral anastomosis over stent by Dr. Page. Postop patient was moved to the PACU where his chest x-ray showed small possible left lateral pneumothorax. ABG showed a pH of 7.29/41/99 BE -6.7. I evaluated the patient in the ICU. Patient is intubated sedated with Precedex. He is tachycardic and borderline hypotensive. Additional 500 mL of fluid bolus given , 1 amp of bicarb. Received total 2.1 L in the OR. Urine output is adequate, approximately 75 ml per hour post op. With left-sided tiny pneumothorax (most likely with from central line placement in OR), will attempt CPAP trials for possible extubation. 10/09: Breathing is moderately labored to observe but the patient states he is comfortable. His major complaint is chronic back pain. Urine output is marginal but he remains well-perfused. Colostomy stoma is pink. 10/10: Labored breathing overnight. Remains on quarter normal saline at 125 cc hours and Clinimix E 4.25/25 at 83 cc an hour. Chest x-ray appears with bilateral pulmonary infiltrates. CVP is 8. Greater than 50% variation IVC by ultrasound. Bedside echocardiogram no acute findings. Patient currently with some pleuritic chest pain worse with deep inspiration. EKG currently pending. 8 run beat of V. tach overnight. Potassium magnesium within normal limits. 10/11: Afebrile. FiO2 requirements increased overnight currently at 60%. Chest x-ray revealed pulmonary edema bilaterally. Troponin downward trending. Noted sodium elevated 154. Will remove sodium from TPN. Norepinephrine initiated overnight currently at 8 mcg/min. Nitro paste discontinued. Holding parameters for beta corby 10/12: remains afebrile. back on levophed this AM at 5 mcg/min. also remains tachycardic in the 100s. sodium remains elevated despite removal of nacl from TPN. 10/13: T-max 100.4. Desaturated overnight requiring PEEP increased to 10 currently at 8. FiO2 down to 45%. Appears uncomfortable on the ventilator. Abdomen slightly more distended. Positive output from ostomy.. Transfusing 1 unit PRBCs due to acute coronary syndrome to keep above a. Recheck along with electrolytes active bleeding in place. CT abdomen/pelvis ordered. 10/14: Copious secretions overnight. PEEP at 7 FiO2 50%. Abdominal/pelvis CT revealed bilateral lobar pneumonia pelvic read as gallstone ileus but not likely is patient with copious stool output from ostomy. Did discuss with Dr. Mcgee. Antibiotic coverage broadened. Pancultured yesterday looks like his underlying pneumonia. Will transfuse 1 unit PRBCs today per cardiology request to maintain hemoglobin around 9 for acute coronary syndrome. Diuresis postprocedure and replace electrolytes aggressively. TPN will be weaned/ discontinued today after tube feeds at 40 cc an hour 10/15: t max 100.7 overnight. cultures NGTD. fio2 improving. secretions are somewhat better. 10/16: no improvements. afebrile. failed SBT after 10 minutes for tachypnea and respiratory distress. 10/17: failed sbt again for significant secretions and respiratory distress. only lasting about 10 min. may require tracheostomy. 10/18: much more awake and interactive. still has significant secretions. on SBT for longer today, but with active coronary ischemia, very high risk if he fails extubation. plan for trach if he remains intubated through the weekend. 10/19: still failing SBT. dressings changed today. clinically improving, but very weak and slow progress. 10/20: again failing SBT for copious secretions. was OOB to chair today. likely will need trach. 10/21: failed SBT for tachypnea, RR > 40. discussed with Dr. Mcgee: plan for trach tomorrow. discussed with cardiology service: they will likely medically manage his coronary artery disease without [facility] intervention. this is more of a reason to pursue trach, to prevent coronary ischemia that would come with trial of extubation first. 10/22: Plan for percutaneous tracheostomy at bedside 11 AM. Arousable on the ventilator and following commands. Currently afebrile. N.p.o. status. 10/23: Status post percutaneous tracheostomy 10/22 without complication. Continues to ooze from around tracheostomy site. Will hold enoxaparin for today. Tube feeds back at goal. Denies abdominal pain. Positive flatus from ostomy site. 10/24: Normal stool coming from well-perfused ostomy. Spontaneous breathing trials with tachypnea and mild labor. Chest x-ray with chronic interstitial changes and small lung volumes. 10/25: A little bit stronger on spontaneous breathing trials today. Pressure support settings 18/10. Tolerating tube feeds. 10/26: He is tolerating a mild reduction and mean airway pressure and end expiratory pressure. Continues to look acceptably comfortable during spontaneous breathing trials. 10/27: We needed to increase PEEP again last evening. 10/28: Spontaneous breathing trial at 8/8 this morning and doing quite well. Tube feedings on hold per surgery. Patient required low dose Xanax last night for anxiety. 10/29: intermittent SBTs. will trial t-piece today. no significant change. needs LTAC level care. 10/30: t-piece trials. ostomy working. advancing trickle tube feeds per surgery. 10/31: patient having gout flair and significantly painful. however, steroids contraindicated, and NSAIDS also contraindicated with concern over renal dysfunction in the setting of critical illness. still failing to separate from mechanical ventilation. really needs LTAC level care for pulmonary rehab. 11/01: NG tube placed to suction with 700 cc of gastric contents suctioned out overnight. Patient remains on mechanical ventilation with tracheostomy on CPAP with pressure support. Failed T piece yesterday. 11/02: Remains on mechanical ventilation via tracheostomy. 11/03: Remains on mechanical ventilation via tracheostomy. CPAP trials daily. T -piece as tolerated. 11/04: On mechanical ventilation via tracheostomy. Daily CPAP trials. 11/05, 11/06: Remains on mechanical ventilation via tracheostomy. Daily CPAP trials ongoing. 11/07: Worsening respiratory status. Placed back on PRVC mode mechanical ventilation last night. Significant sick pulmonary secretions noted. No BMs via colostomy. Chest x-ray done this morning shows worsening infiltrates more on the right suspicious for aspiration. KUB done this morning shows an ileus. Already placed on Zosyn on 11/07 which should cover for pneumonia. 11/08: Resting on mechanical ventilation via tracheostomy. Wound culture from incision site growing Pseudomonas 11/09: Remains on mechanical ventilation via tracheostomy. Wound culture and sputum both growing Pseudomonas. 11/10: Is on mechanical ventilation via tracheostomy. Daily CPAP trials. 11/11: Remains on mechanical ventilation via tracheostomy. Really CPAP trials ongoing. 11/12 No events overnight. On ventilator via trach. On CPAP with PS 15, PEEP:5 and FIO2 40%. Afebrile. 11/13 Patient denies complaint. Wants NGT out but understand rationale for continuing. On CPAP 15/5. Tolerating tube feeds. Afebrile. Subjective: 11/14 On CPAP 15/5 since yesterday. Able to wean to 12/5 but weaning beyond that produces tachypnea. Was out of bed to chair for a couple of hours. 11/15: Remains on CPAP via tracheostomy. Had problems with secretions last night. Adding scheduled nebulizer treatments and Mucomyst to mobilize secretions. 11/16: Resting comfortably on mechanical ventilation via tracheostomy. On CPAP trial 11/17: Afebrile. Tolerating tube feeds at goal. Placed on ventilator yesterday secondary to worsening subjective shortness of breath. We will reattempt CPAP trial again today. Positive BM.. 11/18: Afebrile. We will reattempt CPAP trial again today. Check chest x-ray in a.m. Continue with pulmonary toilet. Anxious. 11/19: Not tolerating CPAP trials well. Will discuss among consultants ways to manage his anxiety. 11/20: Brief episodes of apnea overnight. Anxiety a little better controlled this morning. 11/21: Patient vomited a large amount of tube feed this morning. After this he appeared comfortable although a little anxious. 11/22: Feels a little better this morning but abdomen remains moderately distended. Good stoma output. Surgical service is aware and Dr. Shepard saw the patient last evening. KUB reviewed. Potassium replacement underway now. 11/23: Patient remains in poorly compensated diastolic heart failure. Our best efforts to gingerly diuresis and has just resulted in worsening renal function. His medical therapy is maximized for heart failure with acceptable pulse rate control and afterload reduction. Inability to wean completely from the ventilator is closely associated persistent pulmonary edema. 11/24: Breathing quite comfortably this morning on CPAP however requiring 15 cm of water pressure support. Despite congested chest x-ray his lungs are fairly clear to auscultation. He has been started on TPN and his GI tract To low intermittent suction through an NG tube. The abdomen is remarkably soft and not distended. The colostomy does have output. 11/25: He has finally progressed to T piece trials and so far he is comfortable. We continue to adjust electrolyte replacement because of nasogastric losses. His general demeanor is much improved today and he is much less anxious. TPN is infusing as we rest his bowel. SUBJECTIVE 11/26: more gastric distension and vomiting this AM. tube feeds stopped and NGT to LIWS with 300cc gastric contents removed. general surgery notified. will ultimately need permanent enteral access, and likely G/J at this point. no changes. still resting on vent overnight. very weak and deconditioned. 11/27: Continues to have episodes of vomiting, continues to have gastric distention. KUB shows ileus. Will start on scheduled Reglan, replaced potassium. Requested PICC line for TPN and electrolyte replacement. 'toro Mcgee planning for OR with ex lap and lysis of adhesions tomorrow Objective Vital Signs / I&O: Vital Signs 11/26/17 14:00 11/26/17 16:00 11/26/17 16:11 Temperature 98.5 F Pulse Rate 76 80 Respiratory Rate 24 26 H Blood Pressure 169/76 H Pulse Oximetry 100 100 11/26/17 18:00 11/26/17 20:00 11/26/17 20:20 Temperature 100.5 F H Pulse Rate 75 78 Respiratory Rate 22 17 Blood Pressure 141/72 H Pulse Oximetry 100 96 11/27/17 00:00 11/27/17 00:15 11/27/17 03:39 Temperature 100.5 F H Pulse Rate 78 Respiratory Rate 19 22 18 Blood Pressure 119/57 L Pulse Oximetry 100 97 98 11/27/17 04:00 11/27/17 08:00 11/27/17 08:20 Temperature 100.2 F H 98.8 F Pulse Rate 68 65 Respiratory Rate 26 H 24 13 Blood Pressure 120/59 L 113/58 L Pulse Oximetry 99 100 98 11/27/17 08:47 11/27/17 11:32 11/27/17 12:00 Temperature 98.8 F Pulse Rate 65 Respiratory Rate 24 21 21 Blood Pressure 113/58 L Pulse Oximetry 100 100 Intake & Output 11/26/17 11/27/17 11/27/17 18:59 06:59 18:59 Intake Total 1060 / 1060 270 / 270 1000 / 1000 Output Total 2625 / 2625 1660 / 1660 Balance -1565 / -1565 -1390 / -1390 1000 / 1000 Weight 61.8 kg Intake: IV 1000 / 1000 1000 / 1000 D5W + KCL 20 mEq Inj 1,000 ML @ 1000 / 1000 1000 / 1000 100 mls/hr IV.CONT .Q10H [facility] Rx#:[id number] Oral 0 / 0 Tube Feeding 0 / 0 Tube Irrigant 60 / 60 120 / 120 Water Bolus Amount 150 / 150 Output: Urine 400 / 400 150 / 150 Stool 0 / 0 Emesis 525 / 525 Stool Amount (Stoma) 10 / 10 Left Lower Abdomen 10 / 10 Gastric Drainage 1700 / 1700 1500 / 1500 Left Nare 1700 / 1700 1500 / 1500 Other: Other Intake Source Saline Solution # Voids 3 2 Date of Last Bowel Movement 11/25/17 11/25/17 11/25/17 Result Diagrams: 11/27/17 10:03 11/27/17 10:03 Objective Remarks: Objective Remarks GENERAL: 72-year-old male currently on CPAP via tracheostomy SKIN: Warm and dry. No rash HEAD: Atraumatic. Normocephalic. EYES: Pupils equal round and reactive, 2 mm bilaterally. ENT: Oral cavity is moist. NG tube in left nares to low intermittent suction. NECK: Trachea midline. Supple. Tracheostomy site clean and dry. CARDIOVASCULAR: RRR. No JVD. RESPIRATORY: Equal chest rise. Symmetrical excursion. Few crackles in bases, otherwise clear. GASTROINTESTINAL: Abdomen mildly distended, bowel sounds present. Colostomy in place, normal output. MUSCULOSKELETAL: No edema lower extremities. Well-perfused. Warm. NEUROLOGICAL: Patient is awake alert follows commands 4. Moving all 4 extremities spontaneously. Communicates with head nod and mouthing words. Assessment and Plan - Problem List (1) Chronic respiratory failure Code(s): J96.10 - Chronic respiratory failure, unspecified whether with hypoxia or hypercapnia Status: Chronic (2) Large bowel obstruction Code(s): K56.609 - Unspecified intestinal obstruction, unspecified as to partial versus complete obstruction Status: Resolved (3) STEMI (ST elevation myocardial infarction) Code(s): I21.3 - ST elevation (STEMI) myocardial infarction of unspecified site Status: Resolved (4) Diabetes Code(s): E11.9 - Type 2 diabetes mellitus without complications Status: Acute (5) Wound dehiscence, surgical Code(s): T81.31XA - Disruption of external operation (surgical) wound, not elsewhere classified, initial encounter Status: Acute (6) Dysphagia Code(s): R13.10 - Dysphagia, unspecified Status: Acute (7) Protein-calorie malnutrition, severe Code(s): E43 - Unspecified severe protein-calorie malnutrition Status: Acute (8) Systolic heart failure Code(s): I50.20 - Unspecified systolic (congestive) heart failure Status: Acute (9) Colostomy in place Code(s): Z93.3 - Colostomy status Status: Acute - Assessment and Plan Plan: A/P Assessment and Plan NEURO/Psych: 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 Out of bed to chair with assist at least daily. Continue with PT and OT. RESP: Acute hypoxic and hypercarbic respiratory failure- now chronic. Iatrogenic left pneumothorax- resolved. Continue with CPAP weaning. Albuterol/ipratropium aerosols every 6 hours while awake with albuterol aerosols every 2 hours as needed dyspnea Pulm toilet, trach care Status post percutaneous tracheostomy bedside - Dr. Mcgee keep head of the bed elevated 30 Diastolic heart failure. Radiographic pattern consistent with aspiration as well. Continues to have problems with stamina on spontaneous ventilation trials. Still requiring elevated pressure support at 15 while on spontaneous breathing trials. Tolerated T piece trials. 11/25. continue daily t-piece trials. CV: Essential hypertension Hyperlipidemia Coronary artery disease Post operative STEMI Acute systolic heart failure Monitor HR and BP keep MAP>65mmHg Aspirin 81 mg daily, clopidogrel 75 mg p.o. daily BP controlled, decrease metoprolol to 50 mg p.o. twice daily and initiate lisinopril 5 mg p.o. daily. Adjust based on response. Continue atorvastatin 20 mg at night for dyslipidemia Holding amlodipine 10 mg daily 2D echocardiogram 05/29 revealed EF 50-55%. Grade 1 diastolic dysfunction. Pulmonary arterial pressure 34 mmHg Repeat revealed EF of 40-45% Followed by cardiology/Dr. Ellison: Dr. Villa discussed with team 10/21, and they recommended medical management. Continued conservative management recommended 11/02. Hold diuretics due to worsening renal function. Gentle hydration started to compensate for nasogastric tube losses GI: 10/08 Postop s/p ex-lap, TIA, Sigmoid colon resection with end colostomy and Holcomb's pouch Recurrent colonic obstruction, small bowel obstruction ? postop ileus vs SBO History of esophageal stricture status post dilatation History of small bowel obstruction Gastroesophageal reflux disease History of diverticulitis Hypoalbuminemia -Postop management per Dr. Mcgee. Plan for OR tomorrow with ex lap and lysis of the adhesions, G-J -Start Reglan for ileus Not tolerating T piece, start TPN after PICC line placement. colostomy in place -Pantoprazole 40 mg IV daily for GI prophylaxis. On omeprazole 20 mg daily at home -Leave feeding tube to low intermittent suction. Discussed with surgical service. Renal/: 10/08 Postop s/p Ureteroureteral anastomosis for ureteral injury Chronic kidney disease stage III a -Monitor renal function, I/O's, electrolytes replacement per protocol -Removal of double-J stent 6 weeks from operative procedure outpatient setting ID: Pneumonia - resolved Wound culture from abdominal incision +pseudomonas. -s/p full course of zosyn (started initially 11/06) Sputum cx 11/07: Pseudomonas, repeat sputum cx - resolved Wound cx 08/06: Pseudomonas - resolved Wound culture from incision site(11/06) growing Pseudomonas, sputum Gram stain and culture(11/07) growing pansenstive Pseudomonas -Discontinued levofloxacin 10/14. s/p course vancomycin and cefepime, 10/14-6/9 Sputum, blood cultures 2 10/13 NGTD Urine Legionella and pneumococcal urinary antigens 10/13 negative HEME: Normocytic anemia Thrombocytosis -Monitor CBC, CMP, coags -s/p 1 unit PRBCs to be transfused on 11/09 for hemoglobin 7.1 ENDO: Diabetes mellitus type 2 Severe hyperglycemia of critical illness Hyperglycemia History of gout Holding metformin 1000 mg by mouth twice daily -Glucose not at target despite 40 units coverage with sliding scale. Increase detemir further to 15 units q12h. -sliding scale insulin/NovoLog high regimen q6h MSK History of ankylosing spondylosis Holding denosumab 60 mg subcu every 18 days Holding cholecalciferol 4000 units p.o. daily PT evaluate and treat PROPH: -Bilateral lower extremity SCDs. Lovenox 40 subcu daily. On protonix 40 mg IV for stress ulcer prophylaxis. LINES: - piv Overall impression: Patient has chronic diastolic heart failure but aggressive diuresis results in worsening renal function. Possible persistent problems with aspiration contributing to bilateral infiltrates. Has transfer order to [facility] vent unit 4th floor [facility]. Acceptable for transfer now. No change in clinical course for weeks now. needs permanent enteral access, likely G-J. (8) Systolic heart failure Qualifiers: Heart failure chronicity: acute Qualified Code(s): I50.21 - Acute systolic ( congestive) heart failure
[2017-11-27] MEDS: KCL 20 mEq/Dextrose 5% Inj 1,000 ML IV.CONT SCH (14:24)
[2017-11-27] MEDS: Potassium Chlor 40 mEq Premix 40 MEQ/100 ML PIGGYBACK IV.SIG PRN ×2 (15:56→18:04)
[2017-11-27] MEDS ORDERED: Heparin Central Flush 100 UNIT/ML 5 ML Vial IV.FLUSH PRN (16:06)
--- NOTE | 2017-11-27 16:56 | XR ---
EXAM DATE: 11/27/2017 4:31 PM EDT AGE/SEX: 72 years / Male INDICATIONS: Ileus CLINICAL DATA: This is the patient's initial encounter. Patient reports that signs and symptoms have been present for 2 weeks and indicates a pain score of 0/10. MEDICAL/SURGICAL HISTORY: . renal failure, chronic Appendectomy. colostomy COMPARISON: C, ABDOMEN 1V KUB, 11/27/2017. . FINDINGS: Left lateral decubitus view of the abdomen demonstrates a normal bowel gas pattern. No free air is identified. Again noted is a double-J stent on the left and distention of loops of bowel probably sli ght ileus not significantly changed. CONCLUSION: There is no evidence for free intraperitoneal air for technique. Electronically signed by: Amie Mendoza MD 11/27/2017 4:55 PM EDT
[2017-11-27] MEDS: Heparin Central Flush 100 UNIT/ML 5 ML Vial IV.FLUSH SCH (17:14)
[2017-11-27] MEDS: ALPRAZolam 0.5 MG Tablet PO PRN (20:13)
[2017-11-27] MEDS: Scopalamine 1.5 MG Patch T-DERMAL SCH (21:05)
[2017-11-28] MEDS: Chlorhexidine Gluconate 0.12% Liq 15 ML UDC SWISH-SPIT SCH ×2 (00:12→08:00)
[2017-11-28] MEDS: Oral Hygiene Kit OROPHARYNG SCH ×4 (00:12→17:21)
[2017-11-28] MEDS: Carvedilol 6.25 MG Tablet PO SCH ×2 (00:13→09:58)
[2017-11-28] MEDS: Insulin Detemir Inj 1,000 UNIT/10 ML Vial SQ SCH ×2 (00:13→09:00)
[2017-11-28] MEDS: Sodium Hypochlorite 0.125% Top Soln 500 ML Bottle TOPICAL SCH ×2 (00:13→08:00)
[2017-11-28] MEDS: Artificial Tears Opth Drops 15 ML Bottle EACH EYE SCH ×3 (00:13→14:00)
[2017-11-28] MEDS: Morphine Inj 4 MG/ML Vial IV.PUSH PRN ×2 (01:08→05:56)
[2017-11-28 04:48] LABS: Hematocrit 22.1 % (39.0-51.0); Hemoglobin 7.4 gm/dL (13.0-17.0); Mean Corpuscular HGB Conc 33.6 % (32.0-36.0); Mean Corpuscular Hemoglobin 28.7 pg (27.0-34.0); Mean Corpuscular Volume 85.3 fL (80.0-100.0); Platelet Count 334 th/mm3 (150-450); Red Blood Count 2.59 mil/mm3 (4.50-5.90); Red Cell Distribution Width 16.2 % (11.6-17.2); White Blood Count 7.9 th/mm3 (4.0-11.0)
[2017-11-28 05:25] LABS: Alanine Aminotransferase 21 U/L (12-78); Albumin 1.9 g/dL (3.4-5.0); Alkaline Phosphatase 66 U/L (45-117); Anion Gap 11 meq/L (5-15); Aspartate Aminotransferase 18 U/L (15-37); Blood Urea Nitrogen 14 mg/dL (7-18); Calcium 8.6 mg/dL (8.5-10.1); Chloride 95 meq/L (98-107); Glomerular Filtration Rate 61 mL/min (>89); Glucose,Random 134 mg/dL (74-106); Magnesium 1.5 mg/dL (1.5-2.5); Sodium 137 meq/L (136-145); Total Protein 7.3 g/dL (6.4-8.2)
[2017-11-28 05:50] LABS: Potassium 2.8 meq/L (3.5-5.1)
[2017-11-28] MEDS: Insulin NovoLOG Aspart Correctional Sugar Inj SQ SCH ×3 (06:00→12:00)
[2017-11-28] MEDS: Potassium Chlor 40 mEq Premix 40 MEQ/100 ML PIGGYBACK IV.SIG PRN ×2 (06:42→09:11)
[2017-11-28] MEDS: Potassium Chloride Inj 20 MEQ in Dextrose 5% in Water Inj 1,000 ML IV.SIG SCH ×4 (08:17→17:47)
[2017-11-28] MEDS: Allopurinol 300 MG Tablet PO SCH (10:00)
[2017-11-28] MEDS: QUEtiapine 25 MG Tablet PO SCH (10:00)
[2017-11-28] MEDS: Lisinopril 5 MG Tablet PO SCH (10:00)
[2017-11-28] MEDS: Heparin Central Flush 100 UNIT/ML 5 ML Vial IV.FLUSH SCH (10:09)
--- NOTE | 2017-11-28 12:01 | P.PNCC ---
Subjective Subjective Remarks/Hospital Course: This is a 72 year old male with history of type 2 diabetes, hypertension, dyslipidemia, chronic kidney disease stage III, ankylosing spondylitis, esophageal stricture s/p dilatation, diverticulitis, peritonitis, history of small bowel obstruction, colon resection x2, who was admitted to the hospital with one-week history of abd distension, constipation, and cramps. Pt tried to mange this at home, as he is familiar with symptoms. Has history of multiple bowel obstructions and multiple surgeries in the past. CT of abdomen/ pelvis showed moderately dilated large and small bowel, concentric stricturing in the sigmoid colon. Gastroenterology and general surgery were consulted. Patient was taken today to the OR by Dr. Mcgee, patient underwent exploratory laparotomy, Lysis of adhesions for dense adhesions involving small and large bowel, sigmoid colon resection with end colostomy and Holcomb's pouch. There was stricture at previous surgical site in sigmoid colon. EBL 300 ml, urine output was adequate. During the ex lap patient's sustained ureteral injury which required ureteroureteral anastomosis over stent by Dr. Page. Postop patient was moved to the PACU where his chest x-ray showed small possible left lateral pneumothorax. ABG showed a pH of 7.29/41/99 BE -6.7. I evaluated the patient in the ICU. Patient is intubated sedated with Precedex. He is tachycardic and borderline hypotensive. Additional 500 mL of fluid bolus given , 1 amp of bicarb. Received total 2.1 L in the OR. Urine output is adequate, approximately 75 ml per hour post op. With left-sided tiny pneumothorax (most likely with from central line placement in OR), will attempt CPAP trials for possible extubation. 10/09: Breathing is moderately labored to observe but the patient states he is comfortable. His major complaint is chronic back pain. Urine output is marginal but he remains well-perfused. Colostomy stoma is pink. 10/10: Labored breathing overnight. Remains on quarter normal saline at 125 cc hours and Clinimix E 4.25/25 at 83 cc an hour. Chest x-ray appears with bilateral pulmonary infiltrates. CVP is 8. Greater than 50% variation IVC by ultrasound. Bedside echocardiogram no acute findings. Patient currently with some pleuritic chest pain worse with deep inspiration. EKG currently pending. 8 run beat of V. tach overnight. Potassium magnesium within normal limits. 10/11: Afebrile. FiO2 requirements increased overnight currently at 60%. Chest x-ray revealed pulmonary edema bilaterally. Troponin downward trending. Noted sodium elevated 154. Will remove sodium from TPN. Norepinephrine initiated overnight currently at 8 mcg/min. Nitro paste discontinued. Holding parameters for beta corby 10/12: remains afebrile. back on levophed this AM at 5 mcg/min. also remains tachycardic in the 100s. sodium remains elevated despite removal of nacl from TPN. 10/13: T-max 100.4. Desaturated overnight requiring PEEP increased to 10 currently at 8. FiO2 down to 45%. Appears uncomfortable on the ventilator. Abdomen slightly more distended. Positive output from ostomy.. Transfusing 1 unit PRBCs due to acute coronary syndrome to keep above a. Recheck along with electrolytes active bleeding in place. CT abdomen/pelvis ordered. 10/14: Copious secretions overnight. PEEP at 7 FiO2 50%. Abdominal/pelvis CT revealed bilateral lobar pneumonia pelvic read as gallstone ileus but not likely is patient with copious stool output from ostomy. Did discuss with Dr. Mcgee. Antibiotic coverage broadened. Pancultured yesterday looks like his underlying pneumonia. Will transfuse 1 unit PRBCs today per cardiology request to maintain hemoglobin around 9 for acute coronary syndrome. Diuresis postprocedure and replace electrolytes aggressively. TPN will be weaned/ discontinued today after tube feeds at 40 cc an hour 10/15: t max 100.7 overnight. cultures NGTD. fio2 improving. secretions are somewhat better. 10/16: no improvements. afebrile. failed SBT after 10 minutes for tachypnea and respiratory distress. 10/17: failed sbt again for significant secretions and respiratory distress. only lasting about 10 min. may require tracheostomy. 10/18: much more awake and interactive. still has significant secretions. on SBT for longer today, but with active coronary ischemia, very high risk if he fails extubation. plan for trach if he remains intubated through the weekend. 10/19: still failing SBT. dressings changed today. clinically improving, but very weak and slow progress. 10/20: again failing SBT for copious secretions. was OOB to chair today. likely will need trach. 10/21: failed SBT for tachypnea, RR > 40. discussed with Dr[address] Mcgee: plan for trach tomorrow. discussed with cardiology service: they will likely medically manage his coronary artery disease without [facility] intervention. this is more of a reason to pursue trach, to prevent coronary ischemia that would come with trial of extubation first. 10/22: Plan for percutaneous tracheostomy at bedside 11 AM. Arousable on the ventilator and following commands. Currently afebrile. N.p.o. status. 10/23: Status post percutaneous tracheostomy 10/22 without complication. Continues to ooze from around tracheostomy site. Will hold enoxaparin for today. Tube feeds back at goal. Denies abdominal pain. Positive flatus from ostomy site. 10/24: Normal stool coming from well-perfused ostomy. Spontaneous breathing trials with tachypnea and mild labor. Chest x-ray with chronic interstitial changes and small lung volumes. 10/25: A little bit stronger on spontaneous breathing trials today. Pressure support settings 18/10. Tolerating tube feeds. 10/26: He is tolerating a mild reduction and mean airway pressure and end expiratory pressure. Continues to look acceptably comfortable during spontaneous breathing trials. 10/27: We needed to increase PEEP again last evening. 10/28: Spontaneous breathing trial at 8/8 this morning and doing quite well. Tube feedings on hold per surgery. Patient required low dose Xanax last night for anxiety. 10/29: intermittent SBTs. will trial t-piece today. no significant change. needs LTAC level care. 10/30: t-piece trials. ostomy working. advancing trickle tube feeds per surgery. 10/31: patient having gout flair and significantly painful. however, steroids contraindicated, and NSAIDS also contraindicated with concern over renal dysfunction in the setting of critical illness. still failing to separate from mechanical ventilation. really needs LTAC level care for pulmonary rehab. 11/01: NG tube placed to suction with 700 cc of gastric contents suctioned out overnight. Patient remains on mechanical ventilation with tracheostomy on CPAP with pressure support. Failed T piece yesterday. 11/02: Remains on mechanical ventilation via tracheostomy. 11/03: Remains on mechanical ventilation via tracheostomy. CPAP trials daily. T -piece as tolerated. 11/04: On mechanical ventilation via tracheostomy. Daily CPAP trials. 11/05, 11/06: Remains on mechanical ventilation via tracheostomy. Daily CPAP trials ongoing. 11/07: Worsening respiratory status. Placed back on PRVC mode mechanical ventilation last night. Significant sick pulmonary secretions noted. No BMs via colostomy. Chest x-ray done this morning shows worsening infiltrates more on the right suspicious for aspiration. KUB done this morning shows an ileus. Already placed on Zosyn on 11/07 which should cover for pneumonia. 11/08: Resting on mechanical ventilation via tracheostomy. Wound culture from incision site growing Pseudomonas 11/09: Remains on mechanical ventilation via tracheostomy. Wound culture and sputum both growing Pseudomonas. 11/10: Is on mechanical ventilation via tracheostomy. Daily CPAP trials. 11/11: Remains on mechanical ventilation via tracheostomy. Really CPAP trials ongoing. 11/12 No events overnight. On ventilator via trach. On CPAP with PS 15, PEEP:5 and FIO2 40%. Afebrile. 11/13 Patient denies complaint. Wants NGT out but understand rationale for continuing. On CPAP 15/5. Tolerating tube feeds. Afebrile. Subjective: 11/14 On CPAP 15/5 since yesterday. Able to wean to 12/5 but weaning beyond that produces tachypnea. Was out of bed to chair for a couple of hours. 11/15: Remains on CPAP via tracheostomy. Had problems with secretions last night. Adding scheduled nebulizer treatments and Mucomyst to mobilize secretions. 11/16: Resting comfortably on mechanical ventilation via tracheostomy. On CPAP trial 11/17: Afebrile. Tolerating tube feeds at goal. Placed on ventilator yesterday secondary to worsening subjective shortness of breath. We will reattempt CPAP trial again today. Positive BM.. 11/18: Afebrile. We will reattempt CPAP trial again today. Check chest x-ray in a.m. Continue with pulmonary toilet. Anxious. 11/19: Not tolerating CPAP trials well. Will discuss among consultants ways to manage his anxiety. 11/20: Brief episodes of apnea overnight. Anxiety a little better controlled this morning. 11/21: Patient vomited a large amount of tube feed this morning. After this he appeared comfortable although a little anxious. 11/22: Feels a little better this morning but abdomen remains moderately distended. Good stoma output. Surgical service is aware and Dr. Shepard saw the patient last evening. KUB reviewed. Potassium replacement underway now. 11/23: Patient remains in poorly compensated diastolic heart failure. Our best efforts to gingerly diuresis and has just resulted in worsening renal function. His medical therapy is maximized for heart failure with acceptable pulse rate control and afterload reduction. Inability to wean completely from the ventilator is closely associated persistent pulmonary edema. 11/24: Breathing quite comfortably this morning on CPAP however requiring 15 cm of water pressure support. Despite congested chest x-ray his lungs are fairly clear to auscultation. He has been started on TPN and his GI tract To low intermittent suction through an NG tube. The abdomen is remarkably soft and not distended. The colostomy does have output. 11/25: He has finally progressed to T piece trials and so far he is comfortable. We continue to adjust electrolyte replacement because of nasogastric losses. His general demeanor is much improved today and he is much less anxious. TPN is infusing as we rest his bowel. SUBJECTIVE 11/26: more gastric distension and vomiting this AM. tube feeds stopped and NGT to LIWS with 300cc gastric contents removed. general surgery notified. will ultimately need permanent enteral access, and likely G/J at this point. no changes. still resting on vent overnight. very weak and deconditioned. 11/27: Continues to have episodes of vomiting, continues to have gastric distention. KUB shows ileus. Will start on scheduled Reglan, replaced potassium. Requested PICC line for TPN and electrolyte replacement. Dr. Mcgee planning for OR with ex lap and lysis of adhesions tomorrow 11/28: Awake alert on the ventilator today. Nausea vomiting is improved. Plan for OR today with Dr. Mcgee with TIA and G-J tube placement Objective Vital Signs / I&O: Vital Signs 11/27/17 12:00 11/27/17 14:30 11/27/17 16:00 Temperature 98.6 F 98.5 F Pulse Rate 62 64 Respiratory Rate 26 H 16 17 Blood Pressure 93/52 L 119/58 L Pulse Oximetry 100 100 11/27/17 16:51 11/27/17 20:00 11/27/17 20:14 Temperature 98.8 F Pulse Rate 64 Respiratory Rate 17 22 22 Blood Pressure 122/59 L Pulse Oximetry 100 100 11/27/17 20:35 11/27/17 22:00 11/28/17 00:00 Temperature 98.2 F Pulse Rate 61 62 Respiratory Rate 24 18 Blood Pressure 105/58 L Pulse Oximetry 100 100 11/28/17 01:11 11/28/17 04:00 11/28/17 04:29 Temperature 98.4 F Pulse Rate 64 Respiratory Rate 17 16 23 Blood Pressure 123/58 L Pulse Oximetry 100 100 100 11/28/17 06:00 11/28/17 08:00 11/28/17 09:15 Temperature 98.5 F Pulse Rate 66 64 Respiratory Rate 20 16 Blood Pressure 120/57 L Pulse Oximetry 100 99 11/28/17 10:00 11/28/17 11:15 Temperature Pulse Rate 64 Respiratory Rate 23 Blood Pressure Pulse Oximetry 100 Intake & Output 11/27/17 11/28/17 11/28/17 18:59 06:59 18:59 Intake Total 2652 / 2652 100 / 100 100 / 100 Output Total 700 / 700 875 / 875 Balance 195 / 1951 -775 / -775 100 / 100 Weight 65.2 kg Intake: IV 2152 / 2152 100 / 100 100 / 100 D5W + KCL 20 mEq Inj 1,000 ML @ 1000 / 1000 100 mls/hr IV.CONT .Q10H LISA Rx#:[id number] LR 1000 mL Inj 1,000 ML @ As 1000 / 1000 Directed IV.SIG BOLUS ONE Rx#: [id number] Reglan Inj 10 MG In NS Inj 50 52 / 52 ML @ 104 mls/hr IV.SIG ONCE ONE Rx#:[id number] KCl 40 mEq Premix Inj 40 meq In 100 / 100 100 / 100 100 / 100 100 ml @ 50 mls/hr IV.SIG Q2H PRN Rx#:[id number] Oral 0 / 0 Tube Feeding 0 / 0 Water Bolus Amount 100 / 100 Mass Transfusion Protocol 400 / 400 Output: Urine 275 / 275 Stool 0 / 0 Gastric Drainage 700 / 700 600 / 600 Left Nare 700 / 700 600 / 600 Other: Date of Last Bowel Movement 11/25/17 11/25/17 11/28/17 Result Diagrams: 11/28/17 04:40 11/28/17 04:40 Objective Remarks: Objective Remarks GENERAL: 72-year-old male currently on CPAP via tracheostomy SKIN: Warm and dry. No rash HEAD: Atraumatic. Normocephalic. EYES: Pupils equal round and reactive, 2 mm bilaterally. ENT: Oral cavity is moist. NG tube in left nares to low intermittent suction. NECK: Trachea midline. Supple. Tracheostomy site clean and dry. CARDIOVASCULAR: RRR. No JVD. RESPIRATORY: Equal chest rise. Symmetrical excursion. Few crackles in bases, otherwise clear. GASTROINTESTINAL: Abdomen mildly distended, bowel sounds present. Colostomy in place, normal output. MUSCULOSKELETAL: No edema lower extremities. Well-perfused. Warm. NEUROLOGICAL: Patient is awake alert follows commands 4. Moving all 4 extremities spontaneously. Communicates with head nod Assessment and Plan - Problem List (1) Chronic respiratory failure Code(s): J96.10 - Chronic respiratory failure, unspecified whether with hypoxia or hypercapnia Status: Chronic (2) Large bowel obstruction Code(s): K56.609 - Unspecified intestinal obstruction, unspecified as to partial versus complete obstruction Status: Resolved (3) STEMI (ST elevation myocardial infarction) Code(s): I21.3 - ST elevation (STEMI) myocardial infarction of unspecified site Status: Resolved (4) Diabetes Code(s): E11.9 - Type 2 diabetes mellitus without complications Status: Acute (5) Wound dehiscence, surgical Code(s): T81.31XA - Disruption of external operation (surgical) wound, not elsewhere classified, initial encounter Status: Acute (6) Dysphagia Code(s): R13.10 - Dysphagia, unspecified Status: Acute (7) Protein-calorie malnutrition, severe Code(s): E43 - Unspecified severe protein-calorie malnutrition Status: Acute (8) Systolic heart failure Code(s): I50.20 - Unspecified systolic (congestive) heart failure Status: Acute (9) Colostomy in place Code(s): Z93.3 - Colostomy status Status: Acute - Assessment and Plan Plan: A/P Assessment and Plan NEURO/Psych: 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 Out of bed to chair with assist daily. Continue with PT and OT. RESP: Acute hypoxic and hypercarbic respiratory failure- now chronic. Iatrogenic left pneumothorax- resolved. Continue with CPAP weaning. Albuterol/ipratropium aerosols every 6 hours while awake with albuterol aerosols every 2 hours as needed dyspnea Pulm toilet, trach care. Status post percutaneous tracheostomy bedside - Dr. Mcgee Keep head of the bed elevated 30 Diastolic heart failure. Radiographic pattern consistent with aspiration as well. Continues to have problems with stamina on spontaneous ventilation trials. Still requiring elevated pressure support at 15 while on spontaneous breathing trials. Tolerated T piece trials. 11/25. continue daily t-piece trials. CV: Coronary artery disease Post operative STEMI Acute systolic heart failure Essential hypertension Hyperlipidemia Monitor HR and BP keep MAP>65mmHg Aspirin 81 mg daily, clopidogrel 75 mg p.o. daily BP controlled, decrease metoprolol to 50 mg p.o. twice daily and initiate lisinopril 5 mg p.o. daily. Adjust based on response. Continue atorvastatin 20 mg at night for dyslipidemia Holding amlodipine 10 mg daily 2D echocardiogram 05/29 revealed EF 50-55%. Grade 1 diastolic dysfunction. Pulmonary arterial pressure 34 mmHg Repeat revealed EF of 40-45% Followed by cardiology/Dr. Ellison: Dr. Villa discussed with team 10/21, and they recommended medical management. Continued conservative management recommended 11/02. Hold diuretics due to worsening renal function. Gentle hydration started to compensate for nasogastric tube losses GI: 10/08 Postop s/p ex-lap, TIA, Sigmoid colon resection with end colostomy and Holcomb's pouch Recurrent colonic obstruction, small bowel obstruction Postop ileus vs SBO History of esophageal stricture status post dilatation History of small bowel obstruction Gastroesophageal reflux disease History of diverticulitis Hypoalbuminemia -Postop management per Dr. Mcgee. Plan for OR today with ex lap and lysis of the adhesions, G-J -Reglan for ileus -TPN after OR today. colostomy in place -Pantoprazole 40 mg IV daily for GI prophylaxis. On omeprazole 20 mg daily at home -Leave feeding tube to low intermittent suction. Discussed with surgical service. Renal/: 10/08 Postop s/p Ureteroureteral anastomosis for ureteral injury Chronic kidney disease stage III a -Monitor renal function, I/O's, electrolytes replacement per protocol -Removal of double-J stent 6 weeks from operative procedure outpatient setting ID: Pneumonia - resolved Wound culture from abdominal incision +pseudomonas. -s/p full course of zosyn (started initially 11/06) Sputum cx 11/07: Pseudomonas, repeat sputum cx - resolved Wound cx 08/06: Pseudomonas - resolved Wound culture from incision site(11/06) growing Pseudomonas, sputum Gram stain and culture(11/07) growing pansenstive Pseudomonas -Discontinued levofloxacin 10/14. s/p course vancomycin and cefepime, 10/14-10/20 Sputum, blood cultures 2 10/13 NGTD Urine Legionella and pneumococcal urinary antigens 10/13 negative HEME: Normocytic anemia Thrombocytosis -Monitor CBC, CMP, coags -s/p 1 unit PRBCs to be transfused on 11/09 for hemoglobin 7.1 ENDO: Diabetes mellitus type 2 Severe hyperglycemia of critical illness Hyperglycemia History of gout Holding metformin 1000 mg by mouth twice daily -Glucose not at target despite 40 units coverage with sliding scale. Increase detemir further to 15 units q12h. -sliding scale insulin/NovoLog high regimen q6h MSK History of ankylosing spondylosis Holding denosumab 60 mg subcu every 18 days Holding cholecalciferol 4000 units p.o. daily PT evaluate and treat PROPH: -Bilateral lower extremity SCDs. Lovenox 40 subcu daily. On protonix 40 mg IV for stress ulcer prophylaxis. LINES: - piv. RUE PICC placed 11/1717 Overall impression: Patient has chronic diastolic heart failure but aggressive diuresis results in worsening renal function. Possible persistent problems with aspiration contributing to bilateral infiltrates. Has transfer order to [facility] vent unit 4th floor [facility]. Acceptable for transfer now. No change in clinical course for weeks now. needs permanent enteral access, likely G-J. Level 2 (8) Systolic heart failure Qualifiers: Heart failure chronicity: acute Qualified Code(s): I50.21 - Acute systolic ( congestive) heart failure
--- NOTE | 2017-11-28 15:28 | P.DIET ---
Nutritional Evaluation Type of nutrition evaluation: follow-up Nutrition consult regarding: Tube Feeding Screening comments: MDC for malnutrition received 11/27 Subjective Subjective Comments: Vomiting and abdominal distention yesterday. Objective - Diagnosis Partial Bowel Obstruction - Objective % IBW: 116 Body Weight Used for Calculations: Actual (72 kg) Energy Needs - Lower Range (kCal/kg): 28 Energy Needs - Upper Range (kCal/kg): 32 Lower Limit kCal/kg (kCals): 2,013 Upper Limit kCal/kg (kCals): 2,301 Lower Limit Protein Factor (Grams per Kg): 1.0 Upper Limit Protein Factor (Grams per Kg): 1.5 Lower Protein Needs (Protein): 72 Upper Protein Needs (Protein): 108 Dietitian Reviewed in Medical Record: Curent medications, Intake & Output, Labs , Tube feeding Diet Order: NPO Objective Comments: PMH: Esophageal dilation, GOUT, HT, Hyperlipidemia, GERD, Arthritis, ankylosing spondylitis, DM, CKD stage III, peritonitis, colon resection x 2, diverticulitis Feeding - Current Tube Feeding Tube Feeding Product: Jevity 1.5 (ON HOLD) Assessment Assessment: Consult for malnutrition acknowledged. Pt has had vomiting of TF and has been unable to tolerate goal.Significant weight loss since admission noted. He is currently npo with TF on hold. Plan is for the pt to go to the OR today with Dr Mcgee for TIA and g/j-t placement. When able, recommend TF of Vital 1.5 @ 60 mls/hr to provide 2160 kcals, 97 gms protein and 24376 mls of free water. CBW = 65.2 kg. Recommendations: Vital 1.5 @ 60 mls/hr goal when able Dietitian to Monitor: Lab values, Intake & Output, Tube feeding tolerance, Weight change, Medical course
[2017-11-28] MEDS ORDERED: ceFAZolin 2 GM Premix Inj 2 GM/50 ML PIGGYBACK IV.SIG ONE (15:30)
[2017-11-28 17:02] LABS: Hematocrit 25.5 % (39.0-51.0); Hemoglobin 8.5 gm/dL (13.0-17.0); Mean Corpuscular HGB Conc 33.5 % (32.0-36.0); Mean Corpuscular Hemoglobin 28.9 pg (27.0-34.0); Mean Corpuscular Volume 86.4 fL (80.0-100.0); Mean Platelet Volume 8.4 fL (7.0-11.0); Platelet Count 313 th/mm3 (150-450); Red Blood Count 2.95 mil/mm3 (4.50-5.90); Red Cell Distribution Width 16.3 % (11.6-17.2); White Blood Count 7.4 th/mm3 (4.0-11.0)
[2017-11-28] MEDS ORDERED: Normosol-R pH 7.4 Inj 2,000 ML IV.CONT ONE (17:31)
[2017-11-28] MEDS ORDERED: Sodium Chlor 0.9% Inj 500 ML IV.SIG ONE (17:31)
[2017-11-28 17:48] LABS: Calcium 7.7 mg/dL (8.5-10.1); Carbon Dioxide 29.8 meq/L (21.0-32.0); Potassium 3.5 meq/L (3.5-5.1)
[2017-11-28 20:42] LABS: ABG Base Excess 1.5 mmol/L (-2-2); ABG PCO2 44 mmHg (38-42); ABG PO2 65 mmHG (61-120)
[2017-11-28 21:15] LABS: INR 1.5 Ratio; Prothrombin Time 15.1 sec (9.8-11.6)
[2017-11-28 21:18] LABS: ABG Base Excess -0.8 mmol/L (-2-2); ABG PCO2 38 mmHg (38-42); ABG PO2 227 mmHG (61-120)
[2017-11-28] MEDS ORDERED: fentaNYL Citrate Inj 100 MCG/2 ML Ampul ONE (21:44)
[2017-11-28 22:30] LABS: Hematocrit 23.2 % (39.0-51.0); Mean Corpuscular HGB Conc 34.4 % (32.0-36.0); Mean Corpuscular Hemoglobin 28.5 pg (27.0-34.0); Mean Corpuscular Volume 82.7 fL (80.0-100.0); Mean Platelet Volume 8.4 fL (7.0-11.0); Platelet Count 339 th/mm3 (150-450); Red Cell Distribution Width 18.5 % (11.6-17.2)
[2017-11-28 22:59] LABS: Calcium 6.8 mg/dL (8.5-10.1); Carbon Dioxide 23.8 meq/L (21.0-32.0)
[2017-11-28 23:00] LABS: ABG Base Excess -0.9 mmol/L (-2-2); ABG PCO2 32 mmHg (38-42); ABG PO2 126 mmHG (61-120)
[2017-11-28 23:13] LABS: Total Protein 5.3 g/dL (6.4-8.2)
[2017-11-29] MEDS: Morphine Inj 4 MG/ML Vial IV.PUSH PRN ×3 (01:42→13:03)
[2017-11-29] MEDS: Insulin NovoLOG Aspart Correctional Sugar Inj SQ SCH ×3 (04:22→12:23)
[2017-11-29] MEDS: Chlorhexidine Gluconate 0.12% Liq 15 ML UDC SWISH-SPIT SCH ×3 (04:23→20:31)
[2017-11-29] MEDS: Carvedilol 6.25 MG Tablet PO SCH ×3 (04:23→20:31)
[2017-11-29] MEDS: Insulin Detemir Inj 1,000 UNIT/10 ML Vial SQ SCH ×3 (04:23→21:24)
[2017-11-29] MEDS: Sodium Hypochlorite 0.125% Top Soln 500 ML Bottle TOPICAL SCH ×4 (04:23→22:39)
[2017-11-29] MEDS: QUEtiapine 25 MG Tablet PO SCH ×2 (04:24→08:58)
[2017-11-29] MEDS: Artificial Tears Opth Drops 15 ML Bottle EACH EYE SCH ×4 (04:24→22:40)
[2017-11-29] MEDS: Oral Hygiene Kit OROPHARYNG SCH ×5 (04:28→23:20)
[2017-11-29] MEDS: Potassium Chloride Inj 20 MEQ in Dextrose 5% in Water Inj 1,000 ML IV.SIG SCH ×2 (04:29)
[2017-11-29 06:19] LABS: Baso % (Auto) 0.2 % (0.0-2.0); Lymph # (Auto) 0.5 th/mm3 (1.0-4.8); Lymph % (Auto) 4.5 % (9.0-44.0); Mean Corpuscular HGB Conc 34.7 % (32.0-36.0); Mean Corpuscular Hemoglobin 29.2 pg (27.0-34.0); Mean Platelet Volume 8.6 fL (7.0-11.0); Mono # (Auto) 0.8 th/mm3 (0.0-0.9); Mono % (Auto) 7.1 % (0.0-8.0); Neut # (Auto) 10.2 th/mm3 (1.8-7.7); Neut % (Auto) 88.2 % (16.0-70.0); Platelet Count 268 th/mm3 (150-450); Red Cell Distribution Width 16.8 % (11.6-17.2); White Blood Count 11.6 th/mm3 (4.0-11.0)
[2017-11-29 06:38] LABS: Albumin 1.9 g/dL (3.4-5.0); Calcium 6.5 mg/dL (8.5-10.1); Carbon Dioxide 25.7 meq/L (21.0-32.0); Magnesium 1.4 mg/dL (1.5-2.5); Potassium 4.3 meq/L (3.5-5.1); Total Protein 5.8 g/dL (6.4-8.2)
--- NOTE | 2017-11-29 08:04 | MP ---
cc: David Mcgee MD DATE OF OPERATION: 11/28/2017 PROCEDURES PERFORMED: 1. Exploratory laparotomy. 2. Lysis of adhesions, greater than 1 hour. 3. Small bowel resection. 4. Gastrostomy tube placement. 5. Jejunostomy feeding tube placement. PREOPERATIVE DIAGNOSIS: Persistent ileus, with partial bowel obstruction. POSTOPERATIVE DIAGNOSIS: Persistent ileus, with partial bowel obstruction. ANESTHESIA: General via tracheostomy. SURGEON: David Mcgee MD ESTIMATED BLOOD LOSS: 400 mL FLUIDS: 3500 mL Crystalloid, 2 units PRBC. COMPLICATIONS: None. DRAINS: JOSÉ x 1. SPECIMEN: Distal ileum to pathology. FINDINGS: Extraordinarily extensive adhesions with ileal bypass segment. PROCEDURE IN DETAIL: The patient was taken to the operating room and placed on the operating table in the supine position after an adequate level of general anesthesia was achieved. The abdomen was prepped and draped in the usual fashion. The colostomy was oversewn with a 2-0 Prolene suture. Timeout was taken, confirming the correct patient, site and procedures to be performed. The midline was incised and dissection carried down through the fascia. The peritoneum was carefully entered and the patient was noted to have multiple adhesions to the anterior abdominal wall. These were carefully taken down with sharp dissection. Multiple loops of bowel were involved with the adhesions. No enterotomies were made. At this point, careful dissection was accomplished with lysis of adhesions of the small bowel. Very extensive adhesions were noted from just distal to the ligament of Treitz all the way to the ileocecal valve. These were taken down with sharp dissection. Meticulous dissection was required with dissection to the pelvis. Sharp dissection was required to free up loops of small bowel from the pelvis. Sharp dissection was further required to free up the small bowel from the transverse colon and omentum. When this had been completed, the patient was noted to have dilated loops of small bowel that occurred distally. After freeing up all loops of small bowel, the patient was noted to have a bypass segment in the distal ileum. It was felt that this was leading to the patient having multiple episodes of partial bowel obstruction and this bypassed segment was stapled off with mesentery, ligated and divided. This specimen was passed off the table. With the patient no longer having a bypass loop, this would minimize the risk of him having further episodes with bacterial overgrowth and partial obstruction. When this was completed, the abdomen was irrigated. A 24-Indian Malecot gastrostomy tube was brought out via separate stab incision and placed into the stomach with 2 pursestring sutures utilizing 2-0 chromic and 2-0 silk suture. The stomach was fixed to the anterior abdominal wall with 3-0 silk sutures. When this was completed, the feeding tube was fixed to the skin with 2-0 silk suture. When this was completed, a 16-Indian Red Rubber catheter had extra holes cut in it and was placed in the jejunum approximately 40 cm from the ligament of Treitz via a jejunotomy. A pursestring suture with 3-0 chromic was placed around the tube and a Witzel tunnel was created with 3-0 silk sutures. The feeding tube was brought out via separate stab incision and fixed to the skin with a 2-0 silk suture. The small bowel was fixed to the anterior abdominal wall at two points with 3-0 silk suture. This would prevent torsion of this loop of intestine. When this was completed, a Adelso-Aaron drain was brought out via separate stab incision in the right mid abdomen. This was fixed to the skin with a 3-0 nylon suture. The abdomen was closed with a running #1 looped PDS suture. The skin was closed with stefanie. The colostomy oversew suture was removed. A CLARISSE dressing was applied to the incision and a colostomy appliance reapplied. The patient was taken back to the recovery room in stable condition. Sponge, needle and instrument counts were reported to be correct. MD LACHELLE Morgan/ARTURO , 11:31 PM , 11:57 PM SONU
[2017-11-29] MEDS: Heparin Central Flush 100 UNIT/ML 5 ML Vial IV.FLUSH SCH (08:56)
[2017-11-29] MEDS: Lisinopril 5 MG Tablet PO SCH (08:57)
[2017-11-29] MEDS: Allopurinol 300 MG Tablet PO SCH (08:58)
[2017-11-29] MEDS ORDERED: Sodium Chlor 0.9% Inj 100 ML IV.SIG SCH (09:00)
--- NOTE | 2017-11-29 10:09 | P.PNGS ---
<Jayshree Saha - Last Filed: 11/29/17 10:03> Subjective Interval history: Painful this morning Asking if it is morning or night NICKY Garcia at bedside Physical Exam Vital signs: Vital Signs 11/28/17 11:15 11/28/17 12:00 11/28/17 14:00 Temperature 98.6 F Pulse Rate 65 64 Respiratory Rate 23 21 Blood Pressure 108/56 L Pulse Oximetry 100 100 11/28/17 14:10 11/28/17 14:42 11/28/17 15:00 Temperature 98.6 F 98.3 F Pulse Rate 64 64 66 Respiratory Rate 22 17 Blood Pressure 106/59 L 112/56 L Pulse Oximetry 100 100 11/28/17 17:59 11/28/17 21:40 11/28/17 21:45 Temperature 97.2 F L 97.6 F Pulse Rate 61 71 73 Respiratory Rate 16 16 Blood Pressure 107/60 91/59 L 93/59 L Pulse Oximetry 100 100 100 11/28/17 21:57 11/28/17 22:00 11/28/17 22:15 Temperature Pulse Rate 72 70 Respiratory Rate 16 16 17 Blood Pressure 88/58 L 105/55 L Pulse Oximetry 100 100 100 11/28/17 22:30 11/28/17 22:45 11/28/17 23:00 Temperature Pulse Rate 67 60 68 Respiratory Rate 16 16 17 Blood Pressure 117/57 L 126/60 122/61 Pulse Oximetry 100 100 100 11/28/17 23:15 11/28/17 23:30 11/28/17 23:44 Temperature 97.6 F Pulse Rate 70 67 Respiratory Rate 19 16 26 H Blood Pressure 117/57 L 102/55 L Pulse Oximetry 100 100 100 11/29/17 00:00 11/29/17 00:23 11/29/17 01:00 Temperature 97.5 F L 97.5 F L Pulse Rate 74 72 Respiratory Rate 16 16 Blood Pressure 78/40 L 100/43 L 114/48 L Pulse Oximetry 100 100 11/29/17 01:30 11/29/17 01:47 11/29/17 01:57 Temperature 97.8 F 98.6 F 97.8 F Pulse Rate 73 74 76 Respiratory Rate 22 18 16 Blood Pressure 99/43 L 101/44 L Pulse Oximetry 100 100 100 11/29/17 02:00 11/29/17 02:33 11/29/17 04:00 Temperature 97.8 F 98.3 F Pulse Rate 76 75 76 Respiratory Rate 24 20 Blood Pressure 130/47 L 142/52 H Pulse Oximetry 100 100 11/29/17 04:24 11/29/17 04:44 11/29/17 04:54 Temperature Pulse Rate Respiratory Rate 20 18 16 Blood Pressure Pulse Oximetry 100 11/29/17 06:00 Temperature Pulse Rate 80 Respiratory Rate 16 Blood Pressure 128/48 L Pulse Oximetry Intake & Output 11/28/17 11/29/17 11/29/17 18:59 06:59 18:59 Intake Total 1150 / 1150 6928 / 6928 Output Total 855 / 855 1287 / 1287 Balance 295 / 295 5641 / 5641 Intake: IV 1150 / 1150 1000 / 1000 D5W + KCL 20 mEq Inj 1,000 ML @ 1000 / 1000 100 mls/hr IV.CONT .Q10H LISA Rx#:[id number] KCl 40 mEq Premix Inj 40 meq In 100 / 100 100 ml @ 50 mls/hr IV.SIG Q2H PRN Rx#:[id number] KCl Inj 20 MEQ In D5W Inj 1,000 1000 / 1000 ML @ 100 mls/hr IV.SIG .Q10H6M LISA Rx#:[id number] Ancef 2 GM Premix Inj 2 gm In 50 / 50 50 ml @ 100 mls/hr IV.SIG ONCE ONE Rx#:[id number] Anesthesia Amount 3500 / 3500 Other 600 / 600 Rbc As-3 Leukoreduced Unit 100 / 100 [id number] Intake (Blood Product) Amt 0 / 0 1828 / 1828 Plasma Thawed 5 Day Cp2d Unit 343 / 343 [id number] Plasma Thawed 5 Day Cp2d Unit 285 / 285 [id number] Rbc As-3 Leukoreduced Unit 400 / 400 [id number] Rbc As-3 Leukoreduced Unit 0 / 0 400 / 400 [id number] Rbc As-3 Leukoreduced Unit 400 / 400 [id number] Rbc As-3 Leukoreduced Unit 0 / 0 [id number] Output: Urine 575 / 575 450 / 450 Stool 0 / 0 Estimated Blood Loss 400 / 400 Urine Amount (Catheter) 142 / 142 Indwelling Urethral Catheter 142 / 142 Stool Amount (Stoma) 280 / 280 Left Lower Abdomen 280 / 280 Gastric Drainage 50 / 50 Right Lower Quadrant 50 / 50 Wound Drainage 245 / 245 # 1 Abdomen 145 / 145 ABD 100 / 100 Other: Other Intake Source Saline Solution Rbc As-3 Leukoreduced Unit Saline Solution [id number] # Voids 2 Date of Last Bowel Movement 11/28/17 11/28/17 Narrative: Alert and awake; able to write notes to ask questions Cardio: RRR Resp: CTAB Abd: CLARISSE in place with good seal; JOSÉ with sanguinous drainage; G tube to LIWS; J tube to gravity; post op tenderness Ext: mild edema - Urinary Catheter Management Indwelling Urethral Catheter Cath placed during this visit: yes Reason for continuing: Hourly intake/output Insertion date: 11/28/17 Assessment and Plan - Assessment (1) Tracheostomy in place Code(s): Z93.0 - Tracheostomy status Status: Acute (2) Respiratory failure requiring intubation Code(s): J96.90 - Respiratory failure, unspecified, unspecified whether with hypoxia or hypercapnia Status: Acute (3) Anemia, chronic disease Code(s): D63.8 - Anemia in other chronic diseases classified elsewhere Status : Acute (4) Protein-calorie malnutrition, severe Code(s): E43 - Unspecified severe protein-calorie malnutrition Status: Acute (5) Ileus following gastrointestinal surgery Code(s): K91.30 - Postprocedural intestinal obstruction, unspecified as to partial versus complete Status: Acute Onset Date: ~11/21/17 - Plan 72 year old male s/p ex lap; s/p trach for prolonged need for mechanical ventilation -POD1 ex lap; TIA; G tube; J tube -Adjust fluids -Added Ofirmiv -Vent per CCM -s/p transfusion of 3 units PRBCs and 2 FFP -Continue G tube to LIWS -Continue J tube to gravity suction -Continue routine JOSÉ care -Will start TPN this evening -Discussed with Dr. Gallo and Radha SAUNDERS <David Mcgee - Last Filed: 11/29/17 18:17> Physical Exam Vital signs: Vital Signs 11/28/17 21:40 11/28/17 21:45 11/28/17 21:57 Temperature 97.6 F Pulse Rate 71 73 Respiratory Rate 16 16 16 Blood Pressure 91/59 L 93/59 L Pulse Oximetry 100 100 100 11/28/17 22:00 11/28/17 22:15 11/28/17 22:30 Temperature Pulse Rate 72 70 67 Respiratory Rate 16 17 16 Blood Pressure 88/58 L 105/55 L 117/57 L Pulse Oximetry 100 100 100 11/28/17 22:45 11/28/17 23:00 11/28/17 23:15 Temperature Pulse Rate 60 68 70 Respiratory Rate 16 17 19 Blood Pressure 126/60 122/61 117/57 L Pulse Oximetry 100 100 100 11/28/17 23:30 11/28/17 23:44 11/29/17 00:00 Temperature 97.6 F 97.5 F L Pulse Rate 67 74 Respiratory Rate 16 26 H 16 Blood Pressure 102/55 L 78/40 L Pulse Oximetry 100 100 100 11/29/17 00:23 11/29/17 01:00 11/29/17 01:30 Temperature 97.5 F L 97.8 F Pulse Rate 72 73 Respiratory Rate 16 22 Blood Pressure 100/43 L 114/48 L 99/43 L Pulse Oximetry 100 100 11/29/17 01:47 11/29/17 01:57 11/29/17 02:00 Temperature 98.6 F 97.8 F Pulse Rate 74 76 76 Respiratory Rate 18 16 Blood Pressure 101/44 L Pulse Oximetry 100 100 11/29/17 02:33 11/29/17 04:00 11/29/17 04:24 Temperature 97.8 F 98.3 F Pulse Rate 75 76 Respiratory Rate 24 20 20 Blood Pressure 130/47 L 142/52 H Pulse Oximetry 100 100 100 11/29/17 04:44 11/29/17 04:54 11/29/17 06:00 Temperature Pulse Rate 80 Respiratory Rate 18 16 16 Blood Pressure 128/48 L Pulse Oximetry 11/29/17 08:00 11/29/17 10:00 11/29/17 10:10 Temperature 98.3 F Pulse Rate 74 77 Respiratory Rate 15 20 Blood Pressure 132/50 L Pulse Oximetry 100 100 11/29/17 12:00 11/29/17 14:00 11/29/17 16:00 Temperature 98.3 F 98.2 F Pulse Rate 72 76 12 L Respiratory Rate 18 18 Blood Pressure 118/60 134/72 Pulse Oximetry 100 100 11/29/17 16:15 Temperature Pulse Rate Respiratory Rate 29 H Blood Pressure Pulse Oximetry 98 Intake & Output 11/28/17 11/29/17 11/29/17 18:59 06:59 18:59 Intake Total 1150 / 1150 6928 / 6928 100 / 100 Output Total 855 / 855 1287 / 1287 Balance 295 / 295 5641 / 5641 100 / 100 Intake: IV 1150 / 1150 1000 / 1000 100 / 100 D5W + KCL 20 mEq Inj 1,000 ML @ 1000 / 1000 100 mls/hr IV.CONT .Q10H LISA Rx#:[id number] Ofirmev Inj 1,000 mg In 100 ml 100 / 100 @ 400 mls/hr IV.SIG Q6H LISA Rx# :[id number] KCl 40 mEq Premix Inj 40 meq In 100 / 100 100 ml @ 50 mls/hr IV.SIG Q2H PRN Rx#:[id number] KCl Inj 20 MEQ In D5W Inj 1,000 1000 / 1000 ML @ 100 mls/hr IV.SIG .Q10H6M LISA Rx#:[id number] Ancef 2 GM Premix Inj 2 gm In 50 / 50 50 ml @ 100 mls/hr IV.SIG ONCE ONE Rx#:[id number] Anesthesia Amount 3500 / 3500 Other 600 / 600 Rbc As-3 Leukoreduced Unit 100 / 100 [id number] Intake (Blood Product) Amt 0 / 0 1828 / 1828 Plasma Thawed 5 Day Cp2d Unit 343 / 343 [id number] Plasma Thawed 5 Day Cp2d Unit 285 / 285 [id number] Rbc As-3 Leukoreduced Unit 400 / 400 [id number] Rbc As-3 Leukoreduced Unit 0 / 0 400 / 400 [id number] Rbc As-3 Leukoreduced Unit 400 / 400 [id number] Rbc As-3 Leukoreduced Unit 0 / 0 [id number] Output: Urine 575 / 575 450 / 450 Stool 0 / 0 Estimated Blood Loss 400 / 400 Urine Amount (Catheter) 142 / 142 Indwelling Urethral Catheter 142 / 142 Stool Amount (Stoma) 280 / 280 Left Lower Abdomen 280 / 280 Gastric Drainage 50 / 50 Right Lower Quadrant 50 / 50 Wound Drainage 245 / 245 # 1 Abdomen 145 / 145 ABD 100 / 100 Other: Other Intake Source Saline Solution Rbc As-3 Leukoreduced Unit Saline Solution [id number] # Voids 2 Date of Last Bowel Movement 11/28/17 11/28/17 11/28/17 - Urinary Catheter Management Indwelling Urethral Catheter Cath placed during this visit: no Assessment and Plan - Assessment (1) Tracheostomy in place Code(s): Z93.0 - Tracheostomy status Status: Acute (2) Respiratory failure requiring intubation Code(s): J96.90 - Respiratory failure, unspecified, unspecified whether with hypoxia or hypercapnia Status: Acute (3) Anemia, chronic disease Code(s): D63.8 - Anemia in other chronic diseases classified elsewhere Status : Acute (4) Protein-calorie malnutrition, severe Code(s): E43 - Unspecified severe protein-calorie malnutrition Status: Acute (5) Ileus following gastrointestinal surgery Code(s): K91.30 - Postprocedural intestinal obstruction, unspecified as to partial versus complete Status: Acute Onset Date: ~11/21/17 - Plan Stable today POD #1 Pain under better control with Ofirmev Cap J-tube Monitor Hb and lytes Left message with on cell phone.
--- NOTE | 2017-11-29 10:13 | XR ---
EXAM DATE: 11/29/2017 9:25 AM EDT AGE/SEX: 72 years / Male INDICATIONS: Evaluate for ileus. CLINICAL DATA: This is the patient's subsequent encounter. Patient reports that signs and symptoms h ave been present for 4 - 6 days and indicates a pain score of 4/10. MEDICAL/SURGICAL HISTORY: Renal failure, chronic. None. Appendectomy. colostomy COMPARISON: [facility], ABDOMEN 1V KUB, 11/27/2017. . FINDINGS: Stable left ureteral stent with left lower quadrant surgical drain in place. There is also likely a gastrostomy catheter in place. Increased subdiaphragmatic lucency with a continuous diaphragm sign. N ondistended air-filled loops of small bowel in the lower abdomen with air noted throughout the colon. Remainder of the exam is unchanged. CONCLUSION: 1. Free intraperitoneal air. Findings were discussed with Dr. Galol. Patient is status post explorato ry laparotomy. 2. Nonobstructive bowel gas pattern. Electronically signed by: Asad Anderson MD 11/29/2017 10:12 AM EDT
[2017-11-29] MEDS ORDERED: Calcium Chloride Inj 1 GM/10 ML Syringe IV.PUSH ONE ×2 (11:00→12:00)
[2017-11-29] MEDS: Sod Chloride 0.9% Inj 1,000 ML IV.CONT SCH ×3 (12:16→22:38)
[2017-11-29] MEDS ORDERED: Calcium Chloride Inj 1 GM in Sodium Chlor 0.9% Inj 100 ML IV.SIG ONE (12:30)
--- NOTE | 2017-11-29 12:41 | P.PNCC ---
Subjective Subjective Remarks/Hospital Course: This is a 72 year old male with history of type 2 diabetes, hypertension, dyslipidemia, chronic kidney disease stage III, ankylosing spondylitis, esophageal stricture s/p dilatation, diverticulitis, peritonitis, history of small bowel obstruction, colon resection x2, who was admitted to the hospital with one-week history of abd distension, constipation, and cramps. Pt tried to mange this at home, as he is familiar with symptoms. Has history of multiple bowel obstructions and multiple surgeries in the past. CT of abdomen/ pelvis showed moderately dilated large and small bowel, concentric stricturing in the sigmoid colon. Gastroenterology and general surgery were consulted. Patient was taken today to the OR by Dr. Mcgee, patient underwent exploratory laparotomy, Lysis of adhesions for dense adhesions involving small and large bowel, sigmoid colon resection with end colostomy and Holcomb's pouch. There was stricture at previous surgical site in sigmoid colon. EBL 300 ml, urine output was adequate. During the ex lap patient's sustained ureteral injury which required ureteroureteral anastomosis over stent by Dr. Page. Postop patient was moved to the PACU where his chest x-ray showed small possible left lateral pneumothorax. ABG showed a pH of 7.29/41/99 BE -6.7. I evaluated the patient in the ICU. Patient is intubated sedated with Precedex. He is tachycardic and borderline hypotensive. Additional 500 mL of fluid bolus given , 1 amp of bicarb. Received total 2.1 L in the OR. Urine output is adequate, approximately 75 ml per hour post op. With left-sided tiny pneumothorax (most likely with from central line placement in OR), will attempt CPAP trials for possible extubation. 10/09: Breathing is moderately labored to observe but the patient states he is comfortable. His major complaint is chronic back pain. Urine output is marginal but he remains well-perfused. Colostomy stoma is pink. 10/10: Labored breathing overnight. Remains on quarter normal saline at 125 cc hours and Clinimix E 4.25/25 at 83 cc an hour. Chest x-ray appears with bilateral pulmonary infiltrates. CVP is 8. Greater than 50% variation IVC by ultrasound. Bedside echocardiogram no acute findings. Patient currently with some pleuritic chest pain worse with deep inspiration. EKG currently pending. 8 run beat of V. tach overnight. Potassium magnesium within normal limits. 10/11: Afebrile. FiO2 requirements increased overnight currently at 60%. Chest x-ray revealed pulmonary edema bilaterally. Troponin downward trending. Noted sodium elevated 154. Will remove sodium from TPN. Norepinephrine initiated overnight currently at 8 mcg/min. Nitro paste discontinued. Holding parameters for beta corby 10/12: remains afebrile. back on levophed this AM at 5 mcg/min. also remains tachycardic in the 100s. sodium remains elevated despite removal of nacl from TPN. 10/13: T-max 100.4. Desaturated overnight requiring PEEP increased to 10 currently at 8. FiO2 down to 45%. Appears uncomfortable on the ventilator. Abdomen slightly more distended. Positive output from ostomy.. Transfusing 1 unit PRBCs due to acute coronary syndrome to keep above a. Recheck along with electrolytes active bleeding in place. CT abdomen/pelvis ordered. 10/14: Copious secretions overnight. PEEP at 7 FiO2 50%. Abdominal/pelvis CT revealed bilateral lobar pneumonia pelvic read as gallstone ileus but not likely is patient with copious stool output from ostomy. Did discuss with Dr. Mcgee. Antibiotic coverage broadened. Pancultured yesterday looks like his underlying pneumonia. Will transfuse 1 unit PRBCs today per cardiology request to maintain hemoglobin around 9 for acute coronary syndrome. Diuresis postprocedure and replace electrolytes aggressively. TPN will be weaned/ discontinued today after tube feeds at 40 cc an hour 10/15: t max 100.7 overnight. cultures NGTD. fio2 improving. secretions are somewhat better. 10/16: no improvements. afebrile. failed SBT after 10 minutes for tachypnea and respiratory distress. 10/17: failed sbt again for significant secretions and respiratory distress. only lasting about 10 min. may require tracheostomy. 10/18: much more awake and interactive. still has significant secretions. on SBT for longer today, but with active coronary ischemia, very high risk if he fails extubation. plan for trach if he remains intubated through the weekend. 10/19: still failing SBT. dressings changed today. clinically improving, but very weak and slow progress. 10/20: again failing SBT for copious secretions. was OOB to chair today. likely will need trach. 10/21: failed SBT for tachypnea, RR > 40. discussed [address] Dr[address] Mcgee: plan for trach tomorrow. discussed with cardiology service: they will likely medically manage his coronary artery disease without [facility] intervention. this is more of a reason to pursue trach, to prevent coronary ischemia that would come with trial of extubation first. 10/22: Plan for percutaneous tracheostomy at bedside 11 AM. Arousable on the ventilator and following commands. Currently afebrile. N.p.o. status. 10/23: Status post percutaneous tracheostomy 10/22 without complication. Continues to ooze from around tracheostomy site. Will hold enoxaparin for today. Tube feeds back at goal. Denies abdominal pain. Positive flatus from ostomy site. 10/24: Normal stool coming from well-perfused ostomy. Spontaneous breathing trials with tachypnea and mild labor. Chest x-ray with chronic interstitial changes and small lung volumes. 10/25: A little bit stronger on spontaneous breathing trials today. Pressure support settings 18/10. Tolerating tube feeds. 10/26: He is tolerating a mild reduction and mean airway pressure and end expiratory pressure. Continues to look acceptably comfortable during spontaneous breathing trials. 10/27: We needed to increase PEEP again last evening. 10/28: Spontaneous breathing trial at 8/8 this morning and doing quite well. Tube feedings on hold per surgery. Patient required low dose Xanax last night for anxiety. 10/29: intermittent SBTs. will trial t-piece today. no significant change. needs LTAC level care. 10/30: t-piece trials. ostomy working. advancing trickle tube feeds per surgery. 10/31: patient having gout flair and significantly painful. however, steroids contraindicated, and NSAIDS also contraindicated with concern over renal dysfunction in the setting of critical illness. still failing to separate from mechanical ventilation. really needs LTAC level care for pulmonary rehab. 11/01: NG tube placed to suction with 700 cc of gastric contents suctioned out overnight. Patient remains on mechanical ventilation with tracheostomy on CPAP with pressure support. Failed T piece yesterday. 11/02: Remains on mechanical ventilation via tracheostomy. 11/03: Remains on mechanical ventilation via tracheostomy. CPAP trials daily. T -piece as tolerated. 11/04: On mechanical ventilation via tracheostomy. Daily CPAP trials. 11/05, 11/06: Remains on mechanical ventilation via tracheostomy. Daily CPAP trials ongoing. 11/07: Worsening respiratory status. Placed back on PRVC mode mechanical ventilation last night. Significant sick pulmonary secretions noted. No BMs via colostomy. Chest x-ray done this morning shows worsening infiltrates more on the right suspicious for aspiration. KUB done this morning shows an ileus. Already placed on Zosyn on 11/07 which should cover for pneumonia. 11/08: Resting on mechanical ventilation via tracheostomy. Wound culture from incision site growing Pseudomonas 11/09: Remains on mechanical ventilation via tracheostomy. Wound culture and sputum both growing Pseudomonas. 11/10: Is on mechanical ventilation via tracheostomy. Daily CPAP trials. 11/11: Remains on mechanical ventilation via tracheostomy. Really CPAP trials ongoing. 11/12 No events overnight. On ventilator via trach. On CPAP with PS 15, PEEP:5 and FIO2 40%. Afebrile. 11/13 Patient denies complaint. Wants NGT out but understand rationale for continuing. On CPAP 15/5. Tolerating tube feeds. Afebrile. Subjective: 11/14 On CPAP 15/5 since yesterday. Able to wean to 12/5 but weaning beyond that produces tachypnea. Was out of bed to chair for a couple of hours. 11/15: Remains on CPAP via tracheostomy. Had problems with secretions last night. Adding scheduled nebulizer treatments and Mucomyst to mobilize secretions. 11/16: Resting comfortably on mechanical ventilation via tracheostomy. On CPAP trial 11/17: Afebrile. Tolerating tube feeds at goal. Placed on ventilator yesterday secondary to worsening subjective shortness of breath. We will reattempt CPAP trial again today. Positive BM.. 11/18: Afebrile. We will reattempt CPAP trial again today. Check chest x-ray in a.m. Continue with pulmonary toilet. Anxious. 11/19: Not tolerating CPAP trials well. Will discuss among consultants ways to manage his anxiety. 11/20: Brief episodes of apnea overnight. Anxiety a little better controlled this morning. 11/21: Patient vomited a large amount of tube feed this morning. After this he appeared comfortable although a little anxious. 11/22: Feels a little better this morning but abdomen remains moderately distended. Good stoma output. Surgical service is aware and Dr. Shepard saw the patient last evening. KUB reviewed. Potassium replacement underway now. 11/23: Patient remains in poorly compensated diastolic heart failure. Our best efforts to gingerly diuresis and has just resulted in worsening renal function. His medical therapy is maximized for heart failure with acceptable pulse rate control and afterload reduction. Inability to wean completely from the ventilator is closely associated persistent pulmonary edema. 11/24: Breathing quite comfortably this morning on CPAP however requiring 15 cm of water pressure support. Despite congested chest x-ray his lungs are fairly clear to auscultation. He has been started on TPN and his GI tract To low intermittent suction through an NG tube. The abdomen is remarkably soft and not distended. The colostomy does have output. 11/25: He has finally progressed to T piece trials and so far he is comfortable. We continue to adjust electrolyte replacement because of nasogastric losses. His general demeanor is much improved today and he is much less anxious. TPN is infusing as we rest his bowel. SUBJECTIVE 11/26: more gastric distension and vomiting this AM. tube feeds stopped and NGT to LIWS with 300cc gastric contents removed. general surgery notified. will ultimately need permanent enteral access, and likely G/J at this point. no changes. still resting on vent overnight. very weak and deconditioned. 11/27: Continues to have episodes of vomiting, continues to have gastric distention. KUB shows ileus. Will start on scheduled Reglan, replaced potassium. Requested PICC line for TPN and electrolyte replacement. Dr. Mcgee planning for OR with ex lap and lysis of adhesions tomorrow 11/28: Awake alert on the ventilator today. Nausea vomiting is improved. Plan for OR today with Dr. Mcgee with TIA and G-J tube placement 11/29: Currently lying in bed on CPAP. Status post exploratory laparotomy, Lysis of adhesions, greater than 1 hour, Small bowel resection and GJ tube placement. Complaints of postop pain I will add morphine for breakthrough pain. Start TPN today per general surgery. Calcium low getting replaced Objective Vital Signs / I&O: Vital Signs 11/28/17 14:00 11/28/17 14:10 11/28/17 14:42 Temperature 98.6 F Pulse Rate 64 64 64 Respiratory Rate 22 Blood Pressure 106/59 L Pulse Oximetry 100 11/28/17 15:00 11/28/17 17:59 11/28/17 21:40 Temperature 98.3 F 97.2 F L 97.6 F Pulse Rate 66 61 71 Respiratory Rate 17 16 Blood Pressure 112/56 L 107/60 91/59 L Pulse Oximetry 100 100 100 11/28/17 21:45 11/28/17 21:57 11/28/17 22:00 Temperature Pulse Rate 73 72 Respiratory Rate 16 16 16 Blood Pressure 93/59 L 88/58 L Pulse Oximetry 100 100 100 11/28/17 22:15 11/28/17 22:30 11/28/17 22:45 Temperature Pulse Rate 70 67 60 Respiratory Rate 17 16 16 Blood Pressure 105/55 L 117/57 L 126/60 Pulse Oximetry 100 100 100 11/28/17 23:00 11/28/17 23:15 11/28/17 23:30 Temperature 97.6 F Pulse Rate 68 70 67 Respiratory Rate 17 19 16 Blood Pressure 122/61 117/57 L 102/55 L Pulse Oximetry 100 100 100 11/28/17 23:44 11/29/17 00:00 11/29/17 00:23 Temperature 97.5 F L 97.5 F L Pulse Rate 74 72 Respiratory Rate 26 H 16 16 Blood Pressure 78/40 L 100/43 L Pulse Oximetry 100 100 100 11/29/17 01:00 11/29/17 01:30 11/29/17 01:47 Temperature 97.8 F 98.6 F Pulse Rate 73 74 Respiratory Rate 22 18 Blood Pressure 114/48 L 99/43 L Pulse Oximetry 100 100 11/29/17 01:57 11/29/17 02:00 11/29/17 02:33 Temperature 97.8 F 97.8 F Pulse Rate 76 76 75 Respiratory Rate 16 24 Blood Pressure 101/44 L 130/47 L Pulse Oximetry 100 100 11/29/17 04:00 11/29/17 04:24 11/29/17 04:44 Temperature 98.3 F Pulse Rate 76 Respiratory Rate 20 20 18 Blood Pressure 142/52 H Pulse Oximetry 100 100 11/29/17 04:54 11/29/17 06:00 11/29/17 08:00 Temperature 98.3 F Pulse Rate 80 74 Respiratory Rate 16 16 15 Blood Pressure 128/48 L 132/50 L Pulse Oximetry 100 11/29/17 10:00 11/29/17 10:10 Temperature Pulse Rate 77 Respiratory Rate 20 Blood Pressure Pulse Oximetry 100 Intake & Output 11/28/17 11/29/17 11/29/17 18:59 06:59 18:59 Intake Total 1150 / 1150 6928 / 6928 Output Total 855 / 855 1287 / 1287 Balance 295 / 295 5641 / 5641 Intake: IV 1150 / 1150 1000 / 1000 D5W + KCL 20 mEq Inj 1,000 ML @ 1000 / 1000 100 mls/hr IV.CONT .Q10H [facility] Rx#:[id number] KCl 40 mEq Premix Inj 40 meq In 100 / 100 100 ml @ 50 mls/hr IV.SIG Q2H PRN Rx#:[id number] KCl Inj 20 MEQ In D5W Inj 1,000 1000 / 1000 ML @ 100 mls/hr IV.SIG .Q10H6M [facility] Rx#:[id number] Ancef 2 GM Premix Inj 2 gm In 50 / 50 50 ml @ 100 mls/hr IV.SIG ONCE ONE Rx#:[id number] Anesthesia Amount 3500 / 3500 Other 600 / 600 Rbc As-3 Leukoreduced Unit 100 / 100 [id number] Intake (Blood Product) Amt 0 / 0 1828 / 1828 Plasma Thawed 5 Day Cp2d Unit 343 / 343 [id number] Plasma Thawed 5 Day Cp2d Unit 285 / 285 [id number] Rbc As-3 Leukoreduced Unit 400 / 400 [id number] Rbc As-3 Leukoreduced Unit 0 / 0 400 / 400 [id number] Rbc As-3 Leukoreduced Unit 400 / 400 [id number] Rbc As-3 Leukoreduced Unit 0 / 0 [id number] Output: Urine 575 / 575 450 / 450 Stool 0 / 0 Estimated Blood Loss 400 / 400 Urine Amount (Catheter) 142 / 142 Indwelling Urethral Catheter 142 / 142 Stool Amount (Stoma) 280 / 280 Left Lower Abdomen 280 / 280 Gastric Drainage 50 / 50 Right Lower Quadrant 50 / 50 Wound Drainage 245 / 245 # 1 Abdomen 145 / 145 ABD 100 / 100 Other: Other Intake Source Saline Solution Rbc As-3 Leukoreduced Unit Saline Solution [id number] # Voids 2 Date of Last Bowel Movement 11/28/17 11/28/17 11/28/17 Result Diagrams: 11/29/17 05:56 11/29/17 05:56 Objective Remarks: Objective Remarks GENERAL: 72-year-old male currently on CPAP via tracheostomy. Complains of 7 out of 10 pain SKIN: Warm and dry. No rash HEAD: Atraumatic. Normocephalic. EYES: Pupils equal round and reactive, 2 mm bilaterally. ENT: Oral cavity is moist. NG tube in left nares to low intermittent suction. NECK: Trachea midline. Supple. Tracheostomy site clean and dry. CARDIOVASCULAR: RRR. No JVD. RESPIRATORY: Equal chest rise. Symmetrical excursion. Few crackles in bases, otherwise clear. GASTROINTESTINAL: Abdomen mildly distended, mild tenderness. CLARISSE in place, JOSÉ with sanguinous drainage; New G-J tube to gravity MUSCULOSKELETAL: No edema lower extremities. Well-perfused. Warm. NEUROLOGICAL: Patient is awake alert follows commands. Moving all 4 extremities spontaneously. Communicates with head nod Assessment and Plan - Problem List (1) Chronic respiratory failure Code(s): J96.10 - Chronic respiratory failure, unspecified whether with hypoxia or hypercapnia Status: Chronic (2) Large bowel obstruction Code(s): K56.609 - Unspecified intestinal obstruction, unspecified as to partial versus complete obstruction Status: Resolved (3) STEMI (ST elevation myocardial infarction) Code(s): I21.3 - ST elevation (STEMI) myocardial infarction of unspecified site Status: Resolved (4) Diabetes Code(s): E11.9 - Type 2 diabetes mellitus without complications Status: Acute (5) Wound dehiscence, surgical Code(s): T81.31XA - Disruption of external operation (surgical) wound, not elsewhere classified, initial encounter Status: Acute (6) Dysphagia Code(s): R13.10 - Dysphagia, unspecified Status: Acute (7) Protein-calorie malnutrition, severe Code(s): E43 - Unspecified severe protein-calorie malnutrition Status: Acute (8) Systolic heart failure Code(s): I50.20 - Unspecified systolic (congestive) heart failure Status: Acute (9) Colostomy in place Code(s): Z93.3 - Colostomy status Status: Acute - Assessment and Plan Plan: A/P Assessment and Plan NEURO/Psych: 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 Out of bed to chair with assist daily. Continue with PT and OT. RESP: Acute hypoxic and hypercarbic respiratory failure- now chronic. Iatrogenic left pneumothorax- resolved. Continue with CPAP weaning. Albuterol/ipratropium aerosols every 6 hours while awake with albuterol aerosols every 2 hours as needed dyspnea Pulm toilet, trach care. Status post percutaneous tracheostomy bedside - Dr. Mcgee Keep head of the bed elevated 30 Diastolic heart failure. Continues to have problems with stamina on spontaneous ventilation trials. Still requiring elevated pressure support at 15 while on spontaneous breathing trials. Tolerated T piece trials. 11/25. continue daily t-piece trials starting back 11/30 CV: Coronary artery disease Post operative STEMI Acute systolic heart failure Essential hypertension Hyperlipidemia Aspirin 81 mg daily, clopidogrel 75 mg p.o. daily, currently on hold perioperatively BP controlled, decrease metoprolol to 50 mg p.o. twice daily and initiate lisinopril 5 mg p.o. daily. Adjust based on response. Continue atorvastatin 20 mg at night for dyslipidemia Holding amlodipine 10 mg daily 2D echocardiogram 05/29 revealed EF 50-55%. Grade 1 diastolic dysfunction. Pulmonary arterial pressure 34 mmHg Repeat revealed EF of 40-45% Followed by cardiology/Dr. Ellison: Dr. Villa discussed with team 10/21, and they recommended medical management. Continued conservative management recommended 11/02. Hold diuretics due to worsening renal function. Gentle hydration started to compensate for nasogastric tube losses GI: 10/08 Postop s/p ex-lap, TIA, Sigmoid colon resection with end colostomy and Holcomb's pouch 11/28 status post ex lap, lysis of adhesiona, small bowel resection, GJ tube placement Recurrent colonic obstruction, small bowel obstruction Postop ileus vs SBO History of esophageal stricture status post dilatation History of small bowel obstruction Gastroesophageal reflux disease History of diverticulitis Hypoalbuminemia -Postop management per Dr. Mcgee. 11/28 status post ex lap, lysis of adhesiona , small bowel resection, GJ tube placement -Reglan for ileus -TPN today. colostomy in place -Pantoprazole 40 mg IV daily for GI prophylaxis. On omeprazole 20 mg daily at home Renal/: 10/08 Postop s/p Ureteroureteral anastomosis for ureteral injury Chronic kidney disease stage III a -Monitor renal function, I/O's, electrolytes replacement per protocol -Removal of double-J stent 6 weeks from operative procedure outpatient setting ID: Pneumonia - resolved Wound culture from abdominal incision +pseudomonas. -s/p full course of zosyn (started initially 11/06) Sputum cx 11/07: Pseudomonas, repeat sputum cx - resolved Wound cx 08/06: Pseudomonas - resolved Wound culture from incision site(11/06) growing Pseudomonas, sputum Gram stain and culture(11/07) growing pansenstive Pseudomonas -Discontinued levofloxacin 10/14. s/p course vancomycin and cefepime, 10/14-10/20 Sputum, blood cultures 2 10/13 NGTD Urine Legionella and pneumococcal urinary antigens 10/13 negative HEME: Normocytic anemia Thrombocytosis -Monitor CBC, CMP, coags -s/p 1 unit PRBCs to be transfused on 11/09 for hemoglobin 7.1 ENDO: Diabetes mellitus type 2 Severe hyperglycemia of critical illness Hyperglycemia History of gout Holding metformin 1000 mg by mouth twice daily -Glucose not at target despite 40 units coverage with sliding scale. Increase detemir further to 15 units q12h. -sliding scale insulin/NovoLog high regimen q6h MSK History of ankylosing spondylosis Holding denosumab 60 mg subcu every 18 days Holding cholecalciferol 4000 units p.o. daily PT evaluate and treat PROPH: -Bilateral lower extremity SCDs. Lovenox 40 subcu daily. On Protonix 40 mg IV for stress ulcer prophylaxis. LINES: - piv. RUE PICC placed 11/1717 Overall impression: Patient has chronic diastolic heart failure but aggressive diuresis results in worsening renal function. Possible persistent problems with aspiration contributing to bilateral infiltrates. Transfer order to intermediate vent unit 4th floor fountain when bed available Level 2 (8) Systolic heart failure Qualifiers: Heart failure chronicity: acute Qualified Code(s): I50.21 - Acute systolic ( congestive) heart failure
[2017-11-29] MEDS: Multivitamin Inj 5 ML, Folic Acid Inj 0.5 MG in AA 4.25 %/D25W - Electrolytes 1,000 ML IV.SIG SCH (20:30)
[2017-11-29] MEDS ORDERED: *Labetalol HCl Inj 100 MG/20 ML Vial PERIprocedural Use ONLY IV.PUSH PRN (21:57)
[2017-11-30] MEDS: Insulin NovoLOG Aspart Correctional Sugar Inj SQ SCH ×6 (00:08→19:48)
[2017-11-30] MEDS: Labetalol HCl Inj 100 MG/20 ML Vial IV.PUSH PRN ×4 (01:18→18:53)
[2017-11-30] MEDS: Oral Hygiene Kit OROPHARYNG SCH ×3 (04:34→15:06)
[2017-11-30 05:01] LABS: Baso % (Auto) 0.3 % (0.0-2.0); Eos # (Auto) 0.3 th/mm3 (0.0-0.4); Eos % (Auto) 2.4 % (0.0-4.0); Hematocrit 23.4 % (39.0-51.0); Lymph # (Auto) 0.6 th/mm3 (1.0-4.8); Lymph % (Auto) 4.9 % (9.0-44.0); Mean Corpuscular HGB Conc 34.1 % (32.0-36.0); Mean Corpuscular Hemoglobin 28.9 pg (27.0-34.0); Mean Corpuscular Volume 84.9 fL (80.0-100.0); Mean Platelet Volume 8.8 fL (7.0-11.0); Mono # (Auto) 1.2 th/mm3 (0.0-0.9); Mono % (Auto) 10.4 % (0.0-8.0); Neut # (Auto) 9.7 th/mm3 (1.8-7.7); Platelet Count 233 th/mm3 (150-450); Red Blood Count 2.76 mil/mm3 (4.50-5.90); Red Cell Distribution Width 16.7 % (11.6-17.2); White Blood Count 11.9 th/mm3 (4.0-11.0)
[2017-11-30 05:45] LABS: Albumin 1.7 g/dL (3.4-5.0); Calcium 7.4 mg/dL (8.5-10.1); Carbon Dioxide 24.7 meq/L (21.0-32.0); Potassium 3.7 meq/L (3.5-5.1); Total Protein 5.8 g/dL (6.4-8.2)
[2017-11-30] MEDS: Artificial Tears Opth Drops 15 ML Bottle EACH EYE SCH ×3 (05:56→22:13)
[2017-11-30] MEDS: Chlorhexidine Gluconate 0.12% Liq 15 ML UDC SWISH-SPIT SCH ×2 (09:15→21:07)
[2017-11-30] MEDS: Sodium Hypochlorite 0.125% Top Soln 500 ML Bottle TOPICAL SCH ×2 (09:16→22:06)
[2017-11-30] MEDS: Carvedilol 6.25 MG Tablet PO SCH ×2 (09:16→21:07)
[2017-11-30] MEDS: Heparin Central Flush 100 UNIT/ML 5 ML Vial IV.FLUSH SCH (09:16)
[2017-11-30] MEDS: Allopurinol 300 MG Tablet PO SCH (09:17)
[2017-11-30] MEDS: Lisinopril 5 MG Tablet PO SCH (09:17)
[2017-11-30] MEDS: Insulin Detemir Inj 1,000 UNIT/10 ML Vial SQ SCH ×2 (09:31→21:00)
[2017-11-30] MEDS: Morphine Inj 4 MG/ML Vial IV.PUSH PRN ×5 (10:05→23:41)
[2017-11-30] MEDS ORDERED: Ketorolac Inj 30 MG/ML (IVP) Vial IV.PUSH ONE (10:30)
[2017-11-30] MEDS ORDERED: Potassium Chlor 40 mEq Premix 40 MEQ/100 ML PIGGYBACK IV.SIG ONE (10:30)
--- NOTE | 2017-11-30 10:44 | P.DIET ---
Nutritional Evaluation Type of nutrition evaluation: follow-up Nutrition consult regarding: Tube Feeding Screening comments: NEW TPN MDC for malnutrition received 11/27 Objective - Diagnosis Partial Bowel Obstruction - Objective % IBW: 116 Body Weight Used for Calculations: Actual (72 kg) Energy Needs - Lower Range (kCal/kg): 28 Energy Needs - Upper Range (kCal/kg): 32 Lower Limit kCal/kg (kCals): 2,013 Upper Limit kCal/kg (kCals): 2,301 Lower Limit Protein Factor (Grams per Kg): 1.0 Upper Limit Protein Factor (Grams per Kg): 1.5 Lower Protein Needs (Protein): 72 Upper Protein Needs (Protein): 108 Dietitian Reviewed in Medical Record: Curent medications, Intake & Output, Labs , TPN/PPN Diet Order: NPO Objective Comments: PMH: Esophageal dilation, GOUT, HT, Hyperlipidemia, GERD, Arthritis, ankylosing spondylitis, DM, CKD stage III, peritonitis, colon resection x 2, diverticulitis GLU 251 LBM 11/28 CBW 69.6 kg Feeding - Current TPN/PPN Current TPN: Clinimix E 4.25/25 Current TPN/PPN Rate (ml/hr): 83 Amino Acid and Dextrose Current kCals Provided: 2,040 Amino Acid and Dextrose Current Protein Provided: 85 Current Lipid Concentration: 20% Current Lipids Rate: 250 mls daily over 8 hours Current kCal Provided by TPN/PPN: 2,540 Assessment Assessment: Consult for malnutrition acknowledged. New TPN identified on TPN report review. Pt has had vomiting of TF and has been unable to tolerate goal. Significant weight loss since admission noted. He is currently npo and TPN has been initiated. Pt is s/p TIA and g/j-t placement. To meet needs with TPN recommend decrease current rate to 70 mls/hr with the same lipids to provide a total of 2214 kcals, and 71 gms protein. Labs reviewed: elevated glucose noted. When able , recommend TF of Vital 1.5 @ 60 mls/hr to provide 2160 kcals, 97 gms protein and 62254 mls of free water. Recommendations: For TPN: Clinimix E 4.25/25 @ 70 mls/hr Lipids: 20% lipids 250 mls/day For TF: Vital 1.5 @ 60 mls/hr goal when able Dietitian to Monitor: Lab values, Intake & Output, Tube feeding tolerance, TPN/ PPN tolerance, Weight change, Medical course
--- NOTE | 2017-11-30 11:31 | P.PNCC ---
Subjective Subjective Remarks/Hospital Course: This is a 72 year old male with history of type 2 diabetes, hypertension, dyslipidemia, chronic kidney disease stage III, ankylosing spondylitis, esophageal stricture s/p dilatation, diverticulitis, peritonitis, history of small bowel obstruction, colon resection x2, who was admitted to the hospital with one-week history of abd distension, constipation, and cramps. Pt tried to mange this at home, as he is familiar with symptoms. Has history of multiple bowel obstructions and multiple surgeries in the past. CT of abdomen/ pelvis showed moderately dilated large and small bowel, concentric stricturing in the sigmoid colon. Gastroenterology and general surgery were consulted. Patient was taken today to the OR by Dr. Mcgee, patient underwent exploratory laparotomy, Lysis of adhesions for dense adhesions involving small and large bowel, sigmoid colon resection with end colostomy and Holcomb's pouch. There was stricture at previous surgical site in sigmoid colon. EBL 300 ml, urine output was adequate. During the ex lap patient's sustained ureteral injury which required ureteroureteral anastomosis over stent by Dr. Page. Postop patient was moved to the PACU where his chest x-ray showed small possible left lateral pneumothorax. ABG showed a pH of 7.29/41/99 BE -6.7. I evaluated the patient in the ICU. Patient is intubated sedated with Precedex. He is tachycardic and borderline hypotensive. Additional 500 mL of fluid bolus given , 1 amp of bicarb. Received total 2.1 L in the OR. Urine output is adequate, approximately 75 ml per hour post op. With left-sided tiny pneumothorax (most likely with from central line placement in OR), will attempt CPAP trials for possible extubation. 10/09: Breathing is moderately labored to observe but the patient states he is comfortable. His major complaint is chronic back pain. Urine output is marginal but he remains well-perfused. Colostomy stoma is pink. 10/10: Labored breathing overnight. Remains on quarter normal saline at 125 cc hours and Clinimix E 4.25/25 at 83 cc an hour. Chest x-ray appears with bilateral pulmonary infiltrates. CVP is 8. Greater than 50% variation IVC by ultrasound. Bedside echocardiogram no acute findings. Patient currently with some pleuritic chest pain worse with deep inspiration. EKG currently pending. 8 run beat of V. tach overnight. Potassium magnesium within normal limits. 10/11: Afebrile. FiO2 requirements increased overnight currently at 60%. Chest x-ray revealed pulmonary edema bilaterally. Troponin downward trending. Noted sodium elevated 154. Will remove sodium from TPN. Norepinephrine initiated overnight currently at 8 mcg/min. Nitro paste discontinued. Holding parameters for beta corby 10/12: remains afebrile. back on levophed this AM at 5 mcg/min. also remains tachycardic in the 100s. sodium remains elevated despite removal of nacl from TPN. 10/13: T-max 100.4. Desaturated overnight requiring PEEP increased to 10 currently at 8. FiO2 down to 45%. Appears uncomfortable on the ventilator. Abdomen slightly more distended. Positive output from ostomy.. Transfusing 1 unit PRBCs due to acute coronary syndrome to keep above a. Recheck along with electrolytes active bleeding in place. CT abdomen/pelvis ordered. 10/14: Copious secretions overnight. PEEP at 7 FiO2 50%. Abdominal/pelvis CT revealed bilateral lobar pneumonia pelvic read as gallstone ileus but not likely is patient with copious stool output from ostomy. Did discuss with Dr. Mcgee. Antibiotic coverage broadened. Pancultured yesterday looks like his underlying pneumonia. Will transfuse 1 unit PRBCs today per cardiology request to maintain hemoglobin around 9 for acute coronary syndrome. Diuresis postprocedure and replace electrolytes aggressively. TPN will be weaned/ discontinued today after tube feeds at 40 cc an hour 10/15: t max 100.7 overnight. cultures NGTD. fio2 improving. secretions are somewhat better. 10/16: no improvements. afebrile. failed SBT after 10 minutes for tachypnea and respiratory distress. 10/17: failed sbt again for significant secretions and respiratory distress. only lasting about 10 min. may require tracheostomy. 10/18: much more awake and interactive. still has significant secretions. on SBT for longer today, but with active coronary ischemia, very high risk if he fails extubation. plan for trach if he remains intubated through the weekend. 10/19: still failing SBT. dressings changed today. clinically improving, but very weak and slow progress. 10/20: again failing SBT for copious secretions. was OOB to chair today. likely will need trach. 10/21: failed SBT for tachypnea, RR > 40. discussed with Dr[address] Mcgee: plan for trach tomorrow. discussed with cardiology service: they will likely medically manage his coronary artery disease without [facility] intervention. this is more of a reason to pursue trach, to prevent coronary ischemia that would come with trial of extubation first. 10/22: Plan for percutaneous tracheostomy at bedside 11 AM. Arousable on the ventilator and following commands. Currently afebrile. N.p.o. status. 10/23: Status post percutaneous tracheostomy 10/22 without complication. Continues to ooze from around tracheostomy site. Will hold enoxaparin for today. Tube feeds back at goal. Denies abdominal pain. Positive flatus from ostomy site. 10/24: Normal stool coming from well-perfused ostomy. Spontaneous breathing trials with tachypnea and mild labor. Chest x-ray with chronic interstitial changes and small lung volumes. 10/25: A little bit stronger on spontaneous breathing trials today. Pressure support settings 18/10. Tolerating tube feeds. 10/26: He is tolerating a mild reduction and mean airway pressure and end expiratory pressure. Continues to look acceptably comfortable during spontaneous breathing trials. 10/27: We needed to increase PEEP again last evening. 10/28: Spontaneous breathing trial at 8/8 this morning and doing quite well. Tube feedings on hold per surgery. Patient required low dose Xanax last night for anxiety. 10/29: intermittent SBTs. will trial t-piece today. no significant change. needs LTAC level care. 10/30: t-piece trials. ostomy working. advancing trickle tube feeds per surgery. 10/31: patient having gout flair and significantly painful. however, steroids contraindicated, and NSAIDS also contraindicated with concern over renal dysfunction in the setting of critical illness. still failing to separate from mechanical ventilation. really needs LTAC level care for pulmonary rehab. 11/01: NG tube placed to suction with 700 cc of gastric contents suctioned out overnight. Patient remains on mechanical ventilation with tracheostomy on CPAP with pressure support. Failed T piece yesterday. 11/02: Remains on mechanical ventilation via tracheostomy. 11/03: Remains on mechanical ventilation via tracheostomy. CPAP trials daily. T -piece as tolerated. 11/04: On mechanical ventilation via tracheostomy. Daily CPAP trials. 11/05, 11/06: Remains on mechanical ventilation via tracheostomy. Daily CPAP trials ongoing. 11/07: Worsening respiratory status. Placed back on PRVC mode mechanical ventilation last night. Significant sick pulmonary secretions noted. No BMs via colostomy. Chest x-ray done this morning shows worsening infiltrates more on the right suspicious for aspiration. KUB done this morning shows an ileus. Already placed on Zosyn on 11/07 which should cover for pneumonia. 11/08: Resting on mechanical ventilation via tracheostomy. Wound culture from incision site growing Pseudomonas 11/09: Remains on mechanical ventilation via tracheostomy. Wound culture and sputum both growing Pseudomonas. 11/10: Is on mechanical ventilation via tracheostomy. Daily CPAP trials. 11/11: Remains on mechanical ventilation via tracheostomy. Really CPAP trials ongoing. 11/12 No events overnight. On ventilator via trach. On CPAP with PS 15, PEEP:5 and FIO2 40%. Afebrile. 11/13 Patient denies complaint. Wants NGT out but understand rationale for continuing. On CPAP 15/5. Tolerating tube feeds. Afebrile. Subjective: 11/14 On CPAP 15/5 since yesterday. Able to wean to 12/5 but weaning beyond that produces tachypnea. Was out of bed to chair for a couple of hours. 11/15: Remains on CPAP via tracheostomy. Had problems with secretions last night. Adding scheduled nebulizer treatments and Mucomyst to mobilize secretions. 11/16: Resting comfortably on mechanical ventilation via tracheostomy. On CPAP trial 11/17: Afebrile. Tolerating tube feeds at goal. Placed on ventilator yesterday secondary to worsening subjective shortness of breath. We will reattempt CPAP trial again today. Positive BM.. 11/18: Afebrile. We will reattempt CPAP trial again today. Check chest x-ray in a.m. Continue with pulmonary toilet. Anxious. 11/19: Not tolerating CPAP trials well. Will discuss among consultants ways to manage his anxiety. 11/20: Brief episodes of apnea overnight. Anxiety a little better controlled this morning. 11/21: Patient vomited a large amount of tube feed this morning. After this he appeared comfortable although a little anxious. 11/22: Feels a little better this morning but abdomen remains moderately distended. Good stoma output. Surgical service is aware and Dr. Shepard saw the patient last evening. KUB reviewed. Potassium replacement underway now. 11/23: Patient remains in poorly compensated diastolic heart failure. Our best efforts to gingerly diuresis and has just resulted in worsening renal function. His medical therapy is maximized for heart failure with acceptable pulse rate control and afterload reduction. Inability to wean completely from the ventilator is closely associated persistent pulmonary edema. 11/24: Breathing quite comfortably this morning on CPAP however requiring 15 cm of water pressure support. Despite congested chest x-ray his lungs are fairly clear to auscultation. He has been started on TPN and his GI tract To low intermittent suction through an NG tube. The abdomen is remarkably soft and not distended. The colostomy does have output. 11/25: He has finally progressed to T piece trials and so far he is comfortable. We continue to adjust electrolyte replacement because of nasogastric losses. His general demeanor is much improved today and he is much less anxious. TPN is infusing as we rest his bowel. SUBJECTIVE 11/26: more gastric distension and vomiting this AM. tube feeds stopped and NGT to LIWS with 300cc gastric contents removed. general surgery notified. will ultimately need permanent enteral access, and likely G/J at this point. no changes. still resting on vent overnight. very weak and deconditioned. 11/27: Continues to have episodes of vomiting, continues to have gastric distention. KUB shows ileus. Will start on scheduled Reglan, replaced potassium. Requested PICC line for TPN and electrolyte replacement. Dr. Mcgee planning for OR with ex lap and lysis of adhesions tomorrow 11/28: Awake alert on the ventilator today. Nausea vomiting is improved. Plan for OR today with Dr. Mcgee with TIA and G-J tube placement 11/29: Currently lying in bed on CPAP. Status post exploratory laparotomy, Lysis of adhesions, greater than 1 hour, Small bowel resection and GJ tube placement. Complaints of postop pain I will add morphine for breakthrough pain. Start TPN today per general surgery. Calcium low getting replaced 11/30: Complains of increased nausea vomiting today. Increased G-tube output approximately 400 mL overnight. Per general surgery GT piece to intermittent wall suction J-tube clamped. TPN started Objective Vital Signs / I&O: Vital Signs 11/29/17 12:00 11/29/17 14:00 11/29/17 16:00 Temperature 98.3 F 98.2 F Pulse Rate 72 76 12 L Respiratory Rate 18 18 Blood Pressure 118/60 134/72 Pulse Oximetry 100 100 11/29/17 16:15 11/29/17 18:00 11/29/17 20:00 Temperature 98.3 F Pulse Rate 76 76 Respiratory Rate 29 H 23 Blood Pressure 132/62 Pulse Oximetry 98 100 11/29/17 20:23 11/29/17 22:00 11/29/17 23:40 Temperature Pulse Rate 81 Respiratory Rate 20 23 Blood Pressure Pulse Oximetry 100 100 11/30/17 00:00 11/30/17 02:00 11/30/17 03:45 Temperature 98.1 F Pulse Rate 78 72 Respiratory Rate 21 22 Blood Pressure 132/64 Pulse Oximetry 100 100 11/30/17 04:00 11/30/17 06:00 11/30/17 08:22 Temperature 98.1 F Pulse Rate 80 79 Respiratory Rate 23 23 Blood Pressure 112/58 L Pulse Oximetry 100 Intake & Output 11/29/17 11/30/17 11/30/17 18:59 06:59 18:59 Intake Total 200 / 200 200 / 200 Output Total 390 / 390 1560 / 1560 Balance -190 / -190 -1360 / -1360 Weight 69.6 kg Intake: IV 200 / 200 200 / 200 Ofirmev Inj 1,000 mg In 100 ml 200 / 200 200 / 200 @ 400 mls/hr IV.SIG Q6H [facility] Rx# :[id number] Output: Urine Amount (Catheter) 325 / 325 1130 / 1130 Indwelling Urethral Catheter 325 / 325 1130 / 1130 Stool Amount (Stoma) 40 / 40 Left Lower Abdomen 40 / 40 Gastric Drainage 25 / 25 400 / 400 Left Upper Quadrant Gastrostomy 25 / 25 400 / 400 Tube (PEG) Right Upper Quadrant 0 / 0 Jejunostomy Tube Wound Drainage 30 / 30 # 1 Abdomen 30 / 30 Other: Date of Last Bowel Movement 11/28/17 11/28/17 Result Diagrams: 11/30/17 04:45 11/30/17 04:45 Objective Remarks: Objective Remarks GENERAL: 72-year-old male currently on PRVC SKIN: Warm and dry. No rash HEAD: Atraumatic. Normocephalic. EYES: Pupils equal round and reactive, 2 mm bilaterally. ENT: Oral cavity is moist. NECK: Trachea midline. Supple. Tracheostomy site clean and dry. CARDIOVASCULAR: RRR. No JVD. RESPIRATORY: Equal chest rise. Symmetrical excursion. Few crackles in bases, otherwise clear. GASTROINTESTINAL: Abdomen mildly distended, mild tenderness. CLARISSE in place, JOSÉ with sanguinous drainage; G-J tube in place, G to IWS, J clamped MUSCULOSKELETAL: No edema lower extremities. Well-perfused. Warm. NEUROLOGICAL: Patient is somnolent after receiving morphine. Moving all 4 extremities spontaneously. Had pain which was severe Assessment and Plan - Problem List (1) Chronic respiratory failure Code(s): J96.10 - Chronic respiratory failure, unspecified whether with hypoxia or hypercapnia Status: Chronic (2) Large bowel obstruction Code(s): K56.609 - Unspecified intestinal obstruction, unspecified as to partial versus complete obstruction Status: Resolved (3) STEMI (ST elevation myocardial infarction) Code(s): I21.3 - ST elevation (STEMI) myocardial infarction of unspecified site Status: Resolved (4) Diabetes Code(s): E11.9 - Type 2 diabetes mellitus without complications Status: Acute (5) Wound dehiscence, surgical Code(s): T81.31XA - Disruption of external operation (surgical) wound, not elsewhere classified, initial encounter Status: Acute (6) Dysphagia Code(s): R13.10 - Dysphagia, unspecified Status: Acute (7) Protein-calorie malnutrition, severe Code(s): E43 - Unspecified severe protein-calorie malnutrition Status: Acute (8) Systolic heart failure Code(s): I50.20 - Unspecified systolic (congestive) heart failure Status: Acute (9) Colostomy in place Code(s): Z93.3 - Colostomy status Status: Acute - Assessment and Plan Plan: A/P Assessment and Plan NEURO/Psych: 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 Morphine for breakthrough pain Allopurinol for Gout. Continue with PT and OT. RESP: Acute hypoxic and hypercarbic respiratory failure- now chronic. Iatrogenic left pneumothorax- resolved. Continue with CPAP. Albuterol/ipratropium aerosols every 6 hours while awake with albuterol aerosols every 2 hours as needed dyspnea Pulm toilet, trach care. Status post percutaneous tracheostomy bedside - Dr. Mcgee Keep head of the bed elevated 30. Continues to have problems with stamina on spontaneous ventilation trials. Still requiring elevated pressure support at 15 while on spontaneous breathing trials. Tolerated T piece trials. 11/25. Postop having tolerated T piece CV: Coronary artery disease Post operative STEMI Acute systolic heart failure Essential hypertension Hyperlipidemia Aspirin 81 mg daily, clopidogrel 75 mg p.o. daily, currently on hold perioperatively BP controlled, decreased metoprolol to 50 mg p.o. twice daily, initiate lisinopril 5 mg p.o. daily. Adjust based on response. Continue atorvastatin 20 mg at night for dyslipidemia. Holding amlodipine 10 mg daily 2D echocardiogram 05/29 revealed EF 50-55%. Grade 1 diastolic dysfunction. Pulmonary arterial pressure 34 mmHg Repeat revealed EF of 40-45% Followed by cardiology/Dr. Ellison: Dr. Villa discussed with team 10/21, and they recommended medical management. Continued conservative management recommended 11/02. Gentle hydration started to compensate for nasogastric tube losses GI: 10/08 Postop s/p ex-lap, TIA, Sigmoid colon resection with end colostomy and Holcomb's pouch 11/28 status post ex lap, lysis of adhesions, small bowel resection, GJ tube placement Recurrent colonic obstruction, small bowel obstruction Postop ileus vs SBO History of esophageal stricture status post dilatation History of small bowel obstruction Gastroesophageal reflux disease History of diverticulitis Hypoalbuminemia -Postop management per Dr. Mcgee. 11/28 status post ex lap, lysis of adhesiona , small bowel resection, GJ tube placement -G to IWS, J clamped per gen surgery -Reglan for ileus. Morphine for pain control -TPN . colostomy in place -Pantoprazole 40 mg IV daily for GI prophylaxis. On omeprazole 20 mg daily at home Renal/: 10/08 Postop s/p Ureteroureteral anastomosis for ureteral injury Chronic kidney disease stage III a -Monitor renal function, I/O's, electrolytes replacement per protocol -Removal of double-J stent 6 weeks from operative procedure outpatient setting ID: Pneumonia - resolved Wound culture from abdominal incision +pseudomonas. -s/p full course of Zosyn (started initially 11/06) Sputum cx 11/07: Pseudomonas, repeat sputum cx - resolved Wound cx 08/06: Pseudomonas - resolved Wound culture from incision site(11/06) growing Pseudomonas, sputum Gram stain and culture(11/07) growing pansenstive Pseudomonas -Discontinued levofloxacin 10/14. s/p course vancomycin and cefepime, 10/14-10/20 Sputum, blood cultures 2 10/13 NGTD Urine Legionella and pneumococcal urinary antigens 10/13 negative HEME: Normocytic anemia Thrombocytosis -Monitor CBC, CMP, coags -s/p 1 unit PRBCs to be transfused on 11/09 for hemoglobin 7.1 ENDO: Diabetes mellitus type 2 Severe hyperglycemia of critical illness Hyperglycemia History of gout Holding metformin 1000 mg by mouth twice daily -Glucose not at target despite 40 units coverage with sliding scale. Increase detemir further to 15 units q12h. -sliding scale insulin/NovoLog high regimen q6h MSK History of ankylosing spondylosis Holding denosumab 60 mg subcu every 18 days Holding cholecalciferol 4000 units p.o. daily PT evaluate and treat PROPH: -Bilateral lower extremity SCDs. Lovenox 40 subcu daily. On Protonix 40 mg IV for stress ulcer prophylaxis. LINES: - piv. CARMEN PICC placed 11/1717 Level 3 (8) Systolic heart failure Qualifiers: Heart failure chronicity: acute Qualified Code(s): I50.21 - Acute systolic ( congestive) heart failure
--- NOTE | 2017-11-30 12:25 | P.PNGS ---
<Jayshree Saha - Last Filed: 11/30/17 13:53> Subjective Interval history: Seen about 0900---patient nausea and increase in g tube output; flushed tube and connected back to LIWS; gave 1 dose of morphine Again seen at about 1220---patient now more comfortable; pain controlled; G tube output decreased Physical Exam Vital signs: Vital Signs 11/29/17 14:00 11/29/17 16:00 11/29/17 16:15 Temperature 98.2 F Pulse Rate 76 12 L Respiratory Rate 18 29 H Blood Pressure 134/72 Pulse Oximetry 100 98 11/29/17 18:00 11/29/17 20:00 11/29/17 20:23 Temperature 98.3 F Pulse Rate 76 76 Respiratory Rate 23 20 Blood Pressure 132/62 Pulse Oximetry 100 100 11/29/17 22:00 11/29/17 23:40 11/30/17 00:00 Temperature 98.1 F Pulse Rate 81 78 Respiratory Rate 23 21 Blood Pressure 132/64 Pulse Oximetry 100 100 11/30/17 02:00 11/30/17 03:45 11/30/17 04:00 Temperature 98.1 F Pulse Rate 72 80 Respiratory Rate 22 23 Blood Pressure 112/58 L Pulse Oximetry 100 11/30/17 06:00 11/30/17 08:22 11/30/17 11:43 Temperature Pulse Rate 79 Respiratory Rate 23 23 Blood Pressure Pulse Oximetry 100 100 Intake & Output 11/29/17 11/30/17 11/30/17 18:59 06:59 18:59 Intake Total 200 / 200 200 / 200 Output Total 390 / 390 1560 / 1560 Balance -190 / -190 -1360 / -1360 Weight 69.6 kg Intake: IV 200 / 200 200 / 200 Ofirmev Inj 1,000 mg In 100 ml 200 / 200 200 / 200 @ 400 mls/hr IV.SIG Q6H [facility] Rx# :[id number] Output: Urine Amount (Catheter) 325 / 325 1130 / 1130 Indwelling Urethral Catheter 325 / 325 1130 / 1130 Stool Amount (Stoma) 40 / 40 Left Lower Abdomen 40 / 40 Gastric Drainage 25 / 25 400 / 400 Left Upper Quadrant Gastrostomy 25 / 25 400 / 400 Tube (PEG) Right Upper Quadrant 0 / 0 Jejunostomy Tube Wound Drainage 30 / 30 # 1 Abdomen 30 / 30 Other: Date of Last Bowel Movement 11/28/17 11/28/17 Narrative: Alert and awake Cardio: RRR Resp: CTAB Abd: G tube to LIWS; J tube capped; JOSÉ with SS fluid; CLARISSE in place Clear yellow urine - Urinary Catheter Management Indwelling Urethral Catheter Cath placed during this visit: yes Reason for continuing: Hourly intake/output Insertion date: 11/28/17 Assessment and Plan - Assessment (1) Tracheostomy in place Code(s): Z93.0 - Tracheostomy status Status: Acute (2) Respiratory failure requiring intubation Code(s): J96.90 - Respiratory failure, unspecified, unspecified whether with hypoxia or hypercapnia Status: Acute (3) Anemia, chronic disease Code(s): D63.8 - Anemia in other chronic diseases classified elsewhere Status : Acute (4) Protein-calorie malnutrition, severe Code(s): E43 - Unspecified severe protein-calorie malnutrition Status: Acute (5) Ileus following gastrointestinal surgery Code(s): K91.30 - Postprocedural intestinal obstruction, unspecified as to partial versus complete Status: Acute Onset Date: ~11/21/17 - Plan 72 year old male s/p ex lap; s/p trach for prolonged need for mechanical ventilation -POD2 ex lap; TIA; G tube; J tube -Patient with frequent PVC--- obtain EKG STAT -Continue TPN at 83 cc/hr + NS at 42 cc/hr -Urine output now adequate -Continue Ofirmiv -Vent per CCM -s/p transfusion of 3 units PRBCs and 2 FFP -Continue G tube to LIWS -Continue to cap J tube -Continue routine JOSÉ care -Discussed with Dr. Gallo and Radha SAUNDERS <David Mcgee - Last Filed: 12/01/17 11:53> Subjective Interval history: Having more pain this afternoon; pain meds improve symptoms. Physical Exam Vital signs: Vital Signs 11/29/17 14:00 11/29/17 16:00 11/29/17 16:15 Temperature 98.2 F Pulse Rate 76 12 L Respiratory Rate 18 29 H Blood Pressure 134/72 Pulse Oximetry 100 98 11/29/17 18:00 11/29/17 20:00 11/29/17 20:23 Temperature 98.3 F Pulse Rate 76 76 Respiratory Rate 23 20 Blood Pressure 132/62 Pulse Oximetry 100 100 11/29/17 22:00 11/29/17 23:40 11/30/17 00:00 Temperature 98.1 F Pulse Rate 81 78 Respiratory Rate 23 21 Blood Pressure 132/64 Pulse Oximetry 100 100 11/30/17 02:00 11/30/17 03:45 11/30/17 04:00 Temperature 98.1 F Pulse Rate 72 80 Respiratory Rate 22 23 Blood Pressure 112/58 L Pulse Oximetry 100 11/30/17 06:00 11/30/17 08:00 11/30/17 08:22 Temperature 98.6 F Pulse Rate 79 85 Respiratory Rate 23 23 Blood Pressure 147/57 H Pulse Oximetry 100 100 11/30/17 10:00 11/30/17 11:43 11/30/17 12:00 Temperature 98.6 F Pulse Rate 84 84 Respiratory Rate 23 22 Blood Pressure 154/63 H Pulse Oximetry 100 100 Intake & Output 11/29/17 11/30/17 11/30/17 18:59 06:59 18:59 Intake Total 200 / 200 200 / 200 Output Total 390 / 390 1560 / 1560 Balance -190 / -190 -1360 / -1360 Weight 69.6 kg Intake: IV 200 / 200 200 / 200 Ofirmev Inj 1,000 mg In 100 ml 200 / 200 200 / 200 @ 400 mls/hr IV.SIG Q6H [facility] Rx# :[id number] Output: Urine Amount (Catheter) 325 / 325 1130 / 1130 Indwelling Urethral Catheter 325 / 325 1130 / 1130 Stool Amount (Stoma) 40 / 40 Left Lower Abdomen 40 / 40 Gastric Drainage 25 / 25 400 / 400 Left Upper Quadrant Gastrostomy 25 / 25 400 / 400 Tube (PEG) Right Upper Quadrant 0 / 0 Jejunostomy Tube Wound Drainage 30 / 30 # 1 Abdomen 30 / 30 Other: Date of Last Bowel Movement 11/28/17 11/28/17 11/28/17 - Constitutional no acute distress - Routine Neck Exam Present: supple - Routine Respiratory Exam Present: CTA bilaterally Comments: Fewer secretions today - Routine Abdominal Exam Present: soft, wound (CLARISSE with minimal drainage), ostomy (no stool yet) - Urinary Catheter Management Indwelling Urethral Catheter Cath placed during this visit: no Assessment and Plan - Assessment (1) Tracheostomy in place Code(s): Z93.0 - Tracheostomy status Status: Acute (2) Respiratory failure requiring intubation Code(s): J96.90 - Respiratory failure, unspecified, unspecified whether with hypoxia or hypercapnia Status: Acute (3) Anemia, chronic disease Code(s): D63.8 - Anemia in other chronic diseases classified elsewhere Status : Acute (4) Protein-calorie malnutrition, severe Code(s): E43 - Unspecified severe protein-calorie malnutrition Status: Acute (5) Ileus following gastrointestinal surgery Code(s): K91.30 - Postprocedural intestinal obstruction, unspecified as to partial versus complete Status: Acute Onset Date: ~11/21/17 - Plan Will change CLARISSE today as well as wafer on colostomy, as CLARISSE not holding suction Had some PVC's; resolved now Lasix for volume excess Check CXR G-tube output decreasing May start trickle feeds and lovenox tomorrow - Attending Attestation The exam, history, and the medical decision-making described in the above note were completed with the assistance of the mid-level provider. I reviewed and agree with the findings presented. I attest that I had a [id number] encounter with the patient on the same day, and personally performed and documented my assessment and findings in the medical record.
--- NOTE | 2017-11-30 12:51 | XR ---
EXAM DATE: 11/30/2017 12:39 PM EDT AGE/SEX: 72 years / Male INDICATIONS: Cough. CLINICAL DATA: This is the patient's subsequent encounter. Patient reports that signs and symptoms h ave been present for 1 week and indicates a pain score of 0/10. MEDICAL/SURGICAL HISTORY: . Heart attack. . Trach placed. COMPARISON: [facility] [place], CHEST 1V SINGLE AP, 11/27/2017. . FINDINGS: A single AP view of the chest demonstrates a tracheostomy tube. Diffuse pulmonary infiltrates most pr onounced within the bases. Small bilateral pleural effusions. Heart is normal in size. CONCLUSION: Progression in the bilateral infiltrates and small effusions. Electronically signed by: Jose Roper MD 11/30/2017 12:49 PM EDT
--- NOTE | 2017-11-30 17:15 | P.PNWCN ---
Wound Care Nurse Consult Description: Patient seen for follow up stoma assessment Wound/Pressure Injury - Patient Status Premedicated for Pain Prior to Dressing Change: Yes - Wound Midline Abdomen Wound Bed Appearance: Medial abdominal incision line approximated by stefanie. Drainage Description: Serosanguinous Drainage Amount: Minimal Drainage Odor: No Odor Dressing Status: Changed (Changed by Doctor Mcgee) Cleansing Solution: peroxide Primary Dressing: Clarisse dressing Wound Dressing Change Date: 11/30/17 Incision - Patient Status Premedicated for Pain Prior to Dressing Change: No - Incision Midline Abdomen Incision Assessment: Ongoing Incision Type: Incision Incision Description: [place] Surrounding Tissue Temperature: Warm Drainage Amount: Minimal Drainage Odor: No Odor Incision Dressing Status: Changed (dressing changed by Doctor Mcgee) Primary Dressing: CLARISSE dressing Incision Dressing Change Date: 11/30/17 Abdomen Incision Dressing Change Date: 11/30/17 Bowel Diversion Stoma - Bowel Stoma Left Lower Abdomen Stoma Edema: No Stoma Appearance: Beefy Red, Black, Oval, Retracted Loop Supporting Venkat: No Collection Device: Two-piece, Moldable Wafer Wafer Size: 1 3/4 Moldable 45mm Stoma Care: Pouch and Wafer Changed, Skin Care Bee-Stomal Skin Appearance: Intact Bee-Stomal Surrounding Tissue Sensation Description: No Symptoms - Additional Information Additional Information: Patient seen [facility] for colostomy appliance change with CLARISSE dressing change done by Doctor Mcgee.Doctor Mcgee removed CLARISSE dressing in place filing writer removed two piece ostomy appliance. patient was then shaved to remove excess hair for better seal of CLARISSE dressing. Doctor Mcgee cleansed incision approximated with stefanie with hydrogen peroxide. Incision was then dried with gauze pads. Applied skin barrier film to periwound and Doctor Mcgee applied benzoin tincture closer to periwound incision. Doctor Mcgee applied CLARISSE dressing. Colostomy stoma presents with ~50% red tissue and ~50% black tissue that is moist. Stoma is still retracted, measuring ~1/2 inch tall and 1 inch wide. Applied skin barrier film to peristomal area before applying michael seal circumferentially. Applied skin barrier with adaptor and held pressure for 60 seconds. Attached pouch to skin barrier. Patient tolerated dressing and appliance change fairly and was given medication for pain prior to procedure.
[2017-11-30] MEDS: Multivitamin Inj 5 ML, Folic Acid Inj 0.5 MG in AA 4.25 %/D25W - Electrolytes 1,000 ML IV.SIG SCH (20:21)
[2017-11-30] MEDS: Scopalamine 1.5 MG Patch T-DERMAL SCH (22:23)
[2017-12-01] MEDS: Oral Hygiene Kit OROPHARYNG SCH ×4 (00:09→17:07)
[2017-12-01] MEDS: Insulin NovoLOG Aspart Correctional Sugar Inj SQ SCH ×4 (00:14→17:47)
[2017-12-01] MEDS: Sod Chloride 0.9% Inj 1,000 ML IV.CONT SCH ×2 (02:08→20:30)
[2017-12-01] MEDS: Morphine Inj 4 MG/ML Vial IV.PUSH PRN ×5 (03:28→21:28)
[2017-12-01] MEDS: Artificial Tears Opth Drops 15 ML Bottle EACH EYE SCH ×3 (06:13→21:29)
[2017-12-01 07:54] LABS: Mean Corpuscular Volume 85.1 fL (80.0-100.0); Mean Platelet Volume 8.5 fL (7.0-11.0); Platelet Count 212 th/mm3 (150-450); Red Blood Count 2.26 mil/mm3 (4.50-5.90); Red Cell Distribution Width 16.7 % (11.6-17.2); White Blood Count 11.9 th/mm3 (4.0-11.0)
[2017-12-01 08:05] LABS: Hematocrit 19.2 % (39.0-51.0); Hemoglobin 6.5 gm/dL (13.0-17.0)
[2017-12-01 08:14] LABS: Anion Gap 9 meq/L (5-15); Blood Urea Nitrogen 15 mg/dL (7-18); Calcium 7.8 mg/dL (8.5-10.1); Carbon Dioxide 28.3 meq/L (21.0-32.0); Chloride 103 meq/L (98-107); Glomerular Filtration Rate Greater Than 89 mL/min (>89); Glucose,Random 165 mg/dL (74-106); Magnesium 1.6 mg/dL (1.5-2.5); Phosphorus 2.5 mg/dL (2.5-4.9); Potassium 3.2 meq/L (3.5-5.1); Sodium 140 meq/L (136-145)
[2017-12-01] MEDS: Chlorhexidine Gluconate 0.12% Liq 15 ML UDC SWISH-SPIT SCH ×2 (08:35→20:37)
[2017-12-01] MEDS: Heparin Central Flush 100 UNIT/ML 5 ML Vial IV.FLUSH SCH (08:35)
[2017-12-01] MEDS: Sodium Hypochlorite 0.125% Top Soln 500 ML Bottle TOPICAL SCH ×2 (08:35→20:23)
[2017-12-01] MEDS: Carvedilol 6.25 MG Tablet PO SCH ×2 (08:35→20:23)
[2017-12-01] MEDS: Lisinopril 5 MG Tablet PO SCH (08:36)
[2017-12-01] MEDS: Allopurinol 300 MG Tablet PO SCH (08:36)
[2017-12-01] MEDS: Insulin Detemir Inj 1,000 UNIT/10 ML Vial SQ SCH ×2 (08:36→20:57)
[2017-12-01] MEDS ORDERED: Magnesium Oxide 400 MG Tablet PO PRN (10:02)
[2017-12-01] MEDS ORDERED: Potassium Chlor 40 mEq Premix 40 MEQ/100 ML PIGGYBACK IV.SIG PRN ×2 (10:02)
[2017-12-01] MEDS ORDERED: Magnesium Sulfate Inj 2 GM in Sodium Chlor 0.9% Inj 96 ML IV.SIG PRN (10:02)
[2017-12-01] MEDS ORDERED: Potassium Chloride 25 MEQ Effervescent Tablet PO PRN (10:02)
[2017-12-01] MEDS ORDERED: Sodium Phosphate Inj 30 MMOL in Sodium Chlor 0.9% Inj 250 ML IV.SIG PRN (10:02)
[2017-12-01] MEDS ORDERED: Magnesium Sulfate Inj 4 GM in Sodium Chlor 0.9% Inj 92 ML IV.SIG PRN (10:02)
[2017-12-01] MEDS ORDERED: Potassium Phosphate Inj 30 MMOL in Sodium Chlor 0.9% Inj 250 ML IV.SIG PRN (10:02)
[2017-12-01] MEDS ORDERED: Potassium Chlor 20 mEq Premix 20 MEQ/100 ML PIGGYBACK IV.SIG PRN ×2 (10:02)
[2017-12-01] MEDS ORDERED: Potassium Phosphate 500 MG Soluble Tablet PO PRN ×2 (10:02)
--- NOTE | 2017-12-01 11:48 | P.PN ---
Subjective Interval history: Somewhat painful this AM; better now Physical Exam Vital signs: Vital Signs 11/30/17 11:43 11/30/17 12:00 11/30/17 14:00 Temperature 98.6 F Pulse Rate 84 84 Respiratory Rate 23 22 Blood Pressure 154/63 H Pulse Oximetry 100 100 11/30/17 15:45 11/30/17 16:00 11/30/17 18:00 Temperature 98.2 F Pulse Rate 87 86 Respiratory Rate 24 17 Blood Pressure 136/68 Pulse Oximetry 100 100 11/30/17 20:00 11/30/17 20:57 11/30/17 22:00 Temperature 98.4 F Pulse Rate 84 86 Respiratory Rate 22 20 Blood Pressure 156/58 H Pulse Oximetry 100 100 11/30/17 22:11 12/01/17 00:00 12/01/17 02:00 Temperature 98.2 F Pulse Rate 78 74 Respiratory Rate 22 13 Blood Pressure 117/71 Pulse Oximetry 100 12/01/17 04:00 12/01/17 06:00 12/01/17 08:00 Temperature 98.4 F 97.7 F Pulse Rate 80 78 76 Respiratory Rate 23 22 Blood Pressure 112/56 L 122/61 Pulse Oximetry 100 100 12/01/17 08:44 12/01/17 09:54 12/01/17 10:00 Temperature 97.7 F Pulse Rate 79 73 Respiratory Rate 35 H 20 Blood Pressure 147/47 H Pulse Oximetry 100 100 12/01/17 10:11 12/01/17 11:26 Temperature 97.8 F 98.1 F Pulse Rate 80 80 Respiratory Rate 22 Blood Pressure 122/61 Pulse Oximetry 100 Intake & Output 11/30/17 12/01/17 12/01/17 18:59 06:59 18:59 Intake Total 1205.1 / 1205.1 200 / 200 0 / 0 Output Total 3125 / 3125 1525 / 1525 Balance -1919.9 / -1919.9 -1325 / -1325 0 / 0 Weight 68.1 kg Intake: IV 1205.1 / 1205.1 200 / 200 Ofirmev Inj 1,000 mg In 100 ml 200 / 200 200 / 200 @ 400 mls/hr IV.SIG Q6H [facility] Rx# :[id number] MVI-12 Inj 5 ML Folvite Inj 0.5 1005.1 / 1005.1 MG In Clinimix E 4.25%/D25W Inj 1,000 ML @ 83 mls/hr IV.SIG Q24H [facility] Rx#:[id number] Intake (Blood Product) Amt 0 / 0 Rbc As-3 Leukoreduced Unit 0 / 0 [id number] Output: Stool 0 / 0 Emesis 0 / 0 Urine Amount (Catheter) 2400 / 2400 1200 / 1200 Indwelling Urethral Catheter 2400 / 2400 1200 / 1200 Stool Amount (Stoma) 0 / 0 Left Lower Abdomen 0 / 0 Gastric Drainage 700 / 700 300 / 300 Left Upper Quadrant Gastrostomy 700 / 700 Tube (PEG) Right Upper Quadrant 0 / 0 300 / 300 Jejunostomy Tube Wound Drainage # 1 Abdomen Other: Date of Last Bowel Movement 11/28/17 11/28/17 11/28/17 - Routine Respiratory Exam Comments: Some thick secretions still, although decreased quantity - Routine Cardiovascular Exam Present: RRR - Routine Abdominal Exam Present: soft, ostomy (No stool output yet) - Urinary Catheter Management Indwelling Urethral Catheter Cath placed during this visit: yes Reason for continuing: Hourly intake/output Insertion date: 11/28/17 Results - Labs CBC & Chem 7: 12/01/17 07:40 12/01/17 07:40 Laboratory Results - last 24 hr 11/30/17 11/30/17 11/30/17 12:10 14:56 20:31 WBC RBC Hgb Hct MCV MCH MCHC RDW Plt Count MPV Sodium Potassium Chloride Carbon Dioxide Anion Gap BUN Creatinine Estimated GFR POC Glucose 265 H 160 H Random Glucose Calcium Phosphorus Magnesium Troponin I 0.02 Blood Type Antibody Screen MTS Gel Crossmatch 11/30/17 12/01/17 12/01/17 22:06 07:40 07:40 WBC 11.9 H RBC 2.26 L Hgb 6.5 L* Hct 19.2 L* MCV 85.1 MCH 29.0 MCHC 34.0 RDW 16.7 Plt Count 212 MPV 8.5 Sodium 140 Potassium 3.2 L Chloride 103 Carbon Dioxide 28.3 Anion Gap 9 BUN 15 Creatinine 0.74 Estimated GFR Greater than 89 POC Glucose Random Glucose 165 H Calcium 7.8 L Phosphorus 2.5 Magnesium 1.6 Troponin I Blood Type O Negative Antibody Screen Negative MTS Gel Crossmatch 12/01/17 08:11 WBC RBC Hgb Hct MCV MCH MCHC RDW Plt Count MPV Sodium Potassium Chloride Carbon Dioxide Anion Gap BUN Creatinine Estimated GFR POC Glucose Random Glucose Calcium Phosphorus Magnesium Troponin I Blood Type Antibody Screen MTS Gel Crossmatch See Detail - Imaging Impressions Chest X-Ray 11/30/17 12:01 CONCLUSION: Progression in the bilateral infiltrates and small effusions. Assessment and Plan - Assessment (1) Tracheostomy in place Code(s): Z93.0 - Tracheostomy status Status: Acute (2) Respiratory failure requiring intubation Code(s): J96.90 - Respiratory failure, unspecified, unspecified whether with hypoxia or hypercapnia Status: Acute (3) Anemia, chronic disease Code(s): D63.8 - Anemia in other chronic diseases classified elsewhere Status : Acute (4) Protein-calorie malnutrition, severe Code(s): E43 - Unspecified severe protein-calorie malnutrition Status: Acute (5) Ileus following gastrointestinal surgery Code(s): K91.30 - Postprocedural intestinal obstruction, unspecified as to partial versus complete Status: Acute Onset Date: ~11/21/17 - Plan POD #3 exp laparotomy/extensive TIA >1hr G-tube output 300 ml last 24 hrs J-tube capped Remove A-line and JOSÉ drain Continue TPN Start enteral feeding via J-tube when colostomy functioning starts Transfuse 2 units PRBC's today Discussed Condition With: Dr. Gallo Patient
--- NOTE | 2017-12-01 14:11 | P.PNCC ---
Subjective Subjective Remarks/Hospital Course: This is a 72 year old male with history of type 2 diabetes, hypertension, dyslipidemia, chronic kidney disease stage III, ankylosing spondylitis, esophageal stricture s/p dilatation, diverticulitis, peritonitis, history of small bowel obstruction, colon resection x2, who was admitted to the hospital with one-week history of abd distension, constipation, and cramps. Pt tried to mange this at home, as he is familiar with symptoms. Has history of multiple bowel obstructions and multiple surgeries in the past. CT of abdomen/ pelvis showed moderately dilated large and small bowel, concentric stricturing in the sigmoid colon. Gastroenterology and general surgery were consulted. Patient was taken today to the OR by Dr. Mcgee, patient underwent exploratory laparotomy, Lysis of adhesions for dense adhesions involving small and large bowel, sigmoid colon resection with end colostomy and Holcomb's pouch. There was stricture at previous surgical site in sigmoid colon. EBL 300 ml, urine output was adequate. During the ex lap patient's sustained ureteral injury which required ureteroureteral anastomosis over stent by Dr. Page. Postop patient was moved to the PACU where his chest x-ray showed small possible left lateral pneumothorax. ABG showed a pH of 7.29/41/99 BE -6.7. I evaluated the patient in the ICU. Patient is intubated sedated with Precedex. He is tachycardic and borderline hypotensive. Additional 500 mL of fluid bolus given , 1 amp of bicarb. Received total 2.1 L in the OR. Urine output is adequate, approximately 75 ml per hour post op. With left-sided tiny pneumothorax (most likely with from central line placement in OR), will attempt CPAP trials for possible extubation. 10/09: Breathing is moderately labored to observe but the patient states he is comfortable. His major complaint is chronic back pain. Urine output is marginal but he remains well-perfused. Colostomy stoma is pink. 10/10: Labored breathing overnight. Remains on quarter normal saline at 125 cc hours and Clinimix E 4.25/25 at 83 cc an hour. Chest x-ray appears with bilateral pulmonary infiltrates. CVP is 8. Greater than 50% variation IVC by ultrasound. Bedside echocardiogram no acute findings. Patient currently with some pleuritic chest pain worse with deep inspiration. EKG currently pending. 8 run beat of V. tach overnight. Potassium magnesium within normal limits. 10/11: Afebrile. FiO2 requirements increased overnight currently at 60%. Chest x-ray revealed pulmonary edema bilaterally. Troponin downward trending. Noted sodium elevated 154. Will remove sodium from TPN. Norepinephrine initiated overnight currently at 8 mcg/min. Nitro paste discontinued. Holding parameters for beta corby 10/12: remains afebrile. back on levophed this AM at 5 mcg/min. also remains tachycardic in the 100s. sodium remains elevated despite removal of nacl from TPN. 10/13: T-max 100.4. Desaturated overnight requiring PEEP increased to 10 currently at 8. FiO2 down to 45%. Appears uncomfortable on the ventilator. Abdomen slightly more distended. Positive output from ostomy.. Transfusing 1 unit PRBCs due to acute coronary syndrome to keep above a. Recheck along with electrolytes active bleeding in place. CT abdomen/pelvis ordered. 10/14: Copious secretions overnight. PEEP at 7 FiO2 50%. Abdominal/pelvis CT revealed bilateral lobar pneumonia pelvic read as gallstone ileus but not likely is patient with copious stool output from ostomy. Did discuss with Dr. Mcgee. Antibiotic coverage broadened. Pancultured yesterday looks like his underlying pneumonia. Will transfuse 1 unit PRBCs today per cardiology request to maintain hemoglobin around 9 for acute coronary syndrome. Diuresis postprocedure and replace electrolytes aggressively. TPN will be weaned/ discontinued today after tube feeds at 40 cc an hour 10/15: t max 100.7 overnight. cultures NGTD. fio2 improving. secretions are somewhat better. 10/16: no improvements. afebrile. failed SBT after 10 minutes for tachypnea and respiratory distress. 10/17: failed sbt again for significant secretions and respiratory distress. only lasting about 10 min. may require tracheostomy. 10/18: much more awake and interactive. still has significant secretions. on SBT for longer today, but with active coronary ischemia, very high risk if he fails extubation. plan for trach if he remains intubated through the weekend. 10/19: still failing SBT. dressings changed today. clinically improving, but very weak and slow progress. 10/20: again failing SBT for copious secretions. was OOB to chair today. likely will need trach. 10/21: failed SBT for tachypnea, RR > 40. discussed with Dr[address] Mcgee: plan for trach tomorrow. discussed with cardiology service: they will likely medically manage his coronary artery disease without [facility] intervention. this is more of a reason to pursue trach, to prevent coronary ischemia that would come with trial of extubation first. 10/22: Plan for percutaneous tracheostomy at bedside 11 AM. Arousable on the ventilator and following commands. Currently afebrile. N.p.o. status. 10/23: Status post percutaneous tracheostomy 10/22 without complication. Continues to ooze from around tracheostomy site. Will hold enoxaparin for today. Tube feeds back at goal. Denies abdominal pain. Positive flatus from ostomy site. 10/24: Normal stool coming from well-perfused ostomy. Spontaneous breathing trials with tachypnea and mild labor. Chest x-ray with chronic interstitial changes and small lung volumes. 10/25: A little bit stronger on spontaneous breathing trials today. Pressure support settings 18/10. Tolerating tube feeds. 10/26: He is tolerating a mild reduction and mean airway pressure and end expiratory pressure. Continues to look acceptably comfortable during spontaneous breathing trials. 10/27: We needed to increase PEEP again last evening. 10/28: Spontaneous breathing trial at 8/8 this morning and doing quite well. Tube feedings on hold per surgery. Patient required low dose Xanax last night for anxiety. 10/29: intermittent SBTs. will trial t-piece today. no significant change. needs LTAC level care. 10/30: t-piece trials. ostomy working. advancing trickle tube feeds per surgery. 10/31: patient having gout flair and significantly painful. however, steroids contraindicated, and NSAIDS also contraindicated with concern over renal dysfunction in the setting of critical illness. still failing to separate from mechanical ventilation. really needs LTAC level care for pulmonary rehab. 11/01: NG tube placed to suction with 700 cc of gastric contents suctioned out overnight. Patient remains on mechanical ventilation with tracheostomy on CPAP with pressure support. Failed T piece yesterday. 11/02: Remains on mechanical ventilation via tracheostomy. 11/03: Remains on mechanical ventilation via tracheostomy. CPAP trials daily. T -piece as tolerated. 11/04: On mechanical ventilation via tracheostomy. Daily CPAP trials. 11/05, 11/06: Remains on mechanical ventilation via tracheostomy. Daily CPAP trials ongoing. 11/07: Worsening respiratory status. Placed back on PRVC mode mechanical ventilation last night. Significant sick pulmonary secretions noted. No BMs via colostomy. Chest x-ray done this morning shows worsening infiltrates more on the right suspicious for aspiration. KUB done this morning shows an ileus. Already placed on Zosyn on 11/07 which should cover for pneumonia. 11/08: Resting on mechanical ventilation via tracheostomy. Wound culture from incision site growing Pseudomonas 11/09: Remains on mechanical ventilation via tracheostomy. Wound culture and sputum both growing Pseudomonas. 11/10: Is on mechanical ventilation via tracheostomy. Daily CPAP trials. 11/11: Remains on mechanical ventilation via tracheostomy. Really CPAP trials ongoing. 11/12 No events overnight. On ventilator via trach. On CPAP with PS 15, PEEP:5 and FIO2 40%. Afebrile. 11/13 Patient denies complaint. Wants NGT out but understand rationale for continuing. On CPAP 15/5. Tolerating tube feeds. Afebrile. Subjective: 11/14 On CPAP 15/5 since yesterday. Able to wean to 12/5 but weaning beyond that produces tachypnea. Was out of bed to chair for a couple of hours. 11/15: Remains on CPAP via tracheostomy. Had problems with secretions last night. Adding scheduled nebulizer treatments and Mucomyst to mobilize secretions. 11/16: Resting comfortably on mechanical ventilation via tracheostomy. On CPAP trial 11/17: Afebrile. Tolerating tube feeds at goal. Placed on ventilator yesterday secondary to worsening subjective shortness of breath. We will reattempt CPAP trial again today. Positive BM.. 11/18: Afebrile. We will reattempt CPAP trial again today. Check chest x-ray in a.m. Continue with pulmonary toilet. Anxious. 11/19: Not tolerating CPAP trials well. Will discuss among consultants ways to manage his anxiety. 11/20: Brief episodes of apnea overnight. Anxiety a little better controlled this morning. 11/21: Patient vomited a large amount of tube feed this morning. After this he appeared comfortable although a little anxious. 11/22: Feels a little better this morning but abdomen remains moderately distended. Good stoma output. Surgical service is aware and Dr. Shepard saw the patient last evening. KUB reviewed. Potassium replacement underway now. 11/23: Patient remains in poorly compensated diastolic heart failure. Our best efforts to gingerly diuresis and has just resulted in worsening renal function. His medical therapy is maximized for heart failure with acceptable pulse rate control and afterload reduction. Inability to wean completely from the ventilator is closely associated persistent pulmonary edema. 11/24: Breathing quite comfortably this morning on CPAP however requiring 15 cm of water pressure support. Despite congested chest x-ray his lungs are fairly clear to auscultation. He has been started on TPN and his GI tract To low intermittent suction through an NG tube. The abdomen is remarkably soft and not distended. The colostomy does have output. 11/25: He has finally progressed to T piece trials and so far he is comfortable. We continue to adjust electrolyte replacement because of nasogastric losses. His general demeanor is much improved today and he is much less anxious. TPN is infusing as we rest his bowel. SUBJECTIVE 11/26: more gastric distension and vomiting this AM. tube feeds stopped and NGT to LIWS with 300cc gastric contents removed. general surgery notified. will ultimately need permanent enteral access, and likely G/J at this point. no changes. still resting on vent overnight. very weak and deconditioned. 11/27: Continues to have episodes of vomiting, continues to have gastric distention. KUB shows ileus. Will start on scheduled Reglan, replaced potassium. Requested PICC line for TPN and electrolyte replacement. Dr. Mcgee planning for OR with ex lap and lysis of adhesions tomorrow 11/28: Awake alert on the ventilator today. Nausea vomiting is improved. Plan for OR today with Dr. Mcgee with TIA and G-J tube placement 11/29: Currently lying in bed on CPAP. Status post exploratory laparotomy, Lysis of adhesions, greater than 1 hour, Small bowel resection and GJ tube placement. Complaints of postop pain I will add morphine for breakthrough pain. Start TPN today per general surgery. Calcium low getting replaced 11/30: Complains of increased nausea vomiting today. Increased G-tube output approximately 400 mL overnight. Per general surgery GT piece to intermittent wall suction J-tube clamped. TPN started 12/01: Pain improved denies nausea today. Hb 6.5 getting 2 units of PRBC. G- tube output 300 ml last 24 hrs, J-tube capped. JOSÉ drain was removed by Dr. Mcgee. Will resume CPAP trials Objective Vital Signs / I&O: Vital Signs 11/30/17 15:45 11/30/17 16:00 11/30/17 18:00 Temperature 98.2 F Pulse Rate 87 86 Respiratory Rate 24 17 Blood Pressure 136/68 Pulse Oximetry 100 100 11/30/17 20:00 11/30/17 20:57 11/30/17 22:00 Temperature 98.4 F Pulse Rate 84 86 Respiratory Rate 22 20 Blood Pressure 156/58 H Pulse Oximetry 100 100 11/30/17 22:11 12/01/17 00:00 12/01/17 02:00 Temperature 98.2 F Pulse Rate 78 74 Respiratory Rate 22 13 Blood Pressure 117/71 Pulse Oximetry 100 12/01/17 04:00 12/01/17 06:00 12/01/17 08:00 Temperature 98.4 F 97.7 F Pulse Rate 80 78 76 Respiratory Rate 23 22 Blood Pressure 112/56 L 122/61 Pulse Oximetry 100 100 12/01/17 08:44 12/01/17 09:54 12/01/17 10:00 Temperature 97.7 F Pulse Rate 79 73 Respiratory Rate 35 H 20 Blood Pressure 147/47 H Pulse Oximetry 100 100 12/01/17 10:11 12/01/17 11:26 12/01/17 11:40 Temperature 97.8 F 98.1 F 98.1 F Pulse Rate 80 80 81 Respiratory Rate 22 19 Blood Pressure 122/61 132/73 Pulse Oximetry 100 12/01/17 11:44 12/01/17 12:19 12/01/17 13:23 Temperature 98.1 F Pulse Rate 81 Respiratory Rate 23 18 21 Blood Pressure 131/73 Pulse Oximetry 100 Intake & Output 11/30/17 12/01/17 12/01/17 18:59 06:59 18:59 Intake Total 1205.1 / 1205.1 200 / 200 400 / 400 Output Total 3125 / 3125 1525 / 1525 Balance -1919.9 / -1919.9 -1325 / -1325 400 / 400 Weight 68.1 kg Intake: IV 1205.1 / 1205.1 200 / 200 Ofirmev Inj 1,000 mg In 100 ml 200 / 200 200 / 200 @ 400 mls/hr IV.SIG Q6H LISA Rx# :[id number] MVI-12 Inj 5 ML Folvite Inj 0.5 1005.1 / 1005.1 MG In Clinimix E 4.25%/D25W Inj 1,000 ML @ 83 mls/hr IV.SIG Q24H LISA Rx#:[id number] Intake (Blood Product) Amt 400 / 400 Rbc As-3 Leukoreduced Unit 0 / 0 [id number] Rbc As-3 Leukoreduced Unit 400 / 400 [id number] Output: Stool 0 / 0 Emesis 0 / 0 Urine Amount (Catheter) 2400 / 2400 1200 / 1200 Indwelling Urethral Catheter 2400 / 2400 1200 / 1200 Stool Amount (Stoma) 0 / 0 Left Lower Abdomen 0 / 0 Gastric Drainage 700 / 700 300 / 300 Left Upper Quadrant Gastrostomy 700 / 700 Tube (PEG) Right Upper Quadrant 0 / 0 300 / 300 Jejunostomy Tube Wound Drainage 25 / 25 25 / 25 # 1 Abdomen 25 / 25 25 / 25 Other: Date of Last Bowel Movement 11/28/17 11/28/17 11/28/17 Result Diagrams: 12/01/17 07:40 12/01/17 07:40 Objective Remarks: Objective Remarks GENERAL: 72-year-old male currently on PRVC SKIN: Warm and dry. No rash HEAD: Atraumatic. Normocephalic. EYES: Pupils equal round and reactive, 2 mm bilaterally. ENT: Oral cavity is moist. NECK: Trachea midline. Supple. Tracheostomy site clean and dry. CARDIOVASCULAR: RRR. No JVD. RESPIRATORY: Equal chest rise. Symmetrical excursion. Few crackles in bases, otherwise clear. GASTROINTESTINAL: Abdomen mildly distended, mild tenderness. CLARISSE in place, some what soaked with blood, JOSÉ removed; G-J tube in place, G to IWS, J capped MUSCULOSKELETAL: No edema lower extremities. Well-perfused. Warm. NEUROLOGICAL: Patient is awake alert following commands. Moving all 4 extremities spontaneously. Assessment and Plan - Problem List (1) Chronic respiratory failure Code(s): J96.10 - Chronic respiratory failure, unspecified whether with hypoxia or hypercapnia Status: Chronic (2) Large bowel obstruction Code(s): K56.609 - Unspecified intestinal obstruction, unspecified as to partial versus complete obstruction Status: Resolved (3) STEMI (ST elevation myocardial infarction) Code(s): I21.3 - ST elevation (STEMI) myocardial infarction of unspecified site Status: Resolved (4) Diabetes Code(s): E11.9 - Type 2 diabetes mellitus without complications Status: Acute (5) Wound dehiscence, surgical Code(s): T81.31XA - Disruption of external operation (surgical) wound, not elsewhere classified, initial encounter Status: Acute (6) Dysphagia Code(s): R13.10 - Dysphagia, unspecified Status: Acute (7) Protein-calorie malnutrition, severe Code(s): E43 - Unspecified severe protein-calorie malnutrition Status: Acute (8) Systolic heart failure Code(s): I50.20 - Unspecified systolic (congestive) heart failure Status: Acute (9) Colostomy in place Code(s): Z93.3 - Colostomy status Status: Acute - Assessment and Plan Plan: A/P Assessment and Plan NEURO/Psych: 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 Morphine for breakthrough pain Allopurinol for Gout. Continue with PT and OT. RESP: Acute hypoxic and hypercarbic respiratory failure- now chronic. Iatrogenic left pneumothorax- resolved. Continue with CPAP. Albuterol/ipratropium aerosols every 6 hours while awake with albuterol aerosols every 2 hours as needed dyspnea Pulm toilet, trach care. Status post percutaneous tracheostomy bedside - Dr. Mcgee Keep head of the bed elevated 30. Continues to have problems with stamina on spontaneous ventilation trials. Still requiring elevated pressure support at 15 while on spontaneous breathing trials. Resume CPAP trials CV: Coronary artery disease Post operative STEMI Acute systolic heart failure Essential hypertension Hyperlipidemia Aspirin 81 mg daily, clopidogrel 75 mg p.o. daily, currently on hold perioperatively, and due to anemia BP controlled, decreased metoprolol to 50 mg p.o. twice daily, initiate lisinopril 5 mg p.o. daily. Adjust based on response. Continue atorvastatin 20 mg at night for dyslipidemia. Holding amlodipine 10 mg daily 2D echocardiogram 05/29 revealed EF 50-55%. Grade 1 diastolic dysfunction. Pulmonary arterial pressure 34 mmHg Repeat revealed EF of 40-45% Followed by cardiology/Dr. Ellison: Dr. Villa discussed with team 10/21, and they recommended medical management. Continued conservative management recommended 11/02. GI: 10/08 Postop s/p ex-lap, TIA, Sigmoid colon resection with end colostomy and Holcomb's pouch 11/28 status post ex lap, lysis of adhesions, small bowel resection, GJ tube placement Recurrent colonic obstruction, small bowel obstruction Postop ileus vs SBO History of esophageal stricture status post dilatation History of small bowel obstruction Gastroesophageal reflux disease History of diverticulitis Hypoalbuminemia -Postop management per Dr. Mcgee. 11/28 status post ex lap, lysis of adhesiona , small bowel resection, GJ tube placement -G to IWS, J capped per gen surgery. JOSÉ drain removed today -Reglan for ileus. Morphine for pain control -TPN . colostomy in place -Pantoprazole 40 mg IV daily for GI prophylaxis. On omeprazole 20 mg daily at home Renal/: 10/08 Postop s/p Ureteroureteral anastomosis for ureteral injury Chronic kidney disease stage III a -Monitor renal function, I/O's, electrolytes replacement per protocol -Removal of double-J stent 6 weeks from operative procedure outpatient setting ID: Pneumonia - resolved Wound culture from abdominal incision +pseudomonas. -s/p full course of Zosyn (started initially 11/06) Sputum cx 11/07: Pseudomonas, repeat sputum cx - resolved Wound cx 08/06: Pseudomonas - resolved Wound culture from incision site(11/06) growing Pseudomonas, sputum Gram stain and culture(11/07) growing pansenstive Pseudomonas -Discontinued levofloxacin 10/14. s/p course vancomycin and cefepime, 10/14-10/20 Sputum, blood cultures 2 10/13 NGTD Urine Legionella and pneumococcal urinary antigens 10/13 negative HEME: Normocytic anemia Thrombocytosis -Monitor CBC, CMP, coags -s/p 1 unit PRBCs to be transfused on 11/09 for hemoglobin 7.1 ENDO: Diabetes mellitus type 2 Severe hyperglycemia of critical illness Hyperglycemia History of gout Holding metformin 1000 mg by mouth twice daily -Glucose not at target despite 40 units coverage with sliding scale. Increase detemir further to 15 units q12h. -sliding scale insulin/NovoLog high regimen q6h MSK History of ankylosing spondylosis Holding denosumab 60 mg subcu every 18 days Holding cholecalciferol 4000 units p.o. daily PT evaluate and treat PROPH: -Bilateral lower extremity SCDs. Lovenox 40 subcu daily. On Protonix 40 mg IV for stress ulcer prophylaxis. LINES: - piv. [facility] placed 11/1717 Level 3 (8) Systolic heart failure Qualifiers: Heart failure chronicity: acute Qualified Code(s): I50.21 - Acute systolic ( congestive) heart failure
--- NOTE | 2017-12-01 14:48 | ECG ---
Date Performed: 11/30/2017 Time Performed: 12:20:48 PTAGE: 72 years EKG: Sinus rhythm with multifocal PVCs. Inferior infarct - age undetermined Lateral ST-T changes are probably due to v entricular hypertrophy When compared to previous tracing, Abnormal ECG premature ventricular contract ions are now Present. Abnormal ECG PREVIOUS TRACING : 10/10/2017 13.59 DOCTOR: Anthony Mckeon Interpretating Date/Time 12/01/2017 14:48:32
[2017-12-01 18:29] LABS: Hematocrit 25.7 % (39.0-51.0); Hemoglobin 8.8 gm/dL (13.0-17.0)
[2017-12-01] MEDS: Multivitamin Inj 5 ML, Folic Acid Inj 0.5 MG in AA 4.25 %/D25W - Electrolytes 1,000 ML IV.SIG SCH (20:57)
[2017-12-02] MEDS: Morphine Inj 4 MG/ML Vial IV.PUSH PRN ×7 (00:45→21:29)
[2017-12-02] MEDS: Oral Hygiene Kit OROPHARYNG SCH ×4 (01:11→16:25)
[2017-12-02] MEDS: Insulin NovoLOG Aspart Correctional Sugar Inj SQ SCH ×4 (01:12→18:04)
[2017-12-02 05:18] LABS: Baso # (Auto) 0.1 th/mm3 (0.0-0.2); Baso % (Auto) 0.4 % (0.0-2.0); Eos # (Auto) 0.7 th/mm3 (0.0-0.4); Eos % (Auto) 3.5 % (0.0-4.0); Hemoglobin 8.5 gm/dL (13.0-17.0); Lymph # (Auto) 0.8 th/mm3 (1.0-4.8); Lymph % (Auto) 4.2 % (9.0-44.0); Mean Corpuscular Hemoglobin 29.6 pg (27.0-34.0); Mean Platelet Volume 9.2 fL (7.0-11.0); Mono # (Auto) 1.3 th/mm3 (0.0-0.9); Mono % (Auto) 6.8 % (0.0-8.0); Neut # (Auto) 16.7 th/mm3 (1.8-7.7); Neut % (Auto) 85.1 % (16.0-70.0); Platelet Count 192 th/mm3 (150-450); Red Blood Count 2.88 mil/mm3 (4.50-5.90); Red Cell Distribution Width 16.2 % (11.6-17.2); White Blood Count 19.6 th/mm3 (4.0-11.0)
[2017-12-02 05:37] LABS: Anion Gap 7 meq/L (5-15); Blood Urea Nitrogen 16 mg/dL (7-18); Calcium 7.8 mg/dL (8.5-10.1); Carbon Dioxide 28.4 meq/L (21.0-32.0); Chloride 103 meq/L (98-107); Glomerular Filtration Rate Greater Than 89 mL/min (>89); Glucose,Random 123 mg/dL (74-106); Potassium 3.9 meq/L (3.5-5.1); Sodium 138 meq/L (136-145)
[2017-12-02 05:39] LABS: Prothrombin Time 10.3 sec (9.8-11.6)
[2017-12-02] MEDS: Artificial Tears Opth Drops 15 ML Bottle EACH EYE SCH ×2 (06:15→13:42)
[2017-12-02] MEDS: Chlorhexidine Gluconate 0.12% Liq 15 ML UDC SWISH-SPIT SCH ×2 (07:59→21:11)
[2017-12-02] MEDS: Carvedilol 6.25 MG Tablet PO SCH ×2 (08:27→21:12)
[2017-12-02] MEDS: Heparin Central Flush 100 UNIT/ML 5 ML Vial IV.FLUSH SCH (08:28)
[2017-12-02] MEDS: Sodium Hypochlorite 0.125% Top Soln 500 ML Bottle TOPICAL SCH ×2 (08:28→21:12)
[2017-12-02] MEDS: Lisinopril 5 MG Tablet PO SCH (08:29)
[2017-12-02] MEDS: Allopurinol 300 MG Tablet PO SCH (08:30)
[2017-12-02] MEDS: Insulin Detemir Inj 1,000 UNIT/10 ML Vial SQ SCH ×2 (10:13→21:12)
--- NOTE | 2017-12-02 10:13 | P.PNGS ---
Subjective Patient reports: afebrile (awake alert, ) Physical Exam Vital signs: Vital Signs 12/01/17 10:11 12/01/17 11:26 12/01/17 11:40 Temperature 97.8 F 98.1 F 98.1 F Pulse Rate 80 80 81 Respiratory Rate 22 19 Blood Pressure 122/61 132/73 Pulse Oximetry 100 12/01/17 11:44 12/01/17 12:00 12/01/17 12:19 Temperature 98.1 F 98.1 F Pulse Rate 82 81 Respiratory Rate 23 23 18 Blood Pressure 122/75 131/73 Pulse Oximetry 100 100 12/01/17 13:23 12/01/17 14:00 12/01/17 16:00 Temperature 98.1 F Pulse Rate 74 88 Respiratory Rate 21 22 Blood Pressure 134/70 Pulse Oximetry 100 12/01/17 17:13 12/01/17 17:46 12/01/17 18:00 Temperature Pulse Rate 74 Respiratory Rate 17 17 Blood Pressure Pulse Oximetry 12/01/17 19:59 12/01/17 20:00 12/01/17 20:23 Temperature 98.5 F Pulse Rate 75 Respiratory Rate 25 H 18 27 H Blood Pressure 107/65 Pulse Oximetry 100 100 12/01/17 22:00 12/02/17 00:00 12/02/17 00:44 Temperature 99.1 F Pulse Rate 81 88 Respiratory Rate 26 H 24 Blood Pressure 120/66 Pulse Oximetry 100 12/02/17 01:12 12/02/17 01:26 12/02/17 02:00 Temperature Pulse Rate 80 Respiratory Rate 32 H 29 H Blood Pressure Pulse Oximetry 100 12/02/17 04:00 12/02/17 04:22 12/02/17 05:00 Temperature 98.9 F Pulse Rate 79 Respiratory Rate 23 26 H 26 H Blood Pressure 118/65 Pulse Oximetry 99 100 12/02/17 06:00 12/02/17 07:55 12/02/17 08:31 Temperature Pulse Rate 74 Respiratory Rate 22 31 H Blood Pressure Pulse Oximetry 100 Intake & Output 12/01/17 12/02/17 12/02/17 18:59 06:59 18:59 Intake Total 1755.1 / 1755.1 950 / 950 Output Total 400 / 400 1150 / 1150 Balance 1355.1 / 1355.1 -200 / -200 Intake: IV 1355.1 / 1355.1 550 / 550 Ofirmev Inj 1,000 mg In 100 ml 100 / 100 300 / 300 @ 400 mls/hr IV.SIG Q6H LISA Rx# :[id number] Intralipid 20% Inj 250 ML @ 31. 250 / 250 250 / 250 25 mls/hr IV.SIG Q24H LISA Rx#: [id number] MVI-12 Inj 5 ML Folvite Inj 0.5 1005.1 / 1005.1 MG In Clinimix E 4.25%/D25W Inj 1,000 ML @ 83 mls/hr IV.SIG Q24H LISA Rx#:[id number] Intake (Blood Product) Amt 400 / 400 400 / 400 Rbc As-3 Leukoreduced Unit 0 / 0 400 / 400 [id number] Rbc As-3 Leukoreduced Unit 400 / 400 [id number] Output: Emesis 0 / 0 Urine Amount (Catheter) 750 / 750 Indwelling Urethral Catheter 750 / 750 Stool Amount (Stoma) 0 / 0 Left Lower Abdomen 0 / 0 Gastric Drainage 400 / 400 400 / 400 Left Upper Quadrant Gastrostomy 400 / 400 400 / 400 Tube (PEG) Right Upper Quadrant 0 / 0 Jejunostomy Tube Other: Date of Last Bowel Movement 11/28/17 11/28/17 Weight On Admission 70 kg - Routine HEENT Exam ENT: Present: mucous membranes moist (trach c/d/i) - Routine Abdominal Exam Present: soft (j tube clamp, CLARISSE distal saturation, g tube gracvity, ostomy no output) - Urinary Catheter Management Indwelling Urethral Catheter Cath placed during this visit: yes Reason for continuing: Hourly intake/output Insertion date: 11/28/17 Assessment and Plan - Assessment (1) Tracheostomy in place Code(s): Z93.0 - Tracheostomy status Status: Acute (2) Respiratory failure requiring intubation Code(s): J96.90 - Respiratory failure, unspecified, unspecified whether with hypoxia or hypercapnia Status: Acute (3) Anemia, chronic disease Code(s): D63.8 - Anemia in other chronic diseases classified elsewhere Status : Acute (4) Protein-calorie malnutrition, severe Code(s): E43 - Unspecified severe protein-calorie malnutrition Status: Acute (5) Ileus following gastrointestinal surgery Code(s): K91.30 - Postprocedural intestinal obstruction, unspecified as to partial versus complete Status: Acute Onset Date: ~11/21/17 - Plan POD #4 exp laparotomy/extensive TIA >1hr G-tube output 400 ml last 24 hrs watts brown J-tube capped Continue TPN no colostomy functioning yet, hold tf s/p Transfuse 2 units PRBC's HH improved 8.5 stable distal clarisse saturation may need replacement; currently good seal
--- NOTE | 2017-12-02 14:53 | P.PNCC ---
Subjective Subjective Remarks/Hospital Course: This is a 72 year old male with history of type 2 diabetes, hypertension, dyslipidemia, chronic kidney disease stage III, ankylosing spondylitis, esophageal stricture s/p dilatation, diverticulitis, peritonitis, history of small bowel obstruction, colon resection x2, who was admitted to the hospital with one-week history of abd distension, constipation, and cramps. Pt tried to mange this at home, as he is familiar with symptoms. Has history of multiple bowel obstructions and multiple surgeries in the past. CT of abdomen/ pelvis showed moderately dilated large and small bowel, concentric stricturing in the sigmoid colon. Gastroenterology and general surgery were consulted. Patient was taken today to the OR by Dr. Mcgee, patient underwent exploratory laparotomy, Lysis of adhesions for dense adhesions involving small and large bowel, sigmoid colon resection with end colostomy and Holcomb's pouch. There was stricture at previous surgical site in sigmoid colon. EBL 300 ml, urine output was adequate. During the ex lap patient's sustained ureteral injury which required ureteroureteral anastomosis over stent by Dr. Page. Postop patient was moved to the PACU where his chest x-ray showed small possible left lateral pneumothorax. ABG showed a pH of 7.29/41/99 BE -6.7. I evaluated the patient in the ICU. Patient is intubated sedated with Precedex. He is tachycardic and borderline hypotensive. Additional 500 mL of fluid bolus given , 1 amp of bicarb. Received total 2.1 L in the OR. Urine output is adequate, approximately 75 ml per hour post op. With left-sided tiny pneumothorax (most likely with from central line placement in OR), will attempt CPAP trials for possible extubation. 10/09: Breathing is moderately labored to observe but the patient states he is comfortable. His major complaint is chronic back pain. Urine output is marginal but he remains well-perfused. Colostomy stoma is pink. 10/10: Labored breathing overnight. Remains on quarter normal saline at 125 cc hours and Clinimix E 4.25/25 at 83 cc an hour. Chest x-ray appears with bilateral pulmonary infiltrates. CVP is 8. Greater than 50% variation IVC by ultrasound. Bedside echocardiogram no acute findings. Patient currently with some pleuritic chest pain worse with deep inspiration. EKG currently pending. 8 run beat of V. tach overnight. Potassium magnesium within normal limits. 10/11: Afebrile. FiO2 requirements increased overnight currently at 60%. Chest x-ray revealed pulmonary edema bilaterally. Troponin downward trending. Noted sodium elevated 154. Will remove sodium from TPN. Norepinephrine initiated overnight currently at 8 mcg/min. Nitro paste discontinued. Holding parameters for beta corby 10/12: remains afebrile. back on levophed this AM at 5 mcg/min. also remains tachycardic in the 100s. sodium remains elevated despite removal of nacl from TPN. 10/13: T-max 100.4. Desaturated overnight requiring PEEP increased to 10 currently at 8. FiO2 down to 45%. Appears uncomfortable on the ventilator. Abdomen slightly more distended. Positive output from ostomy.. Transfusing 1 unit PRBCs due to acute coronary syndrome to keep above a. Recheck along with electrolytes active bleeding in place. CT abdomen/pelvis ordered. 10/14: Copious secretions overnight. PEEP at 7 FiO2 50%. Abdominal/pelvis CT revealed bilateral lobar pneumonia pelvic read as gallstone ileus but not likely is patient with copious stool output from ostomy. Did discuss with Dr. Mcgee. Antibiotic coverage broadened. Pancultured yesterday looks like his underlying pneumonia. Will transfuse 1 unit PRBCs today per cardiology request to maintain hemoglobin around 9 for acute coronary syndrome. Diuresis postprocedure and replace electrolytes aggressively. TPN will be weaned/ discontinued today after tube feeds at 40 cc an hour 10/15: t max 100.7 overnight. cultures NGTD. fio2 improving. secretions are somewhat better. 10/16: no improvements. afebrile. failed SBT after 10 minutes for tachypnea and respiratory distress. 10/17: failed sbt again for significant secretions and respiratory distress. only lasting about 10 min. may require tracheostomy. 10/18: much more awake and interactive. still has significant secretions. on SBT for longer today, but with active coronary ischemia, very high risk if he fails extubation. plan for trach if he remains intubated through the weekend. 10/19: still failing SBT. dressings changed today. clinically improving, but very weak and slow progress. 10/20: again failing SBT for copious secretions. was OOB to chair today. likely will need trach. 10/21: failed SBT for tachypnea, RR > 40. discussed with Dr[address] Mcgee: plan for trach tomorrow. discussed with cardiology service: they will likely medically manage his coronary artery disease without [facility] intervention. this is more of a reason to pursue trach, to prevent coronary ischemia that would come with trial of extubation first. 10/22: Plan for percutaneous tracheostomy at bedside 11 AM. Arousable on the ventilator and following commands. Currently afebrile. N.p.o. status. 10/23: Status post percutaneous tracheostomy 10/22 without complication. Continues to ooze from around tracheostomy site. Will hold enoxaparin for today. Tube feeds back at goal. Denies abdominal pain. Positive flatus from ostomy site. 10/24: Normal stool coming from well-perfused ostomy. Spontaneous breathing trials with tachypnea and mild labor. Chest x-ray with chronic interstitial changes and small lung volumes. 10/25: A little bit stronger on spontaneous breathing trials today. Pressure support settings 18/10. Tolerating tube feeds. 10/26: He is tolerating a mild reduction and mean airway pressure and end expiratory pressure. Continues to look acceptably comfortable during spontaneous breathing trials. 10/27: We needed to increase PEEP again last evening. 10/28: Spontaneous breathing trial at 8/8 this morning and doing quite well. Tube feedings on hold per surgery. Patient required low dose Xanax last night for anxiety. 10/29: intermittent SBTs. will trial t-piece today. no significant change. needs LTAC level care. 10/30: t-piece trials. ostomy working. advancing trickle tube feeds per surgery. 10/31: patient having gout flair and significantly painful. however, steroids contraindicated, and NSAIDS also contraindicated with concern over renal dysfunction in the setting of critical illness. still failing to separate from mechanical ventilation. really needs LTAC level care for pulmonary rehab. 11/01: NG tube placed to suction with 700 cc of gastric contents suctioned out overnight. Patient remains on mechanical ventilation with tracheostomy on CPAP with pressure support. Failed T piece yesterday. 11/02: Remains on mechanical ventilation via tracheostomy. 11/03: Remains on mechanical ventilation via tracheostomy. CPAP trials daily. T -piece as tolerated. 11/04: On mechanical ventilation via tracheostomy. Daily CPAP trials. 11/05, 11/06: Remains on mechanical ventilation via tracheostomy. Daily CPAP trials ongoing. 11/07: Worsening respiratory status. Placed back on PRVC mode mechanical ventilation last night. Significant sick pulmonary secretions noted. No BMs via colostomy. Chest x-ray done this morning shows worsening infiltrates more on the right suspicious for aspiration. KUB done this morning shows an ileus. Already placed on Zosyn on 11/07 which should cover for pneumonia. 11/08: Resting on mechanical ventilation via tracheostomy. Wound culture from incision site growing Pseudomonas 11/09: Remains on mechanical ventilation via tracheostomy. Wound culture and sputum both growing Pseudomonas. 11/10: Is on mechanical ventilation via tracheostomy. Daily CPAP trials. 11/11: Remains on mechanical ventilation via tracheostomy. Really CPAP trials ongoing. 11/12 No events overnight. On ventilator via trach. On CPAP with PS 15, PEEP:5 and FIO2 40%. Afebrile. 11/13 Patient denies complaint. Wants NGT out but understand rationale for continuing. On CPAP 15/5. Tolerating tube feeds. Afebrile. Subjective: 11/14 On CPAP 15/5 since yesterday. Able to wean to 12/5 but weaning beyond that produces tachypnea. Was out of bed to chair for a couple of hours. 11/15: Remains on CPAP via tracheostomy. Had problems with secretions last night. Adding scheduled nebulizer treatments and Mucomyst to mobilize secretions. 11/16: Resting comfortably on mechanical ventilation via tracheostomy. On CPAP trial 11/17: Afebrile. Tolerating tube feeds at goal. Placed on ventilator yesterday secondary to worsening subjective shortness of breath. We will reattempt CPAP trial again today. Positive BM.. 11/18: Afebrile. We will reattempt CPAP trial again today. Check chest x-ray in a.m. Continue with pulmonary toilet. Anxious. 11/19: Not tolerating CPAP trials well. Will discuss among consultants ways to manage his anxiety. 11/20: Brief episodes of apnea overnight. Anxiety a little better controlled this morning. 11/21: Patient vomited a large amount of tube feed this morning. After this he appeared comfortable although a little anxious. 11/22: Feels a little better this morning but abdomen remains moderately distended. Good stoma output. Surgical service is aware and Dr. Shepard saw the patient last evening. KUB reviewed. Potassium replacement underway now. 11/23: Patient remains in poorly compensated diastolic heart failure. Our best efforts to gingerly diuresis and has just resulted in worsening renal function. His medical therapy is maximized for heart failure with acceptable pulse rate control and afterload reduction. Inability to wean completely from the ventilator is closely associated persistent pulmonary edema. 11/24: Breathing quite comfortably this morning on CPAP however requiring 15 cm of water pressure support. Despite congested chest x-ray his lungs are fairly clear to auscultation. He has been started on TPN and his GI tract To low intermittent suction through an NG tube. The abdomen is remarkably soft and not distended. The colostomy does have output. 11/25: He has finally progressed to T piece trials and so far he is comfortable. We continue to adjust electrolyte replacement because of nasogastric losses. His general demeanor is much improved today and he is much less anxious. TPN is infusing as we rest his bowel. SUBJECTIVE 11/26: more gastric distension and vomiting this AM. tube feeds stopped and NGT to LIWS with 300cc gastric contents removed. general surgery notified. will ultimately need permanent enteral access, and likely G/J at this point. no changes. still resting on vent overnight. very weak and deconditioned. 11/27: Continues to have episodes of vomiting, continues to have gastric distention. KUB shows ileus. Will start on scheduled Reglan, replaced potassium. Requested PICC line for TPN and electrolyte replacement. Dr. Mcgee planning for OR with ex lap and lysis of adhesions tomorrow 11/28: Awake alert on the ventilator today. Nausea vomiting is improved. Plan for OR today with Dr. Mcege with TIA and G-J tube placement 11/29: Currently lying in bed on CPAP. Status post exploratory laparotomy, Lysis of adhesions, greater than 1 hour, Small bowel resection and GJ tube placement. Complaints of postop pain I will add morphine for breakthrough pain. Start TPN today per general surgery. Calcium low getting replaced 11/30: Complains of increased nausea vomiting today. Increased G-tube output approximately 400 mL overnight. Per general surgery GT piece to intermittent wall suction J-tube clamped. TPN started 12/01: Pain improved denies nausea today. Hb 6.5 getting 2 units of PRBC. G- tube output 300 ml last 24 hrs, J-tube capped. JOSÉ drain was removed by Dr. Mcgee. Will resume CPAP trials 12/02: Clinically improving pain better. No colostomy function yet. G-tube output approximately 800 mL in 24 hours. Continuing TPN. WBC count 19.6 no fever Objective Vital Signs / I&O: Vital Signs 12/01/17 16:00 12/01/17 17:13 12/01/17 17:46 Temperature 98.1 F Pulse Rate 88 Respiratory Rate 22 17 17 Blood Pressure 134/70 Pulse Oximetry 100 12/01/17 18:00 12/01/17 19:59 12/01/17 20:00 Temperature 98.5 F Pulse Rate 74 75 Respiratory Rate 25 H 18 Blood Pressure 107/65 Pulse Oximetry 100 100 12/01/17 20:23 12/01/17 22:00 12/02/17 00:00 Temperature 99.1 F Pulse Rate 81 88 Respiratory Rate 27 H 26 H Blood Pressure 120/66 Pulse Oximetry 100 12/02/17 00:44 12/02/17 01:12 12/02/17 01:26 Temperature Pulse Rate Respiratory Rate 24 32 H 29 H Blood Pressure Pulse Oximetry 100 12/02/17 02:00 12/02/17 04:00 12/02/17 04:22 Temperature 98.9 F Pulse Rate 80 79 Respiratory Rate 23 26 H Blood Pressure 118/65 Pulse Oximetry 99 100 12/02/17 05:00 12/02/17 06:00 12/02/17 07:55 Temperature Pulse Rate 74 Respiratory Rate 26 H 22 Blood Pressure Pulse Oximetry 100 12/02/17 08:00 12/02/17 08:31 12/02/17 10:00 Temperature 98 F Pulse Rate 70 77 Respiratory Rate 23 31 H Blood Pressure 125/67 Pulse Oximetry 100 12/02/17 12:00 12/02/17 12:11 Temperature 98.1 F Pulse Rate 72 Respiratory Rate 25 H 24 Blood Pressure 114/58 L Pulse Oximetry 100 100 Intake & Output 12/01/17 12/02/17 12/02/17 18:59 06:59 18:59 Intake Total 1755.1 / 1755.1 950 / 950 1105.1 / 1105.1 Output Total 400 / 400 1150 / 1150 Balance 1355.1 / 1355.1 -200 / -200 1105.1 / 1105.1 Intake: IV 1355.1 / 1355.1 550 / 550 1105.1 / 1105.1 Ofirmev Inj 1,000 mg In 100 ml 100 / 100 300 / 300 100 / 100 @ 400 mls/hr IV.SIG Q6H LISA Rx# :[id number] Intralipid 20% Inj 250 ML @ 31. 250 / 250 250 / 250 25 mls/hr IV.SIG Q24H LISA Rx#: [id number] MVI-12 Inj 5 ML Folvite Inj 0.5 1005.1 / 1005.1 1005.1 / 1005.1 MG In Clinimix E 4.25%/D25W Inj 1,000 ML @ 83 mls/hr IV.SIG Q24H LISA Rx#:[id number] Intake (Blood Product) Amt 400 / 400 400 / 400 Rbc As-3 Leukoreduced Unit 0 / 0 400 / 400 [id number] Rbc As-3 Leukoreduced Unit 400 / 400 [id number] Output: Emesis 0 / 0 Urine Amount (Catheter) 750 / 750 Indwelling Urethral Catheter 750 / 750 Stool Amount (Stoma) 0 / 0 Left Lower Abdomen 0 / 0 Gastric Drainage 400 / 400 400 / 400 Left Upper Quadrant Gastrostomy 400 / 400 400 / 400 Tube (PEG) Right Upper Quadrant 0 / 0 Jejunostomy Tube Other: Date of Last Bowel Movement 11/28/17 11/28/17 11/28/17 Weight On Admission 70 kg Result Diagrams: 12/02/17 04:21 12/02/17 04:21 Objective Remarks: Objective Remarks GENERAL: 72-year-old male currently on CPAP SKIN: Warm and dry. No rash HEAD: Atraumatic. Normocephalic. EYES: Pupils equal round and reactive, 2 mm bilaterally. ENT: Oral cavity is moist. NECK: Trachea midline. Supple. Tracheostomy site clean and dry. CARDIOVASCULAR: RRR. No JVD. RESPIRATORY: Equal chest rise. Symmetrical excursion. Few crackles in bases GASTROINTESTINAL: Abdomen mildly distended, mild tenderness. CLARISSE in place JOSÉ removed; G-J tube in place, G to IWS, J capped MUSCULOSKELETAL: No edema lower extremities. Well-perfused. Warm. NEUROLOGICAL: Patient is awake alert following commands. Moving all 4 extremities spontaneously. Assessment and Plan - Problem List (1) Chronic respiratory failure Code(s): J96.10 - Chronic respiratory failure, unspecified whether with hypoxia or hypercapnia Status: Chronic (2) Large bowel obstruction Code(s): K56.609 - Unspecified intestinal obstruction, unspecified as to partial versus complete obstruction Status: Resolved (3) STEMI (ST elevation myocardial infarction) Code(s): I21.3 - ST elevation (STEMI) myocardial infarction of unspecified site Status: Resolved (4) Diabetes Code(s): E11.9 - Type 2 diabetes mellitus without complications Status: Acute (5) Wound dehiscence, surgical Code(s): T81.31XA - Disruption of external operation (surgical) wound, not elsewhere classified, initial encounter Status: Acute (6) Dysphagia Code(s): R13.10 - Dysphagia, unspecified Status: Acute (7) Protein-calorie malnutrition, severe Code(s): E43 - Unspecified severe protein-calorie malnutrition Status: Acute (8) Systolic heart failure Code(s): I50.20 - Unspecified systolic (congestive) heart failure Status: Acute (9) Colostomy in place Code(s): Z93.3 - Colostomy status Status: Acute - Assessment and Plan Plan: A/P Assessment and Plan NEURO/Psych: 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 Morphine for breakthrough pain Allopurinol for Gout. Holding gabapentin 300 mg daily Continue with PT and OT. RESP: Acute hypoxic and hypercarbic respiratory failure- now chronic. Iatrogenic left pneumothorax- resolved. Continue with CPAP, attempt TP for 1 hour. Albuterol/ipratropium aerosols every 6 hours while awake with albuterol aerosols every 2 hours as needed dyspnea Pulm toilet, trach care. Status post percutaneous tracheostomy bedside - Dr. Mcgee Keep head of the bed elevated 30. Continues to have problems with stamina on spontaneous ventilation trials. CV: Coronary artery disease Post operative STEMI Acute systolic heart failure Hypertension Hyperlipidemia Aspirin 81 mg daily, clopidogrel 75 mg p.o. daily, currently on hold perioperatively, and due to anemia BP controlled, decreased metoprolol to 50 mg p.o. twice daily, continue lisinopril 5 mg p.o. daily. Continue atorvastatin 20 mg at night for dyslipidemia. Holding amlodipine 10 mg daily 2D echocardiogram 05/29 revealed EF 50-55%. Grade 1 diastolic dysfunction. Pulmonary arterial pressure 34 mmHg. Repeat revealed EF of 40-45% Followed by cardiology/Dr. Ellison: Dr. Villa discussed with team 10/21, and they recommended medical management. Continued conservative management recommended 11/02. GI: 11/28 status post ex lap, lysis of adhesions, small bowel resection, GJ tube placement 10/08 Postop s/p ex-lap, TIA, Sigmoid colon resection with end colostomy and Holcomb's pouch Recurrent colonic obstruction, small bowel obstruction Postop ileus vs SBO History of esophageal stricture status post dilatation History of small bowel obstruction History of diverticulitis Hypoalbuminemia -Postop management per Dr. Mcgee. 11/28 status post ex lap, lysis of adhesiona , small bowel resection, GJ tube placement -G to IWS, J capped per gen surgery. JOSÉ drain removed 12/01 -Reglan for ileus. Morphine for pain control -TPN . colostomy in place funtion yet, no tueb feeds per general surgery -Pantoprazole 40 mg IV daily for GI prophylaxis. On omeprazole 20 mg daily at home Renal/: 10/08 Postop s/p Ureteroureteral anastomosis for ureteral injury Chronic kidney disease stage III a -Monitor renal function, I/O's, electrolytes replacement per protocol -Removal of double-J stent 6 weeks from operative procedure outpatient setting ID: Pneumonia - resolved Wound culture from abdominal incision +pseudomonas. -s/p full course of Zosyn (started initially 11/06) Sputum cx 11/07: Pseudomonas, repeat sputum cx - resolved Wound cx 08/06: Pseudomonas - resolved Wound culture from incision site(11/06) growing Pseudomonas, sputum Gram stain and culture(11/07) growing pansenstive Pseudomonas -Discontinued levofloxacin 10/14. s/p course vancomycin and cefepime, 10/14-10/20 Sputum, blood cultures 2 10/13 NGTD Urine Legionella and pneumococcal urinary antigens 10/13 negative HEME: Normocytic anemia Thrombocytosis -Monitor CBC, CMP, coags -s/p 1 unit PRBCs to be transfused on 11/09 for hemoglobin 7.1 Elevated white count may be reactive, monitor closely for infection ENDO: Diabetes mellitus type 2 Severe hyperglycemia of critical illness Holding metformin 1000 mg by mouth twice daily Continue Levemir and sliding scale insulin MSK History of ankylosing spondylosis Holding denosumab 60 mg subcu every 18 days Holding cholecalciferol 4000 units p.o. daily PT evaluate and treat PROPH: -Bilateral lower extremity SCDs. Lovenox 40 subcu daily-holding now due to anemia. On Protonix 40 mg IV for stress ulcer prophylaxis. LINES: - piv. [facility] placed 11/1717 Level 2 Code Status: Full (8) Systolic heart failure Qualifiers: Heart failure chronicity: acute Qualified Code(s): I50.21 - Acute systolic ( congestive) heart failure
[2017-12-02] MEDS: Multivitamin Inj 5 ML, Folic Acid Inj 0.5 MG in AA 4.25 %/D25W - Electrolytes 1,000 ML IV.SIG SCH (21:01)
[2017-12-03] MEDS: Artificial Tears Opth Drops 15 ML Bottle EACH EYE SCH ×4 (01:38→21:24)
[2017-12-03] MEDS: Oral Hygiene Kit OROPHARYNG SCH ×4 (01:38→18:19)
[2017-12-03] MEDS: Insulin NovoLOG Aspart Correctional Sugar Inj SQ SCH ×4 (02:24→18:28)
[2017-12-03] MEDS: Morphine Inj 4 MG/ML Vial IV.PUSH PRN ×3 (05:30→11:49)
[2017-12-03 05:49] LABS: Hematocrit 43.7 % (39.0-51.0); Mean Corpuscular HGB Conc 34.4 % (32.0-36.0); Mean Corpuscular Hemoglobin 29.9 pg (27.0-34.0); Mean Platelet Volume 8.5 fL (7.0-11.0); Platelet Count 148 th/mm3 (150-450); Red Blood Count 5.02 mil/mm3 (4.50-5.90); Red Cell Distribution Width 16.6 % (11.6-17.2); White Blood Count 8.1 th/mm3 (4.0-11.0)
[2017-12-03 06:20] LABS: Alanine Aminotransferase 14 U/L (12-78); Albumin 1.7 g/dL (3.4-5.0); Anion Gap 6 meq/L (5-15); Aspartate Aminotransferase 14 U/L (15-37); Blood Urea Nitrogen 20 mg/dL (7-18); Calcium 7.9 mg/dL (8.5-10.1); Carbon Dioxide 32.5 meq/L (21.0-32.0); Chloride 100 meq/L (98-107); Glomerular Filtration Rate Greater Than 89 mL/min (>89); Glucose,Random 180 mg/dL (74-106); Potassium 3.6 meq/L (3.5-5.1); Sodium 138 meq/L (136-145)
[2017-12-03 06:22] LABS: Alkaline Phosphatase 84 U/L (45-117); Total Protein 6.4 g/dL (6.4-8.2)
[2017-12-03] MEDS: Carvedilol 6.25 MG Tablet PO SCH ×2 (08:33→21:07)
[2017-12-03] MEDS: Insulin Detemir Inj 1,000 UNIT/10 ML Vial SQ SCH ×2 (08:33→20:16)
[2017-12-03] MEDS: Heparin Central Flush 100 UNIT/ML 5 ML Vial IV.FLUSH SCH (08:33)
[2017-12-03] MEDS: Chlorhexidine Gluconate 0.12% Liq 15 ML UDC SWISH-SPIT SCH ×2 (08:33→20:16)
[2017-12-03] MEDS: Sodium Hypochlorite 0.125% Top Soln 500 ML Bottle TOPICAL SCH ×2 (08:35→21:07)
[2017-12-03] MEDS: Allopurinol 300 MG Tablet PO SCH (08:36)
[2017-12-03] MEDS: Lisinopril 5 MG Tablet PO SCH (08:36)
[2017-12-03] MEDS: Pantoprazole Inj 40 MG Vial IV.PUSH SCH (08:50)
[2017-12-03 09:46] LABS: ABG Base Excess 7.4 mmol/L (-2-2); ABG PCO2 41 mmHg (38-42); ABG PO2 111 mmHg (61-120)
[2017-12-03] MEDS: Multivitamin Inj 5 ML, Folic Acid Inj 0.5 MG in AA 4.25 %/D25W - Electrolytes 1,000 ML IV.SIG SCH ×2 (10:32→22:42)
--- NOTE | 2017-12-03 11:19 | P.DIET ---
Nutritional Evaluation Type of nutrition evaluation: follow-up Nutrition consult regarding: Tube Feeding, TPN/PPN Screening comments: NEW TPN 11/29 [facility] [place] for malnutrition received 11/27 Objective - Diagnosis Partial Bowel Obstruction - Objective % IBW: 116 Body Weight Used for Calculations: Actual (72 kg) Energy Needs - Lower Range (kCal/kg): 28 Energy Needs - Upper Range (kCal/kg): 32 Lower Limit kCal/kg (kCals): 2,013 Upper Limit kCal/kg (kCals): 2,301 Lower Limit Protein Factor (Grams per Kg): 1.0 Upper Limit Protein Factor (Grams per Kg): 1.5 Lower Protein Needs (Protein): 72 Upper Protein Needs (Protein): 108 Dietitian Reviewed in Medical Record: Curent medications, Intake & Output, Labs , TPN/PPN Diet Order: NPO Objective Comments: PMH: Esophageal dilation, GOUT, HT, Hyperlipidemia, GERD, Arthritis, ankylosing spondylitis, DM, CKD stage III, peritonitis, colon resection x 2, diverticulitis GLU 180 Feeding - Current TPN/PPN Current TPN: Clinimix E 4.25/25 Current TPN/PPN Rate (ml/hr): 83 Amino Acid and Dextrose Current kCals Provided: 2,040 Amino Acid and Dextrose Current Protein Provided: 85 Current Lipid Concentration: 20% Current Lipids Rate: 250 mls daily over 8 hours Current kCal Provided by TPN/PPN: 2,540 Assessment Assessment: Pt is s/p TIA and g/j-t placement and is receiving TPN/lipids as above. To meet needs with TPN recommend decrease current rate to 70 mls/hr with the same lipids to provide a total of 2214 kcals, and 71 gms protein. Labs reviewed: elevated glucose noted. When able, recommend TF of Vital 1.5 @ 60 mls/hr to provide 2160 kcals, 97 gms protein and 57876 mls of free water. Recommendations: For TPN: Clinimix E 4.25/25 @ 70 mls/hr Lipids: 20% lipids 250 mls/day For TF: Vital 1.5 @ 60 mls/hr goal when able Dietitian to Monitor: Lab values, Intake & Output, Tube feeding tolerance, TPN/ PPN tolerance, Weight change, Medical course
[2017-12-03] MEDS: Promethazine 25 MG Supp RECTAL PRN ×2 (11:48→18:16)
[2017-12-03] MEDS: Sod Chloride 0.9% Inj 1,000 ML IV.CONT SCH ×2 (11:50→19:51)
--- NOTE | 2017-12-03 12:25 | P.PN ---
Subjective Interval history: Very nauseous today Physical Exam Vital signs: Vital Signs 12/02/17 14:00 12/02/17 15:20 12/02/17 16:00 Temperature 98.0 F Pulse Rate 82 80 Respiratory Rate 30 H Blood Pressure 132/74 Pulse Oximetry 99 97 12/02/17 17:08 12/02/17 18:00 12/02/17 19:47 Temperature Pulse Rate 78 Respiratory Rate 31 H 26 H Blood Pressure Pulse Oximetry 100 100 12/02/17 20:00 12/02/17 23:00 12/03/17 00:00 Temperature 98.2 F 97.9 F Pulse Rate 82 76 Respiratory Rate 28 H 26 H 25 H Blood Pressure 129/65 121/62 Pulse Oximetry 100 100 100 12/03/17 02:00 12/03/17 04:00 12/03/17 04:08 Temperature 98.4 F Pulse Rate 81 79 Respiratory Rate 23 26 H Blood Pressure 133/67 Pulse Oximetry 100 99 12/03/17 05:58 12/03/17 08:00 12/03/17 09:45 Temperature Pulse Rate 82 Respiratory Rate 27 H 18 Blood Pressure Pulse Oximetry 100 12/03/17 11:10 Temperature Pulse Rate Respiratory Rate 23 Blood Pressure Pulse Oximetry 100 Intake & Output 12/02/17 12/03/17 12/03/17 18:59 06:59 18:59 Intake Total 1305.1 / 1305.1 1273 / 1273 1182.1 / 1182.1 Output Total 1125 / 1125 1725 / 1725 Balance 180.1 / 180.1 -452 / -452 1182.1 / 1182.1 Intake: IV 1305.1 / 1305.1 1273 / 1273 1182.1 / 1182.1 NS Inj 1,000 ML @ 42 mls/hr IV. 1000 / 1000 CONT .[id number] LIAS Rx#:[id number] Ofirmev Inj 1,000 mg In 100 ml 200 / 200 200 / 200 @ 400 mls/hr IV.SIG Q6H [facility] Rx# :[id number] Intralipid 20% Inj 250 ML @ 31. 250 / 250 25 mls/hr IV.SIG Q24H [facility] Rx#: [id number] Magnesium Sulfate Inj 2 GM In 100 / 100 NS Inj 96 ML @ 50 mls/hr IV.SIG UNSCH PRN Rx#:[id number] MVI-12 Inj 5 ML Folvite Inj 0.5 1005.1 / 1005.1 823 / 823 182.1 / 182.1 MG In Clinimix E 4.25%/D25W Inj 1,000 ML @ 83 mls/hr IV.SIG Q24H [facility] Rx#:[id number] Oral 0 / 0 Tube Feeding 0 / 0 Output: Stool 0 / 0 Emesis 0 / 0 Urine Amount (Catheter) 825 / 825 725 / 725 Indwelling Urethral Catheter 825 / 825 725 / 725 Stool Amount (Stoma) 0 / 0 Left Lower Abdomen 0 / 0 Gastric Drainage 300 / 300 1000 / 1000 Left Upper Quadrant Gastrostomy 300 / 300 Tube (PEG) Right Upper Quadrant 1000 / 1000 Jejunostomy Tube Other: Date of Last Bowel Movement 11/28/17 11/28/17 - Routine Abdominal Exam Present: soft, distended (minimal tenderness, no rebound or guarding) - Urinary Catheter Management Indwelling Urethral Catheter Cath placed during this visit: yes Reason for continuing: Hourly intake/output Insertion date: 11/28/17 Results - Labs CBC & Chem 7: 12/03/17 05:40 12/03/17 05:40 Laboratory Results - last 24 hr 11/28/17 12/02/17 12/02/17 20:29 12:29 17:39 WBC RBC Hgb Hct MCV MCH MCHC RDW Plt Count MPV Puncture Site Drawn in or Patient Temperature O2 Saturation ABG pH ABG pCO2 ABG pO2 ABG HCO3 ABG O2 Content ABG Base Excess ABG Methemoglobin Willard Test Hemoglobin Carboxyhemoglobin O2 Delivery Device Vent Setting Inspired O2 Critical Value Sodium Potassium Chloride Carbon Dioxide Anion Gap BUN Creatinine Estimated GFR POC Glucose 149 H 135 H Random Glucose Calcium Total Bilirubin AST ALT Alkaline Phosphatase Total Protein Albumin 12/02/17 12/03/17 12/03/17 20:45 05:40 05:40 WBC 8.1 RBC 5.02 Hgb 15.0 D Hct 43.7 MCV 87.0 MCH 29.9 MCHC 34.4 RDW 16.6 Plt Count 148 L MPV 8.5 Puncture Site Patient Temperature O2 Saturation ABG pH ABG pCO2 ABG pO2 ABG HCO3 ABG O2 Content ABG Base Excess ABG Methemoglobin Willard Test Hemoglobin Carboxyhemoglobin O2 Delivery Device Vent Setting Inspired O2 Critical Value Sodium 138 Potassium 3.6 Chloride 100 Carbon Dioxide 32.5 H Anion Gap 6 BUN 20 H Creatinine 0.80 Estimated GFR Greater than 89 POC Glucose 148 H Random Glucose 180 H Calcium 7.9 L Total Bilirubin 0.5 AST 14 L ALT 14 Alkaline Phosphatase 84 Total Protein 6.4 D Albumin 1.7 L 12/03/17 09:35 WBC RBC Hgb Hct MCV MCH MCHC RDW Plt Count MPV Puncture Site Right radial Patient Temperature 98.6 O2 Saturation 96 ABG pH 7.49 H ABG pCO2 41 ABG pO2 111 ABG HCO3 31 H ABG O2 Content 12.8 ABG Base Excess 7.4 H ABG Methemoglobin 0.9 Willard Test Present Hemoglobin 9.3 L Carboxyhemoglobin 1.8 O2 Delivery Device Ventilator Vent Setting [id number] Inspired O2 40 Critical Value No Sodium Potassium Chloride Carbon Dioxide Anion Gap BUN Creatinine Estimated GFR POC Glucose Random Glucose Calcium Total Bilirubin AST ALT Alkaline Phosphatase Total Protein Albumin Assessment and Plan - Assessment (1) Tracheostomy in place Code(s): Z93.0 - Tracheostomy status Status: Acute (2) Respiratory failure requiring intubation Code(s): J96.90 - Respiratory failure, unspecified, unspecified whether with hypoxia or hypercapnia Status: Acute (3) Anemia, chronic disease Code(s): D63.8 - Anemia in other chronic diseases classified elsewhere Status : Acute Plan: Transfusion one unit PRBC's (4) Protein-calorie malnutrition, severe Code(s): E43 - Unspecified severe protein-calorie malnutrition Status: Acute (5) Ileus following gastrointestinal surgery Code(s): K91.30 - Postprocedural intestinal obstruction, unspecified as to partial versus complete Status: Acute Onset Date: ~11/21/17 Plan: Enteral feeding held and continue gastrostomy tube to LIWS - Plan POD #5 exp laparotomy/extensive TIA >1hr G-tube output 1000 ml last 24 hrs J-tube capped Phenergan suppository for continued nausea Continue TPN Start enteral feeding via J-tube when colostomy functioning starts
--- NOTE | 2017-12-03 12:53 | P.PNCC ---
Subjective Subjective Remarks/Hospital Course: This is a 72 year old male with history of type 2 diabetes, hypertension, dyslipidemia, chronic kidney disease stage III, ankylosing spondylitis, esophageal stricture s/p dilatation, diverticulitis, peritonitis, history of small bowel obstruction, colon resection x2, who was admitted to the hospital with one-week history of abd distension, constipation, and cramps. Pt tried to mange this at home, as he is familiar with symptoms. Has history of multiple bowel obstructions and multiple surgeries in the past. CT of abdomen/ pelvis showed moderately dilated large and small bowel, concentric stricturing in the sigmoid colon. Gastroenterology and general surgery were consulted. Patient was taken today to the OR by Dr. Mcgee, patient underwent exploratory laparotomy, Lysis of adhesions for dense adhesions involving small and large bowel, sigmoid colon resection with end colostomy and Holcomb's pouch. There was stricture at previous surgical site in sigmoid colon. EBL 300 ml, urine output was adequate. During the ex lap patient's sustained ureteral injury which required ureteroureteral anastomosis over stent by Dr. Page. Postop patient was moved to the PACU where his chest x-ray showed small possible left lateral pneumothorax. ABG showed a pH of 7.29/41/99 BE -6.7. I evaluated the patient in the ICU. Patient is intubated sedated with Precedex. He is tachycardic and borderline hypotensive. Additional 500 mL of fluid bolus given , 1 amp of bicarb. Received total 2.1 L in the OR. Urine output is adequate, approximately 75 ml per hour post op. With left-sided tiny pneumothorax (most likely with from central line placement in OR), will attempt CPAP trials for possible extubation. 10/09: Breathing is moderately labored to observe but the patient states he is comfortable. His major complaint is chronic back pain. Urine output is marginal but he remains well-perfused. Colostomy stoma is pink. 10/10: Labored breathing overnight. Remains on quarter normal saline at 125 cc hours and Clinimix E 4.25/25 at 83 cc an hour. Chest x-ray appears with bilateral pulmonary infiltrates. CVP is 8. Greater than 50% variation IVC by ultrasound. Bedside echocardiogram no acute findings. Patient currently with some pleuritic chest pain worse with deep inspiration. EKG currently pending. 8 run beat of V. tach overnight. Potassium magnesium within normal limits. 10/11: Afebrile. FiO2 requirements increased overnight currently at 60%. Chest x-ray revealed pulmonary edema bilaterally. Troponin downward trending. Noted sodium elevated 154. Will remove sodium from TPN. Norepinephrine initiated overnight currently at 8 mcg/min. Nitro paste discontinued. Holding parameters for beta corby 10/12: remains afebrile. back on levophed this AM at 5 mcg/min. also remains tachycardic in the 100s. sodium remains elevated despite removal of nacl from TPN. 10/13: T-max 100.4. Desaturated overnight requiring PEEP increased to 10 currently at 8. FiO2 down to 45%. Appears uncomfortable on the ventilator. Abdomen slightly more distended. Positive output from ostomy.. Transfusing 1 unit PRBCs due to acute coronary syndrome to keep above a. Recheck along with electrolytes active bleeding in place. CT abdomen/pelvis ordered. 10/14: Copious secretions overnight. PEEP at 7 FiO2 50%. Abdominal/pelvis CT revealed bilateral lobar pneumonia pelvic read as gallstone ileus but not likely is patient with copious stool output from ostomy. Did discuss with Dr. Mcgee. Antibiotic coverage broadened. Pancultured yesterday looks like his underlying pneumonia. Will transfuse 1 unit PRBCs today per cardiology request to maintain hemoglobin around 9 for acute coronary syndrome. Diuresis postprocedure and replace electrolytes aggressively. TPN will be weaned/ discontinued today after tube feeds at 40 cc an hour 10/15: t max 100.7 overnight. cultures NGTD. fio2 improving. secretions are somewhat better. 10/16: no improvements. afebrile. failed SBT after 10 minutes for tachypnea and respiratory distress. 10/17: failed sbt again for significant secretions and respiratory distress. only lasting about 10 min. may require tracheostomy. 10/18: much more awake and interactive. still has significant secretions. on SBT for longer today, but with active coronary ischemia, very high risk if he fails extubation. plan for trach if he remains intubated through the weekend. 10/19: still failing SBT. dressings changed today. clinically improving, but very weak and slow progress. 10/20: again failing SBT for copious secretions. was OOB to chair today. likely will need trach. 10/21: failed SBT for tachypnea, RR > 40. discussed with Dr[address] Mcgee: plan for trach tomorrow. discussed with cardiology service: they will likely medically manage his coronary artery disease without [facility] intervention. this is more of a reason to pursue trach, to prevent coronary ischemia that would come with trial of extubation first. 10/22: Plan for percutaneous tracheostomy at bedside 11 AM. Arousable on the ventilator and following commands. Currently afebrile. N.p.o. status. 10/23: Status post percutaneous tracheostomy 10/22 without complication. Continues to ooze from around tracheostomy site. Will hold enoxaparin for today. Tube feeds back at goal. Denies abdominal pain. Positive flatus from ostomy site. 10/24: Normal stool coming from well-perfused ostomy. Spontaneous breathing trials with tachypnea and mild labor. Chest x-ray with chronic interstitial changes and small lung volumes. 10/25: A little bit stronger on spontaneous breathing trials today. Pressure support settings 18/10. Tolerating tube feeds. 10/26: He is tolerating a mild reduction and mean airway pressure and end expiratory pressure. Continues to look acceptably comfortable during spontaneous breathing trials. 10/27: We needed to increase PEEP again last evening. 10/28: Spontaneous breathing trial at 8/8 this morning and doing quite well. Tube feedings on hold per surgery. Patient required low dose Xanax last night for anxiety. 10/29: intermittent SBTs. will trial t-piece today. no significant change. needs LTAC level care. 10/30: t-piece trials. ostomy working. advancing trickle tube feeds per surgery. 10/31: patient having gout flair and significantly painful. however, steroids contraindicated, and NSAIDS also contraindicated with concern over renal dysfunction in the setting of critical illness. still failing to separate from mechanical ventilation. really needs LTAC level care for pulmonary rehab. 11/01: NG tube placed to suction with 700 cc of gastric contents suctioned out overnight. Patient remains on mechanical ventilation with tracheostomy on CPAP with pressure support. Failed T piece yesterday. 11/02: Remains on mechanical ventilation via tracheostomy. 11/03: Remains on mechanical ventilation via tracheostomy. CPAP trials daily. T -piece as tolerated. 11/04: On mechanical ventilation via tracheostomy. Daily CPAP trials. 11/05, 11/06: Remains on mechanical ventilation via tracheostomy. Daily CPAP trials ongoing. 11/07: Worsening respiratory status. Placed back on PRVC mode mechanical ventilation last night. Significant sick pulmonary secretions noted. No BMs via colostomy. Chest x-ray done this morning shows worsening infiltrates more on the right suspicious for aspiration. KUB done this morning shows an ileus. Already placed on Zosyn on 11/07 which should cover for pneumonia. 11/08: Resting on mechanical ventilation via tracheostomy. Wound culture from incision site growing Pseudomonas 11/09: Remains on mechanical ventilation via tracheostomy. Wound culture and sputum both growing Pseudomonas. 11/10: Is on mechanical ventilation via tracheostomy. Daily CPAP trials. 11/11: Remains on mechanical ventilation via tracheostomy. Really CPAP trials ongoing. 11/12 No events overnight. On ventilator via trach. On CPAP with PS 15, PEEP:5 and FIO2 40%. Afebrile. 11/13 Patient denies complaint. Wants NGT out but understand rationale for continuing. On CPAP 15/5. Tolerating tube feeds. Afebrile. Subjective: 11/14 On CPAP 15/5 since yesterday. Able to wean to 12/5 but weaning beyond that produces tachypnea. Was out of bed to chair for a couple of hours. 11/15: Remains on CPAP via tracheostomy. Had problems with secretions last night. Adding scheduled nebulizer treatments and Mucomyst to mobilize secretions. 11/16: Resting comfortably on mechanical ventilation via tracheostomy. On CPAP trial 11/17: Afebrile. Tolerating tube feeds at goal. Placed on ventilator yesterday secondary to worsening subjective shortness of breath. We will reattempt CPAP trial again today. Positive BM.. 11/18: Afebrile. We will reattempt CPAP trial again today. Check chest x-ray in a.m. Continue with pulmonary toilet. Anxious. 11/19: Not tolerating CPAP trials well. Will discuss among consultants ways to manage his anxiety. 11/20: Brief episodes of apnea overnight. Anxiety a little better controlled this morning. 11/21: Patient vomited a large amount of tube feed this morning. After this he appeared comfortable although a little anxious. 11/22: Feels a little better this morning but abdomen remains moderately distended. Good stoma output. Surgical service is aware and Dr. Shepard saw the patient last evening. KUB reviewed. Potassium replacement underway now. 11/23: Patient remains in poorly compensated diastolic heart failure. Our best efforts to gingerly diuresis and has just resulted in worsening renal function. His medical therapy is maximized for heart failure with acceptable pulse rate control and afterload reduction. Inability to wean completely from the ventilator is closely associated persistent pulmonary edema. 11/24: Breathing quite comfortably this morning on CPAP however requiring 15 cm of water pressure support. Despite congested chest x-ray his lungs are fairly clear to auscultation. He has been started on TPN and his GI tract To low intermittent suction through an NG tube. The abdomen is remarkably soft and not distended. The colostomy does have output. 11/25: He has finally progressed to T piece trials and so far he is comfortable. We continue to adjust electrolyte replacement because of nasogastric losses. His general demeanor is much improved today and he is much less anxious. TPN is infusing as we rest his bowel. SUBJECTIVE 11/26: more gastric distension and vomiting this AM. tube feeds stopped and NGT to LIWS with 300cc gastric contents removed. general surgery notified. will ultimately need permanent enteral access, and likely G/J at this point. no changes. still resting on vent overnight. very weak and deconditioned. 11/27: Continues to have episodes of vomiting, continues to have gastric distention. KUB shows ileus. Will start on scheduled Reglan, replaced potassium. Requested PICC line for TPN and electrolyte replacement. Dr. Mcgee planning for OR with ex lap and lysis of adhesions tomorrow 11/28: Awake alert on the ventilator today. Nausea vomiting is improved. Plan for OR today with Dr. Mcgee with TIA and G-J tube placement 11/29: Currently lying in bed on CPAP. Status post exploratory laparotomy, Lysis of adhesions, greater than 1 hour, Small bowel resection and GJ tube placement. Complaints of postop pain I will add morphine for breakthrough pain. Start TPN today per general surgery. Calcium low getting replaced 11/30: Complains of increased nausea vomiting today. Increased G-tube output approximately 400 mL overnight. Per general surgery GT piece to intermittent wall suction J-tube clamped. TPN started 12/01: Pain improved denies nausea today. Hb 6.5 getting 2 units of PRBC. G- tube output 300 ml last 24 hrs, J-tube capped. JOSÉ drain was removed by Dr. Mcgee. Will resume CPAP trials 12/02: Clinically improving pain better. No colostomy function yet. G-tube output approximately 800 mL in 24 hours. Continuing TPN. WBC count 19.6 no fever. 12/03: Comfortable this morning. Normal respiratory pattern. Instructions from surgery service reviewed, agree. Objective Vital Signs / I&O: Vital Signs 12/02/17 14:00 12/02/17 15:20 12/02/17 16:00 Temperature 98.0 F Pulse Rate 82 80 Respiratory Rate 30 H Blood Pressure 132/74 Pulse Oximetry 99 97 12/02/17 17:08 12/02/17 18:00 12/02/17 19:47 Temperature Pulse Rate 78 Respiratory Rate 31 H 26 H Blood Pressure Pulse Oximetry 100 100 12/02/17 20:00 12/02/17 23:00 12/03/17 00:00 Temperature 98.2 F 97.9 F Pulse Rate 82 76 Respiratory Rate 28 H 26 H 25 H Blood Pressure 129/65 121/62 Pulse Oximetry 100 100 100 12/03/17 02:00 12/03/17 04:00 12/03/17 04:08 Temperature 98.4 F Pulse Rate 81 79 Respiratory Rate 23 26 H Blood Pressure 133/67 Pulse Oximetry 100 99 12/03/17 05:58 12/03/17 08:00 12/03/17 09:45 Temperature Pulse Rate 82 Respiratory Rate 27 H 18 Blood Pressure Pulse Oximetry 100 12/03/17 11:10 Temperature Pulse Rate Respiratory Rate 23 Blood Pressure Pulse Oximetry 100 Intake & Output 12/02/17 12/03/17 12/03/17 18:59 06:59 18:59 Intake Total 1305.1 / 1305.1 1273 / 1273 1182.1 / 1182.1 Output Total 1125 / 1125 1725 / 1725 Balance 180.1 / 180.1 -452 / -452 1182.1 / 1182.1 Intake: IV 1305.1 / 1305.1 1273 / 1273 1182.1 / 1182.1 NS Inj 1,000 ML @ 42 mls/hr IV. 1000 / 1000 CONT .[id number] [facility] Rx#:[id number] Ofirmev Inj 1,000 mg In 100 ml 200 / 200 200 / 200 @ 400 mls/hr IV.SIG Q6H [facility] Rx# :[id number] Intralipid 20% Inj 250 ML @ 31. 250 / 250 25 mls/hr IV.SIG Q24H [facility] Rx#: [id number] Magnesium Sulfate Inj 2 GM In 100 / 100 NS Inj 96 ML @ 50 mls/hr IV.SIG UNSCH PRN Rx#:[id number] MVI-12 Inj 5 ML Folvite Inj 0.5 1005.1 / 1005.1 823 / 823 182.1 / 182.1 MG In Clinimix E 4.25%/D25W Inj 1,000 ML @ 83 mls/hr IV.SIG Q24H [facility] Rx#:[id number] Oral 0 / 0 Tube Feeding 0 / 0 Output: Stool 0 / 0 Emesis 0 / 0 Urine Amount (Catheter) 825 / 825 725 / 725 Indwelling Urethral Catheter 825 / 825 725 / 725 Stool Amount (Stoma) 0 / 0 Left Lower Abdomen 0 / 0 Gastric Drainage 300 / 300 1000 / 1000 Left Upper Quadrant Gastrostomy 300 / 300 Tube (PEG) Right Upper Quadrant 1000 / 1000 Jejunostomy Tube Other: Date of Last Bowel Movement 11/28/17 11/28/17 Result Diagrams: 12/03/17 05:40 12/03/17 05:40 Objective Remarks: Objective Remarks GENERAL: 72-year-old male currently on CPAP SKIN: Warm and dry. No rash HEAD: Atraumatic. Normocephalic. EYES: Pupils equal round and reactive, 2 mm bilaterally. ENT: Oral cavity is moist. NECK: Trachea midline. Supple. Tracheostomy site clean and dry. CARDIOVASCULAR: RRR. No JVD. RESPIRATORY: Equal chest rise. Symmetrical excursion. Few crackles in bases. Comfortable respiratory pattern. GASTROINTESTINAL: Abdomen mildly distended, mild tenderness. CLARISSE in place JOSÉ removed; G-J tube in place, G to IWS, J capped MUSCULOSKELETAL: No edema lower extremities. Well-perfused. Warm. NEUROLOGICAL: Patient is awake alert following commands. Moving all 4 extremities spontaneously. Assessment and Plan - Problem List (1) Chronic respiratory failure Code(s): J96.10 - Chronic respiratory failure, unspecified whether with hypoxia or hypercapnia Status: Chronic (2) Large bowel obstruction Code(s): K56.609 - Unspecified intestinal obstruction, unspecified as to partial versus complete obstruction Status: Resolved (3) STEMI (ST elevation myocardial infarction) Code(s): I21.3 - ST elevation (STEMI) myocardial infarction of unspecified site Status: Resolved (4) Diabetes Code(s): E11.9 - Type 2 diabetes mellitus without complications Status: Acute (5) Wound dehiscence, surgical Code(s): T81.31XA - Disruption of external operation (surgical) wound, not elsewhere classified, initial encounter Status: Acute (6) Dysphagia Code(s): R13.10 - Dysphagia, unspecified Status: Acute (7) Protein-calorie malnutrition, severe Code(s): E43 - Unspecified severe protein-calorie malnutrition Status: Acute (8) Systolic heart failure Code(s): I50.20 - Unspecified systolic (congestive) heart failure Status: Acute (9) Colostomy in place Code(s): Z93.3 - Colostomy status Status: Acute - Assessment and Plan Plan: A/P Assessment and Plan NEURO/Psych: 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 Morphine for breakthrough pain Allopurinol for Gout. Holding gabapentin 300 mg daily Continue with PT and OT. RESP: Acute hypoxic and hypercarbic respiratory failure- now chronic. Iatrogenic left pneumothorax- resolved. Continue with CPAP, attempt TP for 1 hour. Albuterol/ipratropium aerosols every 6 hours while awake with albuterol aerosols every 2 hours as needed dyspnea Pulm toilet, trach care. Status post percutaneous tracheostomy bedside - Dr. Mcgee Keep head of the bed elevated 30. Continues to have problems with stamina on spontaneous ventilation trials. We will try to get back to T piece for limited periods of time. CV: Coronary artery disease Post operative STEMI Acute systolic heart failure Hypertension Hyperlipidemia Aspirin 81 mg daily, clopidogrel 75 mg p.o. daily, currently on hold perioperatively, and due to anemia BP controlled, decreased metoprolol to 50 mg p.o. twice daily, continue lisinopril 5 mg p.o. daily. Continue atorvastatin 20 mg at night for dyslipidemia. Holding amlodipine 10 mg daily 2D echocardiogram 05/29 revealed EF 50-55%. Grade 1 diastolic dysfunction. Pulmonary arterial pressure 34 mmHg. Repeat revealed EF of 40-45% Followed by cardiology/Dr. Ellison: Dr. Villa discussed with team 10/21, and they recommended medical management. Continued conservative management recommended 11/02. GI: 11/28 status post ex lap, lysis of adhesions, small bowel resection, GJ tube placement 10/08 Postop s/p ex-lap, TIA, Sigmoid colon resection with end colostomy and Holcomb's pouch Recurrent colonic obstruction, small bowel obstruction Postop ileus vs SBO History of esophageal stricture status post dilatation History of small bowel obstruction History of diverticulitis Hypoalbuminemia -Postop management per Dr. Mcgee. 11/28 status post ex lap, lysis of adhesiona , small bowel resection, GJ tube placement -G to IWS, J capped per gen surgery. JOSÉ drain removed 12/01 -Reglan for ileus. Morphine for pain control -TPN . colostomy in place funtion yet, no tueb feeds per general surgery -Pantoprazole 40 mg IV daily for GI prophylaxis. On omeprazole 20 mg daily at home Renal/: 10/08 Postop s/p Ureteroureteral anastomosis for ureteral injury Chronic kidney disease stage III a -Monitor renal function, I/O's, electrolytes replacement per protocol -Removal of double-J stent 6 weeks from operative procedure outpatient setting ID: Pneumonia - resolved Wound culture from abdominal incision +pseudomonas. -s/p full course of Zosyn (started initially 11/06) Sputum cx 11/07: Pseudomonas, repeat sputum cx - resolved Wound cx 08/06: Pseudomonas - resolved Wound culture from incision site(11/06) growing Pseudomonas, sputum Gram stain and culture(11/07) growing pansenstive Pseudomonas -Discontinued levofloxacin 10/14. s/p course vancomycin and cefepime, 10/14-10/20 Sputum, blood cultures 2 10/13 NGTD Urine Legionella and pneumococcal urinary antigens 10/13 negative HEME: Normocytic anemia Thrombocytosis -Monitor CBC, CMP, coags -s/p 1 unit PRBCs to be transfused on 11/09 for hemoglobin 7.1 Elevated white count may be reactive, monitor closely for infection ENDO: Diabetes mellitus type 2 Severe hyperglycemia of critical illness Holding metformin 1000 mg by mouth twice daily Continue Levemir and sliding scale insulin MSK History of ankylosing spondylosis Holding denosumab 60 mg subcu every 18 days Holding cholecalciferol 4000 units p.o. daily PT evaluate and treat PROPH: -Bilateral lower extremity SCDs. Lovenox 40 subcu daily-holding now due to anemia. On Protonix 40 mg IV for stress ulcer prophylaxis. LINES: - piv. CARMEN PICC placed 11/1717 Overall impression: Generally improving respiratory function. Stable hemodynamics. Hemoglobin increase is out of proportion to transfusion of 2 units of blood, will recheck. No evidence of excessive dehydration or other contributing factors. (8) Systolic heart failure Qualifiers: Heart failure chronicity: acute Qualified Code(s): I50.21 - Acute systolic ( congestive) heart failure
[2017-12-03] MEDS: Scopalamine 1.5 MG Patch T-DERMAL SCH (21:23)
[2017-12-04] MEDS: Oral Hygiene Kit OROPHARYNG SCH ×5 (01:51→23:28)
[2017-12-04] MEDS: Insulin NovoLOG Aspart Correctional Sugar Inj SQ SCH ×5 (01:56→23:28)
[2017-12-04] MEDS: Artificial Tears Opth Drops 15 ML Bottle EACH EYE SCH ×3 (07:02→23:08)
[2017-12-04] MEDS: Pantoprazole Inj 40 MG Vial IV.PUSH SCH (08:16)
[2017-12-04] MEDS: Allopurinol 300 MG Tablet PO SCH (08:17)
[2017-12-04] MEDS: Lisinopril 5 MG Tablet PO SCH (08:17)
[2017-12-04] MEDS: Carvedilol 6.25 MG Tablet PO SCH ×2 (08:17→20:33)
[2017-12-04] MEDS: Chlorhexidine Gluconate 0.12% Liq 15 ML UDC SWISH-SPIT SCH ×2 (08:18→20:34)
[2017-12-04] MEDS: Sodium Hypochlorite 0.125% Top Soln 500 ML Bottle TOPICAL SCH ×2 (09:15→20:34)
[2017-12-04] MEDS: Insulin Detemir Inj 1,000 UNIT/10 ML Vial SQ SCH ×2 (09:15→20:34)
[2017-12-04] MEDS: Heparin Central Flush 100 UNIT/ML 5 ML Vial IV.FLUSH SCH (09:16)
[2017-12-04] MEDS: Morphine Inj 4 MG/ML Vial IV.PUSH PRN (09:17)
--- NOTE | 2017-12-04 09:19 | P.PN ---
Subjective Interval history: Moderate abdominal pain today Less G-tube output overnight Physical Exam Vital signs: Vital Signs 12/03/17 09:45 12/03/17 10:00 12/03/17 11:10 Temperature Pulse Rate 84 Respiratory Rate 18 23 Blood Pressure Pulse Oximetry 100 12/03/17 12:00 12/03/17 12:46 12/03/17 14:00 Temperature 98.6 F Pulse Rate 78 78 Respiratory Rate 27 H 18 Blood Pressure 124/66 Pulse Oximetry 100 12/03/17 14:59 12/03/17 16:00 12/03/17 18:00 Temperature 98.8 F Pulse Rate 80 79 74 Respiratory Rate 22 26 H Blood Pressure 130/67 Pulse Oximetry 100 100 12/03/17 20:00 12/03/17 20:03 12/03/17 22:00 Temperature 98.6 F Pulse Rate 78 76 76 Respiratory Rate 19 19 Blood Pressure 127/63 Pulse Oximetry 100 12/03/17 22:48 12/04/17 00:00 12/04/17 01:27 Temperature 98.1 F Pulse Rate 68 Respiratory Rate 21 22 24 Blood Pressure 149/74 H Pulse Oximetry 100 100 12/04/17 02:00 12/04/17 04:00 12/04/17 04:45 Temperature 98.4 F Pulse Rate 78 84 Respiratory Rate 28 H 26 H Blood Pressure 123/62 Pulse Oximetry 100 100 12/04/17 06:00 12/04/17 08:13 Temperature Pulse Rate 76 Respiratory Rate 35 H Blood Pressure Pulse Oximetry 100 Intake & Output 12/03/17 12/04/17 12/04/17 18:59 06:59 18:59 Intake Total 1282.1 / 1282.1 1205.1 / 1205.1 Output Total 1300 / 1300 1150 / 1150 Balance -17.9 / -17.9 55.1 / 55.1 Weight 72.5 kg Intake: IV 1282.1 / 1282.1 1205.1 / 1205.1 NS Inj 1,000 ML @ 42 mls/hr IV. 1000 / 1000 CONT .[id number] LISA Rx#:[id number] Ofirmev Inj 1,000 mg In 100 ml 100 / 100 200 / 200 @ 400 mls/hr IV.SIG Q6H LISA Rx# :[id number] MVI-12 Inj 5 ML Folvite Inj 0.5 182.1 / 182.1 1005.1 / 1005.1 MG In Clinimix E 4.25%/D25W Inj 1,000 ML @ 83 mls/hr IV.SIG Q24H LISA Rx#:[id number] Output: Urine Amount (Catheter) 1000 / 1000 950 / 950 Indwelling Urethral Catheter 1000 / 1000 950 / 950 Stool Amount (Stoma) 0 / 0 Left Lower Abdomen 0 / 0 Gastric Drainage 300 / 300 200 / 200 Left Upper Quadrant Gastrostomy 300 / 300 200 / 200 Tube (PEG) Right Upper Quadrant 0 / 0 Jejunostomy Tube Other: Date of Last Bowel Movement 11/28/17 11/28/17 # Bowel Movements 0 # Emeses 1 - Routine Respiratory Exam Present: patient mechanically ventilated, CTA bilaterally - Routine Cardiovascular Exam Present: RRR - Routine Abdominal Exam Present: soft, distended (Much less) - Urinary Catheter Management Indwelling Urethral Catheter Cath placed during this visit: yes Reason for continuing: Hourly intake/output Insertion date: 11/28/17 Results - Labs CBC & Chem 7: 12/04/17 04:00 12/03/17 05:40 Laboratory Results - last 24 hr 11/28/17 12/03/17 12/04/17 20:29 09:35 04:00 Hgb 8.0 L D Puncture Site Drawn in or Right radial Patient Temperature 98.6 O2 Saturation 96 ABG pH 7.49 H ABG pCO2 41 ABG pO2 111 ABG HCO3 31 H ABG O2 Content 12.8 ABG Base Excess 7.4 H ABG Methemoglobin 0.9 Willard Test Present Hemoglobin 9.3 L Carboxyhemoglobin 1.8 O2 Delivery Device Ventilator Vent Setting [id number] Inspired O2 40 Critical Value No POC Glucose 12/04/17 08:22 Hgb Puncture Site Patient Temperature O2 Saturation ABG pH ABG pCO2 ABG pO2 ABG HCO3 ABG O2 Content ABG Base Excess ABG Methemoglobin Willard Test Hemoglobin Carboxyhemoglobin O2 Delivery Device Vent Setting Inspired O2 Critical Value POC Glucose 192 H Assessment and Plan - Assessment (1) Tracheostomy in place Code(s): Z93.0 - Tracheostomy status Status: Acute (2) Respiratory failure requiring intubation Code(s): J96.90 - Respiratory failure, unspecified, unspecified whether with hypoxia or hypercapnia Status: Acute (3) Anemia, chronic disease Code(s): D63.8 - Anemia in other chronic diseases classified elsewhere Status : Acute Plan: Transfusion one unit PRBC's (4) Protein-calorie malnutrition, severe Code(s): E43 - Unspecified severe protein-calorie malnutrition Status: Acute (5) Ileus following gastrointestinal surgery Code(s): K91.30 - Postprocedural intestinal obstruction, unspecified as to partial versus complete Status: Acute Onset Date: ~11/21/17 Plan: Start trickle enteral feeding and continue gastrostomy tube to LIWS; bethanacol started; will add erythromycin - Plan POD #6 exp laparotomy/extensive TIA >1hr G-tube output 200 ml last 8 hrs J-tube capped; will start trickle feeds Phenergan suppository for continued nausea Continue TPN Will discuss with , patient and CCM tomorrow (family meeting) Discussed Condition With: Patient Nurse
[2017-12-04] MEDS: Promethazine 25 MG Supp RECTAL PRN (10:17)
[2017-12-04] MEDS: Erythromycin Ethylsuccinate Susp 400 MG/5ML 100 ML Bottle J-TUBE SCH ×2 (11:51→16:57)
[2017-12-04 12:12] LABS: Hematocrit 25.7 % (39.0-51.0); Hemoglobin 8.5 gm/dL (13.0-17.0); Mean Corpuscular HGB Conc 33.1 % (32.0-36.0); Mean Corpuscular Volume 87.6 fL (80.0-100.0); Mean Platelet Volume 8.6 fL (7.0-11.0); Platelet Count 302 th/mm3 (150-450); Red Blood Count 2.93 mil/mm3 (4.50-5.90); Red Cell Distribution Width 15.8 % (11.6-17.2); White Blood Count 18.3 th/mm3 (4.0-11.0)
[2017-12-04 12:30] LABS: Anion Gap 9 meq/L (5-15); Blood Urea Nitrogen 18 mg/dL (7-18); Carbon Dioxide 26.9 meq/L (21.0-32.0); Chloride 101 meq/L (98-107); Glomerular Filtration Rate Greater Than 89 mL/min (>89); Glucose,Random 109 mg/dL (74-106); Potassium 3.8 meq/L (3.5-5.1); Sodium 137 meq/L (136-145)
--- NOTE | 2017-12-04 15:15 | P.PNCC ---
Subjective Subjective Remarks/Hospital Course: This is a 72 year old male with history of type 2 diabetes, hypertension, dyslipidemia, chronic kidney disease stage III, ankylosing spondylitis, esophageal stricture s/p dilatation, diverticulitis, peritonitis, history of small bowel obstruction, colon resection x2, who was admitted to the hospital with one-week history of abd distension, constipation, and cramps. Pt tried to mange this at home, as he is familiar with symptoms. Has history of multiple bowel obstructions and multiple surgeries in the past. CT of abdomen/ pelvis showed moderately dilated large and small bowel, concentric stricturing in the sigmoid colon. Gastroenterology and general surgery were consulted. Patient was taken today to the OR by Dr. Mcgee, patient underwent exploratory laparotomy, Lysis of adhesions for dense adhesions involving small and large bowel, sigmoid colon resection with end colostomy and Holcomb's pouch. There was stricture at previous surgical site in sigmoid colon. EBL 300 ml, urine output was adequate. During the ex lap patient's sustained ureteral injury which required ureteroureteral anastomosis over stent by Dr. Page. Postop patient was moved to the PACU where his chest x-ray showed small possible left lateral pneumothorax. ABG showed a pH of 7.29/41/99 BE -6.7. I evaluated the patient in the ICU. Patient is intubated sedated with Precedex. He is tachycardic and borderline hypotensive. Additional 500 mL of fluid bolus given , 1 amp of bicarb. Received total 2.1 L in the OR. Urine output is adequate, approximately 75 ml per hour post op. With left-sided tiny pneumothorax (most likely with from central line placement in OR), will attempt CPAP trials for possible extubation. 10/09: Breathing is moderately labored to observe but the patient states he is comfortable. His major complaint is chronic back pain. Urine output is marginal but he remains well-perfused. Colostomy stoma is pink. 10/10: Labored breathing overnight. Remains on quarter normal saline at 125 cc hours and Clinimix E 4.25/25 at 83 cc an hour. Chest x-ray appears with bilateral pulmonary infiltrates. CVP is 8. Greater than 50% variation IVC by ultrasound. Bedside echocardiogram no acute findings. Patient currently with some pleuritic chest pain worse with deep inspiration. EKG currently pending. 8 run beat of V. tach overnight. Potassium magnesium within normal limits. 10/11: Afebrile. FiO2 requirements increased overnight currently at 60%. Chest x-ray revealed pulmonary edema bilaterally. Troponin downward trending. Noted sodium elevated 154. Will remove sodium from TPN. Norepinephrine initiated overnight currently at 8 mcg/min. Nitro paste discontinued. Holding parameters for beta corby 10/12: remains afebrile. back on levophed this AM at 5 mcg/min. also remains tachycardic in the 100s. sodium remains elevated despite removal of nacl from TPN. 10/13: T-max 100.4. Desaturated overnight requiring PEEP increased to 10 currently at 8. FiO2 down to 45%. Appears uncomfortable on the ventilator. Abdomen slightly more distended. Positive output from ostomy.. Transfusing 1 unit PRBCs due to acute coronary syndrome to keep above a. Recheck along with electrolytes active bleeding in place. CT abdomen/pelvis ordered. 10/14: Copious secretions overnight. PEEP at 7 FiO2 50%. Abdominal/pelvis CT revealed bilateral lobar pneumonia pelvic read as gallstone ileus but not likely is patient with copious stool output from ostomy. Did discuss with Dr. Mcgee. Antibiotic coverage broadened. Pancultured yesterday looks like his underlying pneumonia. Will transfuse 1 unit PRBCs today per cardiology request to maintain hemoglobin around 9 for acute coronary syndrome. Diuresis postprocedure and replace electrolytes aggressively. TPN will be weaned/ discontinued today after tube feeds at 40 cc an hour 10/15: t max 100.7 overnight. cultures NGTD. fio2 improving. secretions are somewhat better. 10/16: no improvements. afebrile. failed SBT after 10 minutes for tachypnea and respiratory distress. 10/17: failed sbt again for significant secretions and respiratory distress. only lasting about 10 min. may require tracheostomy. 10/18: much more awake and interactive. still has significant secretions. on SBT for longer today, but with active coronary ischemia, very high risk if he fails extubation. plan for trach if he remains intubated through the weekend. 10/19: still failing SBT. dressings changed today. clinically improving, but very weak and slow progress. 10/20: again failing SBT for copious secretions. was OOB to chair today. likely will need trach. 10/21: failed SBT for tachypnea, RR > 40. discussed with Dr[address] Mcgee: plan for trach tomorrow. discussed with cardiology service: they will likely medically manage his coronary artery disease without [facility] intervention. this is more of a reason to pursue trach, to prevent coronary ischemia that would come with trial of extubation first. 10/22: Plan for percutaneous tracheostomy at bedside 11 AM. Arousable on the ventilator and following commands. Currently afebrile. N.p.o. status. 10/23: Status post percutaneous tracheostomy 10/22 without complication. Continues to ooze from around tracheostomy site. Will hold enoxaparin for today. Tube feeds back at goal. Denies abdominal pain. Positive flatus from ostomy site. 10/24: Normal stool coming from well-perfused ostomy. Spontaneous breathing trials with tachypnea and mild labor. Chest x-ray with chronic interstitial changes and small lung volumes. 10/25: A little bit stronger on spontaneous breathing trials today. Pressure support settings 18/10. Tolerating tube feeds. 10/26: He is tolerating a mild reduction and mean airway pressure and end expiratory pressure. Continues to look acceptably comfortable during spontaneous breathing trials. 10/27: We needed to increase PEEP again last evening. 10/28: Spontaneous breathing trial at 8/8 this morning and doing quite well. Tube feedings on hold per surgery. Patient required low dose Xanax last night for anxiety. 10/29: intermittent SBTs. will trial t-piece today. no significant change. needs LTAC level care. 10/30: t-piece trials. ostomy working. advancing trickle tube feeds per surgery. 10/31: patient having gout flair and significantly painful. however, steroids contraindicated, and NSAIDS also contraindicated with concern over renal dysfunction in the setting of critical illness. still failing to separate from mechanical ventilation. really needs LTAC level care for pulmonary rehab. 11/01: NG tube placed to suction with 700 cc of gastric contents suctioned out overnight. Patient remains on mechanical ventilation with tracheostomy on CPAP with pressure support. Failed T piece yesterday. 11/02: Remains on mechanical ventilation via tracheostomy. 11/03: Remains on mechanical ventilation via tracheostomy. CPAP trials daily. T -piece as tolerated. 11/04: On mechanical ventilation via tracheostomy. Daily CPAP trials. 11/05, 11/06: Remains on mechanical ventilation via tracheostomy. Daily CPAP trials ongoing. 11/07: Worsening respiratory status. Placed back on PRVC mode mechanical ventilation last night. Significant sick pulmonary secretions noted. No BMs via colostomy. Chest x-ray done this morning shows worsening infiltrates more on the right suspicious for aspiration. KUB done this morning shows an ileus. Already placed on Zosyn on 11/07 which should cover for pneumonia. 11/08: Resting on mechanical ventilation via tracheostomy. Wound culture from incision site growing Pseudomonas 11/09: Remains on mechanical ventilation via tracheostomy. Wound culture and sputum both growing Pseudomonas. 11/10: Is on mechanical ventilation via tracheostomy. Daily CPAP trials. 11/11: Remains on mechanical ventilation via tracheostomy. Really CPAP trials ongoing. 11/12 No events overnight. On ventilator via trach. On CPAP with PS 15, PEEP:5 and FIO2 40%. Afebrile. 11/13 Patient denies complaint. Wants NGT out but understand rationale for continuing. On CPAP 15/5. Tolerating tube feeds. Afebrile. Subjective: 11/14 On CPAP 15/5 since yesterday. Able to wean to 12/5 but weaning beyond that produces tachypnea. Was out of bed to chair for a couple of hours. 11/15: Remains on CPAP via tracheostomy. Had problems with secretions last night. Adding scheduled nebulizer treatments and Mucomyst to mobilize secretions. 11/16: Resting comfortably on mechanical ventilation via tracheostomy. On CPAP trial 11/17: Afebrile. Tolerating tube feeds at goal. Placed on ventilator yesterday secondary to worsening subjective shortness of breath. We will reattempt CPAP trial again today. Positive BM.. 11/18: Afebrile. We will reattempt CPAP trial again today. Check chest x-ray in a.m. Continue with pulmonary toilet. Anxious. 11/19: Not tolerating CPAP trials well. Will discuss among consultants ways to manage his anxiety. 11/20: Brief episodes of apnea overnight. Anxiety a little better controlled this morning. 11/21: Patient vomited a large amount of tube feed this morning. After this he appeared comfortable although a little anxious. 11/22: Feels a little better this morning but abdomen remains moderately distended. Good stoma output. Surgical service is aware and Dr. Shepard saw the patient last evening. KUB reviewed. Potassium replacement underway now. 11/23: Patient remains in poorly compensated diastolic heart failure. Our best efforts to gingerly diuresis and has just resulted in worsening renal function. His medical therapy is maximized for heart failure with acceptable pulse rate control and afterload reduction. Inability to wean completely from the ventilator is closely associated persistent pulmonary edema. 11/24: Breathing quite comfortably this morning on CPAP however requiring 15 cm of water pressure support. Despite congested chest x-ray his lungs are fairly clear to auscultation. He has been started on TPN and his GI tract To low intermittent suction through an NG tube. The abdomen is remarkably soft and not distended. The colostomy does have output. 11/25: He has finally progressed to T piece trials and so far he is comfortable. We continue to adjust electrolyte replacement because of nasogastric losses. His general demeanor is much improved today and he is much less anxious. TPN is infusing as we rest his bowel. SUBJECTIVE 11/26: more gastric distension and vomiting this AM. tube feeds stopped and NGT to LIWS with 300cc gastric contents removed. general surgery notified. will ultimately need permanent enteral access, and likely G/J at this point. no changes. still resting on vent overnight. very weak and deconditioned. 11/27: Continues to have episodes of vomiting, continues to have gastric distention. KUB shows ileus. Will start on scheduled Reglan, replaced potassium. Requested PICC line for TPN and electrolyte replacement. Dr. Mcgee planning for OR with ex lap and lysis of adhesions tomorrow 11/28: Awake alert on the ventilator today. Nausea vomiting is improved. Plan for OR today with Dr. Mcgee with TIA and G-J tube placement 11/29: Currently lying in bed on CPAP. Status post exploratory laparotomy, Lysis of adhesions, greater than 1 hour, Small bowel resection and GJ tube placement. Complaints of postop pain I will add morphine for breakthrough pain. Start TPN today per general surgery. Calcium low getting replaced 11/30: Complains of increased nausea vomiting today. Increased G-tube output approximately 400 mL overnight. Per general surgery GT piece to intermittent wall suction J-tube clamped. TPN started 12/01: Pain improved denies nausea today. Hb 6.5 getting 2 units of PRBC. G- tube output 300 ml last 24 hrs, J-tube capped. JOSÉ drain was removed by Dr. Mcgee. Will resume CPAP trials 12/02: Clinically improving pain better. No colostomy function yet. G-tube output approximately 800 mL in 24 hours. Continuing TPN. WBC count 19.6 no fever. 12/03: Comfortable this morning. Normal respiratory pattern. Instructions from surgery service reviewed, agree. 12/04: Remains mostly comfortable. Not able to tolerate SBTs yet. Objective Vital Signs / I&O: Vital Signs 12/03/17 16:00 12/03/17 18:00 12/03/17 20:00 Temperature 98.8 F 98.6 F Pulse Rate 79 74 78 Respiratory Rate 26 H 19 Blood Pressure 130/67 127/63 Pulse Oximetry 100 100 12/03/17 20:03 12/03/17 22:00 12/03/17 22:48 Temperature Pulse Rate 76 76 Respiratory Rate 19 21 Blood Pressure Pulse Oximetry 12/04/17 00:00 12/04/17 01:27 12/04/17 02:00 Temperature 98.1 F Pulse Rate 68 78 Respiratory Rate 22 24 Blood Pressure 149/74 H Pulse Oximetry 100 100 12/04/17 04:00 12/04/17 04:45 12/04/17 06:00 Temperature 98.4 F Pulse Rate 84 76 Respiratory Rate 28 H 26 H Blood Pressure 123/62 Pulse Oximetry 100 100 12/04/17 08:00 12/04/17 08:13 12/04/17 10:00 Temperature 98.7 F Pulse Rate 84 84 Respiratory Rate 35 H Blood Pressure Pulse Oximetry 100 12/04/17 11:15 Temperature Pulse Rate Respiratory Rate 28 H Blood Pressure Pulse Oximetry 100 Intake & Output 12/03/17 12/04/17 12/04/17 18:59 06:59 18:59 Intake Total 1282.1 / 1282.1 1305.1 / 1305.1 Output Total 1300 / 1300 1150 / 1150 Balance -17.9 / -17.9 155.1 / 155.1 Weight 72.5 kg Intake: IV 1282.1 / 1282.1 1305.1 / 1305.1 NS Inj 1,000 ML @ 42 mls/hr IV. 1000 / 1000 CONT .[id number] [facility] Rx#:[id number] Ofirmev Inj 1,000 mg In 100 ml 100 / 100 300 / 300 @ 400 mls/hr IV.SIG Q6H [facility] Rx# :[id number] MVI-12 Inj 5 ML Folvite Inj 0.5 182.1 / 182.1 1005.1 / 1005.1 MG In Clinimix E 4.25%/D25W Inj 1,000 ML @ 83 mls/hr IV.SIG Q24H [facility] Rx#:[id number] Output: Urine Amount (Catheter) 1000 / 1000 950 / 950 Indwelling Urethral Catheter 1000 / 1000 950 / 950 Stool Amount (Stoma) 0 / 0 Left Lower Abdomen 0 / 0 Gastric Drainage 300 / 300 200 / 200 Left Upper Quadrant Gastrostomy 300 / 300 200 / 200 Tube (PEG) Right Upper Quadrant 0 / 0 Jejunostomy Tube Other: Date of Last Bowel Movement 11/28/17 11/28/17 11/28/17 # Bowel Movements 0 # Emeses 1 Result Diagrams: 12/04/17 11:50 12/04/17 11:50 Objective Remarks: Objective Remarks GENERAL: 72-year-old male currently on CPAP with elevated pressure support. SKIN: Warm and dry. No rash HEAD: Atraumatic. Normocephalic. EYES: Pupils equal round and reactive, 2 mm bilaterally. ENT: Oral cavity is moist. NECK: Trachea midline. Supple. Tracheostomy site clean and dry. CARDIOVASCULAR: RRR. No JVD but veins are full.. RESPIRATORY: Equal chest rise. Symmetrical excursions. Few crackles persist in bases. Comfortable respiratory pattern. GASTROINTESTINAL: Abdomen mildly distended, mild tenderness. G-J tube in place, G to IWS, J to be used for feeds. MUSCULOSKELETAL: No edema lower extremities. Well-perfused. Warm. NEUROLOGICAL: Patient is awake alert following commands. Moving all 4 extremities spontaneously. Assessment and Plan - Problem List (1) Chronic respiratory failure Code(s): J96.10 - Chronic respiratory failure, unspecified whether with hypoxia or hypercapnia Status: Chronic (2) Large bowel obstruction Code(s): K56.609 - Unspecified intestinal obstruction, unspecified as to partial versus complete obstruction Status: Resolved (3) STEMI (ST elevation myocardial infarction) Code(s): I21.3 - ST elevation (STEMI) myocardial infarction of unspecified site Status: Resolved (4) Diabetes Code(s): E11.9 - Type 2 diabetes mellitus without complications Status: Acute (5) Wound dehiscence, surgical Code(s): T81.31XA - Disruption of external operation (surgical) wound, not elsewhere classified, initial encounter Status: Acute (6) Dysphagia Code(s): R13.10 - Dysphagia, unspecified Status: Acute (7) Protein-calorie malnutrition, severe Code(s): E43 - Unspecified severe protein-calorie malnutrition Status: Acute (8) Systolic heart failure Code(s): I50.20 - Unspecified systolic (congestive) heart failure Status: Acute (9) Colostomy in place Code(s): Z93.3 - Colostomy status Status: Acute - Assessment and Plan Plan: A/P Assessment and Plan NEURO/Psych: 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 Holding gabapentin 300 mg daily Continue with PT and OT. RESP: Acute hypoxic and hypercarbic respiratory failure- now chronic. Iatrogenic left pneumothorax- resolved. Continue with CPAP, attempt TP for 1 hour. Albuterol/ipratropium aerosols every 6 hours while awake with albuterol aerosols every 2 hours as needed dyspnea Pulm toilet, trach care. Status post percutaneous tracheostomy bedside - Dr. Mcgee Keep head of the bed elevated 30. Continues to have problems with stamina on spontaneous ventilation trials. We will try to get back to T piece for limited periods of time initially. CV: Coronary artery disease Post operative STEMI Acute systolic heart failure Hypertension Hyperlipidemia Aspirin 81 mg daily, clopidogrel 75 mg p.o. daily, currently on hold perioperatively, and due to anemia BP controlled, decreased metoprolol to 50 mg p.o. twice daily, continue lisinopril 5 mg p.o. daily. Continue atorvastatin 20 mg at night for dyslipidemia. Holding amlodipine 10 mg daily 2D echocardiogram 05/29 revealed EF 50-55%. Grade 1 diastolic dysfunction. Pulmonary arterial pressure 34 mmHg. Repeat revealed EF of 40-45% Followed by cardiology/Dr. Ellison: Dr. Villa discussed with team 10/21, and they recommended medical management. Continued conservative management recommended 11/02. GI: 11/28 status post ex lap, lysis of adhesions, small bowel resection, GJ tube placement 10/08 Postop s/p ex-lap, TIA, Sigmoid colon resection with end colostomy and Holcomb's pouch Recurrent colonic obstruction, small bowel obstruction Postop ileus vs SBO History of esophageal stricture status post dilatation History of small bowel obstruction History of diverticulitis Hypoalbuminemia -Postop management per Dr. Mcgee. 11/28 status post ex lap, lysis of adhesions small bowel resection, GJ tube placement -G to IWS, J capped per gen surgery. JOSÉ drain removed 12/01 -Reglan for ileus. Morphine for pain control -TPN . colostomy in place funtion yet, no tueb feeds per general surgery -Pantoprazole 40 mg IV daily for GI prophylaxis. On omeprazole 20 mg daily at home Renal/: 10/08 Postop s/p Ureteroureteral anastomosis for ureteral injury Chronic kidney disease stage III a -Monitor renal function, I/O's, electrolytes replacement per protocol -Removal of double-J stent 6 weeks from operative procedure outpatient setting ID: Pneumonia - resolved Wound culture from abdominal incision +pseudomonas. -s/p full course of Zosyn (started initially 11/06) Sputum cx 11/07: Pseudomonas, repeat sputum cx - resolved Wound cx 08/06: Pseudomonas - resolved Wound culture from incision site(11/06) growing Pseudomonas, sputum Gram stain and culture(11/07) growing pansenstive Pseudomonas -Discontinued levofloxacin 10/14. s/p course vancomycin and cefepime, 10/14-10/20 Sputum, blood cultures 2 10/13 NGTD Urine Legionella and pneumococcal urinary antigens 10/13 negative HEME: Normocytic anemia Thrombocytosis -Monitor CBC, CMP, coags -s/p 1 unit PRBCs to be transfused on 11/09 for hemoglobin 7.1 Elevated white count may be reactive, monitor closely for infection ENDO: Diabetes mellitus type 2 Severe hyperglycemia of critical illness Holding metformin 1000 mg by mouth twice daily Continue Levemir and sliding scale insulin MSK: History of ankylosing spondylosis Holding denosumab 60 mg subcu every 18 days Holding cholecalciferol 4000 units p.o. daily PT evaluate and treat PROPH: -Bilateral lower extremity SCDs. Lovenox 40 subcu daily-holding now due to anemia. On Protonix 40 mg IV for stress ulcer prophylaxis. LINES: - piv. RUE PICC placed 11/1717 Overall impression: Generally improving respiratory function. Stable hemodynamics. Hemoglobin increase is out of proportion to transfusion of 2 units of blood, recheck indicates appropriate rise. No evidence of bleeding. (8) Systolic heart failure Qualifiers: Heart failure chronicity: acute Qualified Code(s): I50.21 - Acute systolic ( congestive) heart failure
[2017-12-04] MEDS ORDERED: Sodium Chlor 0.9% Inj 500 ML IV.SIG ONE (16:30)
[2017-12-04] MEDS: Dextrose 50% in Water 50 ML Vial IV.PUSH PRN (17:40)
[2017-12-04] MEDS ORDERED: Dextrose 10% in Water Inj 1,000 ML IV.CONT SCH (18:00)
[2017-12-04] MEDS ORDERED: Multivitamin Inj 5 ML, Folic Acid Inj 0.5 MG in AA 4.25 %/D25W - Electrolytes 1,000 ML IV.SIG SCH ×2 (18:00→20:00)
[2017-12-04] MEDS: Sod Chloride 0.9% Inj 1,000 ML IV.CONT SCH (20:32)
[2017-12-04] MEDS ORDERED: Promethazine 25 MG Supp RECTAL PRN (22:04)
[2017-12-05] MEDS: Morphine Inj 4 MG/ML Vial IV.PUSH PRN ×10 (02:43→20:56)
[2017-12-05 05:05] LABS: Baso % (Auto) 0.1 % (0.0-2.0); Eos # (Auto) 0.1 th/mm3 (0.0-0.4); Eos % (Auto) 0.3 % (0.0-4.0); Lymph # (Auto) 0.4 th/mm3 (1.0-4.8); Lymph % (Auto) 1.4 % (9.0-44.0); Mean Corpuscular HGB Conc 33.4 % (32.0-36.0); Mean Corpuscular Hemoglobin 29.5 pg (27.0-34.0); Mean Corpuscular Volume 88.3 fL (80.0-100.0); Mean Platelet Volume 8.9 fL (7.0-11.0); Mono # (Auto) 1.9 th/mm3 (0.0-0.9); Mono % (Auto) 7.3 % (0.0-8.0); Neut % (Auto) 90.9 % (16.0-70.0); Platelet Count 290 th/mm3 (150-450); Red Blood Count 2.72 mil/mm3 (4.50-5.90); Red Cell Distribution Width 16.1 % (11.6-17.2); White Blood Count 26.4 th/mm3 (4.0-11.0)
[2017-12-05 05:25] LABS: Calcium 7.5 mg/dL (8.5-10.1); Carbon Dioxide 26.6 meq/L (21.0-32.0); Potassium 3.9 meq/L (3.5-5.1)
[2017-12-05 05:59] LABS: Hemoglobin 7.9 gm/dL (13.0-17.0)
[2017-12-05] MEDS: Oral Hygiene Kit OROPHARYNG SCH ×3 (06:09→16:04)
[2017-12-05] MEDS: Artificial Tears Opth Drops 15 ML Bottle EACH EYE SCH ×3 (06:10→22:10)
[2017-12-05] MEDS: Insulin NovoLOG Aspart Correctional Sugar Inj SQ SCH ×3 (06:50→22:08)
[2017-12-05] MEDS: Chlorhexidine Gluconate 0.12% Liq 15 ML UDC SWISH-SPIT SCH ×2 (08:03→20:55)
[2017-12-05] MEDS: Pantoprazole Inj 40 MG Vial IV.PUSH SCH (08:17)
[2017-12-05] MEDS: Allopurinol 300 MG Tablet PO SCH ×2 (08:17→09:11)
[2017-12-05] MEDS: Carvedilol 6.25 MG Tablet PO SCH ×3 (08:17→20:55)
[2017-12-05] MEDS: Heparin Central Flush 100 UNIT/ML 5 ML Vial IV.FLUSH SCH (08:18)
[2017-12-05] MEDS: Insulin Detemir Inj 1,000 UNIT/10 ML Vial SQ SCH ×2 (08:18→21:04)
[2017-12-05] MEDS: Sodium Hypochlorite 0.125% Top Soln 500 ML Bottle TOPICAL SCH ×2 (08:18→20:55)
--- NOTE | 2017-12-05 08:42 | P.PNGS ---
<Jayshree Saha - Last Filed: 12/05/17 08:39> Subjective Interval history: Mrs. Kam at bedside NICKY Anderson at bedside Patient had aggressive coughing episode early this morning and wound dehisced Family meeting planned for this morning Physical Exam Vital signs: Vital Signs 12/04/17 10:00 12/04/17 11:15 12/04/17 12:00 Temperature 99.3 F Pulse Rate 84 83 Respiratory Rate 28 H 27 H Blood Pressure 134/65 Pulse Oximetry 100 100 12/04/17 14:00 12/04/17 15:41 12/04/17 16:00 Temperature 99.5 F Pulse Rate 89 75 Respiratory Rate 31 H 22 Blood Pressure 80/44 L Pulse Oximetry 98 99 12/04/17 18:00 12/04/17 20:00 12/04/17 20:16 Temperature 100.6 F H Pulse Rate 74 86 Respiratory Rate 25 H 29 H Blood Pressure 113/56 L Pulse Oximetry 100 100 12/04/17 22:00 12/04/17 23:26 12/05/17 00:00 Temperature 100.6 F H Pulse Rate 84 84 Respiratory Rate 32 H 31 H Blood Pressure 104/58 L Pulse Oximetry 100 100 12/05/17 02:00 12/05/17 03:33 12/05/17 04:00 Temperature 100.6 F H Pulse Rate 90 99 H Respiratory Rate 33 H 30 H Blood Pressure 119/58 L Pulse Oximetry 100 100 12/05/17 06:00 12/05/17 06:08 12/05/17 06:09 Temperature Pulse Rate 105 H Respiratory Rate 36 H 15 Blood Pressure Pulse Oximetry 12/05/17 08:00 Temperature Pulse Rate Respiratory Rate 27 H Blood Pressure Pulse Oximetry 99 Intake & Output 12/04/17 12/05/17 12/05/17 18:59 06:59 18:59 Intake Total 1270 / 1270 3045.1 / 3045.1 100 / 100 Output Total 1300 / 1300 1050 / 1050 Balance -30 / -30 1994. / 1994. 100 / 100 Weight 71.5 kg Intake: IV 100 / 100 2505.1 / 2505.1 100 / 100 Diprivan 1000 mg/100 ml Inj 1, 100 / 100 000 mg In 100 ml @ 1 MCG/KG/MIN 0.395 mls/hr IV.CONT TITRATE PRN Rx#:[id number] NS Inj 1,000 ML @ 42 mls/hr IV. 0 / 0 CONT .[id number] [facility] Rx#:[id number] Ofirmev Inj 1,000 mg In 100 ml 100 / 100 200 / 200 100 / 100 @ 400 mls/hr IV.SIG Q6H [facility] Rx# :[id number] Intralipid 20% Inj 250 ML @ 31. 250 / 250 25 mls/hr IV.SIG Q24H [facility] Rx#: [id number] LR 1000 mL Inj 1,000 ML @ 50 450 / 450 mls/hr IV.SIG .Q20H [facility] Rx#: [id number] MVI-12 Inj 5 ML Folvite Inj 0.5 0 / 0 MG In Clinimix E 4.25%/D25W Inj 1,000 ML @ 83 mls/hr IV.SIG Q24H [facility] Rx#:[id number] Oral 0 / 0 Tube Feeding 50 / 50 420 / 420 Tube Irrigant 120 / 120 120 / 120 Other 1000 / 1000 Output: Stool 0 / 0 Emesis 0 / 0 Urine Amount (Catheter) 700 / 700 500 / 500 Indwelling Urethral Catheter 700 / 700 500 / 500 Stool Amount (Stoma) 0 / 0 150 / 150 Left Lower Abdomen 0 / 0 150 / 150 Gastric Drainage 600 / 600 400 / 400 Left Upper Quadrant Gastrostomy 600 / 600 400 / 400 Tube (PEG) Right Upper Quadrant 0 / 0 Jejunostomy Tube Other: Other Intake Source Saline Solution Date of Last Bowel Movement 11/28/17 11/28/17 # Bowel Movements 0 # Oral Regurgitations 2 Narrative: Alert and awake Cardio: RRR Resp: CTAB; MV via trach Abd: midline incision now open; heavy drainage gauzed placed; abdominal binder in place; G tube to LIWS; J tube capped Ext: mild BLE edema - Urinary Catheter Management Indwelling Urethral Catheter Cath placed during this visit: yes Reason for continuing: Hourly intake/output Insertion date: 11/28/17 Assessment and Plan - Assessment (1) Tracheostomy in place Code(s): Z93.0 - Tracheostomy status Status: Acute (2) Respiratory failure requiring intubation Code(s): J96.90 - Respiratory failure, unspecified, unspecified whether with hypoxia or hypercapnia Status: Acute (3) Anemia, chronic disease Code(s): D63.8 - Anemia in other chronic diseases classified elsewhere Status : Acute (4) Protein-calorie malnutrition, severe Code(s): E43 - Unspecified severe protein-calorie malnutrition Status: Acute (5) Ileus following gastrointestinal surgery Code(s): K91.30 - Postprocedural intestinal obstruction, unspecified as to partial versus complete Status: Acute Onset Date: ~11/21/17 - Plan 72 year old male s/p ex lap; s/p trach for prolonged need for mechanical ventilation -s/p ex lap; TIA; G tube; J tube -Continue TPN at 83 cc/hr + NS at 42 cc/hr -Continue to monitor blood glucose -Urine output now adequate -Continue Ofirmiv; Morphine -Vent per CCM -Continue G tube to LIWS -Continue to cap J tube -Discussed with Dr. Rivas and Monica SAUNDERS---family meeting planned for today <David Mcgee - Last Filed: 12/06/17 09:44> Physical Exam Vital signs: Vital Signs 12/05/17 12:00 12/05/17 12:22 12/05/17 15:34 Temperature 100.4 F H Pulse Rate 86 Respiratory Rate 30 H 16 35 H Blood Pressure 116/58 L Pulse Oximetry 100 100 100 12/05/17 15:37 12/05/17 16:00 12/05/17 16:21 Temperature 100.8 F H Pulse Rate 114 H 100 H Respiratory Rate 36 H 22 23 Blood Pressure 95/50 L Pulse Oximetry 97 12/05/17 16:23 12/05/17 19:58 12/05/17 20:00 Temperature 98.6 F Pulse Rate 84 Respiratory Rate 22 21 21 Blood Pressure 87/52 L Pulse Oximetry 96 98 12/05/17 22:00 12/05/17 23:37 12/06/17 00:00 Temperature 98.7 F Pulse Rate 72 85 Respiratory Rate 21 22 Blood Pressure 83/49 L Pulse Oximetry 99 98 12/06/17 02:00 12/06/17 03:35 12/06/17 04:00 Temperature 98.6 F Pulse Rate 85 83 Respiratory Rate 35 H 21 Blood Pressure 97/53 L Pulse Oximetry 99 98 12/06/17 05:38 12/06/17 08:00 12/06/17 08:20 Temperature 98.9 F Pulse Rate 83 Respiratory Rate 22 26 H 19 Blood Pressure 89/55 L Pulse Oximetry 99 100 Intake & Output 12/05/17 12/06/17 12/06/17 18:59 06:59 18:59 Intake Total 389 / 389 1515.1 / 1515.1 Output Total 450 / 450 550 / 550 Balance -61 / -61 965.1 / 965.1 Weight 74.6 kg Intake: IV 300 / 300 1455.1 / 1455.1 Ofirmev Inj 1,000 mg In 100 ml 300 / 300 200 / 200 @ 400 mls/hr IV.SIG Q6H [facility] Rx# :[id number] Intralipid 20% Inj 250 ML @ 31. 250 / 250 25 mls/hr IV.SIG Q24H [facility] Rx#: [id number] MVI-12 Inj 5 ML Folvite Inj 0.5 1005.1 / 1005.1 MG In Clinimix E 4.25%/D25W Inj 1,000 ML @ 83 mls/hr IV.SIG Q24H [facility] Rx#:[id number] Oral 0 / 0 Tube Feeding 0 / 0 Tube Irrigant 60 / 60 60 / 60 Water Bolus Amount 0 / 0 Output: Stool 0 / 0 Urine Amount (Catheter) 450 / 450 550 / 550 Indwelling Urethral Catheter 450 / 450 550 / 550 Stool Amount (Stoma) 0 / 0 Left Lower Abdomen 0 / 0 Gastric Drainage 0 / 0 0 / 0 Left Upper Quadrant Gastrostomy 0 / 0 Tube (PEG) Right Upper Quadrant 0 / 0 Jejunostomy Tube Other: Date of Last Bowel Movement 12/04/17 12/05/17 12/05/17 # Bowel Movements 0 - Urinary Catheter Management Indwelling Urethral Catheter Cath placed during this visit: no Assessment and Plan - Assessment (1) Tracheostomy in place Code(s): Z93.0 - Tracheostomy status Status: Acute (2) Respiratory failure requiring intubation Code(s): J96.90 - Respiratory failure, unspecified, unspecified whether with hypoxia or hypercapnia Status: Acute (3) Anemia, chronic disease Code(s): D63.8 - Anemia in other chronic diseases classified elsewhere Status : Acute (4) Protein-calorie malnutrition, severe Code(s): E43 - Unspecified severe protein-calorie malnutrition Status: Acute (5) Ileus following gastrointestinal surgery Code(s): K91.30 - Postprocedural intestinal obstruction, unspecified as to partial versus complete Status: Acute Onset Date: ~11/21/17 - Plan Family meeting today with Dr. Rob Saunders and Mrs. Ashwini Kam and son. Reviewed his medical status and issue with heart failure and the vent. Family wishes to have his sister come down from [place] and pt. made DNR; will have hospice consult today Given his status, I am in agreement with their plans, as he is unlikely to be able to return to any quality of life.
[2017-12-05] MEDS: Lisinopril 5 MG Tablet PO SCH (09:09)
--- NOTE | 2017-12-05 10:44 | P.PNCC ---
Subjective Subjective Remarks/Hospital Course: This is a 72 year old male with history of type 2 diabetes, hypertension, dyslipidemia, chronic kidney disease stage III, ankylosing spondylitis, esophageal stricture s/p dilatation, diverticulitis, peritonitis, history of small bowel obstruction, colon resection x2, who was admitted to the hospital with one-week history of abd distension, constipation, and cramps. Pt tried to mange this at home, as he is familiar with symptoms. Has history of multiple bowel obstructions and multiple surgeries in the past. CT of abdomen/ pelvis showed moderately dilated large and small bowel, concentric stricturing in the sigmoid colon. Gastroenterology and general surgery were consulted. Patient was taken today to the OR by Dr. Mcgee, patient underwent exploratory laparotomy, Lysis of adhesions for dense adhesions involving small and large bowel, sigmoid colon resection with end colostomy and Holcomb's pouch. There was stricture at previous surgical site in sigmoid colon. EBL 300 ml, urine output was adequate. During the ex lap patient's sustained ureteral injury which required ureteroureteral anastomosis over stent by Dr. Page. Postop patient was moved to the PACU where his chest x-ray showed small possible left lateral pneumothorax. ABG showed a pH of 7.29/41/99 BE -6.7. I evaluated the patient in the ICU. Patient is intubated sedated with Precedex. He is tachycardic and borderline hypotensive. Additional 500 mL of fluid bolus given , 1 amp of bicarb. Received total 2.1 L in the OR. Urine output is adequate, approximately 75 ml per hour post op. With left-sided tiny pneumothorax (most likely with from central line placement in OR), will attempt CPAP trials for possible extubation. 10/09: Breathing is moderately labored to observe but the patient states he is comfortable. His major complaint is chronic back pain. Urine output is marginal but he remains well-perfused. Colostomy stoma is pink. 10/10: Labored breathing overnight. Remains on quarter normal saline at 125 cc hours and Clinimix E 4.25/25 at 83 cc an hour. Chest x-ray appears with bilateral pulmonary infiltrates. CVP is 8. Greater than 50% variation IVC by ultrasound. Bedside echocardiogram no acute findings. Patient currently with some pleuritic chest pain worse with deep inspiration. EKG currently pending. 8 run beat of V. tach overnight. Potassium magnesium within normal limits. 10/11: Afebrile. FiO2 requirements increased overnight currently at 60%. Chest x-ray revealed pulmonary edema bilaterally. Troponin downward trending. Noted sodium elevated 154. Will remove sodium from TPN. Norepinephrine initiated overnight currently at 8 mcg/min. Nitro paste discontinued. Holding parameters for beta corby 10/12: remains afebrile. back on levophed this AM at 5 mcg/min. also remains tachycardic in the 100s. sodium remains elevated despite removal of nacl from TPN. 10/13: T-max 100.4. Desaturated overnight requiring PEEP increased to 10 currently at 8. FiO2 down to 45%. Appears uncomfortable on the ventilator. Abdomen slightly more distended. Positive output from ostomy.. Transfusing 1 unit PRBCs due to acute coronary syndrome to keep above a. Recheck along with electrolytes active bleeding in place. CT abdomen/pelvis ordered. 10/14: Copious secretions overnight. PEEP at 7 FiO2 50%. Abdominal/pelvis CT revealed bilateral lobar pneumonia pelvic read as gallstone ileus but not likely is patient with copious stool output from ostomy. Did discuss with Dr. Mcgee. Antibiotic coverage broadened. Pancultured yesterday looks like his underlying pneumonia. Will transfuse 1 unit PRBCs today per cardiology request to maintain hemoglobin around 9 for acute coronary syndrome. Diuresis postprocedure and replace electrolytes aggressively. TPN will be weaned/ discontinued today after tube feeds at 40 cc an hour 10/15: t max 100.7 overnight. cultures NGTD. fio2 improving. secretions are somewhat better. 10/16: no improvements. afebrile. failed SBT after 10 minutes for tachypnea and respiratory distress. 10/17: failed sbt again for significant secretions and respiratory distress. only lasting about 10 min. may require tracheostomy. 10/18: much more awake and interactive. still has significant secretions. on SBT for longer today, but with active coronary ischemia, very high risk if he fails extubation. plan for trach if he remains intubated through the weekend. 10/19: still failing SBT. dressings changed today. clinically improving, but very weak and slow progress. 10/20: again failing SBT for copious secretions. was OOB to chair today. likely will need trach. 10/21: failed SBT for tachypnea, RR > 40. discussed with Dr[address] Mcgee: plan for trach tomorrow. discussed with cardiology service: they will likely medically manage his coronary artery disease without [facility] intervention. this is more of a reason to pursue trach, to prevent coronary ischemia that would come with trial of extubation first. 10/22: Plan for percutaneous tracheostomy at bedside 11 AM. Arousable on the ventilator and following commands. Currently afebrile. N.p.o. status. 10/23: Status post percutaneous tracheostomy 10/22 without complication. Continues to ooze from around tracheostomy site. Will hold enoxaparin for today. Tube feeds back at goal. Denies abdominal pain. Positive flatus from ostomy site. 10/24: Normal stool coming from well-perfused ostomy. Spontaneous breathing trials with tachypnea and mild labor. Chest x-ray with chronic interstitial changes and small lung volumes. 10/25: A little bit stronger on spontaneous breathing trials today. Pressure support settings 18/10. Tolerating tube feeds. 10/26: He is tolerating a mild reduction and mean airway pressure and end expiratory pressure. Continues to look acceptably comfortable during spontaneous breathing trials. 10/27: We needed to increase PEEP again last evening. 10/28: Spontaneous breathing trial at 8/8 this morning and doing quite well. Tube feedings on hold per surgery. Patient required low dose Xanax last night for anxiety. 10/29: intermittent SBTs. will trial t-piece today. no significant change. needs LTAC level care. 10/30: t-piece trials. ostomy working. advancing trickle tube feeds per surgery. 10/31: patient having gout flair and significantly painful. however, steroids contraindicated, and NSAIDS also contraindicated with concern over renal dysfunction in the setting of critical illness. still failing to separate from mechanical ventilation. really needs LTAC level care for pulmonary rehab. 11/01: NG tube placed to suction with 700 cc of gastric contents suctioned out overnight. Patient remains on mechanical ventilation with tracheostomy on CPAP with pressure support. Failed T piece yesterday. 11/02: Remains on mechanical ventilation via tracheostomy. 11/03: Remains on mechanical ventilation via tracheostomy. CPAP trials daily. T -piece as tolerated. 11/04: On mechanical ventilation via tracheostomy. Daily CPAP trials. 11/05, 11/06: Remains on mechanical ventilation via tracheostomy. Daily CPAP trials ongoing. 11/07: Worsening respiratory status. Placed back on PRVC mode mechanical ventilation last night. Significant sick pulmonary secretions noted. No BMs via colostomy. Chest x-ray done this morning shows worsening infiltrates more on the right suspicious for aspiration. KUB done this morning shows an ileus. Already placed on Zosyn on 11/07 which should cover for pneumonia. 11/08: Resting on mechanical ventilation via tracheostomy. Wound culture from incision site growing Pseudomonas 11/09: Remains on mechanical ventilation via tracheostomy. Wound culture and sputum both growing Pseudomonas. 11/10: Is on mechanical ventilation via tracheostomy. Daily CPAP trials. 11/11: Remains on mechanical ventilation via tracheostomy. Really CPAP trials ongoing. 11/12 No events overnight. On ventilator via trach. On CPAP with PS 15, PEEP:5 and FIO2 40%. Afebrile. 11/13 Patient denies complaint. Wants NGT out but understand rationale for continuing. On CPAP 15/5. Tolerating tube feeds. Afebrile. Subjective: 11/14 On CPAP 15/5 since yesterday. Able to wean to 12/5 but weaning beyond that produces tachypnea. Was out of bed to chair for a couple of hours. 11/15: Remains on CPAP via tracheostomy. Had problems with secretions last night. Adding scheduled nebulizer treatments and Mucomyst to mobilize secretions. 11/16: Resting comfortably on mechanical ventilation via tracheostomy. On CPAP trial 11/17: Afebrile. Tolerating tube feeds at goal. Placed on ventilator yesterday secondary to worsening subjective shortness of breath. We will reattempt CPAP trial again today. Positive BM.. 11/18: Afebrile. We will reattempt CPAP trial again today. Check chest x-ray in a.m. Continue with pulmonary toilet. Anxious. 11/19: Not tolerating CPAP trials well. Will discuss among consultants ways to manage his anxiety. 11/20: Brief episodes of apnea overnight. Anxiety a little better controlled this morning. 11/21: Patient vomited a large amount of tube feed this morning. After this he appeared comfortable although a little anxious. 11/22: Feels a little better this morning but abdomen remains moderately distended. Good stoma output. Surgical service is aware and Dr. Shepard saw the patient last evening. KUB reviewed. Potassium replacement underway now. 11/23: Patient remains in poorly compensated diastolic heart failure. Our best efforts to gingerly diuresis and has just resulted in worsening renal function. His medical therapy is maximized for heart failure with acceptable pulse rate control and afterload reduction. Inability to wean completely from the ventilator is closely associated persistent pulmonary edema. 11/24: Breathing quite comfortably this morning on CPAP however requiring 15 cm of water pressure support. Despite congested chest x-ray his lungs are fairly clear to auscultation. He has been started on TPN and his GI tract To low intermittent suction through an NG tube. The abdomen is remarkably soft and not distended. The colostomy does have output. 11/25: He has finally progressed to T piece trials and so far he is comfortable. We continue to adjust electrolyte replacement because of nasogastric losses. His general demeanor is much improved today and he is much less anxious. TPN is infusing as we rest his bowel. SUBJECTIVE 11/26: more gastric distension and vomiting this AM. tube feeds stopped and NGT to LIWS with 300cc gastric contents removed. general surgery notified. will ultimately need permanent enteral access, and likely G/J at this point. no changes. still resting on vent overnight. very weak and deconditioned. 11/27: Continues to have episodes of vomiting, continues to have gastric distention. KUB shows ileus. Will start on scheduled Reglan, replaced potassium. Requested PICC line for TPN and electrolyte replacement. Dr. Mcgee planning for OR with ex lap and lysis of adhesions tomorrow 11/28: Awake alert on the ventilator today. Nausea vomiting is improved. Plan for OR today with Dr. Mcgee with TIA and G-J tube placement 11/29: Currently lying in bed on CPAP. Status post exploratory laparotomy, Lysis of adhesions, greater than 1 hour, Small bowel resection and GJ tube placement. Complaints of postop pain I will add morphine for breakthrough pain. Start TPN today per general surgery. Calcium low getting replaced 11/30: Complains of increased nausea vomiting today. Increased G-tube output approximately 400 mL overnight. Per general surgery GT piece to intermittent wall suction J-tube clamped. TPN started 12/01: Pain improved denies nausea today. Hb 6.5 getting 2 units of PRBC. G- tube output 300 ml last 24 hrs, J-tube capped. JOSÉ drain was removed by Dr. Mcgee. Will resume CPAP trials 12/02: Clinically improving pain better. No colostomy function yet. G-tube output approximately 800 mL in 24 hours. Continuing TPN. WBC count 19.6 no fever. 12/03: Comfortable this morning. Normal respiratory pattern. Instructions from surgery service reviewed, agree. 12/04: Remains mostly comfortable. Not able to tolerate SBTs yet. 12/05: After lengthy discussions with the patient and his last evening we continued discussions this morning with Dr. Mcgee and the family. The family and patient are leaning toward hospice care with the understanding that his refractory diastolic heart failure will prohibit successful weaning from the ventilator. All are attempts to suitably diuresis the patient have resulted in acute kidney injury and at this juncture hospice is a reasonable choice. We have expressed to the family that we will support whatever decision they make. Objective Vital Signs / I&O: Vital Signs 12/04/17 11:15 12/04/17 12:00 12/04/17 14:00 Temperature 99.3 F Pulse Rate 83 89 Respiratory Rate 28 H 27 H Blood Pressure 134/65 Pulse Oximetry 100 100 12/04/17 15:41 12/04/17 16:00 12/04/17 18:00 Temperature 99.5 F Pulse Rate 75 74 Respiratory Rate 31 H 22 Blood Pressure 80/44 L Pulse Oximetry 98 99 12/04/17 20:00 12/04/17 20:16 12/04/17 22:00 Temperature 100.6 F H Pulse Rate 86 84 Respiratory Rate 25 H 29 H Blood Pressure 113/56 L Pulse Oximetry 100 100 12/04/17 23:26 12/05/17 00:00 12/05/17 02:00 Temperature 100.6 F H Pulse Rate 84 90 Respiratory Rate 32 H 31 H Blood Pressure 104/58 L Pulse Oximetry 100 100 12/05/17 03:33 12/05/17 04:00 12/05/17 06:00 Temperature 100.6 F H Pulse Rate 99 H 105 H Respiratory Rate 33 H 30 H Blood Pressure 119/58 L Pulse Oximetry 100 100 12/05/17 06:08 12/05/17 06:09 12/05/17 07:00 Temperature Pulse Rate 101 H Respiratory Rate 36 H 15 31 H Blood Pressure 126/70 Pulse Oximetry 99 12/05/17 08:00 12/05/17 09:09 Temperature 100.0 F H Pulse Rate 100 H Respiratory Rate 22 22 Blood Pressure 129/62 Pulse Oximetry 100 Intake & Output 12/04/17 12/05/17 12/05/17 18:59 06:59 18:59 Intake Total 1270 / 1270 3045.1 / 3045.1 100 / 100 Output Total 1300 / 1300 1050 / 1050 Balance -30 / -30 1994. / 1994. 100 / 100 Weight 71.5 kg Intake: IV 100 / 100 2505.1 / 2505.1 100 / 100 Diprivan 1000 mg/100 ml Inj 1, 100 / 100 000 mg In 100 ml @ 1 MCG/KG/MIN 0.395 mls/hr IV.CONT TITRATE PRN Rx#:[id number] NS Inj 1,000 ML @ 42 mls/hr IV. 0 / 0 CONT .[id number] LISA Rx#:[id number] Ofirmev Inj 1,000 mg In 100 ml 100 / 100 200 / 200 100 / 100 @ 400 mls/hr IV.SIG Q6H LISA Rx# :[id number] Intralipid 20% Inj 250 ML @ 31. 250 / 250 25 mls/hr IV.SIG Q24H LISA Rx#: [id number] LR 1000 mL Inj 1,000 ML @ 50 450 / 450 mls/hr IV.SIG .Q20H LISA Rx#: [id number] MVI-12 Inj 5 ML Folvite Inj 0.5 0 / 0 MG In Clinimix E 4.25%/D25W Inj 1,000 ML @ 83 mls/hr IV.SIG Q24H LISA Rx#:[id number] Oral 0 / 0 Tube Feeding 50 / 50 420 / 420 Tube Irrigant 120 / 120 120 / 120 Other 1000 / 1000 Output: Stool 0 / 0 Emesis 0 / 0 Urine Amount (Catheter) 700 / 700 500 / 500 Indwelling Urethral Catheter 700 / 700 500 / 500 Stool Amount (Stoma) 0 / 0 150 / 150 Left Lower Abdomen 0 / 0 150 / 150 Gastric Drainage 600 / 600 400 / 400 Left Upper Quadrant Gastrostomy 600 / 600 400 / 400 Tube (PEG) Right Upper Quadrant 0 / 0 Jejunostomy Tube Other: Other Intake Source Saline Solution Date of Last Bowel Movement 11/28/17 11/28/17 11/28/17 # Bowel Movements 0 # Oral Regurgitations 2 Result Diagrams: 12/05/17 05:47 12/05/17 04:33 Objective Remarks: Objective Remarks GENERAL: 72-year-old male currently on CPAP with elevated pressure support. SKIN: Warm and dry. No rash HEAD: Atraumatic. Normocephalic. EYES: Pupils equal round and reactive, 2 mm bilaterally. ENT: Oral cavity is moist. NECK: Trachea midline. Supple. Tracheostomy site clean and dry. CARDIOVASCULAR: RRR. No JVD but veins are full.. RESPIRATORY: Equal chest rise. Symmetrical excursions. Few crackles persist in bases. Comfortable respiratory pattern. GASTROINTESTINAL: Abdomen mildly distended, some light weeping fluid from the midline wound.. G-J tube in place, G to IWS, J to be used for feeds. MUSCULOSKELETAL: No edema lower extremities. Well-perfused. Warm. NEUROLOGICAL: Patient is awake alert following commands. Moving all 4 extremities spontaneously. Assessment and Plan - Problem List (1) Chronic respiratory failure Code(s): J96.10 - Chronic respiratory failure, unspecified whether with hypoxia or hypercapnia Status: Chronic (2) Large bowel obstruction Code(s): K56.609 - Unspecified intestinal obstruction, unspecified as to partial versus complete obstruction Status: Resolved (3) STEMI (ST elevation myocardial infarction) Code(s): I21.3 - ST elevation (STEMI) myocardial infarction of unspecified site Status: Resolved (4) Diabetes Code(s): E11.9 - Type 2 diabetes mellitus without complications Status: Acute (5) Wound dehiscence, surgical Code(s): T81.31XA - Disruption of external operation (surgical) wound, not elsewhere classified, initial encounter Status: Acute (6) Dysphagia Code(s): R13.10 - Dysphagia, unspecified Status: Acute (7) Protein-calorie malnutrition, severe Code(s): E43 - Unspecified severe protein-calorie malnutrition Status: Acute (8) Systolic heart failure Code(s): I50.20 - Unspecified systolic (congestive) heart failure Status: Acute (9) Colostomy in place Code(s): Z93.3 - Colostomy status Status: Acute - Assessment and Plan Plan: A/P Assessment and Plan NEURO/Psych: 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 Holding gabapentin 300 mg daily Continue with PT and OT. RESP: Acute hypoxic and hypercarbic respiratory failure- now chronic. Iatrogenic left pneumothorax- resolved. Continue with CPAP, attempt TP for 1 hour. Albuterol/ipratropium aerosols every 6 hours while awake with albuterol aerosols every 2 hours as needed dyspnea Pulm toilet, trach care. Status post percutaneous tracheostomy bedside - Dr. Mcgee Keep head of the bed elevated 30. Continues to have problems with stamina on spontaneous ventilation trials. We will try to get back to T piece for limited periods of time initially. CV: Coronary artery disease Post operative STEMI Acute systolic heart failure Hypertension Hyperlipidemia Aspirin 81 mg daily, clopidogrel 75 mg p.o. daily, currently on hold perioperatively, and due to anemia BP controlled, decreased metoprolol to 50 mg p.o. twice daily, continue lisinopril 5 mg p.o. daily. Continue atorvastatin 20 mg at night for dyslipidemia. Holding amlodipine 10 mg daily 2D echocardiogram 05/29 revealed EF 50-55%. Grade 1 diastolic dysfunction. Pulmonary arterial pressure 34 mmHg. Repeat revealed EF of 40-45% Followed by cardiology/Dr. Ellison: Dr. Villa discussed with team 10/21, and they recommended medical management. Continued conservative management recommended 11/02. GI: 11/28 status post ex lap, lysis of adhesions, small bowel resection, GJ tube placement 10/08 Postop s/p ex-lap, TIA, Sigmoid colon resection with end colostomy and Holcomb's pouch Recurrent colonic obstruction, small bowel obstruction Postop ileus vs SBO History of esophageal stricture status post dilatation History of small bowel obstruction History of diverticulitis Hypoalbuminemia -Postop management per Dr. Mcgee. 11/28 status post ex lap, lysis of adhesions small bowel resection, GJ tube placement -G to IWS, J capped per gen surgery. JOSÉ drain removed 12/01 -Reglan for ileus. Morphine for pain control -TPN . colostomy in place funtion yet, no tueb feeds per general surgery -Pantoprazole 40 mg IV daily for GI prophylaxis. On omeprazole 20 mg daily at home Renal/: 10/08 Postop s/p Ureteroureteral anastomosis for ureteral injury Chronic kidney disease stage III a -Monitor renal function, I/O's, electrolytes replacement per protocol -Removal of double-J stent 6 weeks from operative procedure outpatient setting ID: Pneumonia - resolved Wound culture from abdominal incision +pseudomonas. -s/p full course of Zosyn (started initially 11/06) Sputum cx 11/07: Pseudomonas, repeat sputum cx - resolved Wound cx 08/06: Pseudomonas - resolved Wound culture from incision site(11/06) growing Pseudomonas, sputum Gram stain and culture(11/07) growing pansenstive Pseudomonas -Discontinued levofloxacin 10/14. s/p course vancomycin and cefepime, 10/14-10/20 Sputum, blood cultures 2 10/13 NGTD Urine Legionella and pneumococcal urinary antigens 10/13 negative HEME: Normocytic anemia Thrombocytosis -Monitor CBC, CMP, coags -s/p 1 unit PRBCs to be transfused on 11/09 for hemoglobin 7.1 Elevated white count may be reactive, monitor closely for infection ENDO: Diabetes mellitus type 2 Severe hyperglycemia of critical illness Holding metformin 1000 mg by mouth twice daily Continue Levemir and sliding scale insulin MSK: History of ankylosing spondylosis Holding denosumab 60 mg subcu every 18 days Holding cholecalciferol 4000 units p.o. daily PT evaluate and treat PROPH: -Bilateral lower extremity SCDs. Lovenox 40 subcu daily-holding now due to anemia. On Protonix 40 mg IV for stress ulcer prophylaxis. LINES: - piv. RDE PICC placed 11/1717 Overall impression: Generally impaired respiratory function from chronic venous congestion associated with his diastolic heart failure. Stable hemodynamics. . No evidence of bleeding. (8) Systolic heart failure Qualifiers: Heart failure chronicity: acute Qualified Code(s): I50.21 - Acute systolic ( congestive) heart failure
--- NOTE | 2017-12-05 16:35 | P.DIET ---
Nutritional Evaluation Type of nutrition evaluation: follow-up Nutrition consult regarding: Tube Feeding, TPN/PPN Screening comments: NEW TPN 11/29 [facility] [place] for malnutrition received 11/27 Objective - Diagnosis Partial Bowel Obstruction - Objective % IBW: 116 Body Weight Used for Calculations: Actual (72 kg) Energy Needs - Lower Range (kCal/kg): 28 Energy Needs - Upper Range (kCal/kg): 32 Lower Limit kCal/kg (kCals): 2,013 Upper Limit kCal/kg (kCals): 2,301 Lower Limit Protein Factor (Grams per Kg): 1.0 Upper Limit Protein Factor (Grams per Kg): 1.5 Lower Protein Needs (Protein): 72 Upper Protein Needs (Protein): 108 Dietitian Reviewed in Medical Record: Curent medications, Intake & Output, Labs , TPN/PPN Diet Order: NPO Objective Comments: PMH: Esophageal dilation, GOUT, HT, Hyperlipidemia, GERD, Arthritis, ankylosing spondylitis, DM, CKD stage III, peritonitis, colon resection x 2, diverticulitis GLU 195 Feeding - Current TPN/PPN Current TPN: Clinimix E 4.25/25 Current TPN/PPN Rate (ml/hr): 83 Amino Acid and Dextrose Current kCals Provided: 2,040 Amino Acid and Dextrose Current Protein Provided: 85 Current Lipid Concentration: 20% Current Lipids Rate: 250 mls daily over 8 hours Current kCal Provided by TPN/PPN: 2,540 Assessment Assessment: Pt is s/p TIA and g/j-t placement and is receiving TPN/lipids as above. Pt had wound dehiscence d/t coughing today. Hospice is being considered. If TPN is continued, recommend decrease current rate to 70 mls/hr with the same lipids to provide a total of 2214 kcals, and 71 gms protein. Labs reviewed: elevated glucose noted. If consistent with goals of care and if tolerated, recommend TF of Vital 1.5 @ 60 mls/hr when able to provide 2160 kcals, 97 gms protein and 30824 mls of free water. Recommendations: For TPN: Clinimix E 4.25/25 @ 70 mls/hr Lipids: 20% lipids 250 mls/day For TF: Vital 1.5 @ 60 mls/hr goal when able Dietitian to Monitor: Lab values, Intake & Output, Tube feeding tolerance, TPN/ PPN tolerance, Weight change, Medical course
[2017-12-05] MEDS ORDERED: LIDOCAINE 2% NEB PRN (19:30)
[2017-12-05] MEDS: Sod Chloride 0.9% Inj 1,000 ML IV.CONT SCH (20:42)
[2017-12-05] MEDS: Hyoscyamine Inj 0.5 MG/ML Ampul IV.PUSH PRN ×2 (21:42→21:46)
[2017-12-05] MEDS: Multivitamin Inj 5 ML, Folic Acid Inj 0.5 MG in AA 4.25 %/D25W - Electrolytes 1,000 ML IV.SIG SCH (21:45)
[2017-12-06] MEDS: Oral Hygiene Kit OROPHARYNG SCH ×4 (00:24→17:55)
[2017-12-06] MEDS: Insulin NovoLOG Aspart Correctional Sugar Inj SQ SCH ×5 (00:25→18:57)
[2017-12-06] MEDS: Hyoscyamine Inj 0.5 MG/ML Ampul IV.PUSH PRN ×2 (00:55→13:26)
[2017-12-06] MEDS: Morphine Inj 4 MG/ML Vial IV.PUSH PRN ×7 (00:56→22:00)
[2017-12-06] MEDS: Artificial Tears Opth Drops 15 ML Bottle EACH EYE SCH ×3 (05:39→22:49)
[2017-12-06] MEDS: Carvedilol 6.25 MG Tablet PO SCH ×2 (08:01→22:47)
[2017-12-06] MEDS: Allopurinol 300 MG Tablet PO SCH (08:02)
[2017-12-06] MEDS: Heparin Central Flush 100 UNIT/ML 5 ML Vial IV.FLUSH SCH (08:02)
[2017-12-06] MEDS: Chlorhexidine Gluconate 0.12% Liq 15 ML UDC SWISH-SPIT SCH ×2 (08:02→20:21)
[2017-12-06] MEDS: Lisinopril 5 MG Tablet PO SCH (08:02)
[2017-12-06] MEDS: Sodium Hypochlorite 0.125% Top Soln 500 ML Bottle TOPICAL SCH ×2 (08:02→22:48)
--- NOTE | 2017-12-06 09:02 | P.PNCC ---
Subjective Subjective Remarks/Hospital Course: This is a 72 year old male with history of type 2 diabetes, hypertension, dyslipidemia, chronic kidney disease stage III, ankylosing spondylitis, esophageal stricture s/p dilatation, diverticulitis, peritonitis, history of small bowel obstruction, colon resection x2, who was admitted to the hospital with one-week history of abd distension, constipation, and cramps. Pt tried to mange this at home, as he is familiar with symptoms. Has history of multiple bowel obstructions and multiple surgeries in the past. CT of abdomen/ pelvis showed moderately dilated large and small bowel, concentric stricturing in the sigmoid colon. Gastroenterology and general surgery were consulted. Patient was taken today to the OR by Dr. Mcgee, patient underwent exploratory laparotomy, Lysis of adhesions for dense adhesions involving small and large bowel, sigmoid colon resection with end colostomy and Holcomb's pouch. There was stricture at previous surgical site in sigmoid colon. EBL 300 ml, urine output was adequate. During the ex lap patient's sustained ureteral injury which required ureteroureteral anastomosis over stent by Dr. Page. Postop patient was moved to the PACU where his chest x-ray showed small possible left lateral pneumothorax. ABG showed a pH of 7.29/41/99 BE -6.7. I evaluated the patient in the ICU. Patient is intubated sedated with Precedex. He is tachycardic and borderline hypotensive. Additional 500 mL of fluid bolus given , 1 amp of bicarb. Received total 2.1 L in the OR. Urine output is adequate, approximately 75 ml per hour post op. With left-sided tiny pneumothorax (most likely with from central line placement in OR), will attempt CPAP trials for possible extubation. 10/09: Breathing is moderately labored to observe but the patient states he is comfortable. His major complaint is chronic back pain. Urine output is marginal but he remains well-perfused. Colostomy stoma is pink. 10/10: Labored breathing overnight. Remains on quarter normal saline at 125 cc hours and Clinimix E 4.25/25 at 83 cc an hour. Chest x-ray appears with bilateral pulmonary infiltrates. CVP is 8. Greater than 50% variation IVC by ultrasound. Bedside echocardiogram no acute findings. Patient currently with some pleuritic chest pain worse with deep inspiration. EKG currently pending. 8 run beat of V. tach overnight. Potassium magnesium within normal limits. 10/11: Afebrile. FiO2 requirements increased overnight currently at 60%. Chest x-ray revealed pulmonary edema bilaterally. Troponin downward trending. Noted sodium elevated 154. Will remove sodium from TPN. Norepinephrine initiated overnight currently at 8 mcg/min. Nitro paste discontinued. Holding parameters for beta corby 10/12: remains afebrile. back on levophed this AM at 5 mcg/min. also remains tachycardic in the 100s. sodium remains elevated despite removal of nacl from TPN. 10/13: T-max 100.4. Desaturated overnight requiring PEEP increased to 10 currently at 8. FiO2 down to 45%. Appears uncomfortable on the ventilator. Abdomen slightly more distended. Positive output from ostomy.. Transfusing 1 unit PRBCs due to acute coronary syndrome to keep above a. Recheck along with electrolytes active bleeding in place. CT abdomen/pelvis ordered. 10/14: Copious secretions overnight. PEEP at 7 FiO2 50%. Abdominal/pelvis CT revealed bilateral lobar pneumonia pelvic read as gallstone ileus but not likely is patient with copious stool output from ostomy. Did discuss with Dr. Mcgee. Antibiotic coverage broadened. Pancultured yesterday looks like his underlying pneumonia. Will transfuse 1 unit PRBCs today per cardiology request to maintain hemoglobin around 9 for acute coronary syndrome. Diuresis postprocedure and replace electrolytes aggressively. TPN will be weaned/ discontinued today after tube feeds at 40 cc an hour 10/15: t max 100.7 overnight. cultures NGTD. fio2 improving. secretions are somewhat better. 10/16: no improvements. afebrile. failed SBT after 10 minutes for tachypnea and respiratory distress. 10/17: failed sbt again for significant secretions and respiratory distress. only lasting about 10 min. may require tracheostomy. 10/18: much more awake and interactive. still has significant secretions. on SBT for longer today, but with active coronary ischemia, very high risk if he fails extubation. plan for trach if he remains intubated through the weekend. 10/19: still failing SBT. dressings changed today. clinically improving, but very weak and slow progress. 10/20: again failing SBT for copious secretions. was OOB to chair today. likely will need trach. 10/21: failed SBT for tachypnea, RR > 40. discussed with Dr[address] Mcgee: plan for trach tomorrow. discussed with cardiology service: they will likely medically manage his coronary artery disease without [facility] intervention. this is more of a reason to pursue trach, to prevent coronary ischemia that would come with trial of extubation first. 10/22: Plan for percutaneous tracheostomy at bedside 11 AM. Arousable on the ventilator and following commands. Currently afebrile. N.p.o. status. 10/23: Status post percutaneous tracheostomy 10/22 without complication. Continues to ooze from around tracheostomy site. Will hold enoxaparin for today. Tube feeds back at goal. Denies abdominal pain. Positive flatus from ostomy site. 10/24: Normal stool coming from well-perfused ostomy. Spontaneous breathing trials with tachypnea and mild labor. Chest x-ray with chronic interstitial changes and small lung volumes. 10/25: A little bit stronger on spontaneous breathing trials today. Pressure support settings 18/10. Tolerating tube feeds. 10/26: He is tolerating a mild reduction and mean airway pressure and end expiratory pressure. Continues to look acceptably comfortable during spontaneous breathing trials. 10/27: We needed to increase PEEP again last evening. 10/28: Spontaneous breathing trial at 8/8 this morning and doing quite well. Tube feedings on hold per surgery. Patient required low dose Xanax last night for anxiety. 10/29: intermittent SBTs. will trial t-piece today. no significant change. needs LTAC level care. 10/30: t-piece trials. ostomy working. advancing trickle tube feeds per surgery. 10/31: patient having gout flair and significantly painful. however, steroids contraindicated, and NSAIDS also contraindicated with concern over renal dysfunction in the setting of critical illness. still failing to separate from mechanical ventilation. really needs LTAC level care for pulmonary rehab. 11/01: NG tube placed to suction with 700 cc of gastric contents suctioned out overnight. Patient remains on mechanical ventilation with tracheostomy on CPAP with pressure support. Failed T piece yesterday. 11/02: Remains on mechanical ventilation via tracheostomy. 11/03: Remains on mechanical ventilation via tracheostomy. CPAP trials daily. T -piece as tolerated. 11/04: On mechanical ventilation via tracheostomy. Daily CPAP trials. 11/05, 11/06: Remains on mechanical ventilation via tracheostomy. Daily CPAP trials ongoing. 11/07: Worsening respiratory status. Placed back on PRVC mode mechanical ventilation last night. Significant sick pulmonary secretions noted. No BMs via colostomy. Chest x-ray done this morning shows worsening infiltrates more on the right suspicious for aspiration. KUB done this morning shows an ileus. Already placed on Zosyn on 11/07 which should cover for pneumonia. 11/08: Resting on mechanical ventilation via tracheostomy. Wound culture from incision site growing Pseudomonas 11/09: Remains on mechanical ventilation via tracheostomy. Wound culture and sputum both growing Pseudomonas. 11/10: Is on mechanical ventilation via tracheostomy. Daily CPAP trials. 11/11: Remains on mechanical ventilation via tracheostomy. Really CPAP trials ongoing. 11/12 No events overnight. On ventilator via trach. On CPAP with PS 15, PEEP:5 and FIO2 40%. Afebrile. 11/13 Patient denies complaint. Wants NGT out but understand rationale for continuing. On CPAP 15/5. Tolerating tube feeds. Afebrile. Subjective: 11/14 On CPAP 15/5 since yesterday. Able to wean to 12/5 but weaning beyond that produces tachypnea. Was out of bed to chair for a couple of hours. 11/15: Remains on CPAP via tracheostomy. Had problems with secretions last night. Adding scheduled nebulizer treatments and Mucomyst to mobilize secretions. 11/16: Resting comfortably on mechanical ventilation via tracheostomy. On CPAP trial 11/17: Afebrile. Tolerating tube feeds at goal. Placed on ventilator yesterday secondary to worsening subjective shortness of breath. We will reattempt CPAP trial again today. Positive BM.. 11/18: Afebrile. We will reattempt CPAP trial again today. Check chest x-ray in a.m. Continue with pulmonary toilet. Anxious. 11/19: Not tolerating CPAP trials well. Will discuss among consultants ways to manage his anxiety. 11/20: Brief episodes of apnea overnight. Anxiety a little better controlled this morning. 11/21: Patient vomited a large amount of tube feed this morning. After this he appeared comfortable although a little anxious. 11/22: Feels a little better this morning but abdomen remains moderately distended. Good stoma output. Surgical service is aware and Dr. Shepard saw the patient last evening. KUB reviewed. Potassium replacement underway now. 11/23: Patient remains in poorly compensated diastolic heart failure. Our best efforts to gingerly diuresis and has just resulted in worsening renal function. His medical therapy is maximized for heart failure with acceptable pulse rate control and afterload reduction. Inability to wean completely from the ventilator is closely associated persistent pulmonary edema. 11/24: Breathing quite comfortably this morning on CPAP however requiring 15 cm of water pressure support. Despite congested chest x-ray his lungs are fairly clear to auscultation. He has been started on TPN and his GI tract To low intermittent suction through an NG tube. The abdomen is remarkably soft and not distended. The colostomy does have output. 11/25: He has finally progressed to T piece trials and so far he is comfortable. We continue to adjust electrolyte replacement because of nasogastric losses. His general demeanor is much improved today and he is much less anxious. TPN is infusing as we rest his bowel. SUBJECTIVE 11/26: more gastric distension and vomiting this AM. tube feeds stopped and NGT to LIWS with 300cc gastric contents removed. general surgery notified. will ultimately need permanent enteral access, and likely G/J at this point. no changes. still resting on vent overnight. very weak and deconditioned. 11/27: Continues to have episodes of vomiting, continues to have gastric distention. KUB shows ileus. Will start on scheduled Reglan, replaced potassium. Requested PICC line for TPN and electrolyte replacement. Dr. Mcgee planning for OR with ex lap and lysis of adhesions tomorrow 11/28: Awake alert on the ventilator today. Nausea vomiting is improved. Plan for OR today with Dr. Mcgee with TIA and G-J tube placement 11/29: Currently lying in bed on CPAP. Status post exploratory laparotomy, Lysis of adhesions, greater than 1 hour, Small bowel resection and GJ tube placement. Complaints of postop pain I will add morphine for breakthrough pain. Start TPN today per general surgery. Calcium low getting replaced 11/30: Complains of increased nausea vomiting today. Increased G-tube output approximately 400 mL overnight. Per general surgery GT piece to intermittent wall suction J-tube clamped. TPN started 12/01: Pain improved denies nausea today. Hb 6.5 getting 2 units of PRBC. G- tube output 300 ml last 24 hrs, J-tube capped. JOSÉ drain was removed by Dr. Mcgee. Will resume CPAP trials 12/02: Clinically improving pain better. No colostomy function yet. G-tube output approximately 800 mL in 24 hours. Continuing TPN. WBC count 19.6 no fever. 12/03: Comfortable this morning. Normal respiratory pattern. Instructions from surgery service reviewed, agree. 12/04: Remains mostly comfortable. Not able to tolerate SBTs yet. 12/05: After lengthy discussions with the patient and his last evening we continued discussions this morning with Dr. Mcgee and the family. The family and patient are leaning toward hospice care with the understanding that his refractory diastolic heart failure will prohibit successful weaning from the ventilator. All are attempts to suitably diuresis the patient have resulted in acute kidney injury and at this juncture hospice is a reasonable choice. We have expressed to the family that we will support whatever decision they make. 12/06: Patient comfortable this morning while on increased sedation and G Zetia regimen. Family will return to us today with a response regarding a short-term care plan for the patient. The family has requested that we keep him calm and out of pain in the interim. Objective Vital Signs / I&O: Vital Signs 12/05/17 09:09 12/05/17 12:00 12/05/17 12:22 Temperature 100.4 F H Pulse Rate 86 Respiratory Rate 22 30 H 16 Blood Pressure 116/58 L Pulse Oximetry 100 100 12/05/17 15:34 12/05/17 15:37 12/05/17 16:00 Temperature 100.8 F H Pulse Rate 114 H 100 H Respiratory Rate 35 H 36 H 22 Blood Pressure 95/50 L Pulse Oximetry 100 97 12/05/17 16:21 12/05/17 16:23 12/05/17 19:58 Temperature Pulse Rate Respiratory Rate 23 22 21 Blood Pressure Pulse Oximetry 96 12/05/17 20:00 12/05/17 22:00 12/05/17 23:37 Temperature 98.6 F Pulse Rate 84 72 Respiratory Rate 21 21 Blood Pressure 87/52 L Pulse Oximetry 98 99 12/06/17 00:00 12/06/17 02:00 12/06/17 03:35 Temperature 98.7 F Pulse Rate 85 85 Respiratory Rate 22 35 H Blood Pressure 83/49 L Pulse Oximetry 98 99 12/06/17 04:00 12/06/17 05:38 12/06/17 08:00 Temperature 98.6 F 98.9 F Pulse Rate 83 83 Respiratory Rate 21 22 26 H Blood Pressure 97/53 L 89/55 L Pulse Oximetry 98 99 12/06/17 08:20 Temperature Pulse Rate Respiratory Rate 19 Blood Pressure Pulse Oximetry 100 Intake & Output 12/05/17 12/06/17 12/06/17 18:59 06:59 18:59 Intake Total 389 / 389 1515.1 / 1515.1 Output Total 450 / 450 550 / 550 Balance -61 / -61 965.1 / 965.1 Weight 74.6 kg Intake: IV 300 / 300 1455.1 / 1455.1 Ofirmev Inj 1,000 mg In 100 ml 300 / 300 200 / 200 @ 400 mls/hr IV.SIG Q6H LISA Rx# :[id number] Intralipid 20% Inj 250 ML @ 31. 250 / 250 25 mls/hr IV.SIG Q24H LISA Rx#: [id number] MVI-12 Inj 5 ML Folvite Inj 0.5 1005.1 / 1005.1 MG In Clinimix E 4.25%/D25W Inj 1,000 ML @ 83 mls/hr IV.SIG Q24H LISA Rx#:[id number] Oral 0 / 0 Tube Feeding 0 / 0 Tube Irrigant 60 / 60 60 / 60 Water Bolus Amount 0 / 0 Output: Stool 0 / 0 Urine Amount (Catheter) 450 / 450 550 / 550 Indwelling Urethral Catheter 450 / 450 550 / 550 Stool Amount (Stoma) 0 / 0 Left Lower Abdomen 0 / 0 Gastric Drainage 0 / 0 0 / 0 Left Upper Quadrant Gastrostomy 0 / 0 Tube (PEG) Right Upper Quadrant 0 / 0 Jejunostomy Tube Other: Date of Last Bowel Movement 12/04/17 12/05/17 12/05/17 # Bowel Movements 0 Result Diagrams: 12/05/17 05:47 12/05/17 04:33 Objective Remarks: Objective Remarks GENERAL: 72-year-old male currently on CPAP with elevated pressure support. SKIN: Warm and dry. No rash HEAD: Atraumatic. Normocephalic. EYES: Pupils equal round and reactive, 1 mm bilaterally. ENT: Oral cavity is moist. NECK: Trachea midline. Supple. Tracheostomy site clean and dry. CARDIOVASCULAR: RRR. No JVD but veins are full.. RESPIRATORY: Equal chest rise. Symmetrical excursions. Few crackles persist in bases. Comfortable respiratory pattern. GASTROINTESTINAL: Abdomen mildly distended, some light weeping fluid from the midline wound. G-J tube in place, G to IWS, J to be used for feeds. MUSCULOSKELETAL: No edema lower extremities. Well-perfused. Warm. NEUROLOGICAL: Patient is resting but wakes easily, following commands. Moving all 4 extremities spontaneously. Assessment and Plan - Problem List (1) Chronic respiratory failure Code(s): J96.10 - Chronic respiratory failure, unspecified whether with hypoxia or hypercapnia Status: Chronic (2) Large bowel obstruction Code(s): K56.609 - Unspecified intestinal obstruction, unspecified as to partial versus complete obstruction Status: Resolved (3) STEMI (ST elevation myocardial infarction) Code(s): I21.3 - ST elevation (STEMI) myocardial infarction of unspecified site Status: Resolved (4) Diabetes Code(s): E11.9 - Type 2 diabetes mellitus without complications Status: Acute (5) Wound dehiscence, surgical Code(s): T81.31XA - Disruption of external operation (surgical) wound, not elsewhere classified, initial encounter Status: Acute (6) Dysphagia Code(s): R13.10 - Dysphagia, unspecified Status: Acute (7) Protein-calorie malnutrition, severe Code(s): E43 - Unspecified severe protein-calorie malnutrition Status: Acute (8) Systolic heart failure Code(s): I50.20 - Unspecified systolic (congestive) heart failure Status: Acute (9) Colostomy in place Code(s): Z93.3 - Colostomy status Status: Acute - Assessment and Plan Plan: A/P Assessment and Plan NEURO/Psych: 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 Holding gabapentin 300 mg daily Continue with PT and OT. RESP: Acute hypoxic and hypercarbic respiratory failure- now chronic. Iatrogenic left pneumothorax- resolved. Continue with CPAP, attempt TP for 1 hour. Albuterol/ipratropium aerosols every 6 hours while awake with albuterol aerosols every 2 hours as needed dyspnea Pulm toilet, trach care. Status post percutaneous tracheostomy bedside - Dr. Mcgee Keep head of the bed elevated 30. Continues to have problems with stamina on spontaneous ventilation trials. We will try to get back to T piece for limited periods of time initially. CV: Coronary artery disease Post operative STEMI Acute systolic heart failure Chronic diastolic heart failure Hypertension Hyperlipidemia Aspirin 81 mg daily, clopidogrel 75 mg p.o. daily, currently on hold perioperatively, and due to anemia BP controlled, decreased metoprolol to 50 mg p.o. twice daily, continue lisinopril 5 mg p.o. daily. Continue atorvastatin 20 mg at night for dyslipidemia. Holding amlodipine 10 mg daily 2D echocardiogram 05/29 revealed EF 50-55%. Grade 1 diastolic dysfunction. Pulmonary arterial pressure 34 mmHg. Repeat revealed EF of 40-45% Followed by cardiology/Dr. Ellison: Dr. Villa discussed with team 10/21, and they recommended medical management. Continued conservative management recommended 11/02. Persistent diastolic heart failure despite our best efforts at diuresis. Lungs remain with considerable bilateral venous congestion. GI: 11/28 status post ex lap, lysis of adhesions, small bowel resection, GJ tube placement 10/08 Postop s/p ex-lap, TIA, Sigmoid colon resection with end colostomy and Holcomb's pouch Recurrent colonic obstruction, small bowel obstruction Postop ileus vs SBO History of esophageal stricture status post dilatation History of small bowel obstruction History of diverticulitis Hypoalbuminemia -Postop management per Dr. Mcgee. 11/28 status post ex lap, lysis of adhesions small bowel resection, GJ tube placement -G to IWS, J capped per gen surgery. JOSÉ drain removed 12/01 -Reglan for ileus. Morphine for pain control -TPN . colostomy in place funtion yet, no tueb feeds per general surgery -Pantoprazole 40 mg IV daily for GI prophylaxis. On omeprazole 20 mg daily at home Renal/: 10/08 Postop s/p Ureteroureteral anastomosis for ureteral injury Chronic kidney disease stage III a -Monitor renal function, I/O's, electrolytes replacement per protocol -Removal of double-J stent 6 weeks from operative procedure outpatient setting ID: Pneumonia - resolved Wound culture from abdominal incision +pseudomonas. -s/p full course of Zosyn (started initially 11/06) Sputum cx 11/07: Pseudomonas, repeat sputum cx - resolved Wound cx 08/06: Pseudomonas - resolved Wound culture from incision site(11/06) growing Pseudomonas, sputum Gram stain and culture(11/07) growing pansenstive Pseudomonas -Discontinued levofloxacin 10/14. s/p course vancomycin and cefepime, 10/14-10/20 Sputum, blood cultures 2 10/13 NGTD Urine Legionella and pneumococcal urinary antigens 10/13 negative HEME: Normocytic anemia Thrombocytosis -Monitor CBC, CMP, coags -s/p 1 unit PRBCs to be transfused on 11/09 for hemoglobin 7.1 Elevated white count may be reactive, monitor closely for infection ENDO: Diabetes mellitus type 2 Severe hyperglycemia of critical illness Holding metformin 1000 mg by mouth twice daily Continue Levemir and sliding scale insulin MSK: History of ankylosing spondylosis Holding denosumab 60 mg subcu every 18 days Holding cholecalciferol 4000 units p.o. daily PT evaluate and treat PROPH: -Bilateral lower extremity SCDs. Lovenox 40 subcu daily-holding now due to anemia. On Protonix 40 mg IV for stress ulcer prophylaxis. LINES: - piv. RUE PICC placed 11/1717 Overall impression: Generally impaired respiratory function from chronic venous congestion associated with his refractory diastolic heart failure. Stable hemodynamics. No evidence of bleeding. Comfortable at this point. Family is leading toward hospice care which I think would be a cadena decision for the patient. We cannot seem to get him out of heart failure and thus cannot get him off of ventilator. (8) Systolic heart failure Qualifiers: Heart failure chronicity: acute Qualified Code(s): I50.21 - Acute systolic ( congestive) heart failure
[2017-12-06] MEDS: Insulin Detemir Inj 1,000 UNIT/10 ML Vial SQ SCH ×2 (12:05→22:48)
[2017-12-06] MEDS: Pantoprazole Inj 40 MG Vial IV.PUSH SCH (12:05)
--- NOTE | 2017-12-06 13:14 | P.PNGS ---
<Jayshree Saha - Last Filed: 12/06/17 12:51> Subjective Interval history: Resting in bed; no issues; pain controlled Physical Exam Vital signs: Vital Signs 12/05/17 15:34 12/05/17 15:37 12/05/17 16:00 Temperature 100.8 F H Pulse Rate 114 H 100 H Respiratory Rate 35 H 36 H 22 Blood Pressure 95/50 L Pulse Oximetry 100 97 12/05/17 16:21 12/05/17 16:23 12/05/17 19:58 Temperature Pulse Rate Respiratory Rate 23 22 21 Blood Pressure Pulse Oximetry 96 12/05/17 20:00 12/05/17 22:00 12/05/17 23:37 Temperature 98.6 F Pulse Rate 84 72 Respiratory Rate 21 21 Blood Pressure 87/52 L Pulse Oximetry 98 99 12/06/17 00:00 12/06/17 02:00 12/06/17 03:35 Temperature 98.7 F Pulse Rate 85 85 Respiratory Rate 22 35 H Blood Pressure 83/49 L Pulse Oximetry 98 99 12/06/17 04:00 12/06/17 05:38 12/06/17 08:00 Temperature 98.6 F 98.9 F Pulse Rate 83 83 Respiratory Rate 21 22 26 H Blood Pressure 97/53 L 89/55 L Pulse Oximetry 98 99 12/06/17 08:20 12/06/17 11:31 Temperature Pulse Rate Respiratory Rate 19 25 H Blood Pressure Pulse Oximetry 100 100 Intake & Output 12/05/17 12/06/17 12/06/17 18:59 06:59 18:59 Intake Total 389 / 389 1515.1 / 1515.1 Output Total 450 / 450 550 / 550 Balance -61 / -61 965.1 / 965.1 Weight 74.6 kg Intake: IV 300 / 300 1455.1 / 1455.1 Ofirmev Inj 1,000 mg In 100 ml 300 / 300 200 / 200 @ 400 mls/hr IV.SIG Q6H [facility] Rx# :[id number] Intralipid 20% Inj 250 ML @ 31. 250 / 250 25 mls/hr IV.SIG Q24H [facility] Rx#: [id number] MVI-12 Inj 5 ML Folvite Inj 0.5 1005.1 / 1005.1 MG In Clinimix E 4.25%/D25W Inj 1,000 ML @ 83 mls/hr IV.SIG Q24H [facility] Rx#:[id number] Oral 0 / 0 Tube Feeding 0 / 0 Tube Irrigant 60 / 60 60 / 60 Water Bolus Amount 0 / 0 Output: Stool 0 / 0 Urine Amount (Catheter) 450 / 450 550 / 550 Indwelling Urethral Catheter 450 / 450 550 / 550 Stool Amount (Stoma) 0 / 0 Left Lower Abdomen 0 / 0 Gastric Drainage 0 / 0 0 / 0 Left Upper Quadrant Gastrostomy 0 / 0 Tube (PEG) Right Upper Quadrant 0 / 0 Jejunostomy Tube Other: Date of Last Bowel Movement 12/04/17 12/05/17 12/05/17 # Bowel Movements 0 Narrative: Alert and awake Cardio: RRR Resp: CTAB Abd: dressing in place; midline incision now open - Urinary Catheter Management Indwelling Urethral Catheter Cath placed during this visit: yes Reason for continuing: Hourly intake/output Insertion date: 11/28/17 Assessment and Plan - Assessment (1) Tracheostomy in place Code(s): Z93.0 - Tracheostomy status Status: Acute (2) Respiratory failure requiring intubation Code(s): J96.90 - Respiratory failure, unspecified, unspecified whether with hypoxia or hypercapnia Status: Acute (3) Anemia, chronic disease Code(s): D63.8 - Anemia in other chronic diseases classified elsewhere Status : Acute (4) Protein-calorie malnutrition, severe Code(s): E43 - Unspecified severe protein-calorie malnutrition Status: Acute (5) Ileus following gastrointestinal surgery Code(s): K91.30 - Postprocedural intestinal obstruction, unspecified as to partial versus complete Status: Acute Onset Date: ~11/21/17 - Plan 72 year old male s/p ex lap; s/p trach for prolonged need for mechanical ventilation -s/p ex lap; TIA; G tube; J tube -Continue TPN at 83 cc/hr + NS at 42 cc/hr -Continue to monitor blood glucose -Continue Ofirmiv; Morphine -Vent per CCM -Continue G tube to LIWS -Continue to cap J tube -Discussed with Dr. Rivas and Monica RN---family meeting yesterday; Mrs. Kam request Hospice consult; I discussed with her---she also requests DNR status <David Mcgee - Last Filed: 12/10/17 19:52> Physical Exam - Urinary Catheter Management Indwelling Urethral Catheter Cath placed during this visit: no Assessment and Plan - Assessment (1) Tracheostomy in place Code(s): Z93.0 - Tracheostomy status Status: Acute (2) Respiratory failure requiring intubation Code(s): J96.90 - Respiratory failure, unspecified, unspecified whether with hypoxia or hypercapnia Status: Acute (3) Anemia, chronic disease Code(s): D63.8 - Anemia in other chronic diseases classified elsewhere Status : Acute (4) Protein-calorie malnutrition, severe Code(s): E43 - Unspecified severe protein-calorie malnutrition Status: Acute (5) Ileus following gastrointestinal surgery Code(s): K91.30 - Postprocedural intestinal obstruction, unspecified as to partial versus complete Status: Acute Onset Date: ~11/21/17 - Plan As above; will continue comfort measures and attempt to make arrangements for patient to get to [facility] which is closer to home I attest that I had a [id number] encounter with the patient on the same day, and personally performed and documented my assessment and findings in the medical record. The following services were provided during this hospital visit: Chart data review, vital sign assessments/reviewing monitor data Review of consultation notes if present Medication orders/review and/or management Ordering and/or reviewing lab tests Ordering and/or interpreting/reviewing x-rays and/or diagnostic studies Care of the patient and discussion of the patient with the care team Documentation time To help prompt me to consider important information that might be impacting today's encounter and assessment, Information from prior notes written by myself or my colleagues may have been "brought forward/copy and pasted" into today's note.
[2017-12-06] MEDS: Multivitamin Inj 5 ML, Folic Acid Inj 0.5 MG in AA 4.25 %/D25W - Electrolytes 1,000 ML IV.SIG SCH (19:51)
[2017-12-06] MEDS: Sod Chloride 0.9% Inj 1,000 ML IV.CONT SCH (19:54)
[2017-12-06] MEDS: Acetaminophen-HYDROcodone 325/7.5 Liq 15 ML UDC NG/OG PRN (20:24)
[2017-12-06] MEDS: Scopalamine 1.5 MG Patch T-DERMAL SCH (22:49)
[2017-12-07] MEDS: Morphine Inj 4 MG/ML Vial IV.PUSH PRN ×6 (00:37→17:30)
[2017-12-07] MEDS: Insulin NovoLOG Aspart Correctional Sugar Inj SQ SCH ×3 (00:38→12:51)
[2017-12-07] MEDS: Oral Hygiene Kit OROPHARYNG SCH ×4 (02:29→17:08)
[2017-12-07] MEDS: Hyoscyamine Inj 0.5 MG/ML Ampul IV.PUSH PRN (05:23)
[2017-12-07] MEDS: Chlorhexidine Gluconate 0.12% Liq 15 ML UDC SWISH-SPIT SCH (07:41)
[2017-12-07] MEDS: Artificial Tears Opth Drops 15 ML Bottle EACH EYE SCH ×2 (07:41→14:38)
[2017-12-07] MEDS: Lisinopril 5 MG Tablet PO SCH (08:07)
[2017-12-07] MEDS: Heparin Central Flush 100 UNIT/ML 5 ML Vial IV.FLUSH SCH (08:07)
[2017-12-07] MEDS: Pantoprazole Inj 40 MG Vial IV.PUSH SCH (08:07)
[2017-12-07] MEDS: Carvedilol 6.25 MG Tablet PO SCH (08:07)
[2017-12-07] MEDS: Sodium Hypochlorite 0.125% Top Soln 500 ML Bottle TOPICAL SCH (08:07)
[2017-12-07] MEDS: Insulin Detemir Inj 1,000 UNIT/10 ML Vial SQ SCH (08:07)
[2017-12-07] MEDS: Allopurinol 300 MG Tablet PO SCH (08:08)
--- NOTE | 2017-12-07 11:48 | P.PNGS ---
<Jayshree Saha - Last Filed: 12/07/17 11:47> Subjective Interval history: Resting comfortably in bed; eye closed Physical Exam Vital signs: Vital Signs 12/06/17 12:00 12/06/17 13:26 12/06/17 13:27 Temperature 99.5 F Pulse Rate 93 H Respiratory Rate 24 26 H 26 H Blood Pressure 89/55 L Pulse Oximetry 99 12/06/17 16:00 12/06/17 20:00 12/06/17 21:00 Temperature 98.3 F 98.8 F Pulse Rate 82 82 Respiratory Rate 24 26 H 22 Blood Pressure 101/57 L 82/50 L Pulse Oximetry 99 99 12/06/17 21:32 12/06/17 22:00 12/07/17 00:00 Temperature 99.8 F H Pulse Rate 106 H 92 H Respiratory Rate 33 H 21 Blood Pressure 92/56 L Pulse Oximetry 99 99 12/07/17 00:57 12/07/17 02:00 12/07/17 03:11 Temperature Pulse Rate 81 Respiratory Rate 22 26 H Blood Pressure Pulse Oximetry 97 100 12/07/17 04:00 12/07/17 06:00 12/07/17 08:00 Temperature 100.1 F H 99.8 F H Pulse Rate 97 H 80 80 Respiratory Rate 28 H 25 H Blood Pressure 113/74 88/54 L Pulse Oximetry 99 100 12/07/17 08:07 12/07/17 09:05 Temperature Pulse Rate Respiratory Rate 29 H 20 Blood Pressure Pulse Oximetry 99 Intake & Output 12/06/17 12/07/17 12/07/17 18:59 06:59 18:59 Intake Total 1205.1 / 1205.1 1450 / 1450 1105.1 / 1105.1 Output Total 1600 / 1600 950 / 950 Balance -394.9 / -394.9 500 / 500 1105.1 / 1105.1 Weight 70.9 kg Intake: IV 1205.1 / 1205.1 1450 / 1450 1105.1 / 1105.1 NS Inj 1,000 ML @ 42 mls/hr IV. 1000 / 1000 CONT .[id number] [facility] Rx#:[id number] Ofirmev Inj 1,000 mg In 100 ml 200 / 200 200 / 200 100 / 100 @ 400 mls/hr IV.SIG Q6H [facility] Rx# :[id number] Intralipid 20% Inj 250 ML @ 31. 250 / 250 25 mls/hr IV.SIG Q24H [facility] Rx#: [id number] MVI-12 Inj 5 ML Folvite Inj 0.5 1005.1 / 1005.1 1005.1 / 1005.1 MG In Clinimix E 4.25%/D25W Inj 1,000 ML @ 83 mls/hr IV.SIG Q24H [facility] Rx#:[id number] Output: Urine Amount (Catheter) 750 / 750 800 / 800 Indwelling Urethral Catheter 750 / 750 800 / 800 Stool Amount (Stoma) 0 / 0 Left Lower Abdomen 0 / 0 Gastric Drainage 850 / 850 150 / 150 Left Upper Quadrant Gastrostomy 850 / 850 150 / 150 Tube (PEG) Other: Date of Last Bowel Movement 12/05/17 Narrative: Alert and awake Cardio: RRR Resp: CTAB Abd: open abdomen with dressing in place - Urinary Catheter Management Indwelling Urethral Catheter Cath placed during this visit: yes Reason for continuing: Acute urinary retention Insertion date: 11/28/17 Assessment and Plan - Assessment (1) Tracheostomy in place Code(s): Z93.0 - Tracheostomy status Status: Acute (2) Respiratory failure requiring intubation Code(s): J96.90 - Respiratory failure, unspecified, unspecified whether with hypoxia or hypercapnia Status: Acute (3) Anemia, chronic disease Code(s): D63.8 - Anemia in other chronic diseases classified elsewhere Status : Acute (4) Protein-calorie malnutrition, severe Code(s): E43 - Unspecified severe protein-calorie malnutrition Status: Acute (5) Ileus following gastrointestinal surgery Code(s): K91.30 - Postprocedural intestinal obstruction, unspecified as to partial versus complete Status: Acute Onset Date: ~11/21/17 - Plan 72 year old male s/p ex lap; s/p trach for prolonged need for mechanical ventilation -s/p ex lap; TIA; G tube; J tube -Continue TPN at 83 cc/hr + NS at 42 cc/hr -Continue to monitor blood glucose -Continue Ofirmiv; Morphine PRN -Vent per CCM -Continue G tube to LIWS -Continue to cap J tube -Family has elected for Hospice Care -Plan to transfer patient to [facility] today <EverardoDavid Arita - Last Filed: 12/10/17 19:57> Physical Exam - Urinary Catheter Management Indwelling Urethral Catheter Cath placed during this visit: no Assessment and Plan - Assessment (1) Tracheostomy in place Code(s): Z93.0 - Tracheostomy status Status: Acute (2) Respiratory failure requiring intubation Code(s): J96.90 - Respiratory failure, unspecified, unspecified whether with hypoxia or hypercapnia Status: Acute (3) Anemia, chronic disease Code(s): D63.8 - Anemia in other chronic diseases classified elsewhere Status : Acute (4) Protein-calorie malnutrition, severe Code(s): E43 - Unspecified severe protein-calorie malnutrition Status: Acute (5) Ileus following gastrointestinal surgery Code(s): K91.30 - Postprocedural intestinal obstruction, unspecified as to partial versus complete Status: Acute Onset Date: ~11/21/17 - Plan The exam, history, and the medical decision-making described in the above note were completed with the assistance of the mid-level provider. I reviewed and agree with the findings presented. I attest that I had a [id number] encounter with the patient on the same day, and personally performed and documented my assessment and findings in the medical record.
--- NOTE | 2017-12-07 13:26 | P.PNCC ---
Subjective Subjective Remarks/Hospital Course: This is a 72 year old male with history of type 2 diabetes, hypertension, dyslipidemia, chronic kidney disease stage III, ankylosing spondylitis, esophageal stricture s/p dilatation, diverticulitis, peritonitis, history of small bowel obstruction, colon resection x2, who was admitted to the hospital with one-week history of abd distension, constipation, and cramps. Pt tried to mange this at home, as he is familiar with symptoms. Has history of multiple bowel obstructions and multiple surgeries in the past. CT of abdomen/ pelvis showed moderately dilated large and small bowel, concentric stricturing in the sigmoid colon. Gastroenterology and general surgery were consulted. Patient was taken today to the OR by Dr. Mcgee, patient underwent exploratory laparotomy, Lysis of adhesions for dense adhesions involving small and large bowel, sigmoid colon resection with end colostomy and Holcomb's pouch. There was stricture at previous surgical site in sigmoid colon. EBL 300 ml, urine output was adequate. During the ex lap patient's sustained ureteral injury which required ureteroureteral anastomosis over stent by Dr. Page. Postop patient was moved to the PACU where his chest x-ray showed small possible left lateral pneumothorax. ABG showed a pH of 7.29/41/99 BE -6.7. I evaluated the patient in the ICU. Patient is intubated sedated with Precedex. He is tachycardic and borderline hypotensive. Additional 500 mL of fluid bolus given , 1 amp of bicarb. Received total 2.1 L in the OR. Urine output is adequate, approximately 75 ml per hour post op. With left-sided tiny pneumothorax (most likely with from central line placement in OR), will attempt CPAP trials for possible extubation. 10/09: Breathing is moderately labored to observe but the patient states he is comfortable. His major complaint is chronic back pain. Urine output is marginal but he remains well-perfused. Colostomy stoma is pink. 10/10: Labored breathing overnight. Remains on quarter normal saline at 125 cc hours and Clinimix E 4.25/25 at 83 cc an hour. Chest x-ray appears with bilateral pulmonary infiltrates. CVP is 8. Greater than 50% variation IVC by ultrasound. Bedside echocardiogram no acute findings. Patient currently with some pleuritic chest pain worse with deep inspiration. EKG currently pending. 8 run beat of V. tach overnight. Potassium magnesium within normal limits. 10/11: Afebrile. FiO2 requirements increased overnight currently at 60%. Chest x-ray revealed pulmonary edema bilaterally. Troponin downward trending. Noted sodium elevated 154. Will remove sodium from TPN. Norepinephrine initiated overnight currently at 8 mcg/min. Nitro paste discontinued. Holding parameters for beta corby 10/12: remains afebrile. back on levophed this AM at 5 mcg/min. also remains tachycardic in the 100s. sodium remains elevated despite removal of nacl from TPN. 10/13: T-max 100.4. Desaturated overnight requiring PEEP increased to 10 currently at 8. FiO2 down to 45%. Appears uncomfortable on the ventilator. Abdomen slightly more distended. Positive output from ostomy.. Transfusing 1 unit PRBCs due to acute coronary syndrome to keep above a. Recheck along with electrolytes active bleeding in place. CT abdomen/pelvis ordered. 10/14: Copious secretions overnight. PEEP at 7 FiO2 50%. Abdominal/pelvis CT revealed bilateral lobar pneumonia pelvic read as gallstone ileus but not likely is patient with copious stool output from ostomy. Did discuss with Dr. Mcgee. Antibiotic coverage broadened. Pancultured yesterday looks like his underlying pneumonia. Will transfuse 1 unit PRBCs today per cardiology request to maintain hemoglobin around 9 for acute coronary syndrome. Diuresis postprocedure and replace electrolytes aggressively. TPN will be weaned/ discontinued today after tube feeds at 40 cc an hour 10/15: t max 100.7 overnight. cultures NGTD. fio2 improving. secretions are somewhat better. 10/16: no improvements. afebrile. failed SBT after 10 minutes for tachypnea and respiratory distress. 10/17: failed sbt again for significant secretions and respiratory distress. only lasting about 10 min. may require tracheostomy. 10/18: much more awake and interactive. still has significant secretions. on SBT for longer today, but with active coronary ischemia, very high risk if he fails extubation. plan for trach if he remains intubated through the weekend. 10/19: still failing SBT. dressings changed today. clinically improving, but very weak and slow progress. 10/20: again failing SBT for copious secretions. was OOB to chair today. likely will need trach. 10/21: failed SBT for tachypnea, RR > 40. discussed with Dr[address] Mcgee: plan for trach tomorrow. discussed with cardiology service: they will likely medically manage his coronary artery disease without [facility] intervention. this is more of a reason to pursue trach, to prevent coronary ischemia that would come with trial of extubation first. 10/22: Plan for percutaneous tracheostomy at bedside 11 AM. Arousable on the ventilator and following commands. Currently afebrile. N.p.o. status. 10/23: Status post percutaneous tracheostomy 10/22 without complication. Continues to ooze from around tracheostomy site. Will hold enoxaparin for today. Tube feeds back at goal. Denies abdominal pain. Positive flatus from ostomy site. 10/24: Normal stool coming from well-perfused ostomy. Spontaneous breathing trials with tachypnea and mild labor. Chest x-ray with chronic interstitial changes and small lung volumes. 10/25: A little bit stronger on spontaneous breathing trials today. Pressure support settings 18/10. Tolerating tube feeds. 10/26: He is tolerating a mild reduction and mean airway pressure and end expiratory pressure. Continues to look acceptably comfortable during spontaneous breathing trials. 10/27: We needed to increase PEEP again last evening. 10/28: Spontaneous breathing trial at 8/8 this morning and doing quite well. Tube feedings on hold per surgery. Patient required low dose Xanax last night for anxiety. 10/29: intermittent SBTs. will trial t-piece today. no significant change. needs LTAC level care. 10/30: t-piece trials. ostomy working. advancing trickle tube feeds per surgery. 10/31: patient having gout flair and significantly painful. however, steroids contraindicated, and NSAIDS also contraindicated with concern over renal dysfunction in the setting of critical illness. still failing to separate from mechanical ventilation. really needs LTAC level care for pulmonary rehab. 11/01: NG tube placed to suction with 700 cc of gastric contents suctioned out overnight. Patient remains on mechanical ventilation with tracheostomy on CPAP with pressure support. Failed T piece yesterday. 11/02: Remains on mechanical ventilation via tracheostomy. 11/03: Remains on mechanical ventilation via tracheostomy. CPAP trials daily. T -piece as tolerated. 11/04: On mechanical ventilation via tracheostomy. Daily CPAP trials. 11/05, 11/06: Remains on mechanical ventilation via tracheostomy. Daily CPAP trials ongoing. 11/07: Worsening respiratory status. Placed back on PRVC mode mechanical ventilation last night. Significant sick pulmonary secretions noted. No BMs via colostomy. Chest x-ray done this morning shows worsening infiltrates more on the right suspicious for aspiration. KUB done this morning shows an ileus. Already placed on Zosyn on 11/07 which should cover for pneumonia. 11/08: Resting on mechanical ventilation via tracheostomy. Wound culture from incision site growing Pseudomonas 11/09: Remains on mechanical ventilation via tracheostomy. Wound culture and sputum both growing Pseudomonas. 11/10: Is on mechanical ventilation via tracheostomy. Daily CPAP trials. 11/11: Remains on mechanical ventilation via tracheostomy. Really CPAP trials ongoing. 11/12 No events overnight. On ventilator via trach. On CPAP with PS 15, PEEP:5 and FIO2 40%. Afebrile. 11/13 Patient denies complaint. Wants NGT out but understand rationale for continuing. On CPAP 15/5. Tolerating tube feeds. Afebrile. Subjective: 11/14 On CPAP 15/5 since yesterday. Able to wean to 12/5 but weaning beyond that produces tachypnea. Was out of bed to chair for a couple of hours. 11/15: Remains on CPAP via tracheostomy. Had problems with secretions last night. Adding scheduled nebulizer treatments and Mucomyst to mobilize secretions. 11/16: Resting comfortably on mechanical ventilation via tracheostomy. On CPAP trial 11/17: Afebrile. Tolerating tube feeds at goal. Placed on ventilator yesterday secondary to worsening subjective shortness of breath. We will reattempt CPAP trial again today. Positive BM.. 11/18: Afebrile. We will reattempt CPAP trial again today. Check chest x-ray in a.m. Continue with pulmonary toilet. Anxious. 11/19: Not tolerating CPAP trials well. Will discuss among consultants ways to manage his anxiety. 11/20: Brief episodes of apnea overnight. Anxiety a little better controlled this morning. 11/21: Patient vomited a large amount of tube feed this morning. After this he appeared comfortable although a little anxious. 11/22: Feels a little better this morning but abdomen remains moderately distended. Good stoma output. Surgical service is aware and Dr. Shepard saw the patient last evening. KUB reviewed. Potassium replacement underway now. 11/23: Patient remains in poorly compensated diastolic heart failure. Our best efforts to gingerly diuresis and has just resulted in worsening renal function. His medical therapy is maximized for heart failure with acceptable pulse rate control and afterload reduction. Inability to wean completely from the ventilator is closely associated persistent pulmonary edema. 11/24: Breathing quite comfortably this morning on CPAP however requiring 15 cm of water pressure support. Despite congested chest x-ray his lungs are fairly clear to auscultation. He has been started on TPN and his GI tract To low intermittent suction through an NG tube. The abdomen is remarkably soft and not distended. The colostomy does have output. 11/25: He has finally progressed to T piece trials and so far he is comfortable. We continue to adjust electrolyte replacement because of nasogastric losses. His general demeanor is much improved today and he is much less anxious. TPN is infusing as we rest his bowel. SUBJECTIVE 11/26: more gastric distension and vomiting this AM. tube feeds stopped and NGT to LIWS with 300cc gastric contents removed. general surgery notified. will ultimately need permanent enteral access, and likely G/J at this point. no changes. still resting on vent overnight. very weak and deconditioned. 11/27: Continues to have episodes of vomiting, continues to have gastric distention. KUB shows ileus. Will start on scheduled Reglan, replaced potassium. Requested PICC line for TPN and electrolyte replacement. Dr. Mcgee planning for OR with ex lap and lysis of adhesions tomorrow 11/28: Awake alert on the ventilator today. Nausea vomiting is improved. Plan for OR today with Dr. Mcgee with TIA and G-J tube placement 11/29: Currently lying in bed on CPAP. Status post exploratory laparotomy, Lysis of adhesions, greater than 1 hour, Small bowel resection and GJ tube placement. Complaints of postop pain I will add morphine for breakthrough pain. Start TPN today per general surgery. Calcium low getting replaced 11/30: Complains of increased nausea vomiting today. Increased G-tube output approximately 400 mL overnight. Per general surgery GT piece to intermittent wall suction J-tube clamped. TPN started 12/01: Pain improved denies nausea today. Hb 6.5 getting 2 units of PRBC. G- tube output 300 ml last 24 hrs, J-tube capped. JOSÉ drain was removed by Dr. Mcgee. Will resume CPAP trials 12/02: Clinically improving pain better. No colostomy function yet. G-tube output approximately 800 mL in 24 hours. Continuing TPN. WBC count 19.6 no fever. 12/03: Comfortable this morning. Normal respiratory pattern. Instructions from surgery service reviewed, agree. 12/04: Remains mostly comfortable. Not able to tolerate SBTs yet. 12/05: After lengthy discussions with the patient and his last evening we continued discussions this morning with Dr. Mcgee and the family. The family and patient are leaning toward hospice care with the understanding that his refractory diastolic heart failure will prohibit successful weaning from the ventilator. All are attempts to suitably diuresis the patient have resulted in acute kidney injury and at this juncture hospice is a reasonable choice. We have expressed to the family that we will support whatever decision they make. 12/06: Patient comfortable this morning while on increased sedation and analgesia regimen. Family will return to us today with a response regarding a short-term care plan for the patient. The family has requested that we keep him calm and out of pain in the interim. 12/07: He is comfortable this morning and appears in no distress. The family appears united and consistent and there requests that we provide comfort measures at this point. The primary team is making arrangements for the patient transition to hospice in [place]. Objective Vital Signs / I&O: Vital Signs 12/06/17 13:26 12/06/17 13:27 12/06/17 16:00 Temperature 98.3 F Pulse Rate 82 Respiratory Rate 26 H 26 H 24 Blood Pressure 101/57 L Pulse Oximetry 99 12/06/17 20:00 12/06/17 21:00 12/06/17 21:32 Temperature 98.8 F Pulse Rate 82 Respiratory Rate 26 H 22 33 H Blood Pressure 82/50 L Pulse Oximetry 99 99 12/06/17 22:00 12/07/17 00:00 12/07/17 00:57 Temperature 99.8 F H Pulse Rate 106 H 92 H Respiratory Rate 21 22 Blood Pressure 92/56 L Pulse Oximetry 99 97 12/07/17 02:00 12/07/17 03:11 12/07/17 04:00 Temperature 100.1 F H Pulse Rate 81 97 H Respiratory Rate 26 H 28 H Blood Pressure 113/74 Pulse Oximetry 100 99 12/07/17 06:00 12/07/17 08:00 12/07/17 08:07 Temperature 99.8 F H Pulse Rate 80 80 Respiratory Rate 25 H 29 H Blood Pressure 88/54 L Pulse Oximetry 100 12/07/17 09:05 12/07/17 12:00 12/07/17 12:50 Temperature 98.4 F Pulse Rate 82 Respiratory Rate 20 24 24 Blood Pressure 88/50 L Pulse Oximetry 99 97 Intake & Output 12/06/17 12/07/17 12/07/17 18:59 06:59 18:59 Intake Total 1205.1 / 1205.1 1450 / 1450 1105.1 / 1105.1 Output Total 1600 / 1600 950 / 950 Balance -394.9 / -394.9 500 / 500 1105.1 / 1105.1 Weight 70.9 kg Intake: IV 1205.1 / 1205.1 1450 / 1450 1105.1 / 1105.1 NS Inj 1,000 ML @ 42 mls/hr IV. 1000 / 1000 CONT .[id number] LISA Rx#:[id number] Ofirmev Inj 1,000 mg In 100 ml 200 / 200 200 / 200 100 / 100 @ 400 mls/hr IV.SIG Q6H LISA Rx# :[id number] Intralipid 20% Inj 250 ML @ 31. 250 / 250 25 mls/hr IV.SIG Q24H LISA Rx#: [id number] MVI-12 Inj 5 ML Folvite Inj 0.5 1005.1 / 1005.1 1005.1 / 1005.1 MG In Clinimix E 4.25%/D25W Inj 1,000 ML @ 83 mls/hr IV.SIG Q24H LISA Rx#:[id number] Output: Urine Amount (Catheter) 750 / 750 800 / 800 Indwelling Urethral Catheter 750 / 750 800 / 800 Stool Amount (Stoma) 0 / 0 Left Lower Abdomen 0 / 0 Gastric Drainage 850 / 850 150 / 150 Left Upper Quadrant Gastrostomy 850 / 850 150 / 150 Tube (PEG) Other: Date of Last Bowel Movement 12/05/17 Result Diagrams: 12/05/17 05:47 12/05/17 04:33 Objective Remarks: Objective Remarks GENERAL: 72-year-old male currently on CPAP with elevated pressure support. SKIN: Warm and dry. No rash HEAD: Atraumatic. Normocephalic. EYES: Pupils equal round and reactive, 1 mm bilaterally. ENT: Oral cavity is moist. NECK: Trachea midline. Supple. Tracheostomy site clean and dry. CARDIOVASCULAR: RRR. No JVD but veins are full. RESPIRATORY: Equal chest rise. Symmetrical excursions. Few crackles persist in bases. Comfortable respiratory pattern. GASTROINTESTINAL: Abdomen mildly distended, some light weeping fluid from the midline wound. G-J tube in place, G to IWS, MUSCULOSKELETAL: No edema lower extremities. Well-perfused. Warm. NEUROLOGICAL: Patient remains resting comfortably in the supine position. The head of the bed is about 20 and he does open his eyes to questions. He denies severe pain. Wiggles his fingers and toes. Assessment and Plan - Problem List (1) Chronic respiratory failure Code(s): J96.10 - Chronic respiratory failure, unspecified whether with hypoxia or hypercapnia Status: Chronic (2) Large bowel obstruction Code(s): K56.609 - Unspecified intestinal obstruction, unspecified as to partial versus complete obstruction Status: Resolved (3) STEMI (ST elevation myocardial infarction) Code(s): I21.3 - ST elevation (STEMI) myocardial infarction of unspecified site Status: Resolved (4) Diabetes Code(s): E11.9 - Type 2 diabetes mellitus without complications Status: Acute (5) Wound dehiscence, surgical Code(s): T81.31XA - Disruption of external operation (surgical) wound, not elsewhere classified, initial encounter Status: Acute (6) Dysphagia Code(s): R13.10 - Dysphagia, unspecified Status: Acute (7) Protein-calorie malnutrition, severe Code(s): E43 - Unspecified severe protein-calorie malnutrition Status: Acute (8) Systolic heart failure Code(s): I50.20 - Unspecified systolic (congestive) heart failure Status: Acute (9) Colostomy in place Code(s): Z93.3 - Colostomy status Status: Acute - Assessment and Plan Plan: A/P Assessment and Plan NEURO/Psych: 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 Holding gabapentin 300 mg daily Continue with PT and OT. RESP: Acute hypoxic and hypercarbic respiratory failure- now chronic. Iatrogenic left pneumothorax- resolved. Continue with CPAP, attempt TP for 1 hour. Albuterol/ipratropium aerosols every 6 hours while awake with albuterol aerosols every 2 hours as needed dyspnea Pulm toilet, trach care. Status post percutaneous tracheostomy bedside - Dr. Mcgee Keep head of the bed elevated 30. Continues to have problems with stamina on spontaneous ventilation trials. We will try to get back to T piece for limited periods of time initially. CV: Coronary artery disease Post operative STEMI Acute systolic heart failure Chronic diastolic heart failure Hypertension Hyperlipidemia Aspirin 81 mg daily, clopidogrel 75 mg p.o. daily, currently on hold perioperatively, and due to anemia BP controlled, decreased metoprolol to 50 mg p.o. twice daily, continue lisinopril 5 mg p.o. daily. Continue atorvastatin 20 mg at night for dyslipidemia. Holding amlodipine 10 mg daily 2D echocardiogram 05/29 revealed EF 50-55%. Grade 1 diastolic dysfunction. Pulmonary arterial pressure 34 mmHg. Repeat revealed EF of 40-45% Followed by cardiology/Dr. Ellison: Dr. Villa discussed with team 10/21, and they recommended medical management. Continued conservative management recommended 11/02. Persistent diastolic heart failure despite our best efforts at diuresis. Lungs remain with considerable bilateral venous congestion. GI: 11/28 status post ex lap, lysis of adhesions, small bowel resection, GJ tube placement 10/08 Postop s/p ex-lap, TIA, Sigmoid colon resection with end colostomy and Holcomb's pouch Recurrent colonic obstruction, small bowel obstruction Postop ileus vs SBO History of esophageal stricture status post dilatation History of small bowel obstruction History of diverticulitis Hypoalbuminemia -Postop management per Dr. Mcgee. 11/28 status post ex lap, lysis of adhesions small bowel resection, GJ tube placement -G to IWS, J capped per gen surgery. JOSÉ drain removed 12/01 -Reglan for ileus. Morphine for pain control -TPN . colostomy in place funtion yet, no tueb feeds per general surgery -Pantoprazole 40 mg IV daily for GI prophylaxis. On omeprazole 20 mg daily at home Renal/: 10/08 Postop s/p Ureteroureteral anastomosis for ureteral injury Chronic kidney disease stage III a -Monitor renal function, I/O's, electrolytes replacement per protocol -Removal of double-J stent 6 weeks from operative procedure outpatient setting ID: Pneumonia - resolved Wound culture from abdominal incision +pseudomonas. -s/p full course of Zosyn (started initially 11/06) Sputum cx 11/07: Pseudomonas, repeat sputum cx - resolved Wound cx 08/06: Pseudomonas - resolved Wound culture from incision site(11/06) growing Pseudomonas, sputum Gram stain and culture(11/07) growing pansenstive Pseudomonas -Discontinued levofloxacin 10/14. s/p course vancomycin and cefepime, 10/14-10/20 Sputum, blood cultures 2 10/13 NGTD Urine Legionella and pneumococcal urinary antigens 10/13 negative HEME: Normocytic anemia Thrombocytosis -Monitor CBC, CMP, coags -s/p 1 unit PRBCs to be transfused on 11/09 for hemoglobin 7.1 Elevated white count may be reactive, monitor closely for infection ENDO: Diabetes mellitus type 2 Severe hyperglycemia of critical illness Holding metformin 1000 mg by mouth twice daily Continue Levemir and sliding scale insulin MSK: History of ankylosing spondylosis Holding denosumab 60 mg subcu every 18 days Holding cholecalciferol 4000 units p.o. daily PT evaluate and treat PROPH: -Bilateral lower extremity SCDs. Lovenox 40 subcu daily-holding now due to anemia. On Protonix 40 mg IV for stress ulcer prophylaxis. LINES: - piv. RDE PICC placed 11/1717 Overall impression: Generally impaired respiratory function from chronic venous congestion associated with his refractory diastolic heart failure. Stable hemodynamics. No evidence of bleeding. Comfortable at this point. Family wants hospice care which I think would be a cadena decision for the patient. We cannot seem to get him out of heart failure and thus cannot get him off of ventilator. Family understands this and reaffirms that he would not want to live this way. (8) Systolic heart failure Qualifiers: Heart failure chronicity: acute Qualified Code(s): I50.21 - Acute systolic ( congestive) heart failure
[2017-12-07 16:11] VITALS: PULSE 92; RESP 28; O2SAT 100
[2017-12-07 17:02] VITALS: BP 120/60; TEMP 99
--- NOTE | 2018-02-12 07:29 | P.DS ---
Date of admission: 10/05/17 15:21 Primary care physician: Cecile Tanner MD Attending physician on discharge: Mina Rivas Brief History from admission: This is a 72 year old male with history of type 2 diabetes, hypertension, dyslipidemia, chronic kidney disease stage III, ankylosing spondylitis, esophageal stricture s/p dilatation, diverticulitis, peritonitis, history of small bowel obstruction, colon resection x2, who was admitted to the hospital with one-week history of abd distension, constipation, and cramps. Pt tried to mange this at home, as he is familiar with symptoms. Has history of multiple bowel obstructions and multiple surgeries in the past. CT of abdomen/ pelvis showed moderately dilated large and small bowel, concentric stricturing in the sigmoid colon. Gastroenterology and general surgery were consulted. Patient was taken today to the OR by Dr. Mcgee, patient underwent exploratory laparotomy, Lysis of adhesions for dense adhesions involving small and large bowel, sigmoid colon resection with end colostomy and Holcomb's pouch. There was stricture at previous surgical site in sigmoid colon. EBL 300 ml, urine output was adequate. During the ex lap patient's sustained ureteral injury which required ureteroureteral anastomosis over stent by Dr. Page. Postop patient was moved to the PACU where his chest x-ray showed small possible left lateral pneumothorax. ABG showed a pH of 7.29/41/99 BE -6.7. I evaluated the patient in the ICU. Patient is intubated sedated with Precedex. He is tachycardic and borderline hypotensive. Additional 500 mL of fluid bolus given , 1 amp of bicarb. Received total 2.1 L in the OR. Urine output is adequate, approximately 75 ml per hour post op. With left-sided tiny pneumothorax (most likely with from central line placement in OR), will attempt CPAP trials for possible extubation. Patient update on day of discharge: This is a 72 year old male with history of type 2 diabetes, hypertension, dyslipidemia, chronic kidney disease stage III, ankylosing spondylitis, esophageal stricture s/p dilatation, diverticulitis, peritonitis, history of small bowel obstruction, colon resection x2, who was admitted to the hospital with one-week history of abd distension, constipation, and cramps. Pt tried to mange this at home, as he is familiar with symptoms. Has history of multiple bowel obstructions and multiple surgeries in the past. CT of abdomen/ pelvis showed moderately dilated large and small bowel, concentric stricturing in the sigmoid colon. Gastroenterology and general surgery were consulted. Patient was taken today to the OR by Dr. Mcgee, patient underwent exploratory laparotomy, Lysis of adhesions for dense adhesions involving small and large bowel, sigmoid colon resection with end colostomy and Holcomb's pouch. There was stricture at previous surgical site in sigmoid colon. EBL 300 ml, urine output was adequate. During the ex lap patient's sustained ureteral injury which required ureteroureteral anastomosis over stent by Dr. Page. Postop patient was moved to the PACU where his chest x-ray showed small possible left lateral pneumothorax. ABG showed a pH of 7.29/41/99 BE -6.7. I evaluated the patient in the ICU. Patient is intubated sedated with Precedex. He is tachycardic and borderline hypotensive. Additional 500 mL of fluid bolus given , 1 amp of bicarb. Received total 2.1 L in the OR. Urine output is adequate, approximately 75 ml per hour post op. With left-sided tiny pneumothorax (most likely with from central line placement in OR), will attempt CPAP trials for possible extubation. 10/09: Breathing is moderately labored to observe but the patient states he is comfortable. His major complaint is chronic back pain. Urine output is marginal but he remains well-perfused. Colostomy stoma is pink. 10/10: Labored breathing overnight. Remains on quarter normal saline at 125 cc hours and Clinimix E 4.25/25 at 83 cc an hour. Chest x-ray appears with bilateral pulmonary infiltrates. CVP is 8. Greater than 50% variation IVC by ultrasound. Bedside echocardiogram no acute findings. Patient currently with some pleuritic chest pain worse with deep inspiration. EKG currently pending. 8 run beat of V. tach overnight. Potassium magnesium within normal limits. 10/11: Afebrile. FiO2 requirements increased overnight currently at 60%. Chest x-ray revealed pulmonary edema bilaterally. Troponin downward trending. Noted sodium elevated 154. Will remove sodium from TPN. Norepinephrine initiated overnight currently at 8 mcg/min. Nitro paste discontinued. Holding parameters for beta corby 10/12: remains afebrile. back on levophed this AM at 5 mcg/min. also remains tachycardic in the 100s. sodium remains elevated despite removal of nacl from TPN. 10/13: T-max 100.4. Desaturated overnight requiring PEEP increased to 10 currently at 8. FiO2 down to 45%. Appears uncomfortable on the ventilator. Abdomen slightly more distended. Positive output from ostomy.. Transfusing 1 unit PRBCs due to acute coronary syndrome to keep above a. Recheck along with electrolytes active bleeding in place. CT abdomen/pelvis ordered. 10/14: Copious secretions overnight. PEEP at 7 FiO2 50%. Abdominal/pelvis CT revealed bilateral lobar pneumonia pelvic read as gallstone ileus but not likely is patient with copious stool output from ostomy. Did discuss with Dr. Mcgee. Antibiotic coverage broadened. Pancultured yesterday looks like his underlying pneumonia. Will transfuse 1 unit PRBCs today per cardiology request to maintain hemoglobin around 9 for acute coronary syndrome. Diuresis postprocedure and replace electrolytes aggressively. TPN will be weaned/ discontinued today after tube feeds at 40 cc an hour 10/15: t max 100.7 overnight. cultures NGTD. fio2 improving. secretions are somewhat better. 10/16: no improvements. afebrile. failed SBT after 10 minutes for tachypnea and respiratory distress. 10/17: failed sbt again for significant secretions and respiratory distress. only lasting about 10 min. may require tracheostomy. 10/18: much more awake and interactive. still has significant secretions. on SBT for longer today, but with active coronary ischemia, very high risk if he fails extubation. plan for trach if he remains intubated through the weekend. 10/19: still failing SBT. dressings changed today. clinically improving, but very weak and slow progress. 10/20: again failing SBT for copious secretions. was OOB to chair today. likely will need trach. 10/21: failed SBT for tachypnea, RR > 40. discussed [address] Dr[address] Mcgee: plan for trach tomorrow. discussed with cardiology service: they will likely medically manage his coronary artery disease without [facility] intervention. this is more of a reason to pursue trach, to prevent coronary ischemia that would come with trial of extubation first. 10/22: Plan for percutaneous tracheostomy at bedside 11 AM. Arousable on the ventilator and following commands. Currently afebrile. N.p.o. status. 6/12: Status post percutaneous tracheostomy 10/22 without complication. Continues to ooze from around tracheostomy site. Will hold enoxaparin for today. Tube feeds back at goal. Denies abdominal pain. Positive flatus from ostomy site. 10/24: Normal stool coming from well-perfused ostomy. Spontaneous breathing trials with tachypnea and mild labor. Chest x-ray with chronic interstitial changes and small lung volumes. 10/25: A little bit stronger on spontaneous breathing trials today. Pressure support settings /. Tolerating tube feeds. 10/26: He is tolerating a mild reduction and mean airway pressure and end expiratory pressure. Continues to look acceptably comfortable during spontaneous breathing trials. 10/27: We needed to increase PEEP again last evening. 10/28: Spontaneous breathing trial at 8/8 this morning and doing quite well. Tube feedings on hold per surgery. Patient required low dose Xanax last night for anxiety. 10/29: intermittent SBTs. will trial t-piece today. no significant change. needs LTAC level care. 10/30: t-piece trials. ostomy working. advancing trickle tube feeds per surgery. 10/31: patient having gout flair and significantly painful. however, steroids contraindicated, and NSAIDS also contraindicated with concern over renal dysfunction in the setting of critical illness. still failing to separate from mechanical ventilation. really needs LTAC level care for pulmonary rehab. 11/01: NG tube placed to suction with 700 cc of gastric contents suctioned out overnight. Patient remains on mechanical ventilation with tracheostomy on CPAP with pressure support. Failed T piece yesterday. 11/02: Remains on mechanical ventilation via tracheostomy. 11/03: Remains on mechanical ventilation via tracheostomy. CPAP trials daily. T -piece as tolerated. 11/04: On mechanical ventilation via tracheostomy. Daily CPAP trials. 11/05, 11/06: Remains on mechanical ventilation via tracheostomy. Daily CPAP trials ongoing. 11/07: Worsening respiratory status. Placed back on PRVC mode mechanical ventilation last night. Significant sick pulmonary secretions noted. No BMs via colostomy. Chest x-ray done this morning shows worsening infiltrates more on the right suspicious for aspiration. KUB done this morning shows an ileus. Already placed on Zosyn on 11/07 which should cover for pneumonia. 11/08: Resting on mechanical ventilation via tracheostomy. Wound culture from incision site growing Pseudomonas 11/09: Remains on mechanical ventilation via tracheostomy. Wound culture and sputum both growing Pseudomonas. 11/10: Is on mechanical ventilation via tracheostomy. Daily CPAP trials. 11/11: Remains on mechanical ventilation via tracheostomy. Really CPAP trials ongoing. 11/12 No events overnight. On ventilator via trach. On CPAP with PS 15, PEEP:5 and FIO2 40%. Afebrile. 11/13 Patient denies complaint. Wants NGT out but understand rationale for continuing. On CPAP /5. Tolerating tube feeds. Afebrile. Subjective: 11/14 On CPAP 15/5 since yesterday. Able to wean to 12/5 but weaning beyond that produces tachypnea. Was out of bed to chair for a couple of hours. 11/15: Remains on CPAP via tracheostomy. Had problems with secretions last night. Adding scheduled nebulizer treatments and Mucomyst to mobilize secretions. 11/16: Resting comfortably on mechanical ventilation via tracheostomy. On CPAP trial 11/17: Afebrile. Tolerating tube feeds at goal. Placed on ventilator yesterday secondary to worsening subjective shortness of breath. We will reattempt CPAP trial again today. Positive BM.. 11/18: Afebrile. We will reattempt CPAP trial again today. Check chest x-ray in a.m. Continue with pulmonary toilet. Anxious. 11/19: Not tolerating CPAP trials well. Will discuss among consultants ways to manage his anxiety. 11/20: Brief episodes of apnea overnight. Anxiety a little better controlled this morning. 11/21: Patient vomited a large amount of tube feed this morning. After this he appeared comfortable although a little anxious. 11/22: Feels a little better this morning but abdomen remains moderately distended. Good stoma output. Surgical service is aware and Dr. Shepard saw the patient last evening. KUB reviewed. Potassium replacement underway now. 11/23: Patient remains in poorly compensated diastolic heart failure. Our best efforts to gingerly diuresis and has just resulted in worsening renal function. His medical therapy is maximized for heart failure with acceptable pulse rate control and afterload reduction. Inability to wean completely from the ventilator is closely associated persistent pulmonary edema. 11/24: Breathing quite comfortably this morning on CPAP however requiring 15 cm of water pressure support. Despite congested chest x-ray his lungs are fairly clear to auscultation. He has been started on TPN and his GI tract To low intermittent suction through an NG tube. The abdomen is remarkably soft and not distended. The colostomy does have output. 11/25: He has finally progressed to T piece trials and so far he is comfortable. We continue to adjust electrolyte replacement because of nasogastric losses. His general demeanor is much improved today and he is much less anxious. TPN is infusing as we rest his bowel. SUBJECTIVE 11/26: more gastric distension and vomiting this AM. tube feeds stopped and NGT to LIWS with 300cc gastric contents removed. general surgery notified. will ultimately need permanent enteral access, and likely G/J at this point. no changes. still resting on vent overnight. very weak and deconditioned. 11/27: Continues to have episodes of vomiting, continues to have gastric distention. KUB shows ileus. Will start on scheduled Reglan, replaced potassium. Requested PICC line for TPN and electrolyte replacement. Dr. Mcgee planning for OR with ex lap and lysis of adhesions tomorrow 11/28: Awake alert on the ventilator today. Nausea vomiting is improved. Plan for OR today with Dr. Mcgee with TIA and G-J tube placement 11/29: Currently lying in bed on CPAP. Status post exploratory laparotomy, Lysis of adhesions, greater than 1 hour, Small bowel resection and GJ tube placement. Complaints of postop pain I will add morphine for breakthrough pain. Start TPN today per general surgery. Calcium low getting replaced 11/30: Complains of increased nausea vomiting today. Increased G-tube output approximately 400 mL overnight. Per general surgery GT piece to intermittent wall suction J-tube clamped. TPN started 12/01: Pain improved denies nausea today. Hb 6.5 getting 2 units of PRBC. G- tube output 300 ml last 24 hrs, J-tube capped. JOSÉ drain was removed by Dr. Mcgee. Will resume CPAP trials 12/02: Clinically improving pain better. No colostomy function yet. G-tube output approximately 800 mL in 24 hours. Continuing TPN. WBC count 19.6 no fever. 12/03: Comfortable this morning. Normal respiratory pattern. Instructions from surgery service reviewed, agree. 12/04: Remains mostly comfortable. Not able to tolerate SBTs yet. 12/05: After lengthy discussions with the patient and his last evening we continued discussions this morning with Dr. Mcgee and the family. The family and patient are leaning toward hospice care with the understanding that his refractory diastolic heart failure will prohibit successful weaning from the ventilator. All are attempts to suitably diuresis the patient have resulted in acute kidney injury and at this juncture hospice is a reasonable choice. We have expressed to the family that we will support whatever decision they make. 12/06: Patient comfortable this morning while on increased sedation and analgesia regimen. Family will return to us today with a response regarding a short-term care plan for the patient. The family has requested that we keep him calm and out of pain in the interim. 12/07: He is comfortable this morning and appears in no distress. The family appears united and consistent and there requests that we provide comfort measures at this point. The primary team is making arrangements for the patient transition to hospice in [place]. DS: Diagnosis - Discharge Diagnosis (1) Chronic respiratory failure Status: Chronic (2) Diabetes Status: Acute (3) Wound dehiscence, surgical Status: Acute (4) Dysphagia Status: Acute (5) Protein-calorie malnutrition, severe Status: Acute (6) Systolic heart failure Status: Acute (7) Colostomy in place Status: Acute DS: Summary Hospital Course: This is a 72 year old male with history of type 2 diabetes, hypertension, dyslipidemia, chronic kidney disease stage III, ankylosing spondylitis, esophageal stricture s/p dilatation, diverticulitis, peritonitis, history of small bowel obstruction, colon resection x2, who was admitted to the hospital with one-week history of abd distension, constipation, and cramps. Pt tried to mange this at home, as he is familiar with symptoms. Has history of multiple bowel obstructions and multiple surgeries in the past. CT of abdomen/ pelvis showed moderately dilated large and small bowel, concentric stricturing in the sigmoid colon. Gastroenterology and general surgery were consulted. Patient was taken today to the OR by Dr. Mcgee, patient underwent exploratory laparotomy, Lysis of adhesions for dense adhesions involving small and large bowel, sigmoid colon resection with end colostomy and Holcomb's pouch. There was stricture at previous surgical site in sigmoid colon. EBL 300 ml, urine output was adequate. During the ex lap patient's sustained ureteral injury which required ureteroureteral anastomosis over stent by Dr. Page. Postop patient was moved to the PACU where his chest x-ray showed small possible left lateral pneumothorax. ABG showed a pH of 7.29/41/99 BE -6.7. I evaluated the patient in the ICU. Patient is intubated sedated with Precedex. He is tachycardic and borderline hypotensive. Additional 500 mL of fluid bolus given , 1 amp of bicarb. Received total 2.1 L in the OR. Urine output is adequate, approximately 75 ml per hour post op. With left-sided tiny pneumothorax (most likely with from central line placement in OR), will attempt CPAP trials for possible extubation. 10/09: Breathing is moderately labored to observe but the patient states he is comfortable. His major complaint is chronic back pain. Urine output is marginal but he remains well-perfused. Colostomy stoma is pink. 10/10: Labored breathing overnight. Remains on quarter normal saline at 125 cc hours and Clinimix E 4.25/25 at 83 cc an hour. Chest x-ray appears with bilateral pulmonary infiltrates. CVP is 8. Greater than 50% variation IVC by ultrasound. Bedside echocardiogram no acute findings. Patient currently with some pleuritic chest pain worse with deep inspiration. EKG currently pending. 8 run beat of V. tach overnight. Potassium magnesium within normal limits. 10/11: Afebrile. FiO2 requirements increased overnight currently at 60%. Chest x-ray revealed pulmonary edema bilaterally. Troponin downward trending. Noted sodium elevated 154. Will remove sodium from TPN. Norepinephrine initiated overnight currently at 8 mcg/min. Nitro paste discontinued. Holding parameters for beta corby 10/12: remains afebrile. back on levophed this AM at 5 mcg/min. also remains tachycardic in the 100s. sodium remains elevated despite removal of nacl from TPN. 10/13: T-max 100.4. Desaturated overnight requiring PEEP increased to 10 currently at 8. FiO2 down to 45%. Appears uncomfortable on the ventilator. Abdomen slightly more distended. Positive output from ostomy.. Transfusing 1 unit PRBCs due to acute coronary syndrome to keep above a. Recheck along with electrolytes active bleeding in place. CT abdomen/pelvis ordered. 10/14: Copious secretions overnight. PEEP at 7 FiO2 50%. Abdominal/pelvis CT revealed bilateral lobar pneumonia pelvic read as gallstone ileus but not likely is patient with copious stool output from ostomy. Did discuss with Dr. Mcgee. Antibiotic coverage broadened. Pancultured yesterday looks like his underlying pneumonia. Will transfuse 1 unit PRBCs today per cardiology request to maintain hemoglobin around 9 for acute coronary syndrome. Diuresis postprocedure and replace electrolytes aggressively. TPN will be weaned/ discontinued today after tube feeds at 40 cc an hour 10/15: t max 100.7 overnight. cultures NGTD. fio2 improving. secretions are somewhat better. 10/16: no improvements. afebrile. failed SBT after 10 minutes for tachypnea and respiratory distress. 10/17: failed sbt again for significant secretions and respiratory distress. only lasting about 10 min. may require tracheostomy. 10/18: much more awake and interactive. still has significant secretions. on SBT for longer today, but with active coronary ischemia, very high risk if he fails extubation. plan for trach if he remains intubated through the weekend. 10/19: still failing SBT. dressings changed today. clinically improving, but very weak and slow progress. 10/20: again failing SBT for copious secretions. was OOB to chair today. likely will need trach. 10/21: failed SBT for tachypnea, RR > 40. discussed [address] Dr[address] Mcgee: plan for trach tomorrow. discussed with cardiology service: they will likely medically manage his coronary artery disease without [facility] intervention. this is more of a reason to pursue trach, to prevent coronary ischemia that would come with trial of extubation first. 10/22: Plan for percutaneous tracheostomy at bedside 11 AM. Arousable on the ventilator and following commands. Currently afebrile. N.p.o. status. 10/23: Status post percutaneous tracheostomy 10/22 without complication. Continues to ooze from around tracheostomy site. Will hold enoxaparin for today. Tube feeds back at goal. Denies abdominal pain. Positive flatus from ostomy site. 10/24: Normal stool coming from well-perfused ostomy. Spontaneous breathing trials with tachypnea and mild labor. Chest x-ray with chronic interstitial changes and small lung volumes. 10/25: A little bit stronger on spontaneous breathing trials today. Pressure support settings /10. Tolerating tube feeds. 10/26: He is tolerating a mild reduction and mean airway pressure and end expiratory pressure. Continues to look acceptably comfortable during spontaneous breathing trials. 10/27: We needed to increase PEEP again last evening. 10/28: Spontaneous breathing trial at 8/8 this morning and doing quite well. Tube feedings on hold per surgery. Patient required low dose Xanax last night for anxiety. 10/29: intermittent SBTs. will trial t-piece today. no significant change. needs LTAC level care. 10/30: t-piece trials. ostomy working. advancing trickle tube feeds per surgery. 10/31: patient having gout flair and significantly painful. however, steroids contraindicated, and NSAIDS also contraindicated with concern over renal dysfunction in the setting of critical illness. still failing to separate from mechanical ventilation. really needs LTAC level care for pulmonary rehab. 11/01: NG tube placed to suction with 700 cc of gastric contents suctioned out overnight. Patient remains on mechanical ventilation with tracheostomy on CPAP with pressure support. Failed T piece yesterday. 11/02: Remains on mechanical ventilation via tracheostomy. 11/03: Remains on mechanical ventilation via tracheostomy. CPAP trials daily. T -piece as tolerated. 11/04: On mechanical ventilation via tracheostomy. Daily CPAP trials. 11/05, 11/06: Remains on mechanical ventilation via tracheostomy. Daily CPAP trials ongoing. 11/07: Worsening respiratory status. Placed back on PRVC mode mechanical ventilation last night. Significant sick pulmonary secretions noted. No BMs via colostomy. Chest x-ray done this morning shows worsening infiltrates more on the right suspicious for aspiration. KUB done this morning shows an ileus. Already placed on Zosyn on 11/07 which should cover for pneumonia. 11/08: Resting on mechanical ventilation via tracheostomy. Wound culture from incision site growing Pseudomonas 11/09: Remains on mechanical ventilation via tracheostomy. Wound culture and sputum both growing Pseudomonas. 11/10: Is on mechanical ventilation via tracheostomy. Daily CPAP trials. 11/11: Remains on mechanical ventilation via tracheostomy. Really CPAP trials ongoing. 11/12 No events overnight. On ventilator via trach. On CPAP with PS 15, PEEP:5 and FIO2 40%. Afebrile. 11/13 Patient denies complaint. Wants NGT out but understand rationale for continuing. On CPAP 15/5. Tolerating tube feeds. Afebrile. Subjective: 11/14 On CPAP 15/5 since yesterday. Able to wean to 12/5 but weaning beyond that produces tachypnea. Was out of bed to chair for a couple of hours. 11/15: Remains on CPAP via tracheostomy. Had problems with secretions last night. Adding scheduled nebulizer treatments and Mucomyst to mobilize secretions. 11/16: Resting comfortably on mechanical ventilation via tracheostomy. On CPAP trial 11/17: Afebrile. Tolerating tube feeds at goal. Placed on ventilator yesterday secondary to worsening subjective shortness of breath. We will reattempt CPAP trial again today. Positive BM.. 11/18: Afebrile. We will reattempt CPAP trial again today. Check chest x-ray in a.m. Continue with pulmonary toilet. Anxious. 11/19: Not tolerating CPAP trials well. Will discuss among consultants ways to manage his anxiety. 11/20: Brief episodes of apnea overnight. Anxiety a little better controlled this morning. 11/21: Patient vomited a large amount of tube feed this morning. After this he appeared comfortable although a little anxious. 11/22: Feels a little better this morning but abdomen remains moderately distended. Good stoma output. Surgical service is aware and Dr. Shepard saw the patient last evening. KUB reviewed. Potassium replacement underway now. 11/23: Patient remains in poorly compensated diastolic heart failure. Our best efforts to gingerly diuresis and has just resulted in worsening renal function. His medical therapy is maximized for heart failure with acceptable pulse rate control and afterload reduction. Inability to wean completely from the ventilator is closely associated persistent pulmonary edema. 11/24: Breathing quite comfortably this morning on CPAP however requiring 15 cm of water pressure support. Despite congested chest x-ray his lungs are fairly clear to auscultation. He has been started on TPN and his GI tract To low intermittent suction through an NG tube. The abdomen is remarkably soft and not distended. The colostomy does have output. 11/25: He has finally progressed to T piece trials and so far he is comfortable. We continue to adjust electrolyte replacement because of nasogastric losses. His general demeanor is much improved today and he is much less anxious. TPN is infusing as we rest his bowel. SUBJECTIVE 11/26: more gastric distension and vomiting this AM. tube feeds stopped and NGT to LIWS with 300cc gastric contents removed. general surgery notified. will ultimately need permanent enteral access, and likely G/J at this point. no changes. still resting on vent overnight. very weak and deconditioned. 11/27: Continues to have episodes of vomiting, continues to have gastric distention. KUB shows ileus. Will start on scheduled Reglan, replaced potassium. Requested PICC line for TPN and electrolyte replacement. Dr. Mcgee planning for OR with ex lap and lysis of adhesions tomorrow 11/28: Awake alert on the ventilator today. Nausea vomiting is improved. Plan for OR today with Dr. Mcgee with TIA and G-J tube placement 11/29: Currently lying in bed on CPAP. Status post exploratory laparotomy, Lysis of adhesions, greater than 1 hour, Small bowel resection and GJ tube placement. Complaints of postop pain I will add morphine for breakthrough pain. Start TPN today per general surgery. Calcium low getting replaced 11/30: Complains of increased nausea vomiting today. Increased G-tube output approximately 400 mL overnight. Per general surgery GT piece to intermittent wall suction J-tube clamped. TPN started 12/01: Pain improved denies nausea today. Hb 6.5 getting 2 units of PRBC. G- tube output 300 ml last 24 hrs, J-tube capped. JOSÉ drain was removed by Dr. Mcgee. Will resume CPAP trials 12/02: Clinically improving pain better. No colostomy function yet. G-tube output approximately 800 mL in 24 hours. Continuing TPN. WBC count 19.6 no fever. 12/03: Comfortable this morning. Normal respiratory pattern. Instructions from surgery service reviewed, agree. 12/04: Remains mostly comfortable. Not able to tolerate SBTs yet. 12/05: After lengthy discussions with the patient and his last evening we continued discussions this morning with Dr. Mcgee and the family. The family and patient are leaning toward hospice care with the understanding that his refractory diastolic heart failure will prohibit successful weaning from the ventilator. All are attempts to suitably diuresis the patient have resulted in acute kidney injury and at this juncture hospice is a reasonable choice. We have expressed to the family that we will support whatever decision they make. 12/06: Patient comfortable this morning while on increased sedation and analgesia regimen. Family will return to us today with a response regarding a short-term care plan for the patient. The family has requested that we keep him calm and out of pain in the interim. 12/07: He is comfortable this morning and appears in no distress. The family appears united and consistent and there requests that we provide comfort measures at this point. The primary team is making arrangements for the patient transition to hospice in [place]. - Time Spent with Patient Total time spent providing and/or coordinating discharge services: Greater than 30 minutes Exam Narrative: Deteriorating clinical condition Results Procedures completed during hospitalization: none Completed studies during hospitalization: Pending at discharge 11/28/17 08:06 Surgical [PTH] Routine - Impressions ITS Impressions Abdomen X-Ray 11/29/17 06:00 CONCLUSION: 1. Free intraperitoneal air. Findings were discussed with Dr. Gallo. Patient is status post exploratory laparotomy. 2. Nonobstructive bowel gas pattern. Chest X-Ray 11/30/17 12:01 CONCLUSION: Progression in the bilateral infiltrates and small effusions. Discharge Plan - Discharge Disposition Patient Disposition: [facility] - Discharge Condition Condition: Serious - Discharge Order Discharge Orders: Discharge Order (Routine); Ordered 02/12/18 Ordered By: Mina Rivas - Physicians Team Primary Care Provider: Cecile Tanner Attending Provider: Laura Gallo Other Providers: David Mcgee MD ; Janet Ellison MD ; ; Jhon Kat MD ; Laura aGllo MD ; [facility],Agency ; [facility] ,[facility] ; [employer] - Rxs /Orders / Referrals /Forms Prescriptions: Discontinued amlodipine 10 mg Tablet 10 mg PO DAILY ascorbate calcium 500 mg Tablet 2,000 mg PO DAILY ascorbic acid (vitamin C) [Vitamin C] 1,000 mg Tablet 1 g PO DAILY aspirin 81 mg Tablet,Delayed Release (Dr/Ec) 81 mg PO DAILY atorvastatin 20 mg Tablet 20 mg PO HS clopidogrel [Plavix] 75 mg Tablet 75 mg PO DAILY cyanocobalamin (vitamin B-12) 500 mcg Tablet 500 mcg PO DAILY denosumab [Prolia] 60 mg/mL Syringe 60 mg SUB-Q [id number] docusate sodium 100 mg Tablet 100 mg PO DAILY PRN (Reason: Constipation) ferrous sulfate 325 mg (65 mg iron) Tablet 325 mg PO DAILY gabapentin 300 mg Capsule 300 mg PO DIRECTED ketoconazole 2 % Cream 1 applic TOPICAL DAILY lisinopril 20 mg Tablet 10 mg PO DAILY metformin 1,000 mg Tablet 1,000 mg PO BID Multiple Vitamins capsule 1 PO DAILY omeprazole 20 mg Capsule,Delayed Release(Dr/Ec) 20 mg PO DAILY prochlorperazine maleate 10 mg Tablet 20 mg PO DAILY PRN (Reason: Nausea) Referrals: Cecile Tanner MD [Primary Care Provider] - See Instructions - Discharge Instructions Patient Printed Instructions: Laparoscopic Cholecystectomy (DC)
== END 2017-12-07 17:32 | disposition hospice, inpatient (51) ==
LOC: N05 15:21 → N03 10-08 15:10
PROVIDERS: ADMIT Internal Medicine; ATTEND Internal Medicine